=== PATIENT | male | born 1990 | race Caucasian/White ===

== ENCOUNTER 2021-09-22 09:29 | Emergency (ER) | payer SELFPAY ==
[2021-09-22 09:39] VITALS: BP 169/108; PULSE 101; RESP 16; O2SAT 94; BMI 36.9
--- NOTE | 2021-09-22 09:57 | XR_ITS ---
WS: [id number] Right forearm, AP and lateral views, 09/22/2021 Clinical Data: injury Comparison: None. Findings: No definite fractures or dislocations are seen. The soft tissues are normal. The visualized right elb ow shows no obvious abnormalities. On the lateral view the distal scaphoid shows a possible unfused fragment or old fracture. XR/XR forearm RT 2V [id number] Impression: 1. Negative for fracture of radius or ulna. 2. Possible old injury or accessory ossicle of the distal right scaphoid.
--- NOTE | 2021-09-22 10:17 | ED_ITS ---
HPI - Extremity Problem General: Chief complaint: Extremity Injury, Upper Stated complaint: Right Forearm injury Time Seen by Provider: 09/22/21 09:57 Source: patient Mode of arrival: ambulatory Limitations: no limitations History of Present Illness: 31-year-old male presents emergency room complaining of right forearm pain. 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 No other injury no crush injury no deformity. MD Complaint: extremity pain Onset (ago): day(s) Pain Consistency: constant Location: right and upper extremity Quality: sharp Relieving factors: rest Exacerbating factors: range of motion and palpation Associated symptoms: Deny chest pain, fever(s) or rash Review of Systems Const: Denies: fever(s), chills, body aches, change in appetite, fatigue or malaise ENMT: Denies: throat pain, ear or mastoid pain, nasal discharge or nasal congestion Card: Denies: chest pain, edema, dyspnea on exertion or orthopnea Resp: Denies: dyspnea, productive cough or non-productive cough GI: Denies: abdominal pain, nausea, vomiting, hematemesis, coffee ground emesis, diarrhea, constipation, bloating, hematochezia or melena : Denies: flank pain, dysuria, urinary frequency or urinary urgency Skin/Breast: Denies: rash or pruritus [facility] ED PFSH: Medical History (Updated 09/23/21 @ 08:25 by Allen Garcia DO) No significant medical problems Surgical History (Updated 09/23/21 @ 08:25 by Allen Garcia DO) No significant past surgical history Social History (Updated 09/23/21 @ 08:26 by Allen Garcia DO) Smoking and tobacco status: current every day smoker Physical Exam Const: COMMON NORMALS: no acute distress GENERAL APPEARANCE: cooperative and comfortable ORIENTATION/CONSCIOUSNESS: Yes awake, Yes oriented to person, Yes oriented to place and Yes oriented to time HENMT: COMMON NORMALS: normocephalic, atraumatic and hearing grossly normal bilaterally HEAD & SCALP: normocephalic and atraumatic Neck/C-Spine: COMMON NORMALS: no JVD Resp: COMMON NORMALS: normal respiratory effort, No retractions, No use of accessory muscles and clear to auscultation bilaterally AUSCULTATION: clear to auscultation bilaterally Cardio: COMMON NORMALS: no JVD, regular rate, regular rhythm and No murmurs present (Cardio) RATE: regular rate RHYTHM: regular rhythm Extremity: COMMON NORMALS: normal to inspection, capillary refill normal, no clubbing, cyanosis or edema, no calf tenderness and no pedal edema OTHER: Normal sensation to both hands patient has pain over the medial volar aspect of the forearm with attempted flexion also mildly so somewhat with extension. He is able to hold against resistance while in flexion of his third fourth and fifth fingers does not affect his index finger or thumb. At the site of pain there is no induration minimal swelling. Neuro: SENSORIUM/ORIENTATION: Yes oriented to person, Yes oriented to place an d Yes oriented to time Skin: COMMON NORMALS: no rashes or lesions noted GENERAL SKIN EXAM: no rashes or lesions noted Course Vital Signs: Vital signs: Vital Signs Pulse Rate 101 H 09/22/21 09:39 Respiratory Rate 16 09/22/21 09:39 Blood Pressure 169/108 09/22/21 09:39 Pulse Oximetry 94 09/22/21 09:39 MDM - Extremity (Nontraumatic) Medical Decision Making Ice. We will place him in a splint and a sling have him follow-up with Ortho if he has worsening or recurrent problems return no use of the hand until released by Ortho. Medical Records I reviewed the patient's medical records. Lab Data I reviewed the patient's lab results. Radiology Impressions Forearm X-Ray 09/22/21 09:57 Impression: 1. Negative for fracture of radius or ulna. 2. Possible old injury or accessory ossicle of the distal right scaphoid. Discharge Plan Discharge Clinical Impression: Muscle strain of right forearm Prescriptions: New diclofenac sodium 75 mg tablet,delayed release (DR/EC) 75 mg PO Q12H PRN (Reason: pain) Qty: 20 0RF Discharge Orders: Discharge ED (Routine); Ordered 09/22/21 Ordered By: Allen Garcia Referrals: Nikole Solano APN [Primary Care Provider] - Discharge Diet: Usual diet Discharge Activity: Limit activity as instructed Patient Instructions: Opioid Safety Activity Restrictions/Additional Instructions: No use of the right arm use splint and sling until released by orthopedics. Case will make arrangements for you to be seen by orthopedic Coding Level of Care Code ED Rig Operator for Shala Ocampo
== END 2021-09-22 10:47 | disposition home or self-care (01) ==
PROVIDERS: Emergency Provider Family Medicine; PCP Nurse Practitioner Family
DX: S56.911A Strain of unspecified muscles, fascia and tendons at forearm level, right arm, initial encounter (principal); X58.XXXA Exposure to other specified factors, initial encounter
CPT/HCPCS: 29125; 73090; 99283

== ENCOUNTER → 2021-09-26 13:49 | Outpatient (BNVA) | payer SELFPAY | PROVIDERS: PCP Nurse Practitioner Family; Visit Provider Physician Assistant | DX: S69.90XA Unspecified injury of unspecified wrist, hand and finger(s), initial encounter (principal); X58.XXXA Exposure to other specified factors, initial encounter | CPT/HCPCS: 73110 ==

== ENCOUNTER 2021-09-26 15:48 | Outpatient (CLI) | payer SELFPAY | END 2021-09-26 15:49 | disposition home or self-care (01) | LOC: SPT 15:49 | PROVIDERS: PCP Nurse Practitioner Family; Visit Provider Physician Assistant | DX: Z46.89 Encounter for fitting and adjustment of other specified devices (principal); S63.591D Other specified sprain of right wrist, subsequent encounter; X58.XXXD Exposure to other specified factors, subsequent encounter | CPT/HCPCS: L3908 ==

== ENCOUNTER 2021-11-09 07:48 | Outpatient (CLI) | payer SELFPAY ==
--- NOTE | 2021-11-09 07:45 | MR_ITS ---
WS: [id number] MRI RIGHT FOREARM without CONTRAST. COMPARISON: Radiographs 09/22/2021 and 09/26/2021 Multiplanar, multisequence imaging is performed without contrast. No marrow signal abnormality. There is no edema within the ulna or radius. No joint effusion at the e lbow. No muscle edema or atrophy. Course of the ulnar nerve is negative. Cannot definitely trace the entire ulnar nerve but there is no edema or secondary findings of an nerve injury. Biceps tendon at t he radial tuberosity attachment is normal. MR/MR forearm RT wo con* [id number] IMPRESSION: 1. Negative MRI RIGHT forearm. No muscle edema or atrophy. 2. Ulnar nerve appears normal as visualized. The entire nerve is not visualize d but there are no secondary findings of nerve injury. 3. Biceps tendon at the radial tuberosity is normal. 4. With the patient's symptoms consider more proximal nerve injury.
== END 2021-11-09 07:49 | disposition home or self-care (01) ==
LOC: RAD 07:49
PROVIDERS: PCP Nurse Practitioner Family; Visit Provider Physician Assistant
DX: S59.911A Unspecified injury of right forearm, initial encounter (principal); X58.XXXA Exposure to other specified factors, initial encounter
CPT/HCPCS: 73218

== ENCOUNTER 2022-10-25 18:04 | Emergency (ER) | payer SELFPAY ==
[2022-10-25 18:30] VITALS: BP 125/70; PULSE 105; RESP 16; O2SAT 93
[2022-10-25 19:14] VITALS: BP 136/81; PULSE 107; RESP 18; TEMP 36.9; O2SAT 95
--- NOTE | 2022-10-25 19:41 | ED_ITS ---
HPI - Wound/Laceration General: Chief Complaint: Wound/Laceration Stated Complaint: right arm/left leg injury Time Seen by Provider: 10/25/22 19:41 History of Present Illness: 32-year-old male patient comes in today with increased bruising. Patient has multiple bruises to the forearms and lower extremities. Patient denies any chronic medical problems. When questioned patient does admit to heavy drinking. Patient also has a history of rapid heart rate that resolves on its own along with elevated blood pressure. Patient appears nontoxic. Patient appears in no acute distress. Associated symptoms: Denies fever(s), nausea or vomiting Review of Systems General: Reports: 10 or more systems reviewed and unremarkable except in HPI and below Const: Denies: fever(s) Card: Denies: chest pain Resp: Denies: dyspnea GI: Denies: nausea, vomiting, diarrhea or constipation Musc: Reports: extremity pain (Bruising) Skin/Breast: Reports: new lesions (Abrasion) Michelet/Lymph: Reports: easy bruising and easy bleeding [facility] ED PFSH: Medical History No significant medical problems Surgical History No significant past surgical history Social History Smoking and tobacco status: current every day smoker Physical Exam Const: COMMON NORMALS: alert HENMT: COMMON NORMALS: normocephalic HEAD & SCALP: normocephalic Neck/C-Spine: COMMON NORMALS: full ROM Chest: COMMONS NORMALS: normal inspection of the chest Resp: COMMON NORMALS: normal respiratory effort Cardio: COMMON NORMALS: regular rate and regular rhythm RATE: regular rate RHYTHM: regular rhythm GI: COMMON NORMALS: non-tender Back/Pelvis: COMMON NORMALS: thoracic and lumbar spine normal to inspection Extremity: NARRATIVE EXTREMITY EXAM: Bruising to bilateral upper extremities and lower legs. Various stages of healing. Neuro: SENSORIUM/ORIENTATION: Yes alert Course Vital Signs: Vital signs: Vital Signs Temperature 98.5 F 10/25/22 19:14 Pulse Rate 107 H 10/25/22 19:14 Respiratory Rate 18 10/25/22 19:14 Blood Pressure 136/81 10/25/22 19:14 Pulse Oximetry 95 10/25/22 19:14 Oxygen Delivery Me thod Room Air 10/25/22 18:30 MDM - Wound/Laceration Medical Decision Making Patient comes in with bruises to the forearms and lower extremities. They are at various stages of healing. Upon questioning patient does admit to heavy drinking. Vital signs are normal. Differential diagnosis includes cirrhosis of the liver, malnutrition, alcoholism, contusions. Laboratory values noted no significant abnormalities to the CBC, negative Homans' sign to the leg, INR was 1.18, sodium was 129, anion gap was 25, glucose was 641, patient did have some mild elevation of bilirubin at 1.3, AST's were 140, ALT's were 66 and alk phos was 155. Patient had nontender abdomen. 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 Patient was given 10 units of insulin and 1-1/2 L of IV saline with blood glucose coming down to 276. ABGs did not indicate acidosis with a 7.4 pH. Reviewed with patient recommendations for treatment of diabetes with metformin to start and discuss cessation of alcohol. Patient reported understanding of care plan and need for follow-up with primary care. Case management was requested to help patient with follow-up appointment. Lab Data 10/25/22 19:53 10/25/22 19:53 Laboratory Results WBC 9.1 10^3/uL (4.0-10.0) 10/25/22 19:53 RBC 3.97 10^6/uL (4.1-5.3) L 10/25/22 19:53 Hgb 12.8 g/dL (11.7-16.6) 10/25/22 19:53 Hct 37.6 % (42.0-52.0) L 10/25/22 19:53 MCV 94.7 fl (80-94) H 10/25/22 19:53 MCH 32.2 pg (28.0-34.0) 10/25/22 19:53 MCHC 34.0 g/dL (30.0-36.0) 10/25/22 19:53 RDW 12.5 % (12.1-15.1) 10/25/22 19:53 Plt Count 178 10^3/cmm (130-400) 10/25/22 19:53 MPV 10.2 fL (7.4-10.4) 10/25/22 19:53 Neut % (Auto) 53.7 % 10/25/22 19:53 Lymph % (Auto) 31.0 % 10/25/22 19:53 Cooper % (Auto) 11.9 % 10/25/22 19:53 Eos % (Auto) 2.2 % 10/25/22 19:53 Baso % (Auto) 1.0 % 10/25/22 19:53 Neut # (Auto) 4.88 10^3/uL (1.8-7.7) 10/25/22 19:53 Lymph # (Auto) 2.8 10^3/uL (0.8-4.8) 10/25/22 19:53 Cooper # (Auto) 1.1 10^3/uL (0.2-0.9) H 10/25/22 19:53 Eos # (Auto) 0.2 10^3/uL (0.0-0.8) 10/25/22 19:53 Baso # (Auto) 0.1 10^3/uL (0.0-0.1) 10/25/22 19:53 Nucleated RBC % (auto) 0 % 10/25/22 19:53 Nucleated RBCs # 0.0 /100WBC 10/25/22 19:53 PT 15.40 SECONDS (12.1-14.9) H 10/25/22 19:53 INR 1.18 (0.8-1.2) 10/25/22 19:53 D-Dimer 0.61 ug/mIFEU (0-0.59) H 10/25/22 19:53 Specimen Type Arterial 10/25/22 21:05 Sample Site Brachial, right 10/25/22 21:05 ABG pH 7.41 (7.35-7.45) 10/25/22 21:05 ABG pCO2 41.2 mmHg (35-45) 10/25/22 21:05 ABG pO2 74.7 mmHg (80.0-100.0) L 10/25/22 21:05 ABG HCO3 26.0 mmol/L (22-26) 10/25/22 21:05 ABG Base Excess 1.2 mmol/L (-2.0-2.0) 10/25/22 21:05 Miles Test N/a 10/25/22 21:05 Hematocrit 41.0 % (42-52) L 10/25/22 21:05 O2 Delivery Device None 10/25/22 21:05 FiO2 21.0 % 10/25/22 21:05 Road Machine Runner ID [email or web address] 10/25/22 21:05 Sodium 129 mmol/L (136-145) L 10/25/22 19:53 Potassium 4.1 mmol/L (3.5-5.1) 10/25/22 19:53 Chloride 87 mmol/L (98-107) L 10/25/22 19:53 Carbon Dioxide 21 mmol/L (22-29) L 10/25/22 19:53 Anion Gap 25.1 (5-19) H 10/25/22 19:53 BUN 13 mg/dL (6-20) 10/25/22 19:53 Creatinine 0.8 mg/dL (0.7-1.2) 10/25/22 19:53 GFR Calculation 111.3 mL/min (90-130) 10/25/22 19:53 Glucose 641 mg/dL (65-115) H* 10/25/22 19:53 POC Glucose 276 mg/dL (70-110) H 10/25/22 22:12 Calculated Osmolality 298 mOsm/kg (285-295) H 10/25/22 19:53 Calcium 9.5 mg/dL (8.5-10.5) 10/25/22 19:53 Total Bilirubin 1.3 mg/dL (0.15-1.2) H 10/25/22 19:53 AST 140 U/L (0-40) H 10/25/22 19:53 ALT 66 U/L (0-41) H 10/25/22 19:53 Alkaline Phosphatase 155 U/L (40-130) H 10/25/22 19:53 Total Protein 8.2 g/dL (6.6-8.7) 10/25/22 19:53 Albumin 4.2 g/dL (3.5-5.2) 10/25/22 19:53 Globulin 4.0 g/dL (1.3-4.6) 10/25/22 19:53 Discharge Plan Discharge Patient Disposition: Home Clinical Impression: Abnormal bruising, Hyperglycemia due to diabetes mellitus, Alcohol abuse Condition: Stable Prescriptions: New metformin 500 mg tablet 500 mg PO BID Qty: 60 0RF No Action (DME) cock up splint See Rx Instructions .Route .MEDSUPPLY Qty: 1 0RF Rx Instructions: As directed diclofenac sodium 75 mg tablet,delayed release (DR/EC) 75 mg PO Q12H PRN (Reason: pain) Qty: 20 0RF Discharge Orders: Discharge ED (Routine); Ordered 10/25/22 Ordered By: Dustin Pressley Referrals: Nikole Solano APN [Primary Care Provider] - Discharge Diet: Usual diet Discharge Activity: Increase activity as tolerated Patient Instructions: Type 2 Diabetes in Adults: New Diagnosis (DC) Activity Restrictions/Additional Instructions: Eat a healthy diet with plenty of fresh fruits and vegetables and lean meat. Avoid too many processed foods. Try to decrease alcohol consumption to no more than 2 drinks a day. Follow-up with primary care for further instructions. Take metformin 500 mg twice a day with your morning and evening meal. Case management will contact you regarding follow-up appointment. Return to ER for new concerns. Coding Level of Care Code ED Brand Marketing Coordinator for Shala Ocampo
[2022-10-25] MEDS: bacitracin ointment Pkt 1 EACH TOPICAL (20:11)
[2022-10-25 20:12] LABS: Basophils # 0.1 10^3/uL (0.0-0.1); Eosinophils # 0.2 10^3/uL (0.0-0.8); Eosinophils % 2.2 %; Hematocrit 37.6 % (42.0-52.0); Hemoglobin 12.8 g/dL (11.7-16.6); Lymphocytes # 2.8 10^3/uL (0.8-4.8); Mean Corpuscular Hemoglobin 32.2 pg (28.0-34.0); Mean Corpuscular Volume 94.7 fl (80-94); Mean Platelet Volume 10.2 fL (7.4-10.4); Monocytes # 1.1 10^3/uL (0.2-0.9); Monocytes % 11.9 %; Neutrophils # 4.88 10^3/uL (1.8-7.7); Neutrophils % 53.7 %; Nucleated Red Blood Cells % 0 %; Platelet Count 178 10^3/cmm (130-400); Red Blood Count 3.97 10^6/uL (4.1-5.3); Red Cell Distribution Width 12.5 % (12.1-15.1); White Blood Count 9.1 10^3/uL (4.0-10.0)
[2022-10-25 20:24] LABS: INR 1.18 (0.8-1.2)
[2022-10-25 20:26] LABS: D Dimer 0.61 ug/mIFEU (0-0.59)
[2022-10-25 20:37] LABS: Alanine Aminotransferase 66 U/L (0-41); Albumin Level 4.2 g/dL (3.5-5.2); Alkaline Phosphatase 155 U/L (40-130); Anion Gap 25.1 (5-19); Aspartate Amino Transferase 140 U/L (0-40); Blood Urea Nitrogen 13 mg/dL (6-20); Calcium 9.5 mg/dL (8.5-10.5); Carbon Dioxide 21 mmol/L (22-29); Chloride 87 mmol/L (98-107); Glomerular Filtration Rate 111.3 mL/min (90-130); Osmolality Calculated 298 mOsm/kg (285-295); Potassium 4.1 mmol/L (3.5-5.1); Sodium 129 mmol/L (136-145); Total Bilirubin 1.3 mg/dL (0.15-1.2); Total Protein 8.2 g/dL (6.6-8.7)
[2022-10-25 20:40] LABS: Glucose 641 mg/dL (65-115)
[2022-10-25] MEDS: insulin regular-human 100 units/1 mL 10 UNIT IVP (21:10)
[2022-10-25] MEDS: sodium chloride 0.9% 1,000 ML 999 ML IV (21:10)
[2022-10-25 21:14] LABS: ABG PCO2 41.2 mmHg (35-45); ABG PH Result 7.41 (7.35-7.45); Base Excess ABG 1.2 mmol/L (-2.0-2.0); Blood Gas Sample Site Brachial, right; Blood Gas Sample Type Arterial; PO2 ABG 74.7 mmHg (80.0-100.0)
[2022-10-25 22:16] LABS: Glucose Point of Care 276 mg/dL (70-110)
--- NOTE | 2022-10-26 08:53 | DCPLANNER ---
bilingual case manager had message to speak with patient about getting established with a primary care physician. bilingual case manager spoke with patients mother, gave her the information to [facility], where patient can apply for the sliding scale.
== END 2022-10-25 23:07 | disposition home or self-care (01) ==
PROVIDERS: Emergency Provider Nurse Practitioner Family; PCP Nurse Practitioner Family
DX: S50.12XA Contusion of left forearm, initial encounter (principal); S50.11XA Contusion of right forearm, initial encounter; S80.12XA Contusion of left lower leg, initial encounter; S80.11XA Contusion of right lower leg, initial encounter; E11.65 Type 2 diabetes mellitus with hyperglycemia; F10.10 Alcohol abuse, uncomplicated; F17.210 Nicotine dependence, cigarettes, uncomplicated; X58.XXXA Exposure to other specified factors, initial encounter
CPT/HCPCS: 36415; 36416; 36600; 80053; 82803; 82962; 85025; 85378; 85610; 96374; 99284; J1815; J7030

== ENCOUNTER 2023-07-01 17:06 | Inpatient (IN) | payer SELFPAY ==
[2023-07-01] VITALS (50 sets, daily range): BP systolic 121–163; BP diastolic 74–114; PULSE 76–161; RESP 15–28; TEMP 36.9–37.1; O2SAT 81–100; BMI 35.8
--- NOTE | 2023-07-01 17:15 | ECG_ITS ---
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 Measurements Intervals [place] Rate: 150 P: 164 NH: 132 QRS: 87 QRSD: 105 T: 269 QT: 231 QTc: 365 Interpretive Statements ECTOPIC ATRIAL TACHYCARDIA, POSSIBLE ATRIAL FLUTTER POSSIBLE INFERIOR MYOCARDIAL INFARCTION , OF INDETERMINATE AGE [30 ms Q WAVE IN II/aVF] MODERATE T-WAVE ABNORMALITY, CONSIDER ANTEROLATERAL ISCHEMIA [-0.1+ mV T-WAVE IN V3-V6] CRITICAL TEST RESULT Compared to ECG 08/25/2018 09:42:09 Myocardial infarct finding now present T-wave abnormality now present Possible ischemia now present Sinus rhythm no longer present Electronically Signed On 07-01-2023 19:30:34 CDT by Petr Pandey M.D. [id number]
--- NOTE | 2023-07-01 17:15 | XRR_ITS ---
PROCEDURE INFORMATION: Exam: XR Chest Exam date and time: 07/01/2023 5:26 PM Age: 33 years old Clinical indication: Other: AMS; Additional info: CVA TECHNIQUE: Imaging protocol: Radiologic exam of the chest. Views: 1 view. COMPARISON: CR XR chest 1V [id number] 08/25/2018 9:59 AM FINDINGS: Lungs: No focal consolidation. Pleural spaces: No evidence of pneumothorax. No evidence of pleural effusion. Heart/Mediastinum: Cardiomediastinal silhouette is within normal limits. Bones/joints: No evidence of acute osseous abnormality. XR/XR chest 1V portable [id number] IMPRESSION: 1. No acute cardiopulmonary abnormality.
--- NOTE | 2023-07-01 17:15 | CTR_ITS ---
PROCEDURE INFORMATION: Exam: CT Head Without Contrast Exam date and time: 07/01/2023 5:20 PM Age: 33 years old Clinical indication: Stroke-like symptoms; Speech disturbance; Additional info: Symptoms of acute stroke TECHNIQUE: Imaging protocol: Computed tomography of the head without contrast. Radiation optimization: All CT scans at this facility use at least one of these dose optimization techniques: automated exposure control; mA and/or kV adjustment per patient size (includes targeted exams where dose is matched to clinical indication); or iterative reconstruction. Other technique: STROKE PROTOCOL was implemented. COMPARISON: No relevant prior studies available. RADIATION DOSE METRICS: Total DLP (mGy-cm): 1219.88 FINDINGS: Brain: No evidence of intra-axial or extra-axial hemorrhage. No mass effect or midline shift. Gutierrez-white differentiation is maintained. Basilar cisterns are patent. Cerebral ventricles: No hydrocephalus. Paranasal sinuses: Opacification of the left anterior ethmoid air cells and left maxillary sinus. Mastoid air cells: The visualized mastoids and middle ears are clear. Bones/joints: The visualized calvarium and bony orbits are intact. Soft tissues: No gross soft tissue abnormality. CT/CT head thrombolytic [id number] IMPRESSION: 1. No acute intracranial abnormality. ASSESSMENT: ASPECTS ([place] Stroke Program Early CT Score) is 10.
--- NOTE | 2023-07-01 17:15 | CTR_ITS ---
PROCEDURE INFORMATION: Exam: CTA Head With Contrast, Arteriography Exam date and time: 07/01/2023 5:23 PM Age: 33 years old Clinical indication: Stroke-like symptoms; Speech disturbance; Additional info: CVA TECHNIQUE: Imaging protocol: Computed tomographic angiography of the head with contrast. Exam focused on the arteries. 3D rendering (Not supervised by radiologist): MIP and/or 3D reconstructed images were created by the technologist. Radiation optimization: All CT scans at this facility use at least one of these dose optimization techniques: automated exposure control; mA and/or kV adjustment per patient size (includes targeted exams where dose is matched to clinical indication); or iterative reconstruction. Contrast material: OMNI 350; Contrast volume: 100 ml; Contrast route: INTRAVENOUS (IV); COMPARISON: CT head thrombolytic [id number] 07/01/2023 5:20 PM RADIATION DOSE METRICS: Total DLP (mGy-cm): 550.37 FINDINGS: ANTERIOR CIRCULATION: Right internal carotid artery: Patent. Right middle cerebral artery: Patent. Right anterior cerebral artery: Patent. Left internal carotid artery: Patent. Left middle cerebral artery: Patent. Left anterior cerebral artery: Patent. POSTERIOR CIRCULATION: Right vertebral artery: Patent. Left vertebral artery: Patent. Basilar artery: Patent. Right posterior cerebral artery: Patent. Left posterior cerebral artery: Patent. Other: Opacification of the left frontal, anterior ethmoid and maxillary sinuses. PROCEDURE INFORMATION: Exam: CTA Neck With Contrast Exam date and time: 07/01/2023 5:23 PM Age: 33 years old Clinical indication: Stroke-like symptoms; Speech disturbance; Additional info: CVA TECHNIQUE: Imaging protocol: Computed tomographic angiography of the neck with contrast. Exam focused on the cervical segments of the vasculature. 3D rendering (Not supervised by radiologist): MIP and/or 3D reconstructed images were created by the technologist. Radiation optimization: All CT scans at this facility use at least one of these dose optimization techniques: automated exposure control; mA and/or kV adjustment per patient size (includes targeted exams where dose is matched to clinical indication); or iterative reconstruction. Contrast material: OMNI 350; Contrast volume: 100 ml; Contrast route: INTRAVENOUS (IV); COMPARISON: CT head thrombolytic [id number] 07/01/2023 5:20 PM RADIATION DOSE METRICS: Total DLP (mGy-cm): 550.37 FINDINGS: Right common carotid artery: Patent. No evidence of hemodynamically significant stenosis. Right internal carotid artery: Patent. No evidence of hemodynamically significant stenosis. Right external carotid artery: Patent. Left common carotid artery: Patent. No evidence of hemodynamically significant stenosis. Left internal carotid artery: Patent. No evidence of hemodynamically significant stenosis. Left external carotid artery: Patent. Right vertebral artery: Patent. Vertebral arteries are codominant. Left vertebral artery: Patent. Soft tissues: No gross soft tissue abnormality. No evidence of fluid collection or hematoma. Bones/joints: No evidence of acute fracture or subluxation of the cervical spine. There is height loss of the C7 vertebral body raising the question of sequela of remote trauma. CT/CT angio headneck* [id number] IMPRESSION: 1. No evidence of large vessel occlusion or acute thrombosis in the head. 2. Paranasal sinus disease on the left. IMPRESSION: 1. No evidence of acute thrombosis or hemodynamically significant stenosis in the neck. REFERENCES: NASCET CRITERIA. The degree of stenosis in the cervical segment of the internal carotid artery is based on NASCET criteria. Normal is no stenosis. Mild is less than 50% stenosis. Moderate is 50-69% stenosis. Severe is 70% to 99% stenosis. Total occlusion is no detectable patent lumen.
[2023-07-01 17:16] LABS: Glucose Point of Care 154 mg/dL (70-110)
--- NOTE | 2023-07-01 17:22 | ED_ITS ---
HPI - Neuro Symptoms/Deficit 2 General: Chief Complaint: Neuro Symptoms/Deficit Stated Complaint: strok like symptoms Time Seen by Provider: 07/01/23 17:13 Source: patient and family Mode of arrival: ambulatory Limitations: no limitations History of Present Illness: 33-year-old male with a history of diabe yasmin states that he has had slurred speech since this morning 1:30 AM patient is here with her mother she states she spoke to him at 10 he was slurring his words. Patient currently is having a very hard time finding words he is diaphoretic and tachycardic. No focal weaknesses. Denies any pain patient is a daily drinker of alcohol per mom he has been having tachycardia for the last 3 days as well Associated symptoms: Deny chest pain, headache(s), nausea or vomiting Review of Systems 2 Const: Denies: fever(s) or chills Eyes: Denies: blurry vision or eye discomfort ENMT: Denies: throat pain or dental pain Card: Denies: chest pain Resp: Denies: dyspnea GI: Denies: abdominal pain, nausea, vomiting or diarrhea Musc: Denies: neck pain or back pain Skin/Breast: Denies: rash Neuro: Reports: Slurred speech present; Denies: headache(s) PFSH ED 2 PFSH: Medical History No significant medical problems Surgical History No significant past surgical history Social History Smoking and tobacco/nicotine status: current every day tobacco/nicotine user NIH stroke score 2 NIHSS: Level Of Consciousness - 1a: 0 Level Of Consciousness Questions - 1b: Both Correct Level Of Consciousness Commands - 1c: Both Correct Best Gaze - 2: Normal Visual Rodriguez - 3: No Visual Loss Facial Palsy - 4: N ormal Motor Arm Right - 5: No Drift Motor Arm Left - 5: Drift Motor Leg Right - 6: No Drift Motor Leg Left - 6: No Drift Limb Ataxia - 7: Absent Sensory - 8: Normal Best Language - 9: No Aphasia Dysarthia - 10: Severe Dysarthia Extinction And Inattention - 11: 0 Score: Total Score: 3 Physical Exam 2 Const: COMMON NORMALS: patient oriented x3 HENMT: COMMON NORMALS: normocephalic and atraumatic HEAD & SCALP: n ormocephalic and atraumatic Neck/C-Spine: COMMON NORMALS: full ROM and supple Chest: COMMONS NORMALS: normal inspection of the chest Resp: COMMON NORMALS: normal respiratory effort, No retractions, No use of accessory muscles and clear to auscultation bilaterally AUSCULTATION: clear to auscultation bilaterally Cardio: COMMON NORMALS: regular rhythm and No murmurs present (Cardio) R ATE: tachycardic RHYTHM: regular rhythm GI: COMMON NORMALS: Normal to inspection, nondistended, normoactive bowel sounds present, Soft to palpation, non-tender and no masses PALPATION: Yes Soft to palpation Extremity: COMMON NORMALS: normal to inspection and full ROM Neuro: COMMON NORMALS: patient oriented x3 and moves all extremities OTHER: aphasia, slurred speech Psych: COMMON NORMALS: mental status grossly normal, Normal thought process present and cooperative THOUGHT PROCESS: Normal thought process present Skin: COMMON NORMALS: no rashes or lesions noted and no wounds GENERAL SKIN EXAM: no rashes or lesions noted Course 2 Vital Signs: Vital signs: Vital Signs Temperature 98.4 F 07/01/23 18:15 Pulse Rate 91 07/01/23 18:30 Respiratory Rate 20 H 07/01/23 18:15 Blood Pressure 129/94 07/01/23 18:15 Pulse Oximetry 94 07/01/23 18:15 Oxygen Delivery Me thod Room Air 07/01/23 18:15 MDM - Neuro Symptoms/Deficit Medical Decision Making Patient presented here with some slurred speech swallowing difficulty talking he has not been a tPA candidate as symptoms started at 1:30 AM his CTA here is normal he is a daily drinker he does have an elevated alcohol level here he was in A-fib with RVR [facility] have spoke to the hospitalist will admit at this time. Medical Records I reviewed the patient's medical records. Lab Data I reviewed the patient's lab results. 07/01/23 17:15 07/01/23 17:15 Radiology Impressions Chest X-Ray 07/01/23 17:15 IMPRESSION: 1. No acute cardiopulmonary abnormality. Head CT 07/01/23 17:15 IMPRESSION: 1. No acute intracranial abnormality. ASSESSMENT: ASPECTS ([place] Stroke Program Early CT Score) is 10. Head/Neck CTA 07/01/23 17:15 IMPRESSION: 1. No evidence of large vessel occlusion or acute thrombosis in the head. 2. Paranasal sinus disease on the left. IMPRESSION: 1. No evidence of acute thrombosis or hemodynamically significant stenosis in the neck. REFERENCES: NASCET CRITERIA. The degree of stenosis in the cervical segment of the internal carotid artery is based on NASCET criteria. Normal is no stenosis. Mild is less than 50% stenosis. Moderate is 50-69% stenosis. Severe is 70% to 99% stenosis. Total occlusion is no detectable patent lumen. Laboratory Results WBC 12.39 10^3/uL (3.29-11.43) H 07/01/23 17:15 RBC 4.40 10^6/uL (3.85-5.65) 07/01/23 17:15 Hgb 14.30 g/dL (11.27-16.99) 07/01/23 17:15 Hct 41.9 % (37-53) 07/01/23 17:15 MCV 95.2 fl (82-101) 07/01/23 17:15 MCH 32.5 pg (27-33) 07/01/23 17:15 MCHC 34.1 g/dL (30-55) 07/01/23 17:15 RDW 13.2 % (12.1-15.1) 07/01/23 17:15 Plt Count 224 10^3/cmm (157-399) 07/01/23 17:15 MPV 10.7 fL (7.4-10.4) H 07/01/23 17:15 Neut % (Auto) 55.0 % 07/01/23 17:15 Lymph % (Auto) 28.0 % 07/01/23 17:15 Buchanan % (Auto) 14.2 % 07/01/23 17:15 Eos % (Auto) 1.4 % 07/01/23 17:15 Baso % (Auto) 1.0 % 07/01/23 17:15 Neut # (Auto) 6.81 10^3/uL (1.8-7.7) 07/01/23 17:15 Lymph # (Auto) 3.5 10^3/uL (0.8-4.8) 07/01/23 17:15 Buchanan # (Auto) 1.8 10^3/uL (0.2-0.9) H 07/01/23 17:15 Eos # (Auto) 0.2 10^3/uL (0.0-0.8) 07/01/23 17:15 Baso # (Auto) 0.1 10^3/uL (0.0-0.1) 07/01/23 17:15 Nucleated RBC % (auto) 0 % 07/01/23 17:15 Nucleated RBCs # 0.0 /100WBC 07/01/23 17:15 PT 15.30 SECONDS (12.1-14.9) H 07/01/23 17:15 INR 1.17 (0.8-1.2) 07/01/23 17:15 APTT 40.0 SECONDS (23.9-36.7) H 07/01/23 17:15 Sodium 137 mmol/L (136-145) 07/01/23 17:15 Potassium 3.5 mmol/L (3.5-5.1) 07/01/23 17:15 Chloride 100 mmol/L (98-107) 07/01/23 17:15 Carbon Dioxide 21 mmol/L (22-29) L 07/01/23 17:15 Anion Gap 19.5 (5-19) H 07/01/23 17:15 BUN 16 mg/dL (6-20) 07/01/23 17:15 Creatinine 0.7 mg/dL (0.7-1.2) 07/01/23 17:15 GFR Calculation 129.1 mL/min (90-130) 07/01/23 17:15 Glucose 166 mg/dL (65-115) H 07/01/23 17:15 POC Glucose 154 mg/dL (70-110) H 07/01/23 17:13 Calculated Osmolality 289 mOsm/kg (285-295) 07/01/23 17:15 Calcium 9.5 mg/dL (8.5-10.5) 07/01/23 17:15 Total Bilirubin 1.8 mg/dL (0.15-1.2) H 07/01/23 17:15 AST 196 U/L (0-40) H 07/01/23 17:15 ALT 63 U/L (0-41) H 07/01/23 17:15 Alkaline Phosphatase 169 U/L (40-130) H 07/01/23 17:15 Total Protein 9.3 g/dL (6.6-8.7) H 07/01/23 17:15 Albumin 4.0 g/dL (3.5-5.2) 07/01/23 17:15 Globulin 5.3 g/dL (1.3-4.6) H 07/01/23 17:15 Ethyl Alcohol 101 mg/dL (0-10) H 07/01/23 17:15 All radiology interpretation(s) finalized by discharge EKG Data EKG 1: I personally reviewed and interpreted this EKG as follows: EKG interpretation date: 07/01/23 EKG interpretation time: 17:43 Interpretation: atrial fib with rvr hr [address] elevation qrs [id number] Critical Care Time 2 Critical Care Time: Critical Care Time: Yes Total Critical Care Time: 40 Attestation: The high probability of a clinically significant, sudden or life threatening deterioration of the patient's cvsystem(s) required my full and direct attention, intervention and personal management. The critical care time is as shown. This time is in addition to time spent performing any reported procedures but includes the following: [x] Data and vital sign review and interpretation [x] Patient assessment, examination and intervention [x] Documentation [x] Medication orders and management Discharge Plan Discharge Patient Disposition: Admitted As Inpatient Clinical Impression: Atrial fibrillation with RVR, Alcohol intoxication, Slurred speech Condition: Stable Prescriptions: No Action (DME) cock up splint See Rx Instructions .Route .MEDSUPPLY Qty: 1 0RF Rx Instructions: As directed diclofenac sodium 75 mg tablet,delayed release (DR/EC) 75 mg PO Q12H PRN (Reason: pain) Qty: 20 0RF metformin 500 mg tablet 500 mg PO BID Qty: 60 0RF Referrals: Nikole Solano APN [Primary Care Provider] - Coding Level of Care Code ED Correctional Medicine Physician for marvin Ocampo
[2023-07-01 17:27] LABS: Basophils # 0.1 10^3/uL (0.0-0.1); Eosinophils # 0.2 10^3/uL (0.0-0.8); Eosinophils % 1.4 %; Hematocrit 41.9 % (37-53); Lymphocytes # 3.5 10^3/uL (0.8-4.8); Mean Corpuscular HGB Conc 34.1 g/dL (30-55); Mean Corpuscular Hemoglobin 32.5 pg (27-33); Mean Corpuscular Volume 95.2 fl (82-101); Mean Platelet Volume 10.7 fL (7.4-10.4); Monocytes # 1.8 10^3/uL (0.2-0.9); Monocytes % 14.2 %; Neutrophils # 6.81 10^3/uL (1.8-7.7); Nucleated Red Blood Cells % 0 %; Platelet Count 224 10^3/cmm (157-399); Red Cell Distribution Width 13.2 % (12.1-15.1); White Blood Count 12.39 10^3/uL (3.29-11.43)
[2023-07-01] MEDS: sodium chloride 0.9% 1,000 ML 999 ML IV ×2 (17:31→18:08)
[2023-07-01] MEDS: iohexol 350 mg/mL 500 mL Btl (per mL) IV (17:35)
[2023-07-01 17:39] LABS: INR 1.17 (0.8-1.2)
--- NOTE | 2023-07-01 17:48 | PC.NURSE ---
pt in SVT on athletic monitor
[2023-07-01] MEDS: dilTIAZem 5 mg/mL SDV 5 mL 15 MG IVP (17:54)
[2023-07-01 17:57] LABS: Alanine Aminotransferase 63 U/L (0-41); Alcohol Level 101 mg/dL (0-10); Alkaline Phosphatase 169 U/L (40-130); Aspartate Amino Transferase 196 U/L (0-40); Blood Urea Nitrogen 16 mg/dL (6-20); Calcium 9.5 mg/dL (8.5-10.5); Carbon Dioxide 21 mmol/L (22-29); Chloride 100 mmol/L (98-107); Creatinine Clr Calc Pharmacy 215.3045; Globulin 5.3 g/dL (1.3-4.6); Glomerular Filtration Rate 129.1 mL/min (90-130); Glucose 166 mg/dL (65-115); Osmolality Calculated 289 mOsm/kg (285-295); Sodium 137 mmol/L (136-145); Total Bilirubin 1.8 mg/dL (0.15-1.2); Total Protein 9.3 g/dL (6.6-8.7)
[2023-07-01 18:04] LABS: Anion Gap 19.5 (5-19); Potassium 3.5 mmol/L (3.5-5.1)
[2023-07-01] MEDS: aspirin 81 mg Chew Tablet 324 MG PO (18:07)
[2023-07-01] MEDS: dilTIAZem 100 MG in sodium chloride 0.9% (add-van) 100 ML IV (18:08)
--- NOTE | 2023-07-01 18:09 | P.CONIM_ITS ---
Providers/Reason For Consult 2 Consulting Physician/Specialty*: Robin Whatley MD neurology and epilepsy Reason for Consult*: Acute care/Code stroke emergency department room #2 Primary Care Provider: Nikole Solano APN History of Present Illness History of Present Illness Doug Regalado is a 33 year old male with a history of hypertension and diabetes mellitus. Patient also has a history of drinking hard liquor at least 1 pint a day and smoking approximately 1 pack of cigarettes a day. According to the patient's mother who was present in the emergency department room #2, on the morning of 06/30/2023 around 7:30 AM she noticed that her son was off balance and confused. Around 8 AM the patient was putting the collar on the dog to take the dog outside and reported feeling dizzy and fell face down. Around 8:15 AM on 06/30/2023 the mother decided that patient would not go to work since patient was complaining of feeling off balance. The mother stated that she left for work around 9 or 10 AM and returned home around 6 PM. She stated at that time the patient reported that he was still feeling off balance but was able to help her unload an appliance off of the truck. The mother stated that she and the patient had dinner around 7:45 PM and went to bed around 8:30 PM. The patient woke up around 1:30 AM on 07/01/2023 to go to work. According to the patient's mother, the patient seemed okay but according to the patient he was still feeling off balance. 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 Around 10 AM on 07/01/2023 the mother stated that the patient's boss texted her and said that the patient needed to be taken to the emergency room secondary to inability to speak, balance difficulty, and complaints of dizziness. The patient reported that 3 days prior to presenting to [facility] emergency room on 07/01/2023 he was experiencing elevated blood pressure. The patient also stated that he has a broken tooth and has been dealing with a dental infection for approximately 2 weeks. The patient's mother states that she gave the patient some of her amoxicillin for the dental issue. Code stroke was initiated on 07/01/2023 at 5:[address] and CT angiogram of the head and neck were obtained on 07/01/2023 and were reported to be negative by the radiologist that interpreted the study. NIH score =3 (secondary to clumsiness in the left upper extremity, nonfluent aphasia and dysarthria). Accu-Chek glucose 154. Since the patient's last known well was 06/30/2023 around 7:30 AM, patient was not a candidate for thrombolytics and no thrombolytics were administered. Cardiac cardiac monitor technician revealed patient to be in supraventricular tachycardia (SVT). The attending ER physician prescribed diltiazem for the SVT. Drug allergies: Rocephin which resulted in a rash Home medications: Diclofenac 75 mg p.o. every 12 hours, as needed Metformin 500 mg p.o. twice daily Past medical history: Hypertension Diabetes mellitus Overweight Lower extremity polyneuropathy Habits: The patient smokes 1 pack/day. He also reported heavy drinking and reports drinking hard liquor daily. 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 Review of Systems 2 General: Reports: 10 or more systems reviewed and unremarkable except in HPI and below Medications/Allergies Home Medications Medication Instructions Recorded Confirmed Last Taken Type diclofenac sodium 75 mg 75 mg PO Q12H PRN pain #20 tabs 09/22/21 11/21/21 Unknown Rx tablet,delayed release cock up splint #1 ea 09/26/21 11/21/21 Unknown Rx metformin 500 mg tablet 500 mg PO BID #60 tabs 10/25/22 Unknown Rx Allergies Allergy/AdvReac Type Severity Reaction Status Date / Time ceftriaxone [From Rocephin] Allergy Unknown Verified 10/25/22 19:18 Current Medications Generic Name Dose Route Start Last Admin Trade Name Freq PRN Reason Stop Dose Admin Sodium Chloride 1,000 mls @ 999 mls/hr 07/01/23 17:16 07/01/23 17:31 Sodium Chloride 0.9% IV 07/01/23 18:16 999 mls/hr .Q1H1M ONE Administration Diltiazem HCl 100 mg/ Sodium 100 mls @ 0 mls/hr 07/01/23 18:00 07/01/23 18:08 Chloride IV 5 mg/hr .Q0M ROBERT 5 mls/hr Administration Protocol Per Protocol Sodium Chloride 1,000 mls @ 999 mls/hr 07/01/23 18:00 07/01/23 18:08 Sodium Chloride 0.9% IV 07/01/23 19:00 999 mls/hr .Q1H1M ONE Administration PFSH Acute 2 PFSH: Medical History No significant medical problems Surgical History No significant past surgical history Social History Smoking and tobacco/nicotine status: current every day tobacco/nicotine user Vitals/I&O/Wt Last Vital Signs Pulse 149 H 07/01/23 17:58 Resp 18 07/01/23 17:58 BP 121/91 07/01/23 17:58 Pulse Ox 94 07/01/23 17:58 O2 Del Method Room Air 07/01/23 17:58 Weight last 48 hrs Weight 300 lb Physical Exam 2 Narrative: NIH score = 3 (secondary to clumsiness in the left upper extremity, nonfluent aphasia, and dysarthria) Blood pressure 121/91 with heart rate 164 prior to diltiazem The patient is alert he is oriented to person place and situation. His speech is a mixture of stuttering and nonfluent aphasia. Pupils 4 mm round reactive to light and accommodation. Extraocular movements intact. There were no nystagmus. Cranial nerves II through XII intact with no obvious facial weakness. Visual rueda full via confrontation. Throat clear. There was no obvious tongue weakness. Motor testing 5/5 bilaterally. Patient did display dysmetria in the left upper extremity. Other extremities were within normal limits. Motor testing 5/5 bilaterally. Deep tendon reflexes revealed plantar responses bilaterally. Tnfi-[id number]-[id number] maneuver was within normal limits bilaterally. There was no extinction on double sensory stimulation. Throat clear. Lungs clear. Heart revealed supraventricular tachycardia. Extremities were negative for cyanosis. Abdomen revealed a rash on his lower stomach. Patient reports this is chronic. Data 07/01/23 17:15 07/01/23 17:15 A&P Assessment and plan (1) Stroke (cerebrum): Impression: 1. Nonfluent aphasia, balance difficulty, dizziness and ataxia in the left upper extremity since 06/30/2023 (note: CT angiogram of the head and neck and noncontrast head CT negative on 07/01/2023). NIH score =3. Since the patient's last known normal was 06/30/2023, patient was not a candidate for thrombolytics and no thrombolytics were administered. 2. New onset supraventricular tachycardia 3. Diabetes mellitus 4. Hypertension 5. Alcohol abuse (the patient is aware of the potential health risks associated with drinking alcohol and voiced understanding) 6. Nicotine dependence (the patient is aware of the potential health risks associated with smoking and voiced understanding) 7. History of multiple family members who experienced strokes and TIAs Plan: 1. Hypercoagulable lab for prothrombin gene mutation, anticardiolipin antibody, beta-2 glycoprotein 1, lupus anticoagulant, Leiden factor V, and homocystine 2. Lab for magnesium, free T4, free T3, TSH 3. Head MRI without and with contrast to assess for strokes and posterior fossa lesion 4. Thiamine 100 mg IV daily 5. Occupational therapy, speech therapy and physical therapy consults 6. Fall precautions 7. Recommend following NIH stroke protocol regarding antiplatelets versus anticoagulation and starting lipid-lowering agent if patient is discovered to have experienced a stroke 8. Recommend cardiac evaluation for new onset supraventricular tachycardia 9. Recommend 2D echo with bubble study to assess for embolic source for TIAs and strokes 10. Recommend patient be admitted to complete his medical workup. (2) Non-fluent aphasia: (3) Ataxia: (4) Dizziness: (5) Supraventricular tachycardia seen on cardiac cath lab radiology technologist: Consult Attestations 2 Medical Necessity Statement: The patient was evaluated by neurology for acute care/code stroke emergency department room #2 Coding Level of Care Code 91382 Diagnoses Stroke (cerebrum) I63.9 Non-fluent aphasia R47.01 Ataxia R27.0 Dizziness R42 Supraventricular tachycardia seen on cardiac cath lab radiology technologist I47.10
[2023-07-01] MEDS: dilTIAZem 5 mg/mL SDV 5 mL 10 MG IVP (18:28)
[2023-07-01] MEDS: multivitamin therapeutic Tablet 1 TAB PO (19:06)
[2023-07-01] MEDS: thiamine 100 mg Tablet PO (19:06)
[2023-07-01 20:24] LABS: Homocysteine 23.61
[2023-07-01] MEDS: dilTIAZem 30 mg Tablet PO (20:24)
[2023-07-01 20:35] LABS: Free T4 Free Thyroxine 1.23 ng/dL (0.82-1.77); Magnesium 1.1 mg/dL (1.7-2.3); T3 Free 3.1 PG/ML (2.0-4.4); Thyroid Stimulating Hormone 1.26 uIU/mL (0.27-4.20)
--- NOTE | 2023-07-01 20:36 | USCV_ITS ---
Doug Regalado Age: 33 Gender: M : 1990 Exam Date: 07/01/2023 22:38 Ordering Phys: Trey Flores DO Technologist: MANJINDER Exam Location: [facility] – [place] Indication: aflutter. History of DM. slurred speech, disorientation. Daily ETOH consumption. BP: 153 / 88 HR: 81 Rhythm: Sinus Technical Quality: Adequate MEASUREMENTS (Male / Female) Normal Values 2D ECHO LV Diastolic Diameter PLAX 4.4 cm 4.2 - 5.9 / 3.9 - 5.3 cm IVS Diastolic Thickness 1.8 cm 0.6 - 1.0 / 0.6 - 0.9 cm IVS Systolic Thickness 2.0 cm LVPW Diastolic Thickness 2.1 cm 0.6 - 1.0 / 0.6 - 0.9 cm LVPW Systolic Thickness 2.4 cm LVOT Diameter 2.4 cm LV Ejection Fraction 2D Teich 53.1 % LV Ejection Fraction MOD 2C 54.4 % LV Ejection Fraction 2C AL 54.6 % LA Diameter 3.9 cm LA Sys Volume AL 47.6 cm cubed LA Sys Volume Index AL 17.6 cm cubed/m squared Aorta at Sinotubular Diameter 3.2 cm IVC Diameter 1.2 cm M-MODE LA Ao Ratio MM 1.3 AV Cusp Separation MM 2.3 cm DOPPLER AV Peak Velocity 169.0 cm/s LVOT Peak Velocity 127.0 cm/s AV Area Cont Eq vti 3.6 cm squared AV Area Cont Eq pk 3.5 cm squared MV Peak Velocity 135.0 cm/s MV Area PHT 4.2 cm squared Mitral E to A Ratio 1.5 TV Peak E Velocity 71.0 cm/s Right Atrial Pressure 3.0 mmHg PV Peak Velocity 146.0 cm/s FINDINGS Left Ventricle Left ventricle is normal size. LV systolic function is normal with EF 55 to 60%. No regional wall motion abnormalities are seen. Diastolic function is normal. Right Ventricle Normal in size and fucntion Right Atrium Normal in size Left Atrium Normal in size Mitral Valve Structurally normal mitral valve. Trace mitral regurgitation. Aortic Valve Structurally normal aortic valve. No significant stenosis or regurgitation. Tricuspid Valve Insufficient TR jet to evaluate RVSP. Pulmonic Valve Not well visualized Pericardium Normal Aorta Normal in size IVC Appears to be normal CONCLUSIONS LV systolic function is normal with EF of 55-60% Diastolic function is normal Trace mitral regurgitation No comparison studies are available. Maximo Turcios MD (Electronically Signed) Final Date: 02 July 2023 07:45 S
--- NOTE | 2023-07-01 20:37 | P.HP_ITS ---
Providers/Chief Complaint 2 Admitting Physician: Sandra Primary Care Provider: Nikole Solano APN Chief Complaint: strok like symptoms History of Present Illness Doug Regalado is a 33 year old male presents with 3-day history of clumsiness dizziness unsteadiness. Most of the history is taken from the mother with whom he lives. Patient has been sick for couple days with cough and congestion. The mother has given him a few doses of amoxicillin but this has not been consistent with a total of 4 doses over a couple of days. He also has a dental infection in the lower right jaw. Per the mother the patient is has been drinking and smoking less since he has been sick these last 3 days. 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 His boss drove him back today after the patient had worsening symptoms and a fall. In the emergency room a stroke code was called and neurologist saw the patient. CT head and CTA head and neck are negative for acute stroke bleeding or thrombus. Neurology recommended overnight observation for MRI and cardiac workup for possible a flutter Review of Systems 2 Const: Denies: fever(s) or chills Eyes: Denies: change in vision ENMT: Denies: throat pain Card: Denies: chest pain or palpitations Resp: Reports: non-productive cough and chest congestion; Denies: dyspnea or productive cough GI: Denies: abdominal pain, nausea, vomiting or change in stool character : Denies: difficulty urinating or dysuria Musc: Denies: back pain or extremity pain Skin/Breast: Reports: rash (Just above belt line); Denies: lesions Neuro: Denies: headache(s) Psych: Reports: depression; Denies: anxiety Endo: Reports: other (Diabetes diagnosed last time he was in the emergency room) Michelet/Lymph: Denies: easy bruising or easy bleeding Medications/Allergies Home Medications Medication Instructions Recorded Confirmed Last Taken Type diclofenac sodium 75 mg 75 mg PO Q12H PRN pain #20 tabs 09/22/21 11/21/21 Unknown Rx tablet,delayed release cock up splint #1 ea 09/26/21 11/21/21 Unknown Rx metformin 500 mg tablet 500 mg PO BID #60 tabs 10/25/22 Unknown Rx Allergies Allergy/AdvReac Type Severity Reaction Status Date / Time ceftriaxone [From Rocephin] Allergy Unknown Verified 10/25/22 19:18 PFSH Acute 2 PFSH: Medical History (Updated 07/01/23 @ 20:59 by Trey Flores DO) Hypertension Diabetes mellitus Alcohol abuse No significant medical problems Surgical History No significant past surgical history Family History (Updated 07/01/23 @ 20:46 by Trey Flores DO) Other Alcohol abuse Diabetes Social History (Updated 07/01/23 @ 20:47 by Trey Flores DO) Smoking and tobacco/nicotine status: current every day tobacco/nicotine user Alcohol intake: current Alcohol type: hard liquor Alcohol use comment: 1 pint peppermint snaps daily Caregiver/support person: Yes Lives independently: No Household members: other Details: Lives with mother Housing: House Marital status: Single 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 status: employed 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 Neuro: Patient moves all extremities equally. He feigns weakness in all 4 extremities. Sensation in all 4 extremities equally. He has stuttering but but then will speak a word clearly. HEENT head is normocephalic atraumatic pupils equal round and reactive to light and commendation extraocular muscles are intact there is no scleral icterus mucous membranes are erythematous mouth there is mouth odorous his right lower jaw is more inflamed and one of the molars appears infected overall poor dentition neck is supple no JVD carotid bruits or lymphadenopathy Heart: Regular rate and rhythm distant heart sounds no loud murmur Lungs: Clear to auscultation anteriorly Abdomen: Obese nonspecific tenderness no read found rigidity or guarding Extremities: Trace edema bilateral lower extremities knees have erythema edema to the skin with a general warmth Skin: Patient has a hyperpigmented rash in the pannus and just above the belt line. The erythema over bilateral knees is noted Psych: Patient displays psychological etiology with the shaking of the head and moving arms and legs in a pattern fashion Back no obvious kyphosis or scoliosis no CVA tenderness Data 07/01/23 17:15 07/01/23 17:15 CT Head: My impression: No acute findings Other CT: Radiologist's impression: CTA head and neck Negative for thrombus EKG 1: My Interpretation: Supraventricular tachycardia at a rate of 150 EKG computer-generated impression: Atrial flutter A&P Assessment and plan (1) Atrial fibrillation with RVR: Monitor on telemetry Heart rate in the 90s now Give oral Cardizem If able to stop the drip he may go to the floor (2) Alcohol intoxication: Start Librium for detox (3) Stuttering: This is most likely a psychiatric condition Will be complete with MRI and echo (4) Alcohol abuse: Patient will need education (5) Hypertension: Ideally patient will be on low cost medication in order for compliance. 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 Patient started with depression when he lost his dog. This was followed by running with lawn for cement while he was intoxicated and perhaps other drugs. Patient received time in longterm. Approximately a year and a half ago his best friend was shot and killed. Patient at one time did live on his own but otherwise lives with his mother. While he has an employment this is a job without benefits and he is paid under the table Patient knows he has been diagnosed with diabetes and hypertension and he will not take his medications. Qualifiers: Depression Type: major depressive disorder Major depression recurrence: unspecified whether recurrent Active/Remission status: currently active Major depression episode severity: severe Psychotic features: with psychotic features Qualified Code(s): F32.3 - Major depressive disorder, single episode, severe with psychotic features (10) Dental infection: Clindamycin Plan Case management for assistance with finances, alcohol abuse programs etc. Attestations 2 Medical Necessity Statement*: Patient is placed in observation overnight Coding Level of Care Code Acute Code for [facility] Fwd Diagnoses Atrial fibrillation with RVR I48.91 Alcohol intoxication F10.929 Stuttering F80.81 Alcohol abuse F10.10 Primary hypertension I10 Hypertension type: primary hypertension Type 2 diabetes mellitus with other oral complication, without long-term current use of insulin E11.638 Diabetes mellitus type: type 2 Diabetes mellitus fci insulin use: without longshore equipment operator use Diabetes mellitus complication status: with oral complications Diabetes mellitus complication detail: with other oral complications Supraventricular tachycardia seen on supervisor blood I47.10 Dizziness R42 Current severe episode of major depressive disorder with psychotic features, unspecified whether recurrent F32.3 Depression Type: major depressive disorder Major depression recurrence: unspecified whether recurrent Active/Remission status: currently active Major depression episode severity: severe Psychotic features: with psychotic features Dental infection K04.7
[2023-07-01 21:39] LABS: Phosphorus 4.3 mg/dL (2.5-4.5)
[2023-07-02] VITALS (78 sets, daily range): BP systolic 111–179; BP diastolic 59–115; PULSE 73–167; RESP 13–30; TEMP 36.7–37.2; O2SAT 74–100
[2023-07-02] MEDS: enoxaparin 40 mg/0.4 mL Syringe SUBCUT (00:11)
[2023-07-02] MEDS: sodium chloride 0.9% 1,000 ML 125 ML IV ×3 (00:12→16:55)
[2023-07-02 01:50] LABS: Amphetamines Screen Urine Positive (Negative); Barbiturates Screen Urine Negative (Negative); Benzodiazepines Screen Urine Negative (Negative); Cocaine Screen Urine Negative (Negative); Opiate Screen Urine Negative (Negative); PCP Screen Urine Negative (Negative); THC Screen Urine Positive (Negative)
[2023-07-02] MEDS: magnesium oxide 400 mg tablet PO (01:51)
[2023-07-02] MEDS: chlordiazePOXIDE 25 mg Capsule 50 MG PO ×2 (01:51→21:35)
[2023-07-02] MEDS: magnesium sulfate premix 4 GM/100 ML PREMIX IV (02:05)
[2023-07-02] MEDS: dilTIAZem 100 MG in sodium chloride 0.9% (add-van) 100 ML 7.5 MG IV (02:06)
[2023-07-02 02:22] LABS: Add Urine Microscopic? YES; Bacteria Urine TRACE /hpf; Bilirubin Urine 1+ (Negative); Blood Urine 3+ (Negative); Glucose Urine UA Norm (Normal); Ketones Urine 1+ (Negative); Leukocyte Esterase Urine Negative (Negative); Nitrate Urine Negative (Negative); Protein Urine 2+ (Negative); Specific Gravity, Urine 1.015 (1.005-1.030); Urine Appearance Clear (CLEAR); Urine Color Yellow (Yellow); Urobilinogen Urine 4 mg/dL (Negative); pH Urine 5 (5-7)
[2023-07-02 02:23] LABS: Add Urine Culture? No; Hyaline Casts Urine 0-4 /lpf; Mucus Urine 2+ /hpf
[2023-07-02 05:37] LABS: Alanine Aminotransferase 50 U/L (0-41); Albumin Level 3.6 g/dL (3.5-5.2); Alkaline Phosphatase 139 U/L (40-130); Anion Gap 19.3 (5-19); Aspartate Amino Transferase 143 U/L (0-40); Blood Urea Nitrogen 11 mg/dL (6-20); Calcium 8.6 mg/dL (8.5-10.5); Carbon Dioxide 22 mmol/L (22-29); Chloride 99 mmol/L (98-107); Creatinine Clr Calc Pharmacy 294.2701; Globulin 4.5 g/dL (1.3-4.6); Glomerular Filtration Rate 190.3 mL/min (90-130); Glucose 118 mg/dL (65-115); Osmolality Calculated 284 mOsm/kg (285-295); Potassium 3.3 mmol/L (3.5-5.1); Sodium 137 mmol/L (136-145); Total Bilirubin 2.2 mg/dL (0.15-1.2); Total Protein 8.1 g/dL (6.6-8.7)
[2023-07-02 05:47] LABS: Cholesterol 223 mg/dL (0-200); HDL Cholesterol 62 mg/dL (60-100); LDL Cholesterol Calculated 142 mg/dL (50-129); LDL HDL Ratio 2.29 RATIO (0.00-3.22); Rapid Plasma Reagin Syphilis Nonreactive (Nonreactive); Triglycerides 94 mg/dL (0-150)
[2023-07-02 05:54] LABS: Estmated Average Glucose 157; Hemoglobin A1C 7.1 % (4.0-6.0)
[2023-07-02] MEDS: thiamine 100 mg Tablet PO (07:53)
[2023-07-02] MEDS: potassium chloride ER 20 mEq Tablet 40 MEQ PO ×2 (07:53→14:37)
--- NOTE | 2023-07-02 08:36 | PC.PHAR ---
pt states he takes care of his own medications-pt states he has a friend that gives him trulicity once a week pt states he thinks its 0.75mg q7d-pt states he does not have his own prescription for trulicity-pt states its been many months since he took metformin 500mg bid ext shows last filled 10/26/22-pt states he took his trulicity shot on sat 06/29/23-pt states he is only taking the medications entered
--- NOTE | 2023-07-02 09:09 | P.PN_ITS ---
Subjective 2 Subjective: 33-year-old male with history of psychia tric issues, diabetes mellitus, hypertension, alcohol abuse, active smoker admitted with dizziness and ataxia unsteadiness and fall. As per his mother he has been suffering for cold and cough for last few days and also has infected tooth for which he was taking Augmentin at home. He has been having dizzy spells and imbalance since last 3 days. Also he has been drinking at least 1 pint per day and has been smoking 1 pack/day. 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 This morning seen in a.m. at bedside, he admits he is feeling better, denies history of alcohol abuse and smoking. He has been lying in bed since admission and does not know if he would feel dizzy once he gets up. He denies any history of fever nausea vomiting or diarrhea. Also he had an episode of hypoxia while asleep this morning in 70's which improved with CPAP. He was found to be hypertensive with BP 174/101, received one dose of amlodipine. Medications: Reviewed: Yes Vitals/I&O/Wt Last Vital Signs Temp 98.0 F 07/02/23 07:37 Pulse 91 07/02/23 09:00 Resp 20 H 07/02/23 09:00 BP 160/83 07/02/23 09:00 Pulse Ox 95 07/02/23 09:00 O2 Del Method Nasal Cannula 07/01/23 23:48 07/01/23 07/02/23 07/02/23 22:59 06:59 14:59 Intake Total 1202.458 / 3204.941 1198.5 / 1198.5 Output Total 650 / 650 500 / 500 Balance 552.458 / 2554.941 698.5 / 698.5 Weight last 48 hrs Weight 126.552 kg Weight 126.552 kg Weight 136.078 kg Physical Exam 2 Narrative: Overweight young man restless moving all extremities, stuttering. Neuro: Patient moves all extremities equally. HEENT head is normocephalic atraumatic pupils equal round and reactive to light mouth odor present, his right lower jaw is more inflamed and one of the molars appears infected overall poor dentition Heart: Normal heart sounds, regular rate and rhythm Lungs: Clear to auscultation anteriorly Abdomen:NAD Extremities: Trace edema bilateral lower extremities Psych: Patient displays psychological etiology with the shaking of the head and moving arms and legs in a pattern fashion similar to dyskinesia like movements while talking Data 07/01/23 17:15 07/02/23 03:55 A&P Assessment and plan (1) Atrial fibrillation with RVR: (2) Stuttering: (3) Alcohol intoxication: (4) Supraventricular tachycardia seen on filler sifter machine: (5) Dental infection: (6) Dizziness: (7) Hypertension: Qualifiers: Hypertension type: primary hypertension Qualified Code(s): I10 - Essential (primary) hypertension (8) Diabetes mellitus: Qualifiers: Diabetes mellitus type: type 2 Diabetes mellitus terminal operations supervisor insulin use: without terminal operations supervisor use Diabetes mellitus complication status: with oral complications Diabetes mellitus complication detail: with other oral complications Qualified Code(s): 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 As per his mother he has been suffering for cold and cough for last few days and also has infected tooth for which he was taking Augmentin at home. He has been having dizzy spells and imbalance since last 3 days. Also he has been drinking at least 1 pint per day and has been smoking 1 pack/day. 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 Was seen in the ER by neurology, CT head was negative for acute stroke. He was found to have new onset atrial tachycardia/A-fib with RVR and was started on Cardizem drip. He is rate controlled now but still in A-fib. He was also found to have hypoxia during sleep and stuttering. 1. Atrial fibrillation- likely secondary to alcohol intoxication versus sleep apnea ,on cardizem drip, rate controlled follow up cardiology consult likely needs bridging with po metoprolol. ECHO showed LV systolic function is normal with EF of 55-60% Diastolic function is normal Trace mitral regurgitation 2. Alcoholic ketoacidosis- Will continue Librium 50 mg every 6 hours as needed Thiamine 100 mg p.o. daily. CIWA protocol 3. Normally fluent aphasia and stuttering- Follow-up psychiatry consult for stuttering and dyskinesia like abnormal movements while speaking. 4. Hypoxia-likely secondary to sleep apnea continue supplemental oxygen to keep saturation more than 90% Need to get sleep study as outpatient, but will do CPAP as needed 5. Diabetes-HbA1c was 7.1 Will do low-dose correction scale for now 6. Uncontrolled hypertension-likely secondary to anxiety, alcohol abuse and sleep apnea started on p.o. amlodipine 10 mg daily 7. elevated leucocytosis- etiology unknown, will monitor for now. elevated LFT- secondary to alcoholic steatosis. 8. DVT PPX with SQ lovenox 9. GI PPX with IV pepcid 20mg bid 10. Cadiac diet 11. He is full code for now. Attestations 2 Medical Necessity Statement*: He needs continued hospitalization more than 2 midnights for management of atrial fibrillation with daily monitoring hypoxia and uncontrolled hypertension. Also needs a psychiatry consult to evaluate for stuttering and dyskinesia like movements during speech Time Spent in Patient Care: 30 minutes Coding Level of Care Code Acute Code for [facility] Fwd Diagnoses Atrial fibrillation with RVR I48.91 Stuttering F80.81 Alcohol intoxication F10.929 Supraventricular tachycardia seen on filler sifter machine I47.10 Dental infection K04.7 Dizziness R42 Primary hypertension I10 Hypertension type: primary hypertension Type 2 diabetes mellitus with other oral complication, without long-term current use of insulin E11.638 Diabetes mellitus type: type 2 Diabetes mellitus terminal operations supervisor insulin use: without senior care use Diabetes mellitus complication status: with oral complications Diabetes mellitus complication detail: with other oral complications Non-fluent aphasia R47.01 Time Spent (min) 30
--- NOTE | 2023-07-02 09:12 | ECG_ITS ---
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 Measurements Intervals Candor Rate: 149 P: 186 [place]: 94 QRS: 92 QRSD: 102 T: -89 QT: 216 QTc: 340 Interpretive Statements ATRIAL TACHYCARDIA, POSSIBLE ATRIAL FLUTTER BORDERLINE RIGHT AXIS DEVIATION [QRS AXIS > 90] POSSIBLE INFERIOR MYOCARDIAL INFARCTION , OF INDETERMINATE AGE [30 ms Q WAVE IN II/aVF] MODERATE T-WAVE ABNORMALITY, CONSIDER LATERAL ISCHEMIA [-0.1+ mV T-WAVE IN I/aVL/V5/V6] Compared to ECG 07/01/2023 18:15:58 No significant changes Electronically Signed On 07-02-2023 12:28:15 CDT by Maximo Turcios M.D. [id number]
--- NOTE | 2023-07-02 09:30 | MR_ITS ---
WS: [id number] MRI BRAIN WITH AND WITHOUT CONTRAST HISTORY: slurred speech/dizziness COMPARISON: CT head 07/01/2023 TECHNIQUE: Multiplanar imaging performed through the brain with MultiHance 20 ml's IV. No acute infarcts are seen. Gutierrez-white matter differentiation is well preserved. No susceptibility artifacts or prior lacunar infarcts. Ventricles and extra-axial spaces are normal. Clivus and pituitary gland are normal. Visualized posterior fossa and brainstem are also normal. Postcontrast images are negative for masses or vascular malformations. Dural venous sinuses are normal. Paranasal sinuses: Extensive mucoperiosteal thickening throughout the frontal sinuses, LEFT greater t lindquist RIGHT through the frontoethmoid recesses. Mild ethmoid air cell disease. Heterogeneous consolidat ion in the LEFT maxillary sinus. Mild mucoperiosteal thickening RIGHT maxillary sinus. Mastoid air cells: Normal. Calvarium and scalp: Normal. IMPRESSION: 1. No acute infarct. Diffusion imaging is normal. No hemorrhage. 2. Paranasal sinusitis. Significant sinus disease, greatest involving the LEFT frontal and maxillary sinus. 3. No prior infarct or atrophy.
--- NOTE | 2023-07-02 09:39 | PC.NURSE ---
patient noted to have a o2 saturation of 77% upon entering room patient HR went up to >150 ekg performed per protocol patient placed on Cpap by RT and HR gradually resolved provider notified insturction to colin current [facility] GTT rate of 10
[2023-07-02] MEDS: gadobenate dimeglumine 20 mL vial IV (11:27)
[2023-07-02] MEDS: amlodipine 10 mg Tablet PO (12:42)
[2023-07-02] MEDS: dilTIAZem 100 MG in sodium chloride 0.9% (add-van) 100 ML 10 MG IV (12:42)
--- NOTE | 2023-07-02 15:44 | PM.CONSULT ---
Providers/Reason For Consult Consulting Physician/Specialty*: Cardiovascular medicine Reason for Consult*: Atrial dysrhythmia Requesting Physician: Hospitalist Attending Physician: Talita Lopez MD Primary Care Provider: Nikole Solano APN History of Present Illness History of Present Illness Doug Regalado is a 33 year old male who was admitted yesterday with alcohol intoxication and a positive toxicology screen for THC and amphetamines. He has apparently been experiencing some slurred speech. He arrived to the emergency room yesterday. Neurology saw him. He had a multitude of radiologic studies to include a chest x-ray, CTA of his head, CT of his head and neck, head MRI. All of those have been negative. He still states that he is having some difficulty speaking. When he arrived at the emergency room yesterday he was in atrial flutter at a rate of 150. He is on diltiazem. The atrial flutter is now converted to sinus rhythm. He has been drinking at least a pint of spirits daily for couple years. He was a moderate drinker before that. He is reluctant to admit his other substance abuse. His talk screen is positive for THC and amphetamines. His blood pressure is still quite high. He has a history of alcoholism, questionable history of SVT, dental caries, hypertension, diabetes, tobacco abuse and dyslipidemia. There is no other evidence of heart disease. An echocardiogram was ordered and reveals a normal ejection fraction with trivial mitral regurgitation. His labs revealed a glucose of 641. His transaminases are mildly elevated. Review of Systems Narrative: Review of systems is negative Medications/Allergies Home Medications Medication Instructions Recorded Confirmed Last Taken Type cock up splint #1 ea 09/26/21 07/02/23 Unknown Rx acetaminophen 500 mg tablet 1,000 - 1,500 mg PO Q6H PRN Pain 07/02/23 07/02/23 Unknown History dulaglutide 0.75 mg/0.5 mL 0.75 mg SUBCUT Q7D 07/02/23 07/02/23 06/29/23 History subcutaneous pen injector see pharmacy ([facility] comment ibuprofen 200 mg tablet 600 - 800 mg PO Q6H PRN Pain 07/02/23 07/02/23 Unknown History naproxen sodium 220 mg tablet 220 - 440 mg PO Q12H PRN Pain 07/02/23 07/02/23 Unknown History (Aleve) Allergies Allergy/AdvReac Type Severity Reaction Status Date / Time ceftriaxone [From Rocephin] Allergy Unknown Verified 10/25/22 19:18 Current Medications Generic Name Dose Route Start Last Admin Trade Name Freq PRN Reason Stop Dose Admin Amlodipine Besylate 10 mg 07/02/23 12:45 07/02/23 12:42 Amlodipine 10 Mg Tablet PO 10 mg DAILY ROBERT Administration Chlordiazepoxide 50 mg 07/02/23 01:15 07/02/23 01:51 Chlordiazepoxide 25 Mg Capsule PO 50 mg Q6H PRN Administration WITHDRAWAL Enoxaparin Sodium 40 mg 07/01/23 23:47 07/02/23 00:11 Enoxaparin 40 Mg/0.4 Ml Syringe SUBCUT 40 mg Q24H ROBERT Administration Diltiazem HCl 100 mg/ Sodium 100 mls @ 0 mls/hr 07/01/23 18:00 07/02/23 12:42 Chloride IV 10 mg/hr .Q0M ROBERT 10 mls/hr Administration Protocol Per Protocol Sodium Chloride 1,000 mls @ 125 mls/hr 07/01/23 23:47 07/02/23 07:54 Sodium Chloride 0.9% IV 125 mls/hr .Q8H ROBERT Administration Magnesium Oxide 400 mg 07/02/23 01:30 07/02/23 01:51 Magnesium Oxide 400 Mg Tablet PO 400 mg ONCE ROBERT Administration Thiamine Mononitrate 100 mg 07/01/23 18:04 07/02/23 07:53 Thiamine 100 Mg Tablet PO 100 mg DAILY ROBERT Administration PFSH Acute PFSH: Medical History (Updated 07/02/23 @ 15:50 by Doug Cisneros MD) Substance abuse Tobacco abuse Transaminitis Atrial flutter Hypertension Diabetes mellitus Alcohol abuse No significant medical problems Surgical History No significant past surgical history Family History (Updated 07/01/23 @ 20:46 by Trey Flores DO) Other Alcohol abuse Diabetes Social History (Updated 07/01/23 @ 20:47 by Trey Flores DO) Smoking and tobacco/nicotine status: current every day tobacco/nicotine user Alcohol intake: current Alcohol type: hard liquor Alcohol use comment: 1 pint peppermint snaps daily Caregiver/support person: Yes Lives independently: No Household members: other Details: Lives with mother Housing: House Marital status: Single 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 status: employed 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 Temp 98.4 F 07/02/23 13:00 Pulse 103 H 07/02/23 13:00 Resp 23 H 07/02/23 13:00 BP 164/94 07/02/23 13:00 Pulse Ox 99 07/02/23 12:00 O2 Del Method Nasal Cannula 07/01/23 23:48 O2 Flow Rate 4 07/02/23 09:16 07/02/23 07/02/23 07/02/23 06:59 14:59 22:59 Intake Total 1202.458 / 3204.941 1272.042 / 1272.042 Output Total 650 / 650 500 / 500 500 / 1000 Balance 552.458 / 2554.941 772.042 / 772.042 -500 / 272.042 Weight last 48 hrs Weight 279 lb Weight 279 lb Weight 300 lb Physical Exam Narrative: GENERAL: In general he is comfortable awake and alert HEENT: Exam within normal limits. NECK: Supple without jugular vein distention. The carotid upstroke is normal without bruits. BACK: Exam normal. LUNGS: Clear. HEART: Regular rate and rhythm. ABDOMEN: Benign without organomegaly or tenderness. EXTREMITIES: No edema. NEUROLOGIC: Exam normal. SKIN: Unremarkable. 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 He is back in sinus rhythm. I will change him over to a beta-guero. I would not anticoagulate him primarily because of his extracurricular habits. He probably will not take the drug and if he does would not take it properly while he is drinking and using drugs. Fortunately his laboratory and radiologic studies are largely negative. I was honest with him about his substance abuse. There is no other testing which needs to be accomplished. and Moderate Time for a total of 45 minutes, includes reviewing past or interval history, examining/interviewing patient, placing orders, counseling patient/family/other support, updating patient/family/other support, discussing plan of care with staff, communicating with other healthcare providers and documenting encounter Diagnoses Primary hypertension I10 Hypertension type: primary hypertension Atrial flutter I48.92 Alcohol intoxication F10.929 Alcohol abuse F10.10 Type 2 diabetes mellitus with other oral complication, without long-term current use of insulin E11.638 Diabetes mellitus type: type 2 Diabetes mellitus rodent exterminator insulin use: without rodent exterminator use Diabetes mellitus complication status: with oral complications Diabetes mellitus complication detail: with other oral complications Dental infection K04.7 Slurred speech R47.81 Transaminitis R74.01 Tobacco abuse Z72.0 Substance abuse F19.10
--- NOTE | 2023-07-02 15:58 | PC.NURSE ---
instruction to give metoprolol 100 mg now and again at 2100 then BID after that
[2023-07-02] MEDS: metoprolol tartrate 50 mg Tablet 100 MG PO ×2 (16:01→21:34)
[2023-07-02] MEDS: famotidine 20 mg/2 mL INJ IVP (16:02)
--- NOTE | 2023-07-02 17:06 | PC.NURSE ---
Report called to CSU for 104. Report given to CONNIE Null
--- NOTE | 2023-07-02 17:26 | PC.NURSE ---
Pt transferred to room 104 via W/C. Belongings and personal care items with pt at transfer.
--- NOTE | 2023-07-02 17:30 | P.NPUCON_ITS ---
Providers/Reason for Consult 2 Attending Physician: Talita Lopez MD Primary Care Provider: Nikole Solano APN Psych Consult HPI History of Present Illness Doug Regalado is a 33 year old male Meds Home Medications and Allergies Home Medications Medication Instructions Recorded Confirmed Last Taken Type cock up splint #1 ea 09/26/21 07/02/23 Unknown Rx acetaminophen 500 mg tablet 1,000 - 1,500 mg PO Q6H PRN Pain 07/02/23 07/02/23 Unknown History dulaglutide 0.75 mg/0.5 mL 0.75 mg SUBCUT Q7D 07/02/23 07/02/23 06/29/23 History subcutaneous pen injector see pharmacy ([facility]) comment ibuprofen 200 mg tablet 600 - 800 mg PO Q6H PRN Pain 07/02/23 07/02/23 Unknown History naproxen sodium 220 mg tablet 220 - 440 mg PO Q12H PRN Pain 07/02/23 07/02/23 Unknown History (Aleve) Allergies Allergy/AdvReac Type Severity Reaction Status Date / Time ceftriaxone [From [facility] [place]] Allergy Unknown Verified 10/25/22 19:18 Current Medications Current Medications Generic Name Dose Route Start Last Admin Trade Name Freq PRN Reason Stop Dose Admin Amlodipine Besylate 10 mg 07/02/23 12:45 07/02/23 12:42 Amlodipine 10 Mg Tablet PO 10 mg DAILY ROBERT Administration Chlordiazepoxide 50 mg 07/02/23 01:15 07/02/23 01:51 Chlordiazepoxide 25 Mg Capsule PO 50 mg Q6H PRN Administration WITHDRAWAL Enoxaparin Sodium 40 mg 07/01/23 23:47 07/02/23 00:11 Enoxaparin 40 Mg/0.4 Ml Syringe SUBCUT 40 mg Q24H ROBERT Administration Famotidine 20 mg 07/02/23 15:30 07/02/23 16:02 Famotidine 20 Mg/2 Ml Inj IVP 20 mg Q12H ROBERT Administration Sodium Chloride 1,000 mls @ 125 mls/hr 07/01/23 23:47 07/02/23 16:55 Sodium Chloride 0.9% IV 125 mls/hr .Q8H ROBERT Administration Magnesium Oxide 400 mg 07/02/23 01:30 07/02/23 01:51 Magnesium Oxide 400 Mg Tablet PO 400 mg ONCE ROBERT Administration Metoprolol Tartrate 100 mg 07/02/23 09:00 07/02/23 16:01 Metoprolol Tartrate 50 Mg Tablet PO 100 mg BID ROBERT Administration Thiamine Mononitrate 100 mg 07/01/23 18:04 07/02/23 07:53 Thiamine 100 Mg Tablet PO 100 mg DAILY ROBERT Administration PFSH NPU 2 PFSH: Medical History (Updated 07/02/23 @ 15:50 by Doug Cisneros MD) Substance abuse Tobacco abuse Transaminitis Atrial flutter Hypertension Diabetes mellitus Alcohol abuse No significant medical problems Surgical History No significant past surgical history Family History (Updated 07/01/23 @ 20:46 by Trey Flores DO) Other Alcohol abuse Diabetes Social History (Updated 07/01/23 @ 20:47 by Trey Flores DO) Smoking and tobacco/nicotine status: current every day tobacco/nicotine user Alcohol intake: current Alcohol type: hard liquor Alcohol use comment: 1 pint peppermint snaps daily Caregiver/support person: Yes Lives independently: No Household members: other Details: Lives with mother Housing: House Marital status: Single 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 status: employed 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
--- NOTE | 2023-07-02 17:49 | PC.NURSE ---
Patient comes to CSU from ICU at 1740.
[2023-07-02 21:21] LABS: Glucose Point of Care 153 mg/dL (70-110)
[2023-07-03] VITALS (7 sets, daily range): BP systolic 152–167; BP diastolic 96–98; PULSE 78–84; RESP 20–27; TEMP 36.6–37.3; O2SAT 93–96; BMI 35.8
[2023-07-03] MEDS: sodium chloride 0.9% 1,000 ML 125 ML IV (01:00)
[2023-07-03] MEDS: enoxaparin 40 mg/0.4 mL Syringe SUBCUT (01:01)
[2023-07-03] MEDS: famotidine 20 mg/2 mL INJ IVP (02:38)
[2023-07-03] MEDS: chlordiazePOXIDE 25 mg Capsule 50 MG PO ×2 (02:38→08:27)
[2023-07-03 03:55] LABS: Basophils # 0.1 10^3/uL (0.0-0.1); Basophils % 0.8 %; Eosinophils # 0.4 10^3/uL (0.0-0.8); Eosinophils % 4.8 %; Hematocrit 37.1 % (37-53); Lymphocytes # 2.3 10^3/uL (0.8-4.8); Lymphocytes % 26.2 %; Mean Corpuscular HGB Conc 33.2 g/dL (30-55); Mean Corpuscular Hemoglobin 32.4 pg (27-33); Mean Corpuscular Volume 97.6 fl (82-101); Mean Platelet Volume 10.2 fL (7.4-10.4); Monocytes # 0.8 10^3/uL (0.2-0.9); Neutrophils % 58.9 %; Nucleated Red Blood Cells % 0 %; Platelet Count 192 10^3/cmm (157-399); Red Cell Distribution Width 13.2 % (12.1-15.1); White Blood Count 8.67 10^3/uL (3.29-11.43)
[2023-07-03 04:17] LABS: Alanine Aminotransferase 46 U/L (0-41); Albumin Level 3.6 g/dL (3.5-5.2); Alkaline Phosphatase 129 U/L (40-130); Anion Gap 16.9 (5-19); Aspartate Amino Transferase 112 U/L (0-40); Blood Urea Nitrogen 8 mg/dL (6-20); Calcium 8.3 mg/dL (8.5-10.5); Carbon Dioxide 22 mmol/L (22-29); Chloride 99 mmol/L (98-107); Creatinine Clr Calc Pharmacy 294.2701; Globulin 4.5 g/dL (1.3-4.6); Glomerular Filtration Rate 190.3 mL/min (90-130); Glucose 126 mg/dL (65-115); Osmolality Calculated 278 mOsm/kg (285-295); Potassium 3.9 mmol/L (3.5-5.1); Sodium 134 mmol/L (136-145); Total Bilirubin 2.1 mg/dL (0.15-1.2); Total Protein 8.1 g/dL (6.6-8.7)
[2023-07-03 06:22] LABS: Glucose Point of Care 118 mg/dL (70-110)
--- NOTE | 2023-07-03 07:56 | PM.PN ---
Subjective Subjective: Patient has been transferred to the first floor. I cannot find that he has been on telemetry since he arrived. Prior to his leaving the intensive care unit he was still in sinus rhythm. He states he feels better today. Interestingly, his speech is no longer slurred at all. His blood pressure is improved but still slightly high 154/98. Vitals/I&O/Wt Last Vital Signs Temp 97.9 F 07/03/23 07:15 Pulse 84 07/03/23 07:15 Resp 25 H 07/03/23 07:15 BP 153/96 07/03/23 07:15 Pulse Ox 96 07/03/23 07:15 O2 Del Method Room Air 07/03/23 07:15 O2 Flow Rate 4 07/02/23 09:16 07/02/23 07/03/23 07/03/23 22:59 06:59 14:59 Intake Total 1259.75 / 2534.792 1000 / 3534.792 Output Total 500 / 1000 1100 / 2100 Balance 759.75 / 1534.792 -100 / 1434.792 Weight last 48 hrs Weight 279 lb Weight 279 lb Weight 279 lb Weight 300 lb Physical Exam Narrative: GENERAL: In general he looks and feels well HEENT: Exam within normal limits. NECK: Supple without jugular vein distention. The carotid upstroke is normal without bruits. BACK: Exam normal. LUNGS: Clear. HEART: Regular rate and rhythm. ABDOMEN: Benign without organomegaly or tenderness. EXTREMITIES: No edema. NEUROLOGIC: Exam normal. SKIN: Unremarkable. 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 1 could choose aspirin however his lifestyle would be contrary to taking anticoagulants. I would leave him on a beta-guero. Hopefully he will take that but my suspicions are that he will not. Nothing else needs to be done at this point. I will sign off. Attestations Medical Necessity Statement*: Admission for alcohol abuse, substance abuse, atrial flutter, hypertension. and Moderate Time for a total of 35 minutes, includes reviewing past or interval history, examining/interviewing patient, counseling patient/family/other support, updating patient/family/other support, discussing plan of care with staff, communicating with other healthcare providers and documenting encounter Diagnoses Primary hypertension I10 Hypertension type: primary hypertension Atrial flutter I48.92 Tobacco abuse Z72.0 Alcohol abuse F10.10 Type 2 diabetes mellitus with other oral complication, without long-term current use of insulin E11.638 Diabetes mellitus type: type 2 Diabetes mellitus long term care phlebotomist insulin use: without long term care phlebotomist use Diabetes mellitus complication status: with oral complications Diabetes mellitus complication detail: with other oral complications Dental infection K04.7 Transaminitis R74.01
[2023-07-03] MEDS: amlodipine 10 mg Tablet PO (08:27)
[2023-07-03] MEDS: folic acid 1 mg Tablet PO (08:27)
[2023-07-03] MEDS: thiamine 100 mg Tablet PO (08:27)
[2023-07-03] MEDS: metoprolol tartrate 50 mg Tablet 100 MG PO (08:27)
[2023-07-03] MEDS: multivitamin therapeutic Tablet 1 TAB PO (08:27)
[2023-07-03] MEDS: LORazepam 2 mg/mL INJ 1 mL IM (08:28)
--- NOTE | 2023-07-03 11:16 | W.PM.EVENTAC ---
Event Note Event Note: Seen at bedside this morning. Reports feeling better, and had normal exam. Explained about the plan of care. patient seem to understand and queries answered.But few minutes later he started wandering in the hallway, trying to find the nurse. Later he just walked out of the hospital for smoking. Psychiatry consult informed Counselled about his anxiety and need for treatment and medications for the same. But still wants to go AMA.. AMA form signed. Event Notes Attestations Time Spent in Patient Care: 20 minutes
[2023-07-04 00:59] LABS: Beta 2 Glycoprotein I IGA AB 5.4 U/mL
== END 2023-07-03 10:20 | disposition home or self-care (01) | DRG 309 ==
LOC: ER 19:06 → ICU 07-02 06:08 → CSU 07-02 17:21
PROVIDERS: Psychiatry & Neurology Neurology; Admitting Provider Internal Medicine; Emergency Provider Emergency Medicine; PCP Nurse Practitioner Family; Visit Provider Internal Medicine
DX: I48.91 Unspecified atrial fibrillation (principal); E87.29 Other acidosis; F32.3 Major depressive disorder, single episode, severe with psychotic features; R47.01 Aphasia; I10 Essential (primary) hypertension; E11.9 Type 2 diabetes mellitus without complications; F17.210 Nicotine dependence, cigarettes, uncomplicated; F10.129 Alcohol abuse with intoxication, unspecified; Y90.5 Blood alcohol level of 100-119 mg/100 ml; R82.5 Elevated urine levels of drugs, medicaments and biological substances; K04.7 Periapical abscess without sinus; G47.30 Sleep apnea, unspecified
CPT/HCPCS: 36415; 36416; 70450; 70496; 70498; 70553; 71045; 80048; 80053; 80061; 80076; 80306; 80307; 81001; 82962; 83036; 83090; 83735; 84100; 84439; 84443; 84481; 85025; 85610; 85730; 86146; 86592; 92523; 92610; 93005; 93306; 96365; 96366; 96372; 96375; 96376; 97116; 97161; 97165; 99291; A9577; G0378; J1650; J2060; J3475; J3490; J7030; Q9967

== ENCOUNTER 2023-07-12 18:08 | Emergency (ER) | payer SELFPAY ==
[2023-07-12 18:11] VITALS: BP 119/88; PULSE 98; RESP 19; TEMP 36.9; O2SAT 94
[2023-07-12 18:19] LABS: Glucose Point of Care 423 mg/dL (70-110)
--- NOTE | 2023-07-12 18:33 | ECG_ITS ---
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 Measurements Intervals [place] Rate: 97 P: 51 MS: 163 QRS: 74 QRSD: 104 T: 51 QT: 376 QTc: 479 Interpretive Statements SINUS RHYTHM POSSIBLE RIGHT ATRIAL ENLARGEMENT [0.25mV P-WAVE] Compared to ECG 07/02/2023 09:14:42 Myocardial infarct finding no longer present T-wave abnormality no longer present Possible ischemia no longer present Electronically Signed On 07-13-2023 19:27:19 CDT by Petr Pandey M.D. [id number]
--- NOTE | 2023-07-12 18:47 | ED_ITS ---
HPI - Weakness 2 General: Chief complaint: Weakness Stated complaint: hyperglycemia Time Seen by Provider: 07/12/23 18:16 History of Present Illness: Patient brought in by PD for chief complaints of weakness, high blood sugar, alcohol intoxication, patient was pulled over for erratic driving had a field sobriety test that he failed failed a breathalyzer test when he took him to the assistant strength coach's office to be booked he started acting very lethargic and passing out of consciousness. They checked his sugar his sugar was over 500. They brought him here for further evaluation. Review of Systems 2 General: Reports: 10 or more systems reviewed and unremarkable except in HPI and below PFSH ED 2 PFSH: Medical History Substance abuse Tobacco abuse Transaminitis Atrial flutter Hypertension Diabetes mellitus Alcohol abuse No significant medical problems Surgical History No significant past surgical history Family History Other Alcohol abuse Diabetes Social History Smoking and tobacco/nicotine status: current every day tobacco/nicotine user Alcohol intake: current Alcohol type: hard liquor Caregiver/support person: Yes Lives independently: No Household members: other Details: Lives with mother Housing: House Marital status: Single 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 Const: COMMON NORMALS: no acute distress, average body habitus, patient oriented x3, no limitations, healthy appearing, alert and well nourished HENMT: COMMON NORMALS: normocephalic, atraumatic, hearing grossly normal bilaterally, external ears normal, Normal external nose present, moist oral mucous membranes and oropharynx normal HEAD & SCALP: normocephalic and atraumatic NOSE: Normal external nose present EXTERNAL EAR: Yes external ears normal Eye: COMMON NORMALS: Equal, round and reactive pupils present, EOMs intact bilaterally, conjunctivae normal and no scleral icterus CONJUNCTIVA: Yes conjunctivae normal PUPIL: Yes Equal, round and reactive pupils present Neck/C-Spine: COMMON NORMALS: full ROM, no lymphadenopathy, supple, no meningeal signs, no JVD and Thyroid normal THYROID: Thyroid normal Chest: COMMONS NORMALS: normal inspection of the chest and normal palpation of entire chest wall Resp: COMMON NORMALS: normal respiratory effort, No retractions, No use of accessory muscles and clear to auscultation bilaterally AUSCULTATION: clear to auscultation bilaterally Cardio: COMMON NORMALS: no JVD, regular rate, regular rhythm, S1 normal heart sound present, S2 normal heart sound present, No gallops present (Cardio), No clicks present (Cardio), No murmurs present (Cardio) and No rub (Cardio) R ATE: regular rate RHYTHM: regular rhythm HEART SOUNDS: S1 normal heart sound present and S2 normal heart sound present GI: COMMON NORMALS: Normal to inspection, nondistended, normoactive bowel sounds present, Soft to palpation, non-tender, No hepatosplenomegaly present and no masses PALPATION: Yes Soft to palpation and Yes No hepatosplenomegaly present Neuro: COMMON NORMALS: patient oriented x3 SENSORIUM/ORIENTATION: Yes alert MENINGEAL SIGNS: Yes no meningeal signs Course 2 Vital Signs: Vital signs: Vital Signs Temperature 98.4 F 07/12/23 18:11 Pulse Rate 90 07/12/23 21:16 Respiratory Rate 17 07/12/23 21:16 Blood Pressure 139/88 07/12/23 21:16 Pulse Oximetry 97 07/12/23 21:16 Oxygen Delivery Me thod Room Air 07/12/23 21:16 MDM - Weakness Medical Decision Making Physical exam was performed lab work was obtained showed an elevated blood sugar of 494 and elevated EtOH of 309, low magnesium of 1.2. Patient was given approximately 2 L normal saline, 10 units of IV insulin, 1 g of mag sulfate IV, patient will be discharged to his mothers care. Differential Diagnosis Unlikely acute myocardial infarction, anemia, hypoglycemia, hypothyroidism, rhabdomyolysis, sepsis or dehydration Medical Records I reviewed the patient's medical records. Lab Data I reviewed the patient's lab results. 07/12/23 18:44 07/12/23 18:44 Laboratory Results WBC 12.33 10^3/uL (3.29-11.43) H 07/12/23 18:44 RBC 4.15 10^6/uL (3.85-5.65) 07/12/23 18:44 Hgb 13.30 g/dL (11.27-16.99) 07/12/23 18:44 Hct 39.3 % (37-53) 07/12/23 18:44 MCV 94.7 fl (82-101) 07/12/23 18:44 MCH 32.0 pg (27-33) 07/12/23 18:44 MCHC 33.8 g/dL (30-55) 07/12/23 18:44 RDW 12.4 % (12.1-15.1) 07/12/23 18:44 Plt Count 359 10^3/cmm (157-399) 07/12/23 18:44 MPV 9.9 fL (7.4-10.4) 07/12/23 18:44 Neut % (Auto) 65.2 % 07/12/23 18:44 Lymph % (Auto) 20.8 % 07/12/23 18:44 [place] % (Auto) 8.7 % 07/12/23 18:44 Eos % (Auto) 2.8 % 07/12/23 18:44 Baso % (Auto) 1.6 % 07/12/23 18:44 Neut # (Auto) 8.04 10^3/uL (1.8-7.7) H 07/12/23 18:44 Lymph # (Auto) 2.6 10^3/uL (0.8-4.8) 07/12/23 18:44 [place] # (Auto) 1.1 10^3/uL (0.2-0.9) H 07/12/23 18:44 Eos # (Auto) 0.4 10^3/uL (0.0-0.8) 07/12/23 18:44 Baso # (Auto) 0.2 10^3/uL (0.0-0.1) H 07/12/23 18:44 Nucleated RBC % (auto) 0 % 07/12/23 18:44 Nucleated RBCs # 0.0 /100WBC 07/12/23 18:44 Sodium 128 mmol/L (136-145) L 07/12/23 18:44 Potassium 4.0 mmol/L (3.5-5.1) 07/12/23 18:44 Chloride 92 mmol/L (98-107) L 07/12/23 18:44 Carbon Dioxide 22 mmol/L (22-29) 07/12/23 18:44 Anion Gap 18.0 (5-19) 07/12/23 18:44 BUN 15 mg/dL (6-20) 07/12/23 18:44 Creatinine 1.2 mg/dL (0.7-1.2) 07/12/23 18:44 GFR Calculation 69.3 mL/min (90-130) L 07/12/23 18:44 Glucose 494 mg/dL (65-115) H 07/12/23 18:44 POC Glucose 420 mg/dL (70-110) H 07/12/23 20:13 Calculated Osmolality 289 mOsm/kg (285-295) 07/12/23 18:44 Calcium 8.8 mg/dL (8.5-10.5) 07/12/23 18:44 Magnesium 1.3 mg/dL (1.7-2.3) L 07/12/23 18:44 Total Bilirubin 0.6 mg/dL (0.15-1.2) 07/12/23 18:44 AST 141 U/L (0-40) H 07/12/23 18:44 ALT 62 U/L (0-41) H 07/12/23 18:44 Alkaline Phosphatase 129 U/L (40-130) 07/12/23 18:44 Total Protein 8.3 g/dL (6.6-8.7) 07/12/23 18:44 Albumin 3.7 g/dL (3.5-5.2) 07/12/23 18:44 Globulin 4.6 g/dL (1.3-4.6) 07/12/23 18:44 Ethyl Alcohol 309 mg/dL (0-10) H* 07/12/23 18:44 All radiology interpretation(s) finalized by discharge Discharge Plan Discharge Patient Disposition: Home Clinical Impression: Alcohol intoxication, Hyperglycemia due to diabetes mellitus, Hypomagnesemia Condition: Stable Prescriptions: No Action (DME) cock up splint See Rx Instructions .Route .MEDSUPPLY Qty: 1 0RF Rx Instructions: As directed Tylenol Ex Str Rapid Release 500 mg Tablet 1,000 - 1,500 mg PO Q6H PRN (Reason: Pain) Aleve 220 mg Tablet 220 - 440 mg PO Q12H PRN (Reason: Pain) ibuprofen 200 mg Tablet 600 - 800 mg PO Q6H PRN (Reason: Pain) Trulicity 0.75 mg/0.5 mL Pen Injector 0.75 mg SUBCUT Q7D Rx Instructions: on sat Discharge Orders: Discharge ED (Routine); Ordered 07/12/23 Ordered By: Yousuf Craven Referrals: Nikole Solano APN [Primary Care Provider] - 1 week Patient Instructions: Alcohol Intoxication, Hypomagnesemia (ED), Diabetic Hyperglycemia (ED) Activity Restrictions/Additional Instructions: Please stop drinking alcohol. Please keep a watch on your blood sugars and try to keep them better controlled. Please follow-up with your family practice physician within next 7 days for further evaluation and treatment. Coding Level of Care Code ED Network Operations Analyst for Shala Ocampo
[2023-07-12 18:48] VITALS: BP 119/88; PULSE 93; RESP 18; O2SAT 92
[2023-07-12 18:51] LABS: Basophils # 0.2 10^3/uL (0.0-0.1); Basophils % 1.6 %; Eosinophils # 0.4 10^3/uL (0.0-0.8); Eosinophils % 2.8 %; Hematocrit 39.3 % (37-53); Lymphocytes # 2.6 10^3/uL (0.8-4.8); Lymphocytes % 20.8 %; Mean Corpuscular HGB Conc 33.8 g/dL (30-55); Mean Corpuscular Volume 94.7 fl (82-101); Mean Platelet Volume 9.9 fL (7.4-10.4); Monocytes # 1.1 10^3/uL (0.2-0.9); Monocytes % 8.7 %; Neutrophils # 8.04 10^3/uL (1.8-7.7); Neutrophils % 65.2 %; Nucleated Red Blood Cells % 0 %; Platelet Count 359 10^3/cmm (157-399); Red Blood Count 4.15 10^6/uL (3.85-5.65); Red Cell Distribution Width 12.4 % (12.1-15.1); White Blood Count 12.33 10^3/uL (3.29-11.43)
[2023-07-12] MEDS: sodium chloride 0.9% 1,000 ML 999 ML IV ×2 (19:07→20:24)
[2023-07-12 19:12] VITALS: BP 125/69; PULSE 91; RESP 20; O2SAT 92
[2023-07-12 19:18] LABS: Alanine Aminotransferase 62 U/L (0-41); Albumin Level 3.7 g/dL (3.5-5.2); Alkaline Phosphatase 129 U/L (40-130); Aspartate Amino Transferase 141 U/L (0-40); Blood Urea Nitrogen 15 mg/dL (6-20); Calcium 8.8 mg/dL (8.5-10.5); Carbon Dioxide 22 mmol/L (22-29); Chloride 92 mmol/L (98-107); Creatinine Clr Calc Pharmacy 122.8354; Globulin 4.6 g/dL (1.3-4.6); Glomerular Filtration Rate 69.3 mL/min (90-130); Glucose 494 mg/dL (65-115); Magnesium 1.3 mg/dL (1.7-2.3); Osmolality Calculated 289 mOsm/kg (285-295); Sodium 128 mmol/L (136-145); Total Bilirubin 0.6 mg/dL (0.15-1.2); Total Protein 8.3 g/dL (6.6-8.7)
[2023-07-12 19:30] LABS: Alcohol Level 309 mg/dL (0-10)
[2023-07-12] MEDS: insulin regular-human 100 units/1 mL 10 UNIT IVP (20:14)
[2023-07-12] MEDS: magnesium sulfate premix 1 GM/100 ML PIGGYBACK IV (20:23)
[2023-07-12 20:27] LABS: Glucose Point of Care 420 mg/dL (70-110)
[2023-07-12 21:16] VITALS: BP 139/88; PULSE 90; RESP 17; O2SAT 97
[2023-07-12 21:35] VITALS: BP 153/110; PULSE 97; RESP 22; O2SAT 96
== END 2023-07-12 21:36 | disposition home or self-care (01) ==
PROVIDERS: Emergency Provider Emergency Medicine; PCP Nurse Practitioner Family
DX: E11.65 Type 2 diabetes mellitus with hyperglycemia (principal); E83.42 Hypomagnesemia; F10.129 Alcohol abuse with intoxication, unspecified; Y90.8 Blood alcohol level of 240 mg/100 ml or more; Z79.85 Long-term (current) use of injectable non-insulin antidiabetic drugs; Z72.0 Tobacco use; I10 Essential (primary) hypertension
CPT/HCPCS: 36415; 36416; 80053; 80307; 82962; 83735; 85025; 93005; 96361; 96365; 96375; 99284; J1815; J3475; J7030

== ENCOUNTER → 2023-07-30 11:43 | Outpatient (BNVA) | payer SELFPAY | PROVIDERS: PCP Nurse Practitioner Family; Referring Provider Family Medicine; Visit Provider Nurse Practitioner Family | DX: I48.91 Unspecified atrial fibrillation (principal) | CPT/HCPCS: 93005 ==

== ENCOUNTER → 2023-09-11 10:02 | Outpatient (BNVA) | payer MEDICAID, SELFPAY | PROVIDERS: PCP Nurse Practitioner Family; Visit Provider Nurse Practitioner Family | DX: I48.3 Typical atrial flutter (principal); I10 Essential (primary) hypertension; R94.31 Abnormal electrocardiogram [ECG] [EKG]; Z87.891 Personal history of nicotine dependence | CPT/HCPCS: 93005; 99214 ==

== ENCOUNTER 2023-11-25 14:12 | Inpatient (IN) | payer MEDICAID, SELFPAY ==
[2023-11-25] VITALS (8 sets, daily range): BP systolic 144–180; BP diastolic 81–95; PULSE 86–93; RESP 20; TEMP 36.7–36.8; O2SAT 90–97; BMI 39.5
--- NOTE | 2023-11-25 14:16 | XR_ITS ---
WS: [id number] XR chest 1V portable [id number] REASON FOR EXAM: sob FINDINGS: Compared to the examination of 07/01/2023 the right lower lung field appears subtly more dense than on the previous examination. Possibly this is due to less inspiratory effort. The remainder of the examination is unchanged compared to the previous study. XR/XR chest 1V portable [id number] IMPRESSION: Subtle right lower lung field opacity. This may be due to decreased inspiratory effort. An early acute pneumonitis could be considered. A repeat examination with aaron r inspiratory effort may be helpful as clinically warranted.
--- NOTE | 2023-11-25 14:19 | ECG_ITS ---
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 Measurements Intervals [place] Rate: 90 P: 58 ND: 182 QRS: 79 QRSD: 106 T: 44 QT: 378 QTc: 465 Interpretive Statements SINUS RHYTHM Compared to ECG 09/11/2023 10:07:41 No significant changes Electronically Signed On 11-26-2023 7:47:26 CDT by Maximo Turcios M.D. [email or web address] medical [email or web address] [id number]
--- NOTE | 2023-11-25 16:08 | W.ED.SOB ---
HPI - SOB/Dyspnea General: Chief Complaint: Shortness of Breath/Dyspnea Stated Complaint: sob Time Seen by Provider: 11/25/23 16:08 History of Present Illness: HPI Narrative: 33-year-old male presents emergency room complaining of shortness of breath and chest comfort that began yesterday. He has a history of PEs he does still regularly take his Xarelto. No history of coronary artery disease. He went to see Dr. Haider today but he had severe hypoxemia with O2 sats in the mid 80s on room air is not normally on oxygen he does have diabetes. He has no known history of cardiac disease Associated symptoms: Deny abdominal pain, chest pain or fever(s) Related Data Home Medications Medication Instructions Recorded Confirmed acetaminophen 500 mg tablet 1,000 - 1,500 mg PO Q6H PRN Pain 07/02/23 10/31/23 atorvastatin 10 mg tablet 10 mg PO DAILY 07/30/23 10/31/23 lisinopril 10 mg tablet 10 mg PO DAILY 07/30/23 10/31/23 metformin 500 mg tablet 500 mg PO BID 07/30/23 10/31/23 empagliflozin 25 mg tablet 25 mg PO DAILY 09/11/23 10/31/23 (Jardiance) gabapentin 300 mg capsule 300 mg PO DAILY 09/11/23 10/31/23 lactobacillus combination no.9 4 PO 09/11/23 10/31/23 billion cell capsule (Adult 50 Plus Probiotic) Previous Rx's Medication Instructions Recorded cock up splint #1 ea 09/26/21 metoprolol tartrate 25 mg tablet 12.5 mg (1/2 x 25 mg) PO BID #60 09/11/23 tabs metoprolol succinate 25 mg 25 mg PO DAILY #90 tabs 10/31/23 tablet,extended release 24 hr rivaroxaban 20 mg tablet (Xarelto) 20 mg PO DAILY #90 tabs 10/31/23 Allergies Allergy/AdvReac Type Severity Reaction Status Date / Time ceftriaxone [From Rocephin] Allergy Unknown Verified 11/25/23 14:27 Review of Systems Const: Denies: fever(s) or chills Card: Denies: chest pain Resp: Reports: dyspnea GI: Denies: abdominal pain : Denies: dysuria, urinary frequency or urinary urgency Musc: Denies: neck pain or back pain Skin/Breast: Denies: rash [facility] ED PFSH: Medical History Stroke (cerebrum) Substance abuse Tobacco abuse Transaminitis Atrial flutter Hypertension Diabetes mellitus Alcohol abuse No significant medical problems Surgical History No significant past surgical history Family History Other Alcohol abuse Diabetes Social History Smoking and tobacco/nicotine status: former use of tobacco/nicotine Alcohol intake: current Alcohol type: hard liquor Caregiver/support person: Yes Lives independently: No Household members: other Details: Lives with mother Housing: House Marital status: Single 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 status: employed 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 [employer] 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 Exam Const: GENERAL APPEARANCE: cooperative ORIENTATION/CONSCIOUSNESS: Yes awake, Yes oriented to person, Yes oriented to place and Yes oriented to time HENMT: COMMON NORMALS: normocephalic, atraumatic and hearing grossly normal bilaterally HEAD & SCALP: normocephalic and atraumatic Resp: AUSCULTATION: rhonchi and wheezes Cardio: COMMON NORMALS: regular rate, regular rhythm and No murmurs present (Cardio) RATE: regular rate RHYTHM: regular rhythm GI: COMMON NORMALS: Soft to palpation and No hepatosplenomegaly present AUSCULTATION: Yes normoactive bowel sounds PALPATION: Yes Soft to palpation, No Tenderness to palpation present (GI), No Guarding due to palpation present (GI) and Yes No hepatosplenomegaly present Extremity: COMMON NORMALS: normal to inspection, capillary refill normal, no clubbing, cyanosis or edema, no calf tenderness and no pedal edema Neuro: SENSORIUM/ORIENTATION: Yes oriented to person, Yes oriented to place and Yes oriented to time Skin: COMMON NORMALS: no rashes or lesions noted GENERAL SKIN EXAM: no rashes or lesions noted Course Vital Signs: Vital signs: Vital Signs Temperature 98.3 F 11/25/23 14:23 Pulse Rate 92 11/25/23 17:57 Blood Pressure 150/81 11/25/23 17:57 Pulse Oximetry 97 11/25/23 17:57 Oxygen Delivery Me thod Nasal Cannula 11/25/23 17:57 Oxygen Flow Rate 3 11/25/23 17:57 MDM - SOB/Dyspnea Medical Decision Making Patient has pneumonia on chest x-ray Opas will start on Levaquin given his significant oxygen deficit he will need to be admitted for now. He is mildly anemic Akhtar no leukocytosis. Orders written. CTA shows no PE. Medical Records I reviewed the patient's medical records. Lab Data I reviewed the patient's lab results. 11/25/23 16:17 11/25/23 16:17 Labs/Radiology: Radiology Impressions Chest X-Ray 11/25/23 14:16 IMPRESSION: Subtle right lower lung field opacity. This may be due to decreased inspiratory effort. An early acute pneumonitis could be considered. A repeat examination with better inspiratory effort may be helpful as clinically warranted. Chest CTA 11/25/23 16:18 IMPRESSION: 1. No evidence of pulmonary embolism. 2. Multifocal ground-glass and nodular airspace disease throughout the right lung and to a lesser degree in the left lower lobe. Findings may represent an atypical infectious/inflammatory process. Superimposed pulmonary edema not entirely excluded. Differential considerations may include a granulomatous process such as sarcoidosis or less likely malignancy. Recommend imaging follow-up after clinical treatment to document resolution. 3. Enlarged mediastinal and right hilar lymph nodes are likely reactive. Attention on follow-up recommended. 4. Mild cardiomegaly. 5. Coronary artery calcifications, premature for age. 6. Dilated main pulmonary artery which can be seen with pulmonary hypertension. 7. Mildly nodular hepatic surface is nonspecific. Correlate for clinical findings of underlying cirrhosis. 8. Diffuse hepatic steatosis. Laboratory Results WBC 7.87 10^3/uL (3.29-11.43) 11/25/23 16:17 RBC 3.58 10^6/uL (3.85-5.65) L 11/25/23 16:17 Hgb 10.90 g/dL (11.27-16.99) L 11/25/23 16:17 Hct 34.2 % (37-53) L 11/25/23 16:17 MCV 95.5 fl (82-101) 11/25/23 16:17 MCH 30.4 pg (27-33) 11/25/23 16:17 MCHC 31.9 g/dL (30-55) 11/25/23 16:17 RDW 13.1 % (12.1-15.1) 11/25/23 16:17 Plt Count 197 10^3/cmm (157-399) 11/25/23 16:17 MPV 9.7 fL (7.4-10.4) 11/25/23 16:17 Neut % (Auto) 61.7 % 11/25/23 16:17 Lymph % (Auto) 21.9 % 11/25/23 16:17 [place] % (Auto) 11.2 % 11/25/23 16:17 Eos % (Auto) 3.7 % 11/25/23 16:17 Baso % (Auto) 1.1 % 11/25/23 16:17 Neut # (Auto) 4.86 10^3/uL (1.8-7.7) 11/25/23 16:17 Lymph # (Auto) 1.7 10^3/uL (0.8-4.8) 11/25/23 16:17 [place] # (Auto) 0.9 10^3/uL (0.2-0.9) 11/25/23 16:17 Eos # (Auto) 0.3 10^3/uL (0.0-0.8) 11/25/23 16:17 Baso # (Auto) 0.1 10^3/uL (0.0-0.1) 11/25/23 16:17 Nucleated RBC % (auto) 0 % 11/25/23 16:17 Nucleated RBCs # 0.0 /100WBC 11/25/23 16:17 Specimen Type Arterial 11/25/23 16:33 Sample Site Radial, left 11/25/23 16:33 ABG pH 7.42 (7.35-7.45) 11/25/23 16:33 ABG pCO2 38.9 mmHg (35-45) 11/25/23 16:33 ABG pO2 69.7 mmHg (80.0-100.0) L 11/25/23 16:33 ABG PO2/FiO2 Ratio 217 11/25/23 16:33 ABG HCO3 25.4 mmol/L (22-26) 11/25/23 16:33 ABG O2 Saturation 93.4 11/25/23 16:33 ABG Base Excess 1.0 mmol/L (-2.0-2.0) 11/25/23 16:33 Miles Test Pos 11/25/23 16:33 A-a O2 Gradient 14.4 mmHg (5-10) H 11/25/23 16:33 Hematocrit 31.4 % (42-52) L 11/25/23 16:33 Hgb O2 Saturation 91.1 % (95-100) L 11/25/23 16:33 Carboxyhemoglobin 1.4 %THgb (0.4-20.1) 11/25/23 16:33 Methemoglobin 1.0 % (0.4-1.5) 11/25/23 16:33 Total Hemoglobin 10.3 g/dL (14-18) L 11/25/23 16:33 Sodium 144.0 mmol/L (131-143) H 11/25/23 16:33 Potassium 3.3 mmol/L (3.5-5.0) L 11/25/23 16:33 Glucose 155.0 mg/dL (70-115) H 11/25/23 16:33 Ionized Calcium 1.2 mmol/L (1.1-1.4) 11/25/23 16:33 O2 Delivery Device Nc 11/25/23 16:33 O2 Liters/Min 3.0 % 11/25/23 16:33 FiO2 32.0 % 11/25/23 16:33 Black Pickler ID Cak 11/25/23 16:33 Sodium 141 mmol/L (136-145) 11/25/23 16:17 Potassium 3.6 mmol/L (3.5-5.1) 11/25/23 16:17 Chloride 102 mmol/L (98-107) 11/25/23 16:17 Carbon Dioxide 23 mmol/L (22-29) 11/25/23 16:17 Anion Gap 19.6 (5-19) H 11/25/23 16:17 BUN 9 mg/dL (6-20) 11/25/23 16:17 Creatinine 0.6 mg/dL (0.7-1.2) L 11/25/23 16:17 GFR Calculation 154.2 mL/min (90-130) H 11/25/23 16:17 Glucose 169 mg/dL (65-115) H 11/25/23 16:17 Calculated Osmolality 295 mOsm/kg (285-295) 11/25/23 16:17 Lactic Acid 2.3 mmol/L (0.5-2.2) H 11/25/23 16:17 Calcium 9.0 mg/dL (8.5-10.5) 11/25/23 16:17 Total Bilirubin 0.6 mg/dL (0.15-1.2) 11/25/23 16:17 AST 107 U/L (0-40) H 11/25/23 16:17 ALT 41 U/L (0-41) 11/25/23 16:17 Alkaline Phosphatase 139 U/L (40-130) H 11/25/23 16:17 Total Protein 8.1 g/dL (6.6-8.7) 11/25/23 16:17 Albumin 3.9 g/dL (3.5-5.2) 11/25/23 16:17 Globulin 4.2 g/dL (1.3-4.6) 11/25/23 16:17 All radiology interpretation(s) finalized by discharge Discharge Plan Discharge Patient Disposition: Admitted As Inpatient Clinical Impression: Pneumonia Condition: Stable Prescriptions: No Action atorvastatin 10 mg tablet 10 mg PO DAILY lisinopril 10 mg tablet 10 mg PO DAILY Hold Instructions: hypotension metformin 500 mg tablet 500 mg PO BID metoprolol succinate 25 mg tablet extended release 24 hr 25 mg PO DAILY Qty: 90 4RF Xarelto 20 mg tablet 20 mg PO DAILY Qty: 90 4RF Rx Instructions: must administer with evening meal (DME) cock up splint See Rx Instructions .Route .MEDSUPPLY Qty: 1 0RF Rx Instructions: As directed Jardiance 25 mg tablet 25 mg PO DAILY gabapentin 300 mg capsule 300 mg PO DAILY Adult 50 Plus Probiotic 4 billion cell capsule PO metoprolol tartrate 25 mg tablet 12.5 mg PO BID Qty: 60 3RF Tylenol Ex Str Rapid Release 500 mg Tablet 1,000 - 1,500 mg PO Q6H PRN (Reason: Pain) Referrals: Nikole Solano APN [Primary Care Provider] - Coding Level of Care Code ED School Child Care Attendant for Shala Ocampo
--- NOTE | 2023-11-25 16:18 | CTR_ITS ---
PROCEDURE INFORMATION: Exam: CTA Chest With Contrast Exam date and time: 11/25/2023 4:29 PM Age: 33 years old Clinical indication: Dyspnea; Additional info: Dyspnea/hypoxia TECHNIQUE: Imaging protocol: Computed tomographic angiography of the chest with contrast. Exam focused on the arteries. 3D rendering (Not supervised by radiologist): MIP and/or 3D reconstructed images were created by the technologist. Radiation optimization: All CT scans at this facility use at least one of these dose optimization techniques: automated exposure control; mA and/or kV adjustment per patient size (includes targeted exams where dose is matched to clinical indication); or iterative reconstruction. Contrast material: OMNI 350; Contrast volume: 100 ml; Contrast route: INTRAVENOUS (IV); COMPARISON: CR XR chest 1V portable [id number] 11/25/2023 2:35 PM RADIATION DOSE METRICS: Total DLP (mGy-cm): 577 FINDINGS: Pulmonary arteries: No pulmonary emboli. The main pulmonary artery is dilated, measuring 3.3 cm. Aorta: Unremarkable. No aortic aneurysm. No aortic dissection. Lungs: Multifocal ground-glass opacities with areas of nodularity are seen throughout the right lung and to a lesser degree in the left lower lobe. Findings are most pronounced in the right middle lobe. Pleural spaces: Unremarkable. No pneumothorax. No pleural effusion. Heart: Mild cardiomegaly. Coronary arteries: Moderate coronary artery calcifications, premature for age. Lymph nodes: Numerous enlarged mediastinal and hilar lymph nodes are seen. For example, there is a 1.6 cm right lower paratracheal node on series 6, image 137, a 1.8 cm subcarinal node on image 209, a 1.4 cm AP window node on image 130, and a 1.0 cm right hilar node on image 199. Liver: Diffuse hepatic steatosis. Mildly nodular contour of the liver. Bones/joints: Multilevel degenerative changes of the visualized spine. No acute fracture. Soft tissues: Unremarkable. CT/CT angio chest PE protcl [id number] IMPRESSION: 1. No evidence of pulmonary embolism. 2. Multifocal ground-glass and nodular airspace disease throughout the right lung and to a lesser degree in the left lower lobe. Findings may represent an atypical infectious/inflammatory process. Superimposed pulmonary edema not entirely excluded. Differential considerations may include a granulomatous process such as sarcoidosis or less likely malignancy. Recommend imaging follow-up after clinical treatment to document resolution. 3. Enlarged mediastinal and right hilar lymph nodes are likely reactive. Attention on follow-up recommended. 4. Mild cardiomegaly. 5. Coronary artery calcifications, premature for age. 6. Dilated main pulmonary artery which can be seen with pulmonary hypertension. 7. Mildly nodular hepatic surface is nonspecific. Correlate for clinical findings of underlying cirrhosis. 8. Diffuse hepatic steatosis.
[2023-11-25] MEDS: iohexol 350 mg/mL 500 mL Btl (per mL) IV (16:32)
[2023-11-25 16:44] LABS: ABG PCO2 38.9 mmHg (35-45); ABG PH Result 7.42 (7.35-7.45); Alveolar-Arterial Oxygen Gradi 14.4 mmHg (5-10); Arterial Blood Gas Hematocrit 31.4 % (42-52); Blood Gas Allen Test Pos; Blood Gas Operator Identificat CAK; Blood Gas Sample Site Radial, left; Blood Gas Sample Type Arterial; Carboxyhemoglobin 1.4 %THgb (0.4-20.1); HCO3 ABG 25.4 mmol/L (22-26); HGB O2 Sat 91.1 % (95-100); Ionized Calcium Level - ABG 1.2 mmol/L (1.1-1.4); Oxygen Device NC; Oxygen Saturation ABG 93.4; PO2 ABG 69.7 mmHg (80.0-100.0); PO2 FiO2 Ratio Arterial Blood 217; Potassium Level - ABG 3.3 mmol/L (3.5-5.0); Total Hemoglobin 10.3 g/dL (14-18)
[2023-11-25 17:42] LABS: Basophils # 0.1 10^3/uL (0.0-0.1); Basophils % 1.1 %; Eosinophils # 0.3 10^3/uL (0.0-0.8); Eosinophils % 3.7 %; Hematocrit 34.2 % (37-53); Lymphocytes # 1.7 10^3/uL (0.8-4.8); Lymphocytes % 21.9 %; Mean Corpuscular HGB Conc 31.9 g/dL (30-55); Mean Corpuscular Hemoglobin 30.4 pg (27-33); Mean Corpuscular Volume 95.5 fl (82-101); Mean Platelet Volume 9.7 fL (7.4-10.4); Monocytes # 0.9 10^3/uL (0.2-0.9); Monocytes % 11.2 %; Neutrophils # 4.86 10^3/uL (1.8-7.7); Neutrophils % 61.7 %; Nucleated Red Blood Cells % 0 %; Platelet Count 197 10^3/cmm (157-399); Red Blood Count 3.58 10^6/uL (3.85-5.65); Red Cell Distribution Width 13.1 % (12.1-15.1); White Blood Count 7.87 10^3/uL (3.29-11.43)
[2023-11-25 17:49] LABS: Lactic Sepsis W/Reflex 2.3 mmol/L (0.5-2.2)
[2023-11-25 17:50] LABS: Alanine Aminotransferase 41 U/L (0-41); Albumin Level 3.9 g/dL (3.5-5.2); Alkaline Phosphatase 139 U/L (40-130); Aspartate Amino Transferase 107 U/L (0-40); Blood Urea Nitrogen 9 mg/dL (6-20); Carbon Dioxide 23 mmol/L (22-29); Chloride 102 mmol/L (98-107); Creatinine Clr Calc Pharmacy 251.1886; Globulin 4.2 g/dL (1.3-4.6); Glomerular Filtration Rate 154.2 mL/min (90-130); Glucose 169 mg/dL (65-115); Osmolality Calculated 295 mOsm/kg (285-295); Sodium 141 mmol/L (136-145); Total Bilirubin 0.6 mg/dL (0.15-1.2); Total Protein 8.1 g/dL (6.6-8.7)
[2023-11-25] MEDS: levofloxacin-dextrose 5 % 750 MG/150 ML PREMIX 100 MG IV (17:56)
[2023-11-25 18:00] LABS: Anion Gap 19.6 (5-19); Potassium 3.6 mmol/L (3.5-5.1)
--- NOTE | 2023-11-25 18:10 | P.HP_ITS ---
Providers/Chief Complaint 2 Primary Care Provider: Nikole Solano APN Chief Complaint: sob History of Present Illness Pleasant 33-year-old gentleman with history of stroke back in June, with atrial flutter, on anticoagulation with Xarelto, with history of alcohol use disorder, states that he had quit smoking since June, has not had any substance use since June. He has been having shortness of breath over the last several days, coughing, productive cough, chest congestion, feels like he has more phlegm to bring up but has been having difficulty. With malaise. Has been having some dry heaves and nausea particularly in the morning. He drinks about a pint of liquor a day but has been trying to cut down. Suspect this is likely contributing to his nausea and dry heaves in the morning. Has history of severe withdrawal. Review of Systems 2 Const: Reports: malaise; Denies: fever(s), chills or body aches ENMT: Denies: throat pain Card: Denies: chest pain, edema, pre-syncope or dyspnea on exertion Resp: Reports: dyspnea, productive cough and chest congestion; Denies: hemoptysis GI: Denies: abdominal pain, nausea, vomiting, diarrhea, constipation, hematochezia or melena : Denies: flank pain, difficulty urinating, urinary frequency or hematuria Musc: Denies: back pain, joint swelling or joint redness Skin/Breast: Denies: rash or new lesions Neuro: Denies: headache(s) or dizziness Endo: Denies: polyuria or polydipsia Medications/Allergies Home Medications Medication Instructions Recorded Confirmed Last Taken Type cock up splint #1 ea 09/26/21 09/11/23 Unknown Rx acetaminophen 500 mg tablet 1,000 - 1,500 mg PO Q6H PRN Pain 07/02/23 10/31/23 Unknown History atorvastatin 10 mg tablet 10 mg PO DAILY 07/30/23 10/31/23 Unknown History lisinopril 10 mg tablet 10 mg PO DAILY 07/30/23 10/31/23 Unknown History metformin 500 mg tablet 500 mg PO BID 07/30/23 10/31/23 Unknown History empagliflozin 25 mg tablet 25 mg PO DAILY 09/11/23 10/31/23 Unknown History (Jardiance) gabapentin 300 mg capsule 300 mg PO DAILY 09/11/23 10/31/23 Unknown History lactobacillus combination no.9 4 PO 09/11/23 10/31/23 Unknown History billion cell capsule (Adult 50 Plus Probiotic) metoprolol tartrate 25 mg tablet 12.5 mg (1/2 x 25 mg) PO BID #60 09/11/23 10/31/23 Unknown Rx tabs metoprolol succinate 25 mg 25 mg PO DAILY #90 tabs 10/31/23 10/31/23 Unknown Rx tablet,extended release 24 hr rivaroxaban 20 mg tablet (Xarelto) 20 mg PO DAILY #90 tabs 10/31/23 10/31/23 Unknown Rx Allergies Allergy/AdvReac Type Severity Reaction Status Date / Time ceftriaxone [From Rocephin] Allergy Unknown Verified 11/25/23 14:27 PFSH Acute 2 PFSH: Medical History Stroke (cerebrum) Substance abuse Tobacco abuse Transaminitis Atrial flutter Hypertension Diabetes mellitus Alcohol abuse No significant medical problems Surgical History No significant past surgical history Family History Other Alcohol abuse Diabetes Social History Smoking and tobacco/nicotine status: former use of tobacco/nicotine Alcohol intake: current Alcohol type: hard liquor Caregiver/support person: Yes Lives independently: No Household members: other Details: Lives with mother Housing: House Marital status: Single 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 status: employed 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 Const: COMMON NORMALS: patient oriented x3 and alert GENERAL APPEARANCE: c ooperative ORIENTATION/CONSCIOUSNESS: Yes awake HENMT: COMMON NORMALS: oropharynx normal Neck/C-Spine: COMMON NORMALS: no JVD Resp: COMMON NORMALS: normal respiratory effort and clear to auscultation bilaterally AUSCULTATION: diminished lung sounds Cardio: COMMON NORMALS: no JVD, regular rhythm, S1 normal heart sound present, S2 normal heart sound present and No murmurs present (Cardio) RHYTHM: regular rhythm HEART SOUNDS: S1 normal heart sound present and S2 normal heart sound present GI: COMMON NORMALS: Normal to inspection, nondistended, normoactive bowel sounds present, Soft to palpation and non-tender PALPATION: Yes Soft to palpation Extremity: COMMON NORMALS: no joint enlargement and no pedal edema Neuro: COMMON NORMALS: patient oriented x3 and moves all extremities S ENSORIUM/ORIENTATION: Yes alert Skin: COMMON NORMALS: no rashes or lesions noted GENERAL SKIN EXAM: no rashes or lesions noted Data 11/25/23 16:17 11/25/23 16:17 A&P Assessment and plan (1) Acute hypoxic respiratory failure: On follow-up with cardiology oxygen saturation down in the 80s. Hypoxemia on review of ABG, new oxygen requirement of 4 L nasal cannula currently in ER. Not normally on oxygen. Reviewed vitals, CBC, CMP, noted lactic acidosis 2.3. Reviewed ER note. Discussed with ER provider. He is free of chest pain. Reviewed EKG, sinus rhythm on my interpretation, pending official read. Given degree of hypoxia, respiratory viral panel also requested, assess for COVID-19, influenza. He denies vaping. Denies any IVDU, has not had any substance use since June. Previously was smoking. Secondary to bilateral pneumonia, worse on the right compared to the left. Has had some dry heaving, nausea, has not actually vomited. Alcohol use disorder. Monitor for possible aspiration pneumonia. Received Levaquin, azithromycin. Continue Levaquin IV. Reported history of allergy to ceftriaxone. Monitor oxygenation. Obtain sputum culture with chest congestion, phlegm production, flutter valve, Mucinex. (2) Pneumonia: As above. (3) Alcohol use disorder: With history of severe withdrawal. Drinks about a pint a day. Suspect this may be contributing to his nausea and dry heaves. Possible alcohol induced gastritis. Monitor for risk of withdrawal. CIWA protocol. Benzodiazepines as per CIWA. Discussed with him. Timing, folic acid, multivitamin. Discussed with him regarding cessation. Case management consultation for additional information regarding rehabilitation options. Plan Atrial flutter: From history obtained from his mother was diagnosed with atrial flutter. On anticoagulation with Xarelto. Continue metoprolol, Xarelto. DM2: Hold Jardiance, metformin. Sliding scale insulin. Monitor POC glucose. Consistent carbohydrate diet. HTN: Continue metoprolol, lisinopril. Cardiac diet. Monitor blood pressures. History of stroke: With atrial flutter, continue Xarelto, statin. Possible sleep apnea: Noted hypoxia during one of the last admissions, would benefit from follow-up for sleep study, states has not done so yet. Attestations 2 Medical Necessity Statement*: Admission over 2 midnights required for assessment management of pneumonia with hypoxic respiratory failure, and a gentleman with alcohol use disorder, risk of withdrawal, history of severe withdrawal, additional comorbidities as above. and High MDM includes number and complexity of problems actively addressed during encounter and amount and/or complexity of data reviewed/ordered [ previous or external records, resulted lab(s)/test(s), ordered lab(s)/test(s), independent historian, independent test interpretation and other healthcare professional discussion] as documented Diagnoses Acute hypoxic respiratory failure J96.01 Pneumonia J18.9 Alcohol use disorder F10.90
[2023-11-25 18:55] LABS: Covid PCR NEGATIVE (Negative); Influenza A NEGATIVE (Negative); Influenza B NEGATIVE (Negative); Respiratory Syncytial Virus Ce NEGATIVE (Negative)
[2023-11-25 19:21] LABS: Reflex Lactate Order REFLEX LACTIC ORDERD
[2023-11-25 20:02] LABS: Charge for UA Resulting for Rev
[2023-11-25 20:07] LABS: Bilirubin Urine Negative (Negative); Blood Urine Non-haemolysed trace (Negative); Glucose Urine UA 3+ (Normal); Ketones Urine Negative (Negative); Leukocyte Esterase Urine Negative (Negative); Nitrate Urine Negative (Negative); Protein Urine 1+ (Negative); Urine Appearance Cloudy (CLEAR); Urine Color Yellow (Yellow); pH Urine 5.5 (5-7)
[2023-11-25 20:12] LABS: Bacteria Urine None Seen /hpf; Hyaline Casts Urine 0-4 /lpf; RBC Urine 0-2 /hpf (0-2); Squamous Epithelial Cell Urine 0-5 /hpf (0-5); WBC Urine 0-5 /hpf (0-5)
[2023-11-25 20:13] LABS: Amphetamines Screen Urine Negative (Negative); Barbiturates Screen Urine Negative (Negative); Benzodiazepines Screen Urine Negative (Negative); Cocaine Screen Urine Negative (Negative); Opiate Screen Urine Positive (Negative); PCP Screen Urine Negative (Negative); THC Screen Urine Negative (Negative)
[2023-11-25 20:34] LABS: Specific Gravity, Urine 1.052 (1.005-1.030)
[2023-11-25] MEDS: amlodipine 10 mg Tablet PO (22:23)
[2023-11-26] VITALS (11 sets, daily range): BP systolic 160–234; BP diastolic 85–135; PULSE 77–157; RESP 20–29; TEMP 36.5–37.1; O2SAT 94–98
--- NOTE | 2023-11-26 01:28 | ECG_ITS ---
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 Measurements Intervals [place] Rate: 147 P: 0 AK: 0 QRS: 90 QRSD: 101 T: -72 QT: 256 QTc: 400 Interpretive Statements ATRIAL FLUTTER/TACHYCARDIA WITH RAPID VENTRICULAR RESPONSE POSSIBLE ANTERIOR MYOCARDIAL INFARCTION , PROBABLY OLD [30 ms Q WAVE IN V3/V4, OR R < 0.2 mV IN V4] MODERATE T-WAVE ABNORMALITY, CONSIDER LATERAL ISCHEMIA [-0.1+ mV T-WAVE IN I/aVL/V5/V6] MODERATE T-WAVE ABNORMALITY, CONSIDER INFERIOR ISCHEMIA [-0.1+ mV T-WAVE IN II/aVF] Compared to ECG 11/25/2023 14:19:58 Myocardial infarct finding now present T-wave abnormality now present Possible ischemia now present Sinus rhythm no longer present Electronically Signed On 11-26-2023 21:31:35 CDT by Petr Pandey M.D. [id number]
[2023-11-26] MEDS: metoprolol tartrate 25 mg Tablet PO ×2 (01:40→12:19)
[2023-11-26] MEDS: LORazepam 2 mg/mL INJ 1 mL IVP ×3 (02:14→14:05)
[2023-11-26 02:21] LABS: Alcohol Level 250 mg/dL (0-10)
[2023-11-26] MEDS: amiodarone 150 MG/100 ML PREMIX 400 MG (02:40)
--- NOTE | 2023-11-26 03:06 | PC.NURSE ---
Patient got up to use the urinal at approximately 0100 and his heart rate spiked up to 180 but then came to sustain at 140-150. The doctor was contacted and an EKG was performed per orders. The pt was also assessed per CIWA scoring an 11. Orders were obtained for PRN Ativan according to CIWA. Orders were placed for Metoprolol 25mg PO with instruction to contact the doctor thirty minutes after administration if the patient's heart rate didn't change. Metoprolol was given at 0140 and at 0214 2mg of Ativan were given. Doctor was contacted after patient's heart rate continued to sustain in the 140s. At this time orders were given to start a 150mg amiodarone bolus and an Amiodarone drip along with transferring the patient to CSU. Patient got up to use the bathroom and his heart rate elevated to 200 at which point we attempted to produce a vagal response to lower his heart rate. His heart rate lowered and began to fluctuate between 170 and 200. Patient was given amiodarone bolus by charge and taken to CSU unit at approximately 0245.
[2023-11-26] MEDS: amiodarone 150 MG/100 ML PREMIX 400 MG IV (03:28)
--- NOTE | 2023-11-26 05:22 | PM.CCNAC ---
Critical Care Event Note The high probability of a clinically significant, sudden or life threatening deterioration of the patient's [] system(s) required my full and direct attention, intervention and personal management. The critical care time is as shown. This time is in addition to time spent performing any reported procedures but includes the following: [x] Data and vital sign review and interpretation [x] Patient assessment, examination and intervention [x] Documentation [x] Medication orders and management Critical Care Time Code activated: No Critical Care Time (min): 35 Additional information about critical care time: - Concerns for alcohol withdrawal, patient was scoring 11 on the CIWA score, history of alcoholism, started on CIWA protocol -Patient developed heart rates in the 130s, he had taken his morning metoprolol, metoprolol increased to 25 twice daily, given a dose at about 1 AM -Patient developed A-fib with RVR heart rates in the 180s -Alert oriented x 3, following all commands, hypertensive blood pressure 180/100 -Was given 150 mg amiodarone bolus, with amiodarone drip, moved down to CSU -I examined on amiodarone drip, heart rates are down to the 140s, A-fib he is alert awake, following all commands, denies any chest pain, does report some shortness of breath -Continue amiodarone drip Coding Level of Care Code Acute Code for Garthg Fwd
--- NOTE | 2023-11-26 07:42 | PC.PHAR ---
Pt states his mom (Sonia) sets up his medications. Left her a message at 7:43am.
[2023-11-26] MEDS: rivaroxaban 10 mg Tablet 20 MG PO (07:43)
[2023-11-26] MEDS: multivitamin therapeutic Tablet 1 TAB PO (07:43)
[2023-11-26] MEDS: cloNIDine 0.1 mg Tablet PO ×2 (07:43→18:12)
[2023-11-26] MEDS: atorvastatin 40 mg Tablet 10 MG PO (07:43)
[2023-11-26] MEDS: amiodarone 200 mg Tablet 400 MG PO ×2 (07:43→18:12)
[2023-11-26] MEDS: lisinopril 10 mg Tablet PO (07:44)
[2023-11-26] MEDS: folic acid 1 mg Tablet PO (07:44)
[2023-11-26] MEDS: thiamine 100 mg Tablet PO (07:44)
--- NOTE | 2023-11-26 09:13 | PC.CHAP ---
Pastoral Care Encounter/Spiritual Assessment Type of Contact [] Declined obstetrics teacher visit [] Patient/Family/Request visit [] Outpatient visit [] Follow-up visit [] Physician referral [] Code/Alert [x] Routine visit [] Staff referral [] Actively dying [] Patient sleeping [] Family support [] [] Out of room [] Palliative care [] [] Receiving care in room [] Pre-surgical visit [] Trauma [] Long length of stay [] ICU visit [] Other: Relational/Emotional Strength [x] Patient feels connected with others/family/visitors/staff [] Distress [] Loneliness/isolation [] Abandonment Spirituality of Patient [x] Person of Franny [] Attends Catholic of their Franny [x] Believes in Prayer [] Reads Bible or Protestant materials [] There are Spiritual issues to be addressed 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 [employer] Interventions [x] Prayer [x] Active listening [] Non-anxious presence [x] Spiritual/emotional support [] Crisis/trauma care [] Spiritual counseling [] Bereavement support [] Provided bereavement packet [] Provided Bible/devotional materials [] Provided toy/stuffed animal, coloring book to patient or family member [] Provided Communion [] Anointing/Sheldon [] Salvation [x] Completed spiritual assessment [] Other: Impact on Illness or Injury [] Angry [] Fearful [] Anxious [] Often cries [] Exhaustion [] Unable to work [] Unable to attend scientology [] Unable to walk/stand [] Unable to read [] Unable to drive [] Unable to eat/drink [] Unable to sleep [] Unable to be with family [] Patient intubated [] Other: Summary Time spent with patient 5 min
[2023-11-26 11:42] LABS: Glucose Point of Care 133 mg/dL (70-110)
[2023-11-26 12:08] LABS: Magnesium 1.2 mg/dL (1.7-2.3)
--- NOTE | 2023-11-26 14:24 | P.PN_ITS ---
Subjective 2 Subjective: Breathing feels slightly better. At the same time I was notified of worsening alcohol withdrawal symptoms, high CIWA score without response to Ativan. Vitals/I&O/Wt Last Vital Signs Temp 97.7 F 11/26/23 11:20 Pulse 87 11/26/23 11:20 Resp 23 H 11/26/23 11:20 BP 180/107 11/26/23 11:20 Pulse Ox 98 11/26/23 11:20 O2 Del Method Nasal Cannula 11/26/23 11:20 O2 Flow Rate 3 11/25/23 22:30 11/25/23 11/26/23 11/26/23 22:59 06:59 14:59 Intake Total 630 / 630 400 / 1030 360 / 360 Output Total 850 / 850 Balance 630 / 630 400 / 1030 -490 / -490 Weight last 48 hrs Weight 150.366 kg Weight 150.366 kg Weight 136.078 kg Physical Exam 2 Narrative: Sitting up in bed. Const: COMMON NORMALS: patient oriented x3 and alert GENERAL APPEARANCE: c ooperative ORIENTATION/CONSCIOUSNESS: Yes awake HENMT: COMMON NORMALS: oropharynx normal Neck/C-Spine: COMMON NORMALS: no JVD Resp: COMMON NORMALS: normal respiratory effort and clear to auscultation bilaterally AUSCULTATION: clear to auscultation bilaterally and diminished lung sounds Cardio: COMMON NORMALS: no JVD, regular rhythm, S1 normal heart sound present, S2 normal heart sound present and No murmurs present (Cardio) RHYTHM: regular rhythm HEART SOUNDS: S1 normal heart sound present and S2 normal heart sound present GI: COMMON NORMALS: Normal to inspection, nondistended, normoactive bowel sounds present, Soft to palpation and non-tender PALPATION: Yes Soft to palpation Extremity: COMMON NORMALS: no joint enlargement and no pedal edema Neuro: COMMON NORMALS: patient oriented x3 and moves all extremities S ENSORIUM/ORIENTATION: Yes alert Psych: OTHER: Appears mildly anxious. Skin: COMMON NORMALS: no rashes or lesions noted GENERAL SKIN EXAM: no rashes or lesions noted Data 11/25/23 16:17 11/25/23 16:17 Micro: Microbiology 11/25/23 17:48 Blood Culture - Preliminary Blood SPECIMEN COLLECTED 11/25/23 17:46 Blood Culture - Preliminary Blood SPECIMEN COLLECTED A&P Assessment and plan (1) Alcohol withdrawal: Progressively worsening alcohol withdrawal, notified of worsening CIWA scores 19-20, not responding to Ativan. Per discussion with his mother he had an opposite reaction to Librium last time which put him over the edge , and made him leave the hospital AMA. Per history obtained from his mother also patient's uncle from alcohol withdrawal. Will avoid Librium. Discussed treatment with phenobarbital. Requesting loading dose 300 mg followed by 250 mg every 3 hours followed by maintenance dose starting tomorrow morning 60 mg every 12 hours. Monitor on telemetry with severe withdrawal and risk of arrhythmia. Risk of seizure. Seizure precautions. Monitor for risk of mental status change, respiratory depression. Continue thiamine, folic acid, multivitamin. (2) Acute hypoxic respiratory failure: So far doing slightly better, oxygen requirement down to 3 L nasal cannula. Still requiring oxygen, wears normally not needing supplementation. Afebrile. No leukocytosis. Subjectively feeling slightly better. Producing phlegm. Obtain sputum culture if possible. Continue oxygen support, wean down as tolerating. Continue antibiotic treatment with Levaquin. Reviewed CBC, CMP, COVID PCR panel, influenza PCR, resp PCR negative. Sputum culture requested. Given degree of hypoxia, respiratory viral panel also requested, assess for COVID-19, influenza. He denies vaping. Denies any IVDU, has not had any substance use since June. Previously was smoking. Secondary to bilateral pneumonia, worse on the right compared to the left. Has had some dry heaving, nausea, has not actually vomited. Alcohol use disorder. Monitor for possible aspiration pneumonia. Received Levaquin, azithromycin. Continue Levaquin IV. Reported history of allergy to ceftriaxone. Monitor oxygenation. Obtain sputum culture with chest congestion, phlegm production, flutter valve, Mucinex. (3) Pneumonia: As above. (4) Alcohol use disorder: Discussed with case management to assist him with options for rehabilitation due to difficulties with quitting. He was able to quit smoking cold turkey. He reportedly has been drinking alcohol since being 14, there is some reported problem with alcohol intake and his mother as well. Suspected alcohol induced gastritis. Will give PPI. Monitor for risk of withdrawal. CIWA protocol. Benzodiazepines as per CIWA. Discussed with him. Timing, folic acid, multivitamin. Discussed with him regarding cessation. Case management consultation for additional information regarding rehabilitation options. Plan Atrial flutter with RVR: Overnight atrial flutter with RVR. Did not respond to oral metoprolol. Started on IV amiodarone. From history obtained from his mother was diagnosed with atrial flutter. On anticoagulation with Xarelto. Continue metoprolol, Xarelto. Uncontrolled hypertension: Likely fueled by severe alcohol withdrawal. Was started on clonidine overnight. Continue metoprolol. Amlodipine. Treat alcohol withdrawal as above. Replace hypomagnesemia. Hypomagnesemia: Magnesium 1.2. Requested replacement IV. Recheck level. DM2: Hold Jardiance, metformin. Sliding scale insulin. Monitor POC glucose. Consistent carbohydrate diet. HTN: Continue metoprolol, lisinopril. Cardiac diet. Monitor blood pressures. History of stroke: With atrial flutter, continue Xarelto, statin. Possible sleep apnea: Noted hypoxia during one of the last admissions, would benefit from follow-up for sleep study, states has not done so yet. Attestations 2 Medical Necessity Statement*: Continue admission for assessment management of severe alcohol withdrawal, pneumonia with hypoxia with new oxygen supplementation requirement. Diagnoses Alcohol withdrawal F10.939 Acute hypoxic respiratory failure J96.01 Pneumonia J18.9 Alcohol use disorder F10.90
[2023-11-26] MEDS: PHENobarbital 130 mg/mL SDV 1 mL 300 MG IVP (14:55)
[2023-11-26 15:03] LABS: Amphetamines Screen Urine Negative (Negative); Barbiturates Screen Urine Negative (Negative); Benzodiazepines Screen Urine Positive (Negative); Cocaine Screen Urine Negative (Negative); Opiate Screen Urine Negative (Negative); PCP Screen Urine Negative (Negative); THC Screen Urine Negative (Negative)
[2023-11-26] MEDS: gabapentin 300 mg Capsule PO (15:10)
[2023-11-26] MEDS: pantoprazole DR 40 mg Tablet PO (15:10)
[2023-11-26] MEDS: magnesium sulfate premix 4 GM/100 ML PREMIX IV (15:10)
[2023-11-26 15:59] LABS: Glucose Point of Care 143 mg/dL (70-110)
[2023-11-26] MEDS: PHENobarbital 130 mg/mL SDV 1 mL 250 MG IVP ×2 (18:11→20:10)
[2023-11-26] MEDS: levofloxacin-dextrose 5 % 750 MG/150 ML PREMIX 100 MG IV (18:25)
[2023-11-26 19:58] LABS: Glucose Point of Care 170 mg/dL (70-110)
[2023-11-26] MEDS: amlodipine 10 mg Tablet PO (20:10)
[2023-11-27] VITALS (9 sets, daily range): BP systolic 121–192; BP diastolic 74–145; PULSE 74–88; RESP 18–24; TEMP 36.9–37.1; O2SAT 95–99
[2023-11-27] MEDS: metoprolol tartrate 25 mg Tablet PO ×2 (02:28→12:14)
[2023-11-27] MEDS: LORazepam 2 mg Tablet PO (03:01)
[2023-11-27 04:36] LABS: Basophils # 0.1 10^3/uL (0.0-0.1); Basophils % 0.7 %; Eosinophils # 0.4 10^3/uL (0.0-0.8); Eosinophils % 5.6 %; Hematocrit 33.5 % (37-53); Lymphocytes # 1.2 10^3/uL (0.8-4.8); Lymphocytes % 16.5 %; Mean Corpuscular HGB Conc 31.9 g/dL (30-55); Mean Corpuscular Hemoglobin 30.3 pg (27-33); Mean Corpuscular Volume 94.9 fl (82-101); Mean Platelet Volume 9.8 fL (7.4-10.4); Monocytes # 0.9 10^3/uL (0.2-0.9); Monocytes % 12.3 %; Neutrophils # 4.84 10^3/uL (1.8-7.7); Neutrophils % 64.4 %; Nucleated Red Blood Cells % 0 %; Platelet Count 144 10^3/cmm (157-399); Red Blood Count 3.53 10^6/uL (3.85-5.65); Red Cell Distribution Width 13.1 % (12.1-15.1); White Blood Count 7.51 10^3/uL (3.29-11.43)
[2023-11-27 04:53] LABS: Alanine Aminotransferase 26 U/L (0-41); Albumin Level 3.5 g/dL (3.5-5.2); Alkaline Phosphatase 107 U/L (40-130); Anion Gap 15.7 (5-19); Aspartate Amino Transferase 67 U/L (0-40); Blood Urea Nitrogen 11 mg/dL (6-20); Calcium 8.5 mg/dL (8.5-10.5); Carbon Dioxide 26 mmol/L (22-29); Chloride 94 mmol/L (98-107); Globulin 4.1 g/dL (1.3-4.6); Glomerular Filtration Rate 154.2 mL/min (90-130); Glucose 139 mg/dL (65-115); Magnesium 1.4 mg/dL (1.7-2.3); Osmolality Calculated 276 mOsm/kg (285-295); Potassium 3.7 mmol/L (3.5-5.1); Sodium 132 mmol/L (136-145); Total Bilirubin 1.5 mg/dL (0.15-1.2); Total Protein 7.6 g/dL (6.6-8.7)
[2023-11-27] MEDS: PHENobarbital 130 mg/mL SDV 1 mL 60 MG IVP ×2 (05:58→17:47)
[2023-11-27 06:38] LABS: Glucose Point of Care 140 mg/dL (70-110)
[2023-11-27] MEDS: multivitamin therapeutic Tablet 1 TAB PO (08:04)
[2023-11-27] MEDS: rivaroxaban 10 mg Tablet 20 MG PO (08:04)
[2023-11-27] MEDS: cloNIDine 0.1 mg Tablet PO ×2 (08:04→17:48)
[2023-11-27] MEDS: pantoprazole DR 40 mg Tablet PO (08:04)
[2023-11-27] MEDS: thiamine 100 mg Tablet PO (08:04)
[2023-11-27] MEDS: amiodarone 200 mg Tablet 400 MG PO ×2 (08:04→17:47)
[2023-11-27] MEDS: folic acid 1 mg Tablet PO (08:04)
[2023-11-27] MEDS: gabapentin 300 mg Capsule PO (08:05)
[2023-11-27] MEDS: lisinopril 10 mg Tablet PO ×2 (08:05→08:51)
[2023-11-27] MEDS: atorvastatin 40 mg Tablet 10 MG PO (08:05)
[2023-11-27] MEDS: labetalol 5 mg/mL SDV 20mL 10 MG IVP (08:51)
[2023-11-27] MEDS: magnesium sulfate premix 4 GM/100 ML PREMIX IV (08:52)
[2023-11-27] MEDS: guaiFENesin 600 mg Tablet 1200 MG PO ×2 (11:11→17:48)
[2023-11-27 11:29] LABS: Glucose Point of Care 169 mg/dL (70-110)
[2023-11-27] MEDS: insulin lispro 100 unit/1 mL SUBCUT ×2 (12:10→21:24)
[2023-11-27 13:28] LABS: Glucose Point of Care 163 mg/dL (70-110)
[2023-11-27 16:39] LABS: Glucose Point of Care 136 mg/dL (70-110)
[2023-11-27] MEDS: levofloxacin-dextrose 5 % 750 MG/150 ML PREMIX 100 MG IV (17:48)
--- NOTE | 2023-11-27 19:35 | P.PN_ITS ---
Subjective 2 Subjective: Symptomatically he is feeling slightly better today. Still coughing, feels like there is mucus coming up to his throat but he cannot quite cough it up. He has been having some vivid dreams and feels like he goes right into a dream as soon as he falls asleep, but denies overt hallucination. Later on mother reported bringing him a THC gummy as he reported thoughts of leaving AMA, and he spends part of the day sleeping. Vitals/I&O/Wt Last Vital Signs Temp 98.6 F 11/27/23 16:00 Pulse 83 11/27/23 16:00 Resp 22 H 11/27/23 16:00 BP 149/93 11/27/23 17:48 Pulse Ox 97 11/27/23 16:00 O2 Del Method Room Air 11/27/23 16:00 O2 Flow Rate 2 11/27/23 07:16 11/27/23 11/27/23 11/27/23 06:59 14:59 22:59 Intake Total 700 / 700 240 / 940 Balance 700 / 700 240 / 940 Weight last 48 hrs Weight 150.366 kg Weight 150.366 kg Weight 150.366 kg Physical Exam 2 Narrative: Sitting up in bed. Const: COMMON NORMALS: patient oriented x3 and alert GENERAL APPEARANCE: c ooperative ORIENTATION/CONSCIOUSNESS: Yes awake HENMT: COMMON NORMALS: oropharynx normal Neck/C-Spine: COMMON NORMALS: no JVD Resp: COMMON NORMALS: normal respiratory effort and clear to auscultation bilaterally AUSCULTATION: clear to auscultation bilaterally and diminished lung sounds Cardio: COMMON NORMALS: no JVD, regular rhythm, S1 normal heart sound present, S2 normal heart sound present and No murmurs present (Cardio) RHYTHM: regular rhythm HEART SOUNDS: S1 normal heart sound present and S2 normal heart sound present GI: COMMON NORMALS: Normal to inspection, nondistended, normoactive bowel sounds present, Soft to palpation and non-tender PALPATION: Yes Soft to palpation Extremity: COMMON NORMALS: no joint enlargement and no pedal edema Neuro: COMMON NORMALS: patient oriented x3 and moves all extremities S ENSORIUM/ORIENTATION: Yes alert Psych: OTHER: Appears mildly anxious. Skin: COMMON NORMALS: no rashes or lesions noted GENERAL SKIN EXAM: no rashes or lesions noted Data 11/27/23 04:20 11/27/23 04:20 Micro: Microbiology 11/25/23 17:48 Blood Culture - Preliminary Blood NEGATIVE TO DATE 11/25/23 17:46 Blood Culture - Preliminary Blood NEGATIVE TO DATE A&P Assessment and plan (1) Alcohol withdrawal: So far has responded to phenobarbital, continues with IV maintenance dose. Monitor for respiratory depression. Significantly reduced need for Ativan. Continue treatment of severe withdrawal. Thiamine, folic acid, multivitamin. Discussed with nursing. Discussed with medical case manager, they are going to provide him with some options for rehabilitation. Consider naltrexone if he is willing. Resumed gabapentin. Avoid Librium. Monitor on telemetry with severe withdrawal and risk of arrhythmia. Risk of seizure. Seizure precautions. Monitor for risk of mental status change, respiratory depression. Reviewed magnesium, replace hypomagnesemia. Additional IV mag given. (2) Acute hypoxic respiratory failure: Reviewed vitals, CBC, CMP, blood culture. Negative to date. He is having cough, productive of phlegm but having difficult time bringing anything up. Add guaifenesin. Add flutter valve. Continue oxygen support. Wean down as tolerating. Normally not on any oxygen. Continue antibiotic treatment with Levaquin. Reviewed CBC, CMP, COVID PCR panel, influenza PCR, resp PCR negative. Sputum culture requested. Respiratory viral panel negative for COVID-19, influenza. He denies vaping. Denies any IVDU, has not had any substance use since June. Previously was smoking. Secondary to bilateral pneumonia, worse on the right compared to the left. Has had some dry heaving, nausea, has not actually vomited. Alcohol use disorder. Monitor for possible aspiration pneumonia. Received Levaquin, azithromycin. Reported history of allergy to ceftriaxone. Monitor oxygenation. (3) Pneumonia: As above. (4) Alcohol use disorder: Discussed with case management to assist him with options for rehabilitation due to difficulties with quitting. He was able to quit smoking cold turkey. He reportedly has been drinking alcohol since being 14, there is some reported problem with alcohol intake and his mother as well. Suspected alcohol induced gastritis. Will give PPI. Monitor for risk of withdrawal. CIWA protocol. Benzodiazepines as per CIWA. Discussed with him. Timing, folic acid, multivitamin. Discussed with him regarding cessation. Case management consultation for additional information regarding rehabilitation options. Plan Atrial flutter with RVR: Improved. Switch to oral amiodarone. DC amnio drip. On anticoagulation with Xarelto. Continue metoprolol, Xarelto. Uncontrolled hypertension: Still uncontrolled hypertension, discussed with him, increase lisinopril dose to 20 mg. Likely fueled by severe alcohol withdrawal. Was started on clonidine overnight. Continue metoprolol. Amlodipine. Treat alcohol withdrawal as above. Replace hypomagnesemia. Hypomagnesemia: Magnesium 1.4. Requested additional replacement IV. Recheck level. DM2: Hold Jardiance, metformin. Sliding scale insulin. Monitor POC glucose. Consistent carbohydrate diet. HTN: Continue metoprolol, lisinopril. Cardiac diet. Monitor blood pressures. History of stroke: With atrial flutter, continue Xarelto, statin. Possible sleep apnea: Noted hypoxia during one of the last admissions, would benefit from follow-up for sleep study, states has not done so yet. Attestations 2 Medical Necessity Statement*: Continue admission for assessment management of severe alcohol withdrawal, pneumonia with hypoxia with new oxygen supplementation requirement. and High MDM includes amount and/or complexity of data reviewed/ordered [ resulted lab(s)/test(s), ordered lab(s)/test(s) and other healthcare professional discussion] and described risk of complication, morbidity or mortality of management as documented Diagnoses Alcohol withdrawal F10.939 Acute hypoxic respiratory failure J96.01 Pneumonia J18.9 Alcohol use disorder F10.90
[2023-11-27 20:26] LABS: Glucose Point of Care 171 mg/dL (70-110)
[2023-11-27] MEDS: amlodipine 10 mg Tablet PO (21:24)
[2023-11-28] VITALS (26 sets, daily range): BP systolic 143–177; BP diastolic 89–143; PULSE 71–107; RESP 16–26; TEMP 36.6–38.1; O2SAT 83–98; BMI 43.7
[2023-11-28] MEDS: metoprolol tartrate 25 mg Tablet PO ×2 (00:41→13:26)
[2023-11-28 04:26] LABS: Basophils # 0.1 10^3/uL (0.0-0.1); Basophils % 0.8 %; Eosinophils # 0.5 10^3/uL (0.0-0.8); Eosinophils % 7.1 %; Hematocrit 35.2 % (37-53); Lymphocytes # 1.1 10^3/uL (0.8-4.8); Lymphocytes % 14.7 %; Mean Corpuscular HGB Conc 31.5 g/dL (30-55); Mean Corpuscular Hemoglobin 30.2 pg (27-33); Mean Corpuscular Volume 95.7 fl (82-101); Mean Platelet Volume 9.2 fL (7.4-10.4); Monocytes # 0.9 10^3/uL (0.2-0.9); Monocytes % 11.9 %; Neutrophils # 4.74 10^3/uL (1.8-7.7); Neutrophils % 65.1 %; Nucleated Red Blood Cells % 0 %; Platelet Count 161 10^3/cmm (157-399); Red Blood Count 3.68 10^6/uL (3.85-5.65); White Blood Count 7.29 10^3/uL (3.29-11.43)
[2023-11-28 04:48] LABS: Alanine Aminotransferase 25 U/L (0-41); Albumin Level 3.6 g/dL (3.5-5.2); Alkaline Phosphatase 106 U/L (40-130); Aspartate Amino Transferase 78 U/L (0-40); Blood Urea Nitrogen 16 mg/dL (6-20); Carbon Dioxide 26 mmol/L (22-29); Chloride 96 mmol/L (98-107); Creatinine Clr Calc Pharmacy 227.3246; Glomerular Filtration Rate 129.1 mL/min (90-130); Glucose 144 mg/dL (65-115); Magnesium 1.5 mg/dL (1.7-2.3); Osmolality Calculated 280 mOsm/kg (285-295); Sodium 133 mmol/L (136-145); Total Bilirubin 1.2 mg/dL (0.15-1.2); Total Protein 7.6 g/dL (6.6-8.7)
[2023-11-28] MEDS: PHENobarbital 130 mg/mL SDV 1 mL 60 MG IVP (05:50)
[2023-11-28 06:35] LABS: Glucose Point of Care 132 mg/dL (70-110)
[2023-11-28] MEDS: cloNIDine 0.1 mg Tablet PO (09:08)
[2023-11-28] MEDS: pantoprazole DR 40 mg Tablet PO (09:08)
[2023-11-28] MEDS: atorvastatin 40 mg Tablet 10 MG PO (09:08)
[2023-11-28] MEDS: rivaroxaban 10 mg Tablet 20 MG PO (09:08)
[2023-11-28] MEDS: multivitamin therapeutic Tablet 1 TAB PO (09:08)
[2023-11-28] MEDS: lisinopril 20 mg Tablet PO (09:08)
[2023-11-28] MEDS: guaiFENesin 600 mg Tablet 1200 MG PO (09:08)
[2023-11-28] MEDS: thiamine 100 mg Tablet PO (09:08)
[2023-11-28] MEDS: folic acid 1 mg Tablet PO (09:08)
[2023-11-28] MEDS: amiodarone 200 mg Tablet 400 MG PO (09:08)
[2023-11-28] MEDS: gabapentin 300 mg Capsule PO (09:08)
[2023-11-28] MEDS: LORazepam 2 mg/mL INJ 1 mL IVP ×2 (09:14→10:48)
--- NOTE | 2023-11-28 10:28 | PC.NURSE ---
Addendum entered and electronically signed by Yolanda Cheng RN 11/28/23 10:38: Addition to the primary note: Patient was clawing at his chest aggressively during the communication that I had with him. Primary nurse was made aware as well as the charge nurse. Patient was not unpleasant or uncooperative at any time. Original Note: This nurse was notified that a patient was walking down the [facility] by administration and had an IV in his arm. They stated he was ripping off his armbands. I went into the [facility] and encountered Mr. Regalado. He stated to me that he had been discharged and that he wanted to go meet his ride outside. I asked him to come back to his room due to his IV being in place and that I didn't want him to get an infection if it was left in. Mr. Regalado was very cooperative and we walked back to the room. He was asked if he needed a wheelchair due to the fact that he was breathing very hard and his face was red. He declined at this time. We went back up the hallway to his room. he stated that he was in room 104. He walked past the room and he was redirected back in. he sat on the side of the bed and I remained with him until the primary nurse entered the room. Clementina explained to him the medications that he was on and the potential effects if he stopped them abruptly. He stated he understood and he wanted to sign out AMA. he said that he wanted the IV out so he could leave. One of the nurses came in to take out the IV while the primary nurse was notifying Dr. Alicea. He stated that the patient could not leave. He did not clarify to Clementina that he wanted a hold initiated at that time. I contacted Dr. Alicea at 1010 and he gave verbal orders to place the patient on a 96 hour hold. I verified that he would come to the floor within the hour for the face to face with the patient. Dr. Alicea was in the room with the patient by 1020 for the face to face. Top Loader was notified and a 1:1 sitter was placed.
--- NOTE | 2023-11-28 10:45 | PC.NURSE ---
Addendum entered and electronically signed by Yolanda Cheng RN 11/28/23 11:06: The initial conversation with the physician took place at 1009. Original Note: Physician was notified at this time for clarification of orders that were given to Clementina regarding the patient being unable to leave. I asked the physician if he wanted to give a verbal order to place the patient on a 96 hour hold. He verbalized he was giving that order. I requested that he see the patient within 1 hour of the initiation for a face to face to be performed. He stated he would come to the floor and do the face to face. No further orders received.
--- NOTE | 2023-11-28 10:49 | PC.NURSE ---
96 hr rights reviewed with patient @1040 with assistance of [facility] founder and chief technical officer Nancy. All education reviewed with patient, and patient had no verbalized questions or concerns. Patient copy was left @bedside with patient.
[2023-11-28 11:45] LABS: Glucose Point of Care 143 mg/dL (70-110)
--- NOTE | 2023-11-28 11:54 | PC.NURSE ---
At approx 0930 this nurse was informed that patient had wondered off the unit towards Dr. Drake and had pulled out one IV and was clawing at his chest. When this nurse went to go assess the patient his mental status had changed from the previous hour. He was very disorganized in thought process. Patient told me that he wanted to leave that he did not agree to this admission and believed that he had been discharged, then brought back in and was only here for 30 minutes. Patient admitted to me that his mother brought him a THC 10mg Gummy attempting to calm him down. I asked his mother about this and she said that she did bring one in today around 0830 and yesterday evening. Physician was notified of patients elopement attempt and mental status. Nurse was advised that patient could not leave AMA due to mental incapacity. Order was received to place patient on a 96 hour hold. Patient was served 96 hour papers. Patients mother was notified. Patient transferred to neuro psych unit. Patients mother said that she would come and get his belongings including clothing and electronics.
[2023-11-28] MEDS: LORazepam 2 mg Tablet PO ×2 (12:16→13:27)
[2023-11-28] MEDS: haloperidol 5 mg Tablet PO (12:16)
[2023-11-28 12:38] LABS: Glucose Point of Care 139 mg/dL (70-110)
--- NOTE | 2023-11-28 13:28 | PC.NURSE ---
UPON ARRIVAL TO NPU PT WAS AGITATED AND TRYING TO ELOPE OFF OF THE UNIT. PT WAS THEN PLACED ON A 1:1. PT WAS GIVEN HALDOL 5MG AND ATIVAN 2MG. PT CONTINUES TO BE AGITATED AND ANOTHER ORDER WAS GIVEN FOR ATIVAN 2MG. PT TOOK MEDICATION WITHOUT INCIDENT.
[2023-11-28] MEDS: ziprasidone 20 mg/mL SDV IM (14:22)
--- NOTE | 2023-11-28 14:26 | PC.NURSE ---
PT CONTINUES TO BE AGITATED AND YELLING. PT TRYING TO GET INTO ALL OF THE DOORS IN THE UNIT. VERBAL ORDER WAS GIVEN FOR GEODON 20MG IM. INJECTION WAS GIVEN IN THE LEFT DELTOID WITHOUT INCIDENT. SECURITY WAS PRESENT. PT IS RESTING IN BED.
--- NOTE | 2023-11-28 15:37 | P.PN_ITS ---
Subjective 2 Subjective: Early in the morning was reported doing okay, alert, cooperative, but later in the morning reported becoming worse, getting up and wandering, giving incongruent answers to questions, stating that a doctor took out his IV. Trying to leave the hospital. On my assessment he is ambulating in the room without a shirt, with track pants on, tremulous, with lumbering gait, somewhat stumbling mildly slurred speech. Agreeable to sit down and talk. Discussed with him regarding pneumonia, this overall gradually has been improving, his oxygen had improved, saturating 93% on room air, was able to wean off nasal cannula, however, discussed concern of ongoing withdrawal, as well as currently still receiving medications for treatment including IV phenobarbital. Asking him about his earlier statements about removed IV, he states that he had removed it due to water leaking behind his bed and that he had gotten confused. Discussed risk of worsening withdrawal leaving treatment prematurely, risk of coma, respiratory depression, in case of alcohol consumption while on phenobarbital. He verbalized agreement and willing to stay over the next 1 to 2 days to further treat withdrawal, shook my hand and thanked for the conversation, as soon as we were done he was up walking out shirtless into the hallway with nursing staff were present meeting him. Questioning what he was doing, he had no recollection of our discussion stating that he was looking for the nearest exit through the parking lot. Revisiting that he had just agreed to stay for further treatment, he stated he did no such thing because he has no shirt on . Subsequently repeatedly trying to make his way out into the hallway to try to find an exit, giving different reasons. Vitals/I&O/Wt Last Vital Signs Temp 97.9 F 11/28/23 15:05 Pulse 100 11/28/23 15:05 Resp 20 H 11/28/23 15:05 BP 171/103 11/28/23 15:05 Pulse Ox 92 11/28/23 15:05 O2 Del Method Room Air 11/28/23 12:08 O2 Flow Rate 2 11/28/23 07:08 11/28/23 11/28/23 11/28/23 06:59 14:59 22:59 Intake Total 360 / 360 Balance 360 / 360 Weight last 48 hrs Weight 150.366 kg Weight 150.366 kg Weight 150.366 kg Physical Exam 2 Const: GENERAL APPEARANCE: cooperative ORIENTATION/CONSCIOUSNESS: Yes awake HENMT: COMMON NORMALS: oropharynx normal Neck/C-Spine: COMMON NORMALS: no JVD Resp: COMMON NORMALS: normal respiratory effort and clear to auscultation bilaterally AUSCULTATION: clear to auscultation bilaterally and diminished lung sounds Cardio: COMMON NORMALS: no JVD, regular rhythm, S1 normal heart sound present, S2 normal heart sound present and No murmurs present (Cardio) RHYTHM: regular rhythm HEART SOUNDS: S1 normal heart sound present and S2 normal heart sound present GI: COMMON NORMALS: Normal to inspection, nondistended, normoactive bowel sounds present, Soft to palpation and non-tender PALPATION: Yes Soft to palpation Extremity: COMMON NORMALS: no joint enlargement and no pedal edema Neuro: COMMON NORMALS: moves all extremities Psych: OTHER: Tremulous, lumbering gait. He has no insight into his current condition and involved risks. Skin: OTHER: Redness, some induration, yeast order under pannus anteriorly. Data 11/28/23 04:20 11/28/23 04:20 A&P Assessment and plan (1) Alcohol withdrawal: Persistent alcohol withdrawal initially was transient improvement, but subsequently worsened, unclear if may have worsened also by concurrent intoxication possibly after THC Gummies, although he states mushroom Gummies , and that he has taken several. Discussed patient's condition with psychiatry. Given posing danger to self or others trying to get out into the parking lot and into the streets with lack of understanding of his condition, as per discussion unsafe to discharge at current time, 96-hour hold paperwork filled out, given he had improved in terms of his pneumonia weaned off oxygen, able to transition to oral treatment, with severe risk of elopement, transitioned for additional treatment of alcohol withdrawal, further monitoring on neuropsychiatric unit. His mother was updated on his condition change. They are with further restlessness, agitation, trying to punch at nursing staff, received a dose of Geodon. Requiring multiple people to redirect, help him stay in bed. With worsening confusion, concern for delirium treatments, transferred over to intensive care unit for further management. Continue phenobarbital at this time. Continue CIWA protocol. Precedex drip added. Continue management of severe alcohol withdrawal, delirium tremens. Compounded possibly by intoxication by either THC versus psilocybin. Maintain seizure precautions. Additionally reported foul-smelling urine, requesting UA. Discussed with nursing. Discussed with mattress spring encaser, they are going to provide him with some options for rehabilitation. Consider naltrexone if he is willing. gabapentin. Avoid Librium. Monitor on telemetry with severe withdrawal and risk of arrhythmia. Risk of seizure. Seizure precautions. Monitor for risk of mental status change, respiratory depression. Reviewed magnesium, replace hypomagnesemia. Additional IV mag given. (2) Acute hypoxic respiratory failure: Initially showing good improvement from pneumonia, weaned down off to room air, transition to oral antibiotic, however, with further deterioration in his mental status through the day, again with hypoxia, question of possible reaspiration. Continue oxygen support. Continue Levaquin. Will add vancomycin for additional coverage for possible hospital-acquired pneumonia. Reviewed vitals, CBC, CMP, blood culture. Negative to date. Continue oxygen support. Wean down as tolerating. Normally not on any oxygen. Continue antibiotic treatment with Levaquin. COVID PCR panel, influenza PCR, resp PCR negative. Sputum culture requested.Not obtained. He denies vaping. Denies any IVDU, has not had any substance use since June. Previously was smoking. Secondary to bilateral pneumonia, worse on the right compared to the left. Has had some dry heaving, nausea, has not actually vomited. Alcohol use disorder. Monitor for possible aspiration pneumonia. Received Levaquin, azithromycin. Reported history of allergy to ceftriaxone. Monitor oxygenation. (3) Pneumonia: As above. (4) Alcohol use disorder: Discussed with case management to assist him with options for rehabilitation due to difficulties with quitting. He was able to quit smoking cold turkey. He reportedly has been drinking alcohol since being 14, there is some reported problem with alcohol intake and his mother as well. Suspected alcohol induced gastritis. Will give PPI. Monitor for risk of withdrawal. CIWA protocol. Benzodiazepines as per CIWA. Discussed with him. Timing, folic acid, multivitamin. Discussed with him regarding cessation. Case management consultation for additional information regarding rehabilitation options. Plan Atrial flutter with RVR: Improved. oral amiodarone. On anticoagulation with Xarelto. Continue metoprolol, Xarelto. Intertrigo: Under pannus. Add nystatin cream. Uncontrolled hypertension: Still uncontrolled hypertension, discussed with him, increase lisinopril dose to 20 mg. Likely fueled by severe alcohol withdrawal. Was started on clonidine overnight. Continue metoprolol. Amlodipine. Treat alcohol withdrawal as above. Replace hypomagnesemia. Hypomagnesemia: Reviewed magnesium - 1.5. Requested additional replacement IV. Recheck level. DM2: Hold Jardiance, metformin. Sliding scale insulin. Monitor POC glucose. Consistent carbohydrate diet. HTN: Continue metoprolol, lisinopril. Cardiac diet. Monitor blood pressures. History of stroke: With atrial flutter, continue Xarelto, statin. Possible sleep apnea: Noted hypoxia during one of the last admissions, would benefit from follow-up for sleep study, states has not done so yet. Attestations 2 Medical Necessity Statement*: Continue admission for assessment of management of worsening alcohol withdrawal, delirium tremens, complicated by superimposed intoxication by possibly THC versus psilocybin, pneumonia with worsening hypoxia, possible reaspiration, possible hospital-acquired pneumonia. Coding Level of Care Code Critical Care >/= 30 minutes Critical care time (in minutes): 45 The high probability of a clinically significant, sudden or life threatening deterioration, as referenced in this documentation, required my full and direct attention, intervention and personal management. The critical care time shown is in addition to time spent performing any reported separately billable procedures and includes the following: [x] Data and vital sign review and interpretation [x ] Patient assessment, examination and intervention [x] Medication orders and management [x] Patient/Family updates as able [x] Care Coordination and Documentation. Diagnoses Alcohol withdrawal F10.939 Acute hypoxic respiratory failure J96.01 Pneumonia J18.9 Alcohol use disorder F10.90
--- NOTE | 2023-11-28 15:59 | PC.NURSE ---
STAFF ALERTED THIS RN THAT PTS PULSE OX DROPPED TO 70% ON ROOM AIR, BP IS ELEVATED AND HAVING SNORING RESPIRATIONS. PT WAS PLACED ON 2L O2 VIA NC. AFTER A FEW MINUTES PT PULSE OX WENT UP TO 91%. PT TEMP UP TO 100.6. DR. JACKSON WAS NOTIFIED OF CONDITION CHANGES. PT IS ALSO OBSERVED TO BE INCONTINENT OF URINE AND HAD TO BE ASSISTED WITH 5 STAFF STAFF MEMBERS DUE TO SWINGING AND PUNCHING AT STAFF WHILE ASSISTING. FUEL CELL ENGINEER CAME TO UNIT WHERE IT WAS DISCUSSED WITH DR. JACKSON AND NURSING STAFF REGARDING PTS LEVEL OF CARE AND NEEDS. NEW ORDERS WERE RECEIVED BY DR. MENDOZA TO TRANSFER PT TO ICU. FUEL CELL ENGINEER MADE CONTACT WITH ICU AND INFORMED STAFF THAT HE WOULD TRANSFER TO BED 3 WHEN ROOM HAS BEEN STAT CLEANED. PT CONTINUES TO HAVE DECREASED O2 SATS AND IS CURRENTLY ON 6LO2 VIA NC WITH O2 SATURATIONS AT 91%. SECURITY CALLED TO ASSIST WITH TRANSFER. PT HAD ANOTHER INCONTINENT EPISODE WHILE GETTING PT READY TO TRANSFER.
--- NOTE | 2023-11-28 16:10 | PC.NURSE ---
5721 RESEARCH MICROBIOLOGIST SPOKE WITH DR. MENDOZA TO GET APPROVAL AND ORDERS TO GIVE GEODON 20 MG IM. ORDERS WERE RECEIVED AND RESEARCH MICROBIOLOGIST DID GIVE GEODON ORDERED DUE TO AGITATION, INCREASED ANXIETY AND EXIT SEEKING. SUPPORT VOICED.
--- NOTE | 2023-11-28 16:24 | PC.NURSE ---
THIS NURSE NOTIFIED CHARGE NURSE THAT PT O2 SAT WAS CONTINUING TO DROP EVEN WHILE ON OXYGEN VIA NASAL CANNULA. PT WAS INCONTINENT AT THE TIME AND REQUIRED THIS NURSE'S ASSISTANCE ALONG WITH 3 OTHER STAFF MEMBERS DUE TO PT INCREASED ACUITY. CHARGE NURSE CONTACTED PHYSICIAN AND GROUP LEADER. PT TO BE TRANSFERRED TO ICU BED 3 THIS NURSE CALLED REPORT TO THEIR NURSE.
--- NOTE | 2023-11-28 17:06 | PC.NURSE ---
arrived from NPU transported on bed by security
[2023-11-28] MEDS: PHENobarbital 130 mg/mL SDV 1 mL 60 MG IM (17:39)
[2023-11-28 17:42] LABS: Glucose Point of Care 121 mg/dL (70-110)
[2023-11-28] MEDS: dexmedeTOMIDine 0.9 % NaCL 400 MCG/100 ML PREMIX IV (18:17)
[2023-11-28] MEDS: magnesium sulfate premix 4 GM/100 ML PREMIX IV (20:05)
[2023-11-28] MEDS: levofloxacin-dextrose 5 % 750 MG/150 ML PREMIX 100 MG IV (20:05)
--- NOTE | 2023-11-28 20:48 | PHA.VACGOAL ---
Vancomycin Goal - Goal Vancomycin Goal:: 10-15 mg/L Vancomycin Indication:: Pneumonia - Therapy Day of therpy:: Day [1]of [] Actual body weight (kg): 331 lb 8 oz [place] body weight: 79.9 Dosing weight (kg): 107.94 - Data Labs: WBC 7.29 10^3/uL (3.29-11.43) 11/28/23 04:20 RBC 3.68 10^6/uL (3.85-5.65) L 11/28/23 04:20 Hgb 11.10 g/dL (11.27-16.99) L 11/28/23 04:20 Hct 35.2 % (37-53) L 11/28/23 04:20 MCV 95.7 fl (82-101) 11/28/23 04:20 MCH 30.2 pg (27-33) 11/28/23 04:20 MCHC 31.5 g/dL (30-55) 11/28/23 04:20 RDW 13.0 % (12.1-15.1) 11/28/23 04:20 Sodium 133 mmol/L (136-145) L 11/28/23 04:20 Potassium 4.0 mmol/L (3.5-5.1) 11/28/23 04:20 Chloride 96 mmol/L (98-107) L 11/28/23 04:20 Carbon Dioxide 26 mmol/L (22-29) 11/28/23 04:20 Anion Gap 15.0 (5-19) 11/28/23 04:20 BUN 16 mg/dL (6-20) 11/28/23 04:20 Creatinine 0.7 mg/dL (0.7-1.2) 11/28/23 04:20 GFR Calculation 129.1 mL/min (90-130) 11/28/23 04:20 Last dialysis session:: N/A Treatment plan:: new consult Regimen:: INITIAL DOSE 2000 MG Q8H Follow up:: WILL MONITOR RENAL FUNCTION AND FOLLOW UP DAILY
[2023-11-28 20:59] LABS: Glucose Point of Care 134 mg/dL (70-110)
[2023-11-28] MEDS: vancomycin 2,000 MG/400 ML PIGGYBACK 200 MG IV (23:02)
[2023-11-29] VITALS (51 sets, daily range): BP systolic 100–182; BP diastolic 68–109; PULSE 65–86; RESP 13–27; TEMP 36.6–37.2; O2SAT 88–100
[2023-11-29] MEDS: hyDRALAzine 20 mg/mL INJ 1 mL 10 MG IVP (03:20)
[2023-11-29] MEDS: dexmedeTOMIDine 0.9 % NaCL 400 MCG/100 ML PREMIX 11.28 MCG IV ×2 (04:02→10:59)
[2023-11-29 04:21] LABS: Basophils # 0.1 10^3/uL (0.0-0.1); Basophils % 0.6 %; Eosinophils # 0.5 10^3/uL (0.0-0.8); Eosinophils % 6.6 %; Hematocrit 35.3 % (37-53); Lymphocytes # 0.8 10^3/uL (0.8-4.8); Lymphocytes % 9.7 %; Mean Corpuscular HGB Conc 30.9 g/dL (30-55); Mean Corpuscular Hemoglobin 30.5 pg (27-33); Mean Corpuscular Volume 98.9 fl (82-101); Mean Platelet Volume 9.6 fL (7.4-10.4); Monocytes # 1.1 10^3/uL (0.2-0.9); Monocytes % 13.4 %; Neutrophils # 5.67 10^3/uL (1.8-7.7); Neutrophils % 69.3 %; Nucleated Red Blood Cells % 0 %; Platelet Count 189 10^3/cmm (157-399); Red Blood Count 3.57 10^6/uL (3.85-5.65); Red Cell Distribution Width 13.1 % (12.1-15.1); White Blood Count 8.18 10^3/uL (3.29-11.43)
[2023-11-29 04:37] LABS: Alanine Aminotransferase 26 U/L (0-41); Albumin Level 3.5 g/dL (3.5-5.2); Alkaline Phosphatase 100 U/L (40-130); Anion Gap 16.8 (5-19); Aspartate Amino Transferase 88 U/L (0-40); Blood Urea Nitrogen 17 mg/dL (6-20); Calcium 9.2 mg/dL (8.5-10.5); Carbon Dioxide 25 mmol/L (22-29); Chloride 98 mmol/L (98-107); Creatinine Clr Calc Pharmacy 227.3246; Globulin 4.2 g/dL (1.3-4.6); Glomerular Filtration Rate 129.1 mL/min (90-130); Glucose 129 mg/dL (65-115); Magnesium 1.7 mg/dL (1.7-2.3); Osmolality Calculated 283 mOsm/kg (285-295); Potassium 4.8 mmol/L (3.5-5.1); Sodium 135 mmol/L (136-145); Total Protein 7.7 g/dL (6.6-8.7)
[2023-11-29] MEDS: PHENobarbital 130 mg/mL SDV 1 mL 60 MG IV ×2 (06:12→17:18)
[2023-11-29] MEDS: vancomycin 1,500 MG/300 ML PIGGYBACK 200 MG IV ×3 (06:28→22:05)
--- NOTE | 2023-11-29 07:20 | P.NPUHP_ITS ---
Providers/Chief Complaint 2 Admitting Physician: Marciano Banks Primary Care Provider: Nikole Solano APN Chief Complaint: sob HPI NPU History of Present Illness Doug Regalado is a 33 year old male who presented to the emergency department with the following report: Chief Complaint: Shortness of Breath/Dyspnea Stated Complaint: sob Time Seen by Provider: 11/25/23 16:08 History of Present Illness: HPI Narrative: 33-year-old male presents emergency room complaining of shortness of breath and chest comfort that began yesterday. He has a history of PEs he does still regularly take his Xarelto. No history of coronary artery disease. He went to see Dr. Haider today but he had severe hypoxemia with O2 sats in the mid 80s on room air is not normally on oxygen he does have diabetes. He has no known history of cardiac disease Associated symptoms: Deny abdominal pain, chest pain or fever(s). He was admitted to the [facility] for definitive treatment of those issues. He received treatment for his conditions including withdrawal and was starting to have some irritable and agitated behavior and a request for him to be transferred to the neuropsychiatric unit for definitive treatment of his concerns for safety, withdrawal was requested. He was transferred to the neuropsychiatric unit having been reported to be medically cleared. He arrived on the unit and immediately started having difficulty being managed. He was placed on one-to-one to assist with that and assume that was not enough. He started having fairly bizarre behaviors as well as medical problems and compromise as he started desatting and requiring oxygen. His bizarre behavior and inability to be redirected was noted to be likely DTs and may be continued sequela from his pneumonia. And so he was fairly expeditiously transferred back over the medical and specifically to ICU for definitive treatment of his acutely decompensating situation. He is unknown to our system through inpatient or outpatient psychiatric services. He was hospitalized about 5 months ago with alcohol withdrawal and a psychiatric consult was requested however patient signed out of the hospital AMA prior to that consultation taking place. He presents as a poor historian incapable of informed consent for to actively participate in his evaluation psychiatrically. Meds NPU Home Medications Medication Instructions Recorded Confirmed Last Taken Type cock up splint #1 ea 09/26/21 11/26/23 Unknown Rx acetaminophen 500 mg tablet 1,000 - 1,500 mg PO Q6H PRN Pain 07/02/23 11/26/23 Unknown History empagliflozin 25 mg tablet 25 mg PO DAILY 09/11/23 11/26/23 11/25/23 History (Jardiance) gabapentin 300 mg capsule 300 mg PO DAILY 09/11/23 11/26/23 11/25/23 History lactobacillus combination no.9 4 4 mmu cells PO DAILY 09/11/23 11/26/23 11/25/23 History billion cell capsule (Adult 50 Plus Probiotic) metoprolol succinate 25 mg 25 mg PO DAILY #90 tabs 10/31/23 11/26/23 11/25/23 Rx tablet,extended release 24 hr rivaroxaban 20 mg tablet (Xarelto) 20 mg PO DAILY #90 tabs 10/31/23 11/26/23 11/25/23 Rx ascorbic acid (vitamin C) 500 mg 250 mg PO DAILY 11/26/23 11/26/23 11/25/23 History tablet (Vitamin C) atorvastatin 40 mg tablet 40 mg PO DAILY 11/26/23 11/26/23 11/25/23 History metformin 500 mg tablet,extended 1,000 mg PO BID 11/26/23 11/26/23 11/25/23 History release 24 hr potassium gluconate 600 mg (99 mg) 600 mg PO DAILY 11/26/23 11/26/23 11/25/23 History tablet zinc sulfate 50 mg zinc (220 mg) 50 mg PO DAILY 11/26/23 11/26/23 11/25/23 History capsule Allergies Allergy/AdvReac Type Severity Reaction Status Date / Time ceftriaxone [From Rocephin] Allergy Unknown Verified 11/25/23 14:27 PFSH NPU 2 PFSH: Medical History Stroke (cerebrum) Substance abuse Tobacco abuse Transaminitis Atrial flutter Hypertension Diabetes mellitus Alcohol abuse No significant medical problems Surgical History No significant past surgical history Family History Other Alcohol abuse Diabetes Social History Smoking and tobacco/nicotine status: former use of tobacco/nicotine Alcohol intake: current Alcohol type: hard liquor Caregiver/support person: Yes Lives independently: No Household members: other Details: Lives with mother Housing: House Marital status: Single 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 status: employed Current occupation: [employer] Mental Status Exam 2 MSE Comments: This is an obese versus morbidly obese white male in hospital garb with poor grooming and limited eye contact. No abnormal movements except for psychomotor agitation. Uncooperative with exam in moderate to extreme distress. Speech was limited and decreased rate and volume was slurring and some comments that are not understandable. Mood not described affect confused. Thought process disorganized. Thought content: Patient did not report suicidal or homicidal ideation, there were no delusions reported and he seemed guarded and confused, he did not report auditory or visual hallucinations but he appeared to be attending to internal stimuli. Attention and concentration were impaired and memory was unable to be evaluated but none were formally tested. He was alert and occasionally oriented to self. Insight, judgment and impulse control were all impaired. Vitals/I&O/Wt Last Vital Signs Temp 100.6 F H 11/28/23 15:53 Pulse 88 11/28/23 20:45 Resp 18 11/28/23 20:45 BP 146/103 11/28/23 20:45 Pulse Ox 95 11/28/23 20:45 O2 Del Method Nasal Cannula 11/28/23 17:55 O2 Flow Rate 6 11/28/23 17:55 11/28/23 11/28/23 11/29/23 14:59 22:59 06:59 Intake Total 360 / 360 250.627 / 610.627 Balance 360 / 360 250.627 / 610.627 Weight last 48 hrs Weight 150.366 kg Weight 150.366 kg Weight 150.366 kg Data NPU 11/30/23 05:26 11/30/23 05:26 A&P Assessment and plan (1) Alcohol abuse: (2) Alcohol withdrawal: (3) Depression: Qualifiers: Depression Type: major depressive disorder Major depression recurrence: unspecified whether recurrent Active/Remission status: currently active Major depression episode severity: severe Psychotic features: with psychotic features Qualified Code(s): F32.3 - Major depressive disorder, single episode, severe with psychotic features (4) Substance abuse: (5) Alcohol use disorder: (6) Pneumonia: (7) Acute hypoxic respiratory failure: Plan This is a 33-year-old white male with significant addiction issues particularly alcohol along with other drugs and some concerns that he may have had some substances while in the hospital who was briefly transferred to the neuropsychiatric unit for evaluation and treatment thinking that he was medically cleared and stable but he quickly decompensated was transferred here to the ICU. 1. Continue current medication. 2. Will transfer him back to the psychiatric unit when medically stable. 3. Encourage sober living treatment after discharge at the highest level care to which he is willing to commit. 4. Continue CIWA protocol and agree with current management. 5. Will continue to follow. Attestations NPU 2 Medical Necessity Statement*: N/A. Please see primary team note for medical necessity but will agree to accept patient back on the neuropsychiatric unit once medically stable. Coding Level of Care Code Acute Code for g Fwd Diagnoses Alcohol abuse F10.10 Alcohol withdrawal F10.939 Current severe episode of major depressive disorder with psychotic features, unspecified whether recurrent F32.3 Depression Type: major depressive disorder Major depression recurrence: unspecified whether recurrent Active/Remission status: currently active Major depression episode severity: severe Psychotic features: with psychotic features Substance abuse F19.10 Alcohol use disorder F10.90 Pneumonia J18.9 Acute hypoxic respiratory failure J96.01
[2023-11-29 07:42] LABS: Glucose Point of Care 116 mg/dL (70-110)
[2023-11-29] MEDS: thiamine 100 mg Tablet PO (08:21)
[2023-11-29] MEDS: cloNIDine 0.1 mg Tablet PO ×2 (08:21→17:18)
[2023-11-29] MEDS: lisinopril 20 mg Tablet PO (08:21)
[2023-11-29] MEDS: rivaroxaban 10 mg Tablet 20 MG PO (08:21)
[2023-11-29] MEDS: magnesium lactate 84 mg Tablet PO ×2 (08:21→17:18)
[2023-11-29] MEDS: amiodarone 200 mg Tablet 400 MG PO ×2 (08:21→17:18)
[2023-11-29] MEDS: atorvastatin 40 mg Tablet 10 MG PO (08:21)
[2023-11-29] MEDS: folic acid 1 mg Tablet PO (08:22)
[2023-11-29] MEDS: gabapentin 300 mg Capsule PO (08:22)
[2023-11-29] MEDS: guaiFENesin 600 mg Tablet 1200 MG PO ×2 (08:22→17:18)
[2023-11-29] MEDS: pantoprazole DR 40 mg Tablet PO (08:22)
[2023-11-29] MEDS: multivitamin therapeutic Tablet 1 TAB PO (08:22)
--- NOTE | 2023-11-29 08:37 | PC.OT ---
Unable to complete OT eval at this time due to pt being in ICU; will attempt again at later time.
--- NOTE | 2023-11-29 09:39 | XR_ITS ---
WS: [id number] XR chest 1V portable [id number] REASON FOR EXAM: hypoxia FINDINGS: The lungs are hypoexpanded. There is central pulmonary venous congestion. The heart is at the upper limits of normal. No definite pulmonary edema or acute infiltrate. XR/XR chest 1V portable [id number] IMPRESSION: Borderline cardiomegaly and significant central pulmonary venous congestion. The lung vascular structures are crowded due to the hypoexpansion of the lungs. A better inspiratory effort chest film would be helpful to provide better eval uation of the pulmonary parenchyma.
--- NOTE | 2023-11-29 12:46 | P.PN_ITS ---
Subjective 2 Subjective: Somnolent, opens eyes to voice. Answers a few basic questions, falls back asleep. Denies pain or discomfort. Snores while asleep. Vitals/I&O/Wt Last Vital Signs Temp 100.6 F H 11/28/23 15:53 Pulse 69 11/29/23 12:30 Resp 15 11/29/23 12:30 BP 112/68 11/29/23 12:30 Pulse Ox 97 11/29/23 12:30 O2 Del Method Nasal Cannula 11/29/23 11:35 O2 Flow Rate 4 11/29/23 11:35 11/28/23 11/29/23 11/29/23 22:59 06:59 14:59 Intake Total 250.627 / 610.627 479.712 / 1090.339 78.396 / 78.396 Balance 250.627 / 610.627 479.712 / 1090.339 78.396 / 78.396 Weight last 48 hrs Weight 139.2 kg Weight 150.366 kg Weight 150.366 kg Physical Exam 2 Narrative: Reclined in bed. Head of bed elevated. Const: GENERAL APPEARANCE: cooperative HENMT: COMMON NORMALS: oropharynx normal OTHER: Some dry crusted blood on the tongue, gums, teeth, lips. No fresh bleeding. Neck/C-Spine: COMMON NORMALS: no JVD Resp: COMMON NORMALS: normal respiratory effort and clear to auscultation bilaterally AUSCULTATION: clear to auscultation bilaterally and diminished lung sounds OTHER: Few rhonchi. He does snore when he sleeping. Cardio: COMMON NORMALS: no JVD, regular rhythm, S1 normal heart sound present, S2 normal heart sound present and No murmurs present (Cardio) RHYTHM: regular rhythm HEART SOUNDS: S1 normal heart sound present and S2 normal heart sound present GI: COMMON NORMALS: Normal to inspection, nondistended, normoactive bowel sounds present, Soft to palpation and non-tender PALPATION: Yes Soft to palpation Extremity: COMMON NORMALS: no joint enlargement and no pedal edema Neuro: COMMON NORMALS: moves all extremities Skin: COMMON NORMALS: no rashes or lesions noted GENERAL SKIN EXAM: no rashes or lesions noted OTHER: Redness, some induration, yeast order under pannus anteriorly. Data 11/29/23 03:49 11/29/23 03:49 A&P Assessment and plan (1) Alcohol withdrawal: Acute encephalopathy with delirium, alcohol withdrawal, possible superimposed intoxication. He is currently calm, resting, wakes up to voice. Falls asleep. Reviewed vitals, CBC, CMP, medications. Tapering down on Precedex drip. Continues on phenobarbital for now. Wean off Precedex, reassess recovery from alcohol withdrawal, encephalopathy. Continue monitoring in the intensive care unit at the moment. Seizure precautions. Discussed with his mother. Continue management of severe alcohol withdrawal, delirium tremens. Compounded possibly by intoxication by either THC versus psilocybin. Maintain seizure precautions. Additionally reported foul-smelling urine, requesting UA. Discussed with nursing. Discussed with immigration case worker, they are going to provide him with some options for rehabilitation. Consider naltrexone if he is willing. gabapentin. Avoid Librium. Monitor on telemetry with severe withdrawal and risk of arrhythmia. Risk of seizure. Seizure precautions. Monitor for risk of mental status change, respiratory depression. Reviewed magnesium, replace hypomagnesemia. Additional IV mag given. (2) Acute hypoxic respiratory failure: Initial improvement and yesterday morning was weaned off oxygen, but was back to 6 L last night. Reviewed vitals, oxygen, discussed with respiratory therapist. He is down to 4 L nasal cannula currently. Spiked a fever 100.6. He is somewhat lethargic. Head of bed is elevated. Protecting airway so far. Monitor for aspiration. Wean off Precedex. Possible component of aspiration. He does have very poor dentition, and reportedly does have bleeding gums, noted dry crusted blood on the gums, teeth, tongue and lips. Possible nightly posterior drip/aspiration? Check vitamin C level. I do not see any rash apart from the intertrigo under pannus anteriorly. In case of possible West-Jorden syndrome we will change the antibiotic he has been, Levaquin, to aztreonam, keep coverage for possible hospital-acquired pneumonia, yesterday was broadened with vancomycin. Repeat viral respiratory panel. Reviewed blood culture. Negative to date. Continue oxygen support. Wean down as tolerating. Normally not on any oxygen. COVID PCR panel, influenza PCR, resp PCR negative. Sputum culture requested.Not obtained. He denies vaping. Denies any IVDU, has not had any substance use since June. Previously was smoking. Secondary to bilateral pneumonia, worse on the right compared to the left. Has had some dry heaving, nausea, has not actually vomited. Alcohol use disorder. Monitor for possible aspiration pneumonia. Received Levaquin, azithromycin. Reported history of allergy to ceftriaxone. Monitor oxygenation. (3) Pneumonia: As above. (4) Alcohol use disorder: Discussed with case management to assist him with options for rehabilitation due to difficulties with quitting. He was able to quit smoking cold turkey. He reportedly has been drinking alcohol since being 14, there is some reported problem with alcohol intake and his mother as well. Suspected alcohol induced gastritis. Will give PPI. Monitor for risk of withdrawal. CIWA protocol. Benzodiazepines as per CIWA. Discussed with him. Timing, folic acid, multivitamin. Discussed with him regarding cessation. Case management consultation for additional information regarding rehabilitation options. Plan Possible sleep apnea: Does snore when he sleeps. Would benefit from sleep study. Atrial flutter with RVR: Improved. oral amiodarone. On anticoagulation with Xarelto. Continue metoprolol, Xarelto. Intertrigo: Under pannus. Add nystatin cream. Uncontrolled hypertension: Still uncontrolled hypertension, discussed with him, increase lisinopril dose to 20 mg. Likely fueled by severe alcohol withdrawal. Was started on clonidine overnight. Continue metoprolol. Amlodipine. Treat alcohol withdrawal as above. Replace hypomagnesemia. Hypomagnesemia: Reviewed magnesium - 1.5. Requested additional replacement IV. Recheck level. DM2: Hold Jardiance, metformin. Sliding scale insulin. Monitor POC glucose. Consistent carbohydrate diet. HTN: Continue metoprolol, lisinopril. Cardiac diet. Monitor blood pressures. History of stroke: With atrial flutter, continue Xarelto, statin. Possible sleep apnea: Noted hypoxia during one of the last admissions, would benefit from follow-up for sleep study, states has not done so yet. Attestations 2 Medical Necessity Statement*: Continue admission for assessment of management of worsening alcohol withdrawal, delirium tremens, complicated by superimposed intoxication by possibly THC versus psilocybin, pneumonia with worsening hypoxia, possible reaspiration, possible hospital-acquired pneumonia. Coding Level of Care Code Critical Care >/= 30 minutes Critical care time (in minutes): 35 The high probability of a clinically significant, sudden or life threatening deterioration, as referenced in this documentation, required my full and direct attention, intervention and personal management. The critical care time shown is in addition to time spent performing any reported separately billable procedures and includes the following: [x] Data and vital sign review and interpretation [x ] Patient assessment, examination and intervention [x] Medication orders and management [x] Patient/Family updates as able [x] Care Coordination and Documentation. Diagnoses Alcohol withdrawal F10.939 Acute hypoxic respiratory failure J96.01 Pneumonia J18.9 Alcohol use disorder F10.90
[2023-11-29] MEDS: metoprolol tartrate 25 mg Tablet PO (13:37)
[2023-11-29 15:24] LABS: Glucose Point of Care 114 mg/dL (70-110)
[2023-11-29] MEDS: aztreonam 2,000 MG in sodium chloride 0.9% (plus) 100 ML 200 MG IV (17:52)
[2023-11-29 19:40] LABS: Covid PCR NEGATIVE (Negative); Influenza A NEGATIVE (Negative); Influenza B NEGATIVE (Negative); Respiratory Syncytial Virus Ce NEGATIVE (Negative)
[2023-11-29] MEDS: amlodipine 10 mg Tablet PO (20:41)
[2023-11-29 21:12] LABS: Glucose Point of Care 131 mg/dL (70-110)
--- NOTE | 2023-11-29 21:42 | PC.NURSE ---
Patient with hx of blood oral drainag every morning reported by staff who previously took care of him in [facility]. oral care done with old blood noted in mouth - hx of dental problems.
[2023-11-29] MEDS: dexmedeTOMIDine 0.9 % NaCL 400 MCG/100 ML PREMIX 7.52 MCG IV (23:36)
[2023-11-30] VITALS (43 sets, daily range): BP systolic 113–166; BP diastolic 66–138; PULSE 57–85; RESP 14–24; TEMP 36.2–37.2; O2SAT 90–100
[2023-11-30] MEDS: metoprolol tartrate 25 mg Tablet PO ×2 (01:24→13:50)
[2023-11-30] MEDS: PHENobarbital 130 mg/mL SDV 1 mL 60 MG IV ×2 (05:29→17:51)
[2023-11-30] MEDS: aztreonam 2,000 MG in sodium chloride 0.9% (plus) 100 ML 200 MG IV ×2 (05:29→17:51)
[2023-11-30 06:15] LABS: Basophils # 0.1 10^3/uL (0.0-0.1); Eosinophils # 0.7 10^3/uL (0.0-0.8); Eosinophils % 9.3 %; Hematocrit 34.6 % (37-53); Lymphocytes # 1.1 10^3/uL (0.8-4.8); Lymphocytes % 13.3 %; Mean Corpuscular HGB Conc 30.6 g/dL (30-55); Mean Corpuscular Hemoglobin 29.8 pg (27-33); Mean Corpuscular Volume 97.2 fl (82-101); Mean Platelet Volume 9.7 fL (7.4-10.4); Monocytes # 1.4 10^3/uL (0.2-0.9); Neutrophils # 4.63 10^3/uL (1.8-7.7); Neutrophils % 57.9 %; Nucleated Red Blood Cells % 0 %; Platelet Count 180 10^3/cmm (157-399); Red Blood Count 3.56 10^6/uL (3.85-5.65); Red Cell Distribution Width 12.9 % (12.1-15.1); White Blood Count 7.99 10^3/uL (3.29-11.43)
[2023-11-30 06:35] LABS: Alanine Aminotransferase 28 U/L (0-41); Albumin Level 3.4 g/dL (3.5-5.2); Alkaline Phosphatase 104 U/L (40-130); Anion Gap 13.6 (5-19); Aspartate Amino Transferase 84 U/L (0-40); Blood Urea Nitrogen 18 mg/dL (6-20); Calcium 8.5 mg/dL (8.5-10.5); Carbon Dioxide 26 mmol/L (22-29); Chloride 97 mmol/L (98-107); Creatinine Clr Calc Pharmacy 217.7627; Globulin 3.6 g/dL (1.3-4.6); Glomerular Filtration Rate 129.1 mL/min (90-130); Glucose 123 mg/dL (65-115); Osmolality Calculated 277 mOsm/kg (285-295); Potassium 4.6 mmol/L (3.5-5.1); Sodium 132 mmol/L (136-145); Total Bilirubin 1.1 mg/dL (0.15-1.2); Vancomycin Trough 16.2 ug/mL (10-15)
[2023-11-30 07:25] LABS: Glucose Point of Care 123 mg/dL (70-110)
[2023-11-30] MEDS: amiodarone 200 mg Tablet 400 MG PO ×2 (08:30→17:51)
[2023-11-30] MEDS: atorvastatin 40 mg Tablet 10 MG PO (08:30)
[2023-11-30] MEDS: pantoprazole DR 40 mg Tablet PO (08:31)
[2023-11-30] MEDS: lisinopril 20 mg Tablet PO (08:31)
[2023-11-30] MEDS: rivaroxaban 10 mg Tablet 20 MG PO (08:31)
[2023-11-30] MEDS: guaiFENesin 600 mg Tablet 1200 MG PO ×2 (08:31→17:51)
[2023-11-30] MEDS: cloNIDine 0.1 mg Tablet PO ×2 (08:31→17:51)
[2023-11-30] MEDS: folic acid 1 mg Tablet PO (08:31)
[2023-11-30] MEDS: multivitamin therapeutic Tablet 1 TAB PO (08:32)
[2023-11-30] MEDS: magnesium lactate 84 mg Tablet PO ×2 (08:32→17:51)
[2023-11-30] MEDS: thiamine 100 mg Tablet PO (08:32)
[2023-11-30] MEDS: vancomycin 1,500 MG/300 ML PIGGYBACK 200 MG IV ×3 (08:43→23:15)
[2023-11-30] MEDS: gabapentin 300 mg Capsule PO (08:44)
[2023-11-30] MEDS: nystatin cream 30 gm 1 APPLIC TOPICAL ×2 (08:44→17:51)
[2023-11-30 11:06] LABS: Glucose Point of Care 137 mg/dL (70-110)
--- NOTE | 2023-11-30 14:56 | XRR_ITS ---
PROCEDURE INFORMATION: Exam: XR Left Shoulder Exam date and time: 11/30/2023 10:59 PM Age: 33 years old Clinical indication: Patient HX: C/O left shoulder pain. No injury. ; Additional info: Pain, weak TECHNIQUE: Imaging protocol: Radiologic exam of the left shoulder. Views: 2 or more views. COMPARISON: CR XR chest 1V portable [id number] 11/29/2023 10:10 AM FINDINGS: Bones/joints: No acute fracture or dislocation. Mild irregularity of the acromioclavicular joint which could be from early degenerative change. Soft tissues: Unremarkable. XR/XR shoulder LT min 2V* [id number] IMPRESSION: No acute bony findings.
[2023-11-30 17:35] LABS: Glucose Point of Care 132 mg/dL (70-110)
--- NOTE | 2023-11-30 19:20 | P.NPUPN_ITS ---
Mental Status [place] 2 [facility] [place] This is an obese versus morbidly obese white male in hospital [facility] with poor grooming and limited eye contact. No abnormal movements except for psychomotor retardation. More cooperative with exam in mild to moderate distress. Speech was limited and decreased rate and volume. Mood reported to be better, affect congruent. Thought process organized. Thought content: Patient did not report suicidal or homicidal ideation, there were no delusions reported and he seemed guarded, he did not report auditory or visual hallucinations. Attention and concentration were improving and memory was reliable but none were formally tested. He was alert and oriented x 3.. Insight, judgment and impulse control were all impaired. Vitals/I&O/Wt Last Vital Signs Temp 98.9 F 11/30/23 10:00 Pulse 78 11/30/23 16:00 Resp 20 H 11/30/23 16:00 BP 156/82 11/30/23 17:51 Pulse Ox 95 11/30/23 16:00 O2 Del Method Nasal Cannula 11/30/23 08:17 O2 Flow Rate 4 11/30/23 08:17 11/30/23 11/30/23 11/30/23 06:59 14:59 22:59 Intake Total 454.692 / 1278.396 833.168 / 833.168 250 / 1083.168 Output Total 1000 / 2000 2500 / 2500 Balance -545.308 / -721.604 833.168 / 833.168 -2250 / -1416.832 Weight last 48 hrs Weight 139 kg Weight 139.2 kg Data NPU 11/30/23 05:26 11/30/23 05:26 Micro: Microbiology 11/25/23 17:46 Blood Culture - Final Blood NO GROWTH AFTER 5 DAYS 11/25/23 17:48 Blood Culture - Final Blood NO GROWTH AFTER 5 DAYS Microbiology 11/25/23 17:46 Blood Blood Culture - Final NO GROWTH AFTER 5 DAYS 11/25/23 17:48 Blood Blood Culture - Final NO GROWTH AFTER 5 DAYS A&P Assessment and plan (1) Alcohol abuse: (2) Alcohol withdrawal: (3) Depression: Qualifiers: Depression Type: major depressive disorder Major depression recurrence: unspecified whether recurrent Active/Remission status: currently active Major depression episode severity: severe Psychotic features: with psychotic features Qualified Code(s): F32.3 - Major depressive disorder, single episode, severe with psychotic features (4) Substance abuse: (5) Alcohol use disorder: (6) Pneumonia: (7) Acute hypoxic respiratory failure: Plan This is a 33-year-old white male with significant addiction issues particularly alcohol along with other drugs and some concerns that he may have had some substances while in the hospital who was briefly transferred to the neuropsychiatric unit for evaluation and treatment thinking that he was medically cleared and stable but he quickly decompensated was transferred here to the ICU. 1. Continue current medication. 2. Will transfer him back to the psychiatric unit when medically stable. 3. Encourage sober living treatment after discharge at the highest level care to which he is willing to commit. 4. Continue CIWA protocol and agree with current management. 5. Will continue to follow. Attestations NPU 2 Medical Necessity Statement*: N/A. Please see primary team note for medical necessity but will agree to accept patient back on the neuropsychiatric unit once medically stable. Coding Level of Care Code Acute Code for [facility] Fwd Diagnoses Alcohol abuse F10.10 Alcohol withdrawal F10.939 Current severe episode of major depressive disorder with psychotic features, unspecified whether recurrent F32.3 Depression Type: major depressive disorder Major depression recurrence: unspecified whether recurrent Active/Remission status: currently active Major depression episode severity: severe Psychotic features: with psychotic features Substance abuse F19.10 Alcohol use disorder F10.90 Pneumonia J18.9 Acute hypoxic respiratory failure J96.01
[2023-11-30] MEDS: amlodipine 10 mg Tablet PO (20:51)
[2023-11-30 20:57] LABS: Glucose Point of Care 140 mg/dL (70-110)
--- NOTE | 2023-11-30 21:07 | P.PN_ITS ---
Subjective 2 Subjective: He reports he is feeling somewhat better today. He does not recall much from last couple of days. He is still having some cough. He does report having recurrent bleeding of his gums at home with poor dentition. He is setting up a visit with a dentist. He also has noticed having some pain in his left shoulder limiting mobility. Vitals/I&O/Wt Last Vital Signs Temp 98.9 F 11/30/23 10:00 Pulse 78 11/30/23 16:00 Resp 20 H 11/30/23 16:00 BP 156/82 11/30/23 17:51 Pulse Ox 95 11/30/23 16:00 O2 Del Method Nasal Cannula 11/30/23 08:17 O2 Flow Rate 4 11/30/23 08:17 11/30/23 11/30/23 11/30/23 06:59 14:59 22:59 Intake Total 454.692 / 1278.396 833.168 / 833.168 650 / 1483.168 Output Total 1000 / 2000 2500 / 2500 Balance -545.308 / -721.604 833.168 / 833.168 -1850 / -1016.832 Weight last 48 hrs Weight 139 kg Weight 139.2 kg Physical Exam 2 Narrative: Reclined in bed. Head of bed elevated. Const: COMMON NORMALS: patient oriented x3 and alert GENERAL APPEARANCE: c ooperative ORIENTATION/CONSCIOUSNESS: Yes awake HENMT: COMMON NORMALS: oropharynx normal OTHER: Cleared dry crusted blood on the tongue, gums, teeth, lips. No fresh bleeding. Neck/C-Spine: COMMON NORMALS: no JVD Resp: COMMON NORMALS: normal respiratory effort and clear to auscultation bilaterally AUSCULTATION: clear to auscultation bilaterally and diminished lung sounds OTHER: Few rhonchi. Wheezing. Cardio: COMMON NORMALS: no JVD, regular rhythm, S1 normal heart sound present, S2 normal heart sound present and No murmurs present (Cardio) RHYTHM: regular rhythm HEART SOUNDS: S1 normal heart sound present and S2 normal heart sound present GI: COMMON NORMALS: Normal to inspection, nondistended, normoactive bowel sounds present, Soft to palpation and non-tender PALPATION: Yes Soft to palpation Extremity: COMMON NORMALS: no joint enlargement and no pedal edema N ARRATIVE EXTREMITY EXAM: Left shoulder without pain on PROM until about 90 degree extension, then having some pain difficulty elevating above that. No swelling, no erythema, no tenderness on palpation. Neuro: COMMON NORMALS: patient oriented x3 and moves all extremities S ENSORIUM/ORIENTATION: Yes alert Psych: OTHER: Tremulous, lumbering gait. He has no insight into his current condition and involved risks. Skin: COMMON NORMALS: no rashes or lesions noted GENERAL SKIN EXAM: no rashes or lesions noted OTHER: Redness, some induration, yeast order under pannus anteriorly. Data 11/30/23 05:26 11/30/23 05:26 Micro: Microbiology 11/25/23 17:46 Blood Culture - Final Blood NO GROWTH AFTER 5 DAYS 11/25/23 17:48 Blood Culture - Final Blood NO GROWTH AFTER 5 DAYS A&P Assessment and plan (1) Acute hypoxic respiratory failure: Still having cough. Continues to require 4 L nasal cannula oxygen. Still with rhonchi, wheezing. Continue treatment of pneumonia, vancomycin, aztreonam. Reviewed vitals, CBC, noted WBC is normal. Reviewed BUN, creatinine, bicarb, renal function normal. Maintain aspiration precautions. Additionally noted sleep apnea for which would benefit from sleep study. Mechanical soft diet due to poor dentition. As per discussion he is setting up follow-up with a dentist. Vitamin C level requested with bleeding gums. 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 Repeat viral respiratory panel reviewed. Negative. Sputum culture unavailable. Reviewed blood culture. Negative to date. Continue oxygen support. Wean down as tolerating. Normally not on any oxygen. COVID PCR panel, influenza PCR, resp PCR negative. Sputum culture requested.Not obtained. He denies vaping. Denies any IVDU, has not had any substance use since June. Previously was smoking. Secondary to bilateral pneumonia, worse on the right compared to the left. Has had some dry heaving, nausea, has not actually vomited. Alcohol use disorder. Monitor for possible aspiration pneumonia. Received Levaquin, azithromycin. Reported history of allergy to ceftriaxone. Monitor oxygenation. (2) Alcohol withdrawal: Weaned off Precedex. Discontinued. Continues on phenobarbital IV for now, if continues to improve, will further taper down. Continue CIWA protocol. Acute encephalopathy with delirium, alcohol withdrawal, possible superimposed intoxication. He is currently calm, resting, wakes up to voice. Falls asleep. Reviewed vitals, CBC, CMP, medications. Tapering down on Precedex drip. Continues on phenobarbital for now. Wean off Precedex, reassess recovery from alcohol withdrawal, encephalopathy. Continue monitoring in the intensive care unit at the moment. Seizure precautions. Discussed with his mother. Continue management of severe alcohol withdrawal, delirium tremens. Compounded possibly by intoxication by either THC versus psilocybin. Maintain seizure precautions. Additionally reported foul-smelling urine, requesting UA. Discussed with nursing. Discussed with casework manager, they are going to provide him with some options for rehabilitation. Consider naltrexone if he is willing. gabapentin. Avoid Librium. Monitor on telemetry with severe withdrawal and risk of arrhythmia. Risk of seizure. Seizure precautions. Monitor for risk of mental status change, respiratory depression. Reviewed magnesium, replace hypomagnesemia. Additional IV mag given. (3) Pneumonia: As above. (4) Alcohol use disorder: Discussed with case management to assist him with options for rehabilitation due to difficulties with quitting. He was able to quit smoking cold turkey. He reportedly has been drinking alcohol since being 14, there is some reported problem with alcohol intake and his mother as well. Suspected alcohol induced gastritis. Will give PPI. Monitor for risk of withdrawal. CIWA protocol. Benzodiazepines as per CIWA. Discussed with him. Timing, folic acid, multivitamin. Discussed with him regarding cessation. Case management consultation for additional information regarding rehabilitation options. Plan Left shoulder pain, left arm weakness: Noticed this morning. No swelling or erythema or local tenderness to palpation on the shoulder, but does have pain on active or PROM about 90 degrees. Has 2 help himself to lift the left arm with the right arm. Without any reported additional trauma, although had been agitated on neuropsychiatric unit reported swinging/trying to punch nursing staff, not sure if may have sustained a sprain or dislocation. Requested shoulder x-ray. Left arm sling. Possible sleep apnea: Does snore when he sleeps. Would benefit from sleep study. Atrial flutter with RVR: Improved. oral amiodarone. On anticoagulation with Xarelto. Continue metoprolol, Xarelto. Intertrigo: Under pannus. Add nystatin cream. Uncontrolled hypertension: Blood pressure is overall better. Continue lisinopril 20 mg. Likely fueled by severe alcohol withdrawal. Clonidine. Continue metoprolol. Amlodipine. Treat alcohol withdrawal as above. Replace hypomagnesemia. Hypomagnesemia: Reviewed magnesium - 1.5. Requested additional replacement IV. Recheck level. DM2: Hold Jardiance, metformin. Sliding scale insulin. Monitor POC glucose. Consistent carbohydrate diet. HTN: Continue metoprolol, lisinopril. Cardiac diet. Monitor blood pressures. History of stroke: With atrial flutter, continue Xarelto, statin. Possible sleep apnea: Noted hypoxia during one of the last admissions, would benefit from follow-up for sleep study, states has not done so yet. Attestations 2 Medical Necessity Statement*: Continue admission for assessment of management of hypoxic respiratory failure, pneumonia, severe alcohol withdrawal. Coding Level of Care Code Critical Care >/= 30 minutes Critical care time (in minutes): 35 The high probability of a clinically significant, sudden or life threatening deterioration, as referenced in this documentation, required my full and direct attention, intervention and personal management. The critical care time shown is in addition to time spent performing any reported separately billable procedures and includes the following: [x] Data and vital sign review and interpretation [x ] Patient assessment, examination and intervention [x] Medication orders and management [x] Patient/Family updates as able [x] Care Coordination and Documentation. Diagnoses Acute hypoxic respiratory failure J96.01 Alcohol withdrawal F10.939 Pneumonia J18.9 Alcohol use disorder F10.90
[2023-12-01] VITALS (49 sets, daily range): BP systolic 130–171; BP diastolic 72–99; PULSE 65–80; RESP 13–29; TEMP 36.9–37.1; O2SAT 82–100
[2023-12-01] MEDS: gabapentin 300 mg Capsule PO ×3 (00:06→18:24)
[2023-12-01] MEDS: metoprolol tartrate 25 mg Tablet PO ×2 (02:29→13:23)
[2023-12-01 05:37] LABS: Basophils # 0.1 10^3/uL (0.0-0.1); Basophils % 0.8 %; Eosinophils # 0.8 10^3/uL (0.0-0.8); Eosinophils % 7.8 %; Hematocrit 35.1 % (37-53); Lymphocytes # 1.3 10^3/uL (0.8-4.8); Lymphocytes % 13.4 %; Mean Corpuscular HGB Conc 31.6 g/dL (30-55); Mean Corpuscular Hemoglobin 29.9 pg (27-33); Mean Corpuscular Volume 94.6 fl (82-101); Mean Platelet Volume 9.7 fL (7.4-10.4); Monocytes # 1.4 10^3/uL (0.2-0.9); Monocytes % 14.1 %; Neutrophils # 6.17 10^3/uL (1.8-7.7); Neutrophils % 63.6 %; Nucleated Red Blood Cells % 0 %; Platelet Count 216 10^3/cmm (157-399); Red Blood Count 3.71 10^6/uL (3.85-5.65); Red Cell Distribution Width 12.9 % (12.1-15.1); White Blood Count 9.71 10^3/uL (3.29-11.43)
[2023-12-01] MEDS: PHENobarbital 130 mg/mL SDV 1 mL 60 MG IV (05:37)
[2023-12-01] MEDS: aztreonam 2,000 MG in sodium chloride 0.9% (plus) 100 ML 200 MG IV ×2 (05:38→18:24)
[2023-12-01] MEDS: vancomycin 1,500 MG/300 ML PIGGYBACK 200 MG IV ×3 (05:38→22:49)
[2023-12-01 05:57] LABS: Alanine Aminotransferase 29 U/L (0-41); Albumin Level 3.3 g/dL (3.5-5.2); Alkaline Phosphatase 107 U/L (40-130); Aspartate Amino Transferase 80 U/L (0-40); Blood Urea Nitrogen 13 mg/dL (6-20); Calcium 8.4 mg/dL (8.5-10.5); Carbon Dioxide 24 mmol/L (22-29); Chloride 98 mmol/L (98-107); Globulin 4.3 g/dL (1.3-4.6); Glomerular Filtration Rate 154.2 mL/min (90-130); Glucose 145 mg/dL (65-115); Osmolality Calculated 279 mOsm/kg (285-295); Sodium 133 mmol/L (136-145); Total Bilirubin 0.8 mg/dL (0.15-1.2); Total Protein 7.6 g/dL (6.6-8.7)
[2023-12-01 06:31] LABS: Creatinine Clr Calc Pharmacy 253.8592
[2023-12-01 06:32] LABS: Anion Gap 15.6 (5-19); Potassium 4.6 mmol/L (3.5-5.1)
[2023-12-01] MEDS: rivaroxaban 10 mg Tablet 20 MG PO (08:08)
[2023-12-01] MEDS: amiodarone 200 mg Tablet 400 MG PO ×2 (08:08→18:23)
[2023-12-01] MEDS: cloNIDine 0.1 mg Tablet PO ×2 (08:09→18:23)
[2023-12-01] MEDS: folic acid 1 mg Tablet PO (08:09)
[2023-12-01] MEDS: guaiFENesin 600 mg Tablet 1200 MG PO ×2 (08:09→18:23)
[2023-12-01] MEDS: magnesium lactate 84 mg Tablet PO ×2 (08:10→18:23)
[2023-12-01] MEDS: pantoprazole DR 40 mg Tablet PO (08:10)
[2023-12-01] MEDS: multivitamin therapeutic Tablet 1 TAB PO (08:10)
[2023-12-01] MEDS: thiamine 100 mg Tablet PO (08:10)
[2023-12-01] MEDS: atorvastatin 40 mg Tablet 10 MG PO (08:10)
[2023-12-01] MEDS: lisinopril 20 mg Tablet PO (08:10)
[2023-12-01] MEDS: nystatin cream 30 gm 1 APPLIC TOPICAL ×2 (08:11→18:23)
[2023-12-01 10:13] LABS: Glucose Point of Care 116 mg/dL (70-110)
[2023-12-01 10:40] LABS: Glucose Point of Care 175 mg/dL (70-110)
[2023-12-01] MEDS: insulin lispro 100 unit/1 mL SUBCUT (12:23)
--- NOTE | 2023-12-01 13:33 | P.PN_ITS ---
Subjective 2 Subjective: Breathing is improving. He is still having some cough. Mental status has been improving. He is more awake and alert, cooperative, currently oriented. Left shoulder improving, he is unable to lift it above his head, although with effort. Vitals/I&O/Wt Last Vital Signs Temp 98.8 F 12/01/23 07:30 Pulse 67 12/01/23 12:00 Resp 15 12/01/23 12:00 BP 159/97 12/01/23 12:00 Pulse Ox 97 12/01/23 11:30 O2 Del Method Nasal Cannula 12/01/23 11:30 O2 Flow Rate 2 12/01/23 11:30 11/30/23 12/01/23 12/01/23 22:59 06:59 14:59 Intake Total 650 / 1483.168 400 / 1235.693 0450 / 1192 Output Total 3400 / 3400 1800 / 5200 425 / 425 Balance -2750 / -1916.832 -1400 / -3316.832 767 / 767 Weight last 48 hrs Weight 138.799 kg Weight 139 kg Physical Exam 2 Narrative: Reclined in bed. Head of bed elevated. Const: COMMON NORMALS: patient oriented x3 and alert GENERAL APPEARANCE: c ooperative ORIENTATION/CONSCIOUSNESS: Yes awake HENMT: COMMON NORMALS: oropharynx normal OTHER: No bleeding or crusted lesions. Poor dentition. Bleeding gums. Neck/C-Spine: COMMON NORMALS: no JVD Resp: COMMON NORMALS: normal respiratory effort and clear to auscultation bilaterally AUSCULTATION: clear to auscultation bilaterally and diminished lung sounds OTHER: Few rhonchi. Wheezing. Cardio: COMMON NORMALS: no JVD, regular rhythm, S1 normal heart sound present, S2 normal heart sound present and No murmurs present (Cardio) RHYTHM: regular rhythm HEART SOUNDS: S1 normal heart sound present and S2 normal heart sound present GI: COMMON NORMALS: Normal to inspection, nondistended, normoactive bowel sounds present, Soft to palpation and non-tender PALPATION: Yes Soft to palpation Extremity: COMMON NORMALS: no joint enlargement and no pedal edema N ARRATIVE EXTREMITY EXAM: Left shoulder without pain on PROM until about 90 degree extension, then having some pain difficulty elevating above that. No swelling, no erythema, no tenderness on palpation. Neuro: COMMON NORMALS: patient oriented x3 and moves all extremities S ENSORIUM/ORIENTATION: Yes alert Psych: OTHER: Tremulous, lumbering gait. He has no insight into his current condition and involved risks. Skin: COMMON NORMALS: no rashes or lesions noted GENERAL SKIN EXAM: no rashes or lesions noted OTHER: Redness, some induration, yeast order under pannus anteriorly. Data 12/01/23 05:16 12/01/23 05:16 Micro: Microbiology 11/25/23 17:46 Blood Culture - Final Blood NO GROWTH AFTER 5 DAYS 11/25/23 17:48 Blood Culture - Final Blood NO GROWTH AFTER 5 DAYS A&P Assessment and plan (1) Acute hypoxic respiratory failure: Reviewed vitals, gradual improvement, weaning down to 2 L nasal cannula. He is still having some cough. Subjectively feels he is gradually getting better. Encouraged him to use flutter valve and incentive spirometer. Continue aztreonam, vancomycin. Reviewed CBC, no leukocytosis. Reviewed blood culture, remaining negative. Significant sleep apnea, desaturations down to 70s, discussed with him, would benefit from sleep study. Mechanical soft diet due to poor dentition. As per discussion he is setting up follow-up with a dentist. Vitamin C level requested with bleeding gums. 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 Repeat viral respiratory panel reviewed. Negative. Sputum culture unavailable. COVID PCR panel, influenza PCR, resp PCR negative. He denies vaping. Denies any IVDU, has not had any substance use since June. Previously was smoking. Secondary to bilateral pneumonia, worse on the right compared to the left. Has had some dry heaving, nausea, has not actually vomited. Alcohol use disorder. Monitor for possible aspiration pneumonia. Received Levaquin, azithromycin. Reported history of allergy to ceftriaxone. Monitor oxygenation. (2) Alcohol withdrawal: Per history ob Taper down phenobarbital IV to 30 mg every 12, if continues to improve, will further taper down. Monitor for risk of respiratory depression, AMS depression with IV phenobarbital. Continue CIWA protocol. Discussed with psychiatrist Reviewed CBC, CMP. Recheck magnesium. Acute encephalopathy with delirium, alcohol withdrawal, possible superimposed intoxication. Continue management of severe alcohol withdrawal, delirium tremens. Compounded possibly by intoxication by either THC versus psilocybin. Maintain seizure precautions. Options for rehabilitation. Consider naltrexone if he is willing. gabapentin. Avoid Librium. Monitor on telemetry with severe withdrawal and risk of arrhythmia. Risk of seizure. Seizure precautions. Monitor for risk of mental status change, respiratory depression. (3) Pneumonia: As above. (4) Alcohol use disorder: Discussed with case management to assist him with options for rehabilitation due to difficulties with quitting. He was able to quit smoking cold turkey. He reportedly has been drinking alcohol since being 14, there is some reported problem with alcohol intake and his mother as well. Suspected alcohol induced gastritis. Will give PPI. Monitor for risk of withdrawal. CIWA protocol. Benzodiazepines as per CIWA. Discussed with him. Timing, folic acid, multivitamin. Discussed with him regarding cessation. Case management consultation for additional information regarding rehabilitation options. Plan Left shoulder pain, left arm weakness: Reviewed left shoulder x-ray, no acute pathology. Noticed this morning. No swelling or erythema or local tenderness to palpation on the shoulder, but does have pain on active or PROM about 90 degrees. Has 2 help himself to lift the left arm with the right arm. Without any reported additional trauma, although had been agitated on neuropsychiatric unit reported swinging/trying to punch nursing staff, not sure if may have sustained a sprain or dislocation. Requested shoulder x-ray. Left arm sling. Possible sleep apnea: Does snore when he sleeps. Would benefit from sleep study. Atrial flutter with RVR: Improved. oral amiodarone. On anticoagulation with Xarelto. Continue metoprolol, Xarelto. Intertrigo: Under pannus. Add nystatin cream. Uncontrolled hypertension: Blood pressure is overall better. Continue lisinopril 20 mg. Likely fueled by severe alcohol withdrawal. Clonidine. Continue metoprolol. Amlodipine. Treat alcohol withdrawal as above. Replace hypomagnesemia. Hypomagnesemia: Reviewed magnesium - 1.5. Requested additional replacement IV. Recheck level. DM2: Hold Jardiance, metformin. Sliding scale insulin. Monitor POC glucose. Consistent carbohydrate diet. HTN: Continue metoprolol, lisinopril. Cardiac diet. Monitor blood pressures. History of stroke: With atrial flutter, continue Xarelto, statin. Possible sleep apnea: Noted hypoxia during one of the last admissions, would benefit from follow-up for sleep study, states has not done so yet. Attestations 2 Medical Necessity Statement*: Continue admission for assessment of management of hypoxic respiratory failure, pneumonia, severe alcohol withdrawal. and High MDM includes amount and/or complexity of data reviewed/ordered [ resulted lab(s)/test(s), ordered lab(s)/test(s), independent historian and other healthcare professional discussion] and described risk of complication, morbidity or mortality of management as documented Diagnoses Acute hypoxic respiratory failure J96.01 Alcohol withdrawal F10.939 Pneumonia J18.9 Alcohol use disorder F10.90
--- NOTE | 2023-12-01 15:52 | PC.NURSE ---
All belongings sent with Sonia Regalado patients mother. Sonia on her way to [facility] to obtain patients cellphone.
--- NOTE | 2023-12-01 16:36 | PC.NURSE ---
Patient transferred to [facility] room 104, via wheelchair on room air. IS and flutter valve at bedside, oriented to room, PA at bedside, Paper chart left with staff at [facility]. All personal belongings sent home with patients mother.
[2023-12-01 17:45] LABS: Glucose Point of Care 115 mg/dL (70-110)
[2023-12-01] MEDS: PHENobarbital 130 mg/mL SDV 1 mL 30 MG IV (18:24)
--- NOTE | 2023-12-01 19:03 | P.NPUPN_ITS ---
Subjective NPU 2 Subjective: Patient presented today reporting that he is doing all right. We discussed the circumstance and the plan to transfer him to the neuropsychiatric unit once he is deemed medically stable which will likely be tomorrow. We discussed that we could work with him there to determine how to assist him in his significant addiction issues which have led to 2 recent hospitalizations. Mental Status Exam 2 MSE Comments: This is an obese versus morbidly obese white male in hospital garb with poor grooming and limited eye contact. No abnormal movements except for psychomotor retardation. More cooperative with exam in mild distress. Speech was limited and decreased rate and volume. Mood reported to be better, affect congruent. Thought process organized. Thought content: Patient did not report suicidal or homicidal ideation, there were no delusions reported and he seemed guarded, he did not report auditory or visual hallucinations. Attention and concentration were improving and memory was reliable but none were formally tested. He was alert and oriented x 3. Insight and judgment appear to be improving and impulse control is impaired. Vitals/I&O/Wt Last Vital Signs Temp 98.8 F 12/01/23 07:30 Pulse 66 12/01/23 16:30 Resp 18 12/01/23 16:30 BP 163/90 12/01/23 16:00 Pulse Ox 96 12/01/23 16:30 O2 Del Method Room Air 12/01/23 16:30 O2 Flow Rate 4 12/01/23 14:08 12/01/23 12/01/23 12/01/23 06:59 14:59 22:59 Intake Total 400 / 9602.814 2998 / 1192 300 / 1492 Output Total 1800 / 5200 425 / 425 500 / 925 Balance -1400 / -3316.832 767 / 767 -200 / 567 Weight last 48 hrs Weight 138.799 kg Weight 139 kg Data NPU 12/02/23 03:00 12/02/23 03:00 Micro: Microbiology 11/25/23 17:46 Blood Culture - Final Blood NO GROWTH AFTER 5 DAYS 11/25/23 17:48 Blood Culture - Final Blood NO GROWTH AFTER 5 DAYS Microbiology 11/25/23 17:46 Blood Blood Culture - Final NO GROWTH AFTER 5 DAYS 11/25/23 17:48 Blood Blood Culture - Final NO GROWTH AFTER 5 DAYS A&P Assessment and plan (1) Alcohol abuse: (2) Alcohol withdrawal: (3) Depression: Qualifiers: Depression Type: major depressive disorder Major depression recurrence: unspecified whether recurrent Active/Remission status: currently active Major depression episode severity: severe Psychotic features: with psychotic features Qualified Code(s): F32.3 - Major depressive disorder, single episode, severe with psychotic features (4) Substance abuse: (5) Alcohol use disorder: (6) Pneumonia: (7) Acute hypoxic respiratory failure: Plan This is a 33-year-old white male with significant addiction issues particularly alcohol along with other drugs and some concerns that he may have had some substances while in the hospital who was briefly transferred to the neuropsychiatric unit for evaluation and treatment thinking that he was medically cleared and stable but he quickly decompensated was transferred here to the ICU. 1. Continue current medication. 2. Will transfer him back to the psychiatric unit when medically stable. Tentative plan to return to NPU tomorrow. 3. Encourage sober living treatment after discharge at the highest level care to which he is willing to commit. 4. Continue CIWA protocol and agree with current management. 5. Will continue to follow. Attestations NPU 2 Medical Necessity Statement*: N/A. Please see primary team note for medical necessity but will agree to accept patient back on the neuropsychiatric unit once medically stable. Coding Level of Care Code Acute Code for [facility] Fwd Diagnoses Alcohol abuse F10.10 Alcohol withdrawal F10.939 Current severe episode of major depressive disorder with psychotic features, unspecified whether recurrent F32.3 Depression Type: major depressive disorder Major depression recurrence: unspecified whether recurrent Active/Remission status: currently active Major depression episode severity: severe Psychotic features: with psychotic features Substance abuse F19.10 Alcohol use disorder F10.90 Pneumonia J18.9 Acute hypoxic respiratory failure J96.01
[2023-12-01] MEDS: amlodipine 10 mg Tablet PO (21:35)
[2023-12-02] VITALS (18 sets, daily range): BP systolic 118–165; BP diastolic 62–90; PULSE 71–83; RESP 14–25; TEMP 36.8–37.1; O2SAT 81–98; BMI 40.4
[2023-12-02] MEDS: metoprolol tartrate 25 mg Tablet PO ×3 (02:27→20:31)
[2023-12-02 03:47] LABS: Basophils # 0.1 10^3/uL (0.0-0.1); Basophils % 1.1 %; Eosinophils # 0.7 10^3/uL (0.0-0.8); Eosinophils % 7.9 %; Hematocrit 35.1 % (37-53); Lymphocytes # 1.4 10^3/uL (0.8-4.8); Lymphocytes % 15.7 %; Mean Corpuscular HGB Conc 31.6 g/dL (30-55); Mean Corpuscular Volume 94.9 fl (82-101); Mean Platelet Volume 9.8 fL (7.4-10.4); Monocytes # 1.3 10^3/uL (0.2-0.9); Monocytes % 14.3 %; Neutrophils % 60.5 %; Nucleated Red Blood Cells % 0 %; Platelet Count 221 10^3/cmm (157-399); White Blood Count 8.75 10^3/uL (3.29-11.43)
[2023-12-02 04:25] LABS: Alanine Aminotransferase 38 U/L (0-41); Albumin Level 3.5 g/dL (3.5-5.2); Alkaline Phosphatase 114 U/L (40-130); Anion Gap 13.2 (5-19); Aspartate Amino Transferase 88 U/L (0-40); Blood Urea Nitrogen 12 mg/dL (6-20); Calcium 8.5 mg/dL (8.5-10.5); Carbon Dioxide 25 mmol/L (22-29); Chloride 101 mmol/L (98-107); Creatinine Clr Calc Pharmacy 253.8592; Glomerular Filtration Rate 154.2 mL/min (90-130); Glucose 134 mg/dL (65-115); Osmolality Calculated 282 mOsm/kg (285-295); Potassium 4.2 mmol/L (3.5-5.1); Sodium 135 mmol/L (136-145); Total Bilirubin 0.6 mg/dL (0.15-1.2); Total Protein 7.5 g/dL (6.6-8.7)
[2023-12-02] MEDS: vancomycin 1,500 MG/300 ML PIGGYBACK 200 MG IV ×2 (05:08→15:47)
[2023-12-02] MEDS: PHENobarbital 130 mg/mL SDV 1 mL 30 MG IV (05:40)
[2023-12-02] MEDS: aztreonam 2,000 MG in sodium chloride 0.9% (plus) 100 ML 200 MG IV (05:40)
[2023-12-02 06:06] LABS: Glucose Point of Care 125 mg/dL (70-110)
[2023-12-02] MEDS: guaiFENesin 600 mg Tablet 1200 MG PO ×2 (07:39→19:00)
[2023-12-02] MEDS: atorvastatin 40 mg Tablet 10 MG PO (07:39)
[2023-12-02] MEDS: folic acid 1 mg Tablet PO (07:39)
[2023-12-02] MEDS: multivitamin therapeutic Tablet 1 TAB PO (07:40)
[2023-12-02] MEDS: thiamine 100 mg Tablet PO (07:40)
[2023-12-02] MEDS: amiodarone 200 mg Tablet 400 MG PO ×2 (07:40→18:59)
[2023-12-02] MEDS: magnesium lactate 84 mg Tablet PO ×2 (07:40→18:59)
[2023-12-02] MEDS: gabapentin 300 mg Capsule PO ×2 (07:40→19:00)
[2023-12-02] MEDS: nystatin cream 30 gm 1 APPLIC TOPICAL (07:40)
[2023-12-02] MEDS: rivaroxaban 10 mg Tablet 20 MG PO (07:40)
[2023-12-02] MEDS: pantoprazole DR 40 mg Tablet PO (07:40)
[2023-12-02] MEDS: cloNIDine 0.1 mg Tablet PO ×2 (07:40→19:00)
[2023-12-02] MEDS: lisinopril 20 mg Tablet PO (07:40)
[2023-12-02 11:28] LABS: Glucose Point of Care 136 mg/dL (70-110)
[2023-12-02 15:33] LABS: Glucose Point of Care 110 mg/dL (70-110)
--- NOTE | 2023-12-02 16:11 | P.PN_ITS ---
Subjective 2 Subjective: He is gradually improving. Still having cough. Pain in left shoulder gradually improving. He is able to lift his left arm above his head with difficulty. Vitals/I&O/Wt Last Vital Signs Temp 98.2 F 12/02/23 11:16 Pulse 71 12/02/23 12:23 Resp 14 12/02/23 12:23 BP 119/70 12/02/23 12:23 Pulse Ox 95 12/02/23 12:23 O2 Del Method Nasal Cannula 12/02/23 11:16 O2 Flow Rate 2 12/02/23 11:16 12/02/23 12/02/23 12/02/23 06:59 14:59 22:59 Intake Total 700 / 2292 Balance 700 / 1367 Weight last 48 hrs Weight 138.799 kg Weight 138.799 kg Physical Exam 2 Narrative: Reclined in bed. Head of bed elevated. Sleeping, wakes up to voice. Const: COMMON NORMALS: patient oriented x3 and alert GENERAL APPEARANCE: c ooperative ORIENTATION/CONSCIOUSNESS: Yes awake HENMT: COMMON NORMALS: oropharynx normal OTHER: No bleeding or crusted lesions. Poor dentition. Bleeding gums. Neck/C-Spine: COMMON NORMALS: no JVD Resp: COMMON NORMALS: normal respiratory effort and clear to auscultation bilaterally AUSCULTATION: clear to auscultation bilaterally and diminished lung sounds OTHER: Few rhonchi. Wheezing. Cardio: COMMON NORMALS: no JVD, regular rhythm, S1 normal heart sound present, S2 normal heart sound present and No murmurs present (Cardio) RHYTHM: regular rhythm HEART SOUNDS: S1 normal heart sound present and S2 normal heart sound present GI: COMMON NORMALS: Normal to inspection, nondistended, normoactive bowel sounds present, Soft to palpation and non-tender PALPATION: Yes Soft to palpation Extremity: COMMON NORMALS: no joint enlargement and no pedal edema N ARRATIVE EXTREMITY EXAM: Left shoulder without pain on PROM until about 90 degree extension, then having some difficulty elevating above that. No swelling, no erythema, no tenderness on palpation. Neuro: COMMON NORMALS: patient oriented x3 and moves all extremities S ENSORIUM/ORIENTATION: Yes alert Psych: OTHER: Tremulous, lumbering gait. He has no insight into his current condition and involved risks. Skin: COMMON NORMALS: no rashes or lesions noted GENERAL SKIN EXAM: no rashes or lesions noted OTHER: Redness, some induration, yeast order under pannus anteriorly. Data 12/02/23 03:00 12/02/23 03:00 A&P Assessment and plan (1) Acute hypoxic respiratory failure: Continue to improve. Reviewed oxygen down to 2 requirement. Reviewed vitals, CBC, afebrile, without leukocytosis. Reviewed blood culture, remains negative. Discussed with psychiatry. As he is improving, down to 2 L, he is able to return to neuropsychiatric unit for further assessment, completing treatment of alcohol withdrawal. Will switch over to oral antibiotics, Augmentin, linezolid. Will recheck blood counts, reassess for risk of agranulocytosis with linezolid. Will need to follow-up with dentist regarding intermittently bleeding gums. Will need to follow-up for a sleep study to assess obstructive sleep apnea due to snoring, desaturation while sleeping. Mechanical soft diet due to poor dentition. As per discussion he is setting up follow-up with a dentist. Vitamin C level requested with bleeding gums. 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 Repeat viral respiratory panel reviewed. Negative. Sputum culture unavailable. COVID PCR panel, influenza PCR, resp PCR negative. He denies vaping. Denies any IVDU, has not had any substance use since June. Previously was smoking. Secondary to bilateral pneumonia, worse on the right compared to the left. Has had some dry heaving, nausea, has not actually vomited. Alcohol use disorder. Monitor for possible aspiration pneumonia. Received Levaquin, azithromycin. Reported history of allergy to ceftriaxone. Monitor oxygenation. (2) Alcohol withdrawal: Will further switch from IV phenobarbital to oral phenobarbital and continue taper, decreasing frequency after tonight's dose to daily for 2 more doses then discontinue. Continue CIWA protocol. Reviewed CBC, CMP. Recheck magnesium. Acute encephalopathy with delirium, alcohol withdrawal, possible superimposed intoxication. Continue management of severe alcohol withdrawal, delirium tremens. Compounded possibly by intoxication by either THC versus psilocybin. Maintain seizure precautions. Options for rehabilitation. Consider naltrexone if he is willing. gabapentin. Avoid Librium. Monitor on telemetry with severe withdrawal and risk of arrhythmia. Risk of seizure. Seizure precautions. Monitor for risk of mental status change, respiratory depression. (3) Pneumonia: As above. (4) Alcohol use disorder: Continue assessment on neuropsychiatric unit. Discussed with case management to assist him with options for rehabilitation due to difficulties with quitting. He was able to quit smoking cold turkey. He reportedly has been drinking alcohol since being 14, there is some reported problem with alcohol intake and his mother as well. Suspected alcohol induced gastritis. Will give PPI. Monitor for risk of withdrawal. CIWA protocol. Benzodiazepines as per CIWA. Discussed with him. Timing, folic acid, multivitamin. Discussed with him regarding cessation. Case management consultation for additional information regarding rehabilitation options. Plan Left shoulder pain, left arm weakness: With improvement in pain and strength, still with difficulty lifting his arm above his head, struggling through pain with active range of motion. Discussed with him we will request MRI of his left shoulder. X-ray without fracture or acute pathology. Without any reported additional trauma, although had been agitated on neuropsychiatric unit reported swinging/trying to punch nursing staff, not sure if may have sustained a sprain or dislocation. Left arm sling was tried, but was comfortable for him and removed. Possible sleep apnea: Does snore when he sleeps. Would benefit from sleep study. Atrial flutter with RVR: Improved. oral amiodarone. On anticoagulation with Xarelto. Continue metoprolol, Xarelto. Intertrigo: Under pannus. Nystatin cream. Uncontrolled hypertension: Blood pressure is overall better. Continue lisinopril 20 mg. Likely fueled by severe alcohol withdrawal. Clonidine. Continue metoprolol. Amlodipine. Treat alcohol withdrawal as above. Replace hypomagnesemia. Hypomagnesemia: Reviewed magnesium - 1.5. Requested additional replacement IV. Recheck level. DM2: Hold Jardiance, metformin. Sliding scale insulin. Monitor POC glucose. Consistent carbohydrate diet. HTN: Continue metoprolol, lisinopril. Cardiac diet. Monitor blood pressures. History of stroke: With atrial flutter, continue Xarelto, statin. Possible sleep apnea: Noted hypoxia during one of the last admissions, would benefit from follow-up for sleep study, states has not done so yet. Range of motion. Attestations 2 Medical Necessity Statement*: Continue admission for treatment of pneumonia, alcohol withdrawal, alcohol use disorder. and High MDM includes amount and/or complexity of data reviewed/ordered [ resulted lab(s)/test(s), ordered lab(s)/test(s) and other healthcare professional discussion] and described risk of complication, morbidity or mortality of management as documented Diagnoses Acute hypoxic respiratory failure J96.01 Alcohol withdrawal F10.939 Pneumonia J18.9 Alcohol use disorder F10.90
--- NOTE | 2023-12-02 18:19 | P.NPUPN_ITS ---
Subjective NPU 2 Subjective: Patient presented today reporting that he is doing better. He continues to be quite ambivalent about discontinuing his drinking and seems to be minimizing the impact of the drinking even though it is likely affecting work and his health. He reports he has had shakes before but has never had DTs. We discussed the importance of ongoing treatment and embracing sobriety for his wellness. He denied any side effects to the medication. Mental Status Exam 2 MSE Comments: This is an obese versus morbidly obese white male in hospital scrubs with improving grooming and eye contact. No abnormal movements except for psychomotor retardation. More cooperative with exam in mild distress. Speech was more normal rate and volume. Mood reported to be better, affect congruent. Thought process organized. Thought content: Patient did not report suicidal or homicidal ideation, there were no delusions reported or noted, he did not report auditory or visual hallucinations. Attention and concentration were improving and memory was reliable but none were formally tested. He was alert and oriented x 3. Insight and judgment appear to be improving and impulse control is impaired. Vitals/I&O/Wt Last Vital Signs Temp 99.1 F 12/03/23 00:00 Pulse 75 12/03/23 00:00 Resp 18 12/03/23 00:00 BP 129/74 12/03/23 00:00 Pulse Ox 96 12/03/23 00:00 O2 Del Method Room Air 12/03/23 00:00 O2 Flow Rate 2 12/02/23 11:16 12/02/23 12/02/23 12/03/23 14:59 22:59 06:59 Intake Total 240 / 240 300 / 540 Output Total 550 / 550 Balance -310 / -310 300 / -10 Weight last 48 hrs Weight 138.799 kg Weight 138.799 kg Data NPU 12/03/23 06:21 12/03/23 06:21 A&P Assessment and plan (1) Alcohol abuse: (2) Alcohol withdrawal: (3) Depression: Qualifiers: Depression Type: major depressive disorder Major depression recurrence: unspecified whether recurrent Active/Remission status: currently active Major depression episode severity: severe Psychotic features: with psychotic features Qualified Code(s): F32.3 - Major depressive disorder, single episode, severe with psychotic features (4) Substance abuse: (5) Alcohol use disorder: (6) Pneumonia: (7) Acute hypoxic respiratory failure: Plan This is a 33-year-old white male with significant addiction issues particularly alcohol along with other drugs and some concerns that he may have had some substances while in the hospital who was briefly transferred to the neuropsychiatric unit for evaluation and treatment thinking that he was medically cleared and stable but he quickly decompensated was transferred here to the ICU. 1. Continue current medication. 2. Transferred to Neuropsych Unit. 3. Encourage sober living treatment after discharge at the highest level care to which he is willing to commit. 4. Continue CIWA protocol and agree with current management. 5. Patient will work with social work team for appropriate follow-up. Attestations NPU 2 Medical Necessity Statement*: Inpatient hospitalization is medically necessary and the clinically appropriate intervention at this time. We will monitor medications and make changes as indicated. He will be in the hospital for over 2 midnights. Likely length of stay 1-3 days. Coding Level of Care Code Acute Code for [facility] Fwd Diagnoses Alcohol abuse F10.10 Alcohol withdrawal F10.939 Current severe episode of major depressive disorder with psychotic features, unspecified whether recurrent F32.3 Depression Type: major depressive disorder Major depression recurrence: unspecified whether recurrent Active/Remission status: currently active Major depression episode severity: severe Psychotic features: with psychotic features Substance abuse F19.10 Alcohol use disorder F10.90 Pneumonia J18.9 Acute hypoxic respiratory failure J96.01
--- NOTE | 2023-12-02 19:48 | PC.NURSE ---
Patient transferred to NPU, report called to Janny
[2023-12-02 20:04] LABS: Glucose Point of Care 156 mg/dL (70-110)
[2023-12-02] MEDS: amoxicillin-clav 875-125 mg Tablet 1 TAB PO (20:31)
[2023-12-02] MEDS: insulin lispro 100 unit/1 mL SUBCUT (20:31)
[2023-12-02] MEDS: amlodipine 10 mg Tablet PO (20:31)
[2023-12-02] MEDS: linezolid 600 mg Tablet PO (20:31)
[2023-12-03] VITALS (9 sets, daily range): BP systolic 99–129; BP diastolic 60–76; PULSE 62–75; RESP 18; TEMP 36.4–37.3; O2SAT 94–98
[2023-12-03 06:29] LABS: Basophils # 0.1 10^3/uL (0.0-0.1); Basophils % 1.4 %; Eosinophils # 0.7 10^3/uL (0.0-0.8); Eosinophils % 7.4 %; Lymphocytes # 1.6 10^3/uL (0.8-4.8); Lymphocytes % 18.6 %; Mean Corpuscular HGB Conc 31.4 g/dL (30-55); Mean Corpuscular Hemoglobin 30.4 pg (27-33); Mean Corpuscular Volume 96.9 fl (82-101); Mean Platelet Volume 9.5 fL (7.4-10.4); Monocytes # 1.4 10^3/uL (0.2-0.9); Monocytes % 15.9 %; Neutrophils # 4.96 10^3/uL (1.8-7.7); Neutrophils % 56.2 %; Nucleated Red Blood Cells % 0 %; Platelet Count 213 10^3/cmm (157-399); Red Blood Count 3.82 10^6/uL (3.85-5.65); Red Cell Distribution Width 12.9 % (12.1-15.1); White Blood Count 8.81 10^3/uL (3.29-11.43)
[2023-12-03 06:49] LABS: Alanine Aminotransferase 53 U/L (0-41); Albumin Level 3.2 g/dL (3.5-5.2); Alkaline Phosphatase 107 U/L (40-130); Anion Gap 15.2 (5-19); Aspartate Amino Transferase 123 U/L (0-40); Blood Urea Nitrogen 13 mg/dL (6-20); Calcium 8.2 mg/dL (8.5-10.5); Carbon Dioxide 21 mmol/L (22-29); Chloride 103 mmol/L (98-107); Creatinine Clr Calc Pharmacy 253.8592; Globulin 4.2 g/dL (1.3-4.6); Glomerular Filtration Rate 154.2 mL/min (90-130); Glucose 128 mg/dL (65-115); Osmolality Calculated 282 mOsm/kg (285-295); Potassium 4.2 mmol/L (3.5-5.1); Sodium 135 mmol/L (136-145); Total Bilirubin 0.5 mg/dL (0.15-1.2); Total Protein 7.4 g/dL (6.6-8.7)
[2023-12-03 06:50] LABS: Vancomycin Trough 7.1 ug/mL (10-15)
[2023-12-03 07:57] LABS: Glucose Point of Care 135 mg/dL (70-110)
[2023-12-03] MEDS: atorvastatin 40 mg Tablet 10 MG PO (11:07)
[2023-12-03] MEDS: amoxicillin-clav 875-125 mg Tablet 1 TAB PO ×2 (11:07→17:26)
[2023-12-03] MEDS: folic acid 1 mg Tablet PO (11:08)
[2023-12-03] MEDS: magnesium lactate 84 mg Tablet PO ×2 (11:08→17:26)
[2023-12-03] MEDS: lisinopril 20 mg Tablet PO (11:09)
[2023-12-03] MEDS: multivitamin therapeutic Tablet 1 TAB PO (11:09)
[2023-12-03] MEDS: metoprolol tartrate 25 mg Tablet PO ×2 (11:09→19:55)
[2023-12-03] MEDS: pantoprazole DR 40 mg Tablet PO (11:09)
[2023-12-03] MEDS: rivaroxaban 10 mg Tablet 20 MG PO (11:09)
[2023-12-03] MEDS: guaiFENesin 600 mg Tablet 1200 MG PO ×2 (11:10→17:26)
[2023-12-03] MEDS: gabapentin 300 mg Capsule PO ×2 (11:10→17:26)
[2023-12-03] MEDS: thiamine 100 mg Tablet PO (11:10)
[2023-12-03] MEDS: linezolid 600 mg Tablet PO ×2 (11:11→19:55)
[2023-12-03] MEDS: cloNIDine 0.1 mg Tablet PO ×2 (11:11→17:26)
[2023-12-03] MEDS: amiodarone 200 mg Tablet 400 MG PO (11:11)
[2023-12-03] MEDS: nystatin cream 30 gm 1 APPLIC TOPICAL ×2 (11:12→17:28)
[2023-12-03 12:36] LABS: Glucose Point of Care 106 mg/dL (70-110)
--- NOTE | 2023-12-03 13:54 | P.PN_ITS ---
Subjective 2 Subjective: Feeling better. Not short of breath. Does not complain of arm pain to me. MRI still pending. Medications: Reviewed: Yes Vitals/I&O/Wt Last Vital Signs Temp 98.8 F 12/03/23 08:00 Pulse 74 12/03/23 08:00 Resp 18 12/03/23 12:00 BP 114/71 12/03/23 11:11 Pulse Ox 94 12/03/23 08:00 O2 Del Method Room Air 12/03/23 04:00 O2 Flow Rate 2 12/02/23 11:16 12/02/23 12/03/23 12/03/23 22:59 06:59 14:59 Intake Total 300 / 540 Balance 300 / -10 Weight last 48 hrs Weight 138.799 kg Physical Exam 2 Narrative: General Exam no distress Neck is supple Cardiovascular regular in rhythm Lungs clear no wheezing or crackles Abdomen soft Extremities no sinus clubbing or edema Data 12/03/23 06:21 12/03/23 06:21 A&P Assessment and plan (1) Acute hypoxic respiratory failure: Resolved, on room air Will switch over to oral antibiotics, Augmentin, linezolid. Has had expanded coverage for 5 days now. Would give him 5 more days of this medication. No need for laboratory tomorrow, would check every 2 days Will need to follow-up with dentist regarding intermittently bleeding gums. Will need to follow-up for a sleep study to assess obstructive sleep apnea due to snoring, desaturation while sleeping. Repeat viral respiratory panel reviewed. Negative. Sputum culture unavailable. COVID PCR panel, influenza PCR, resp PCR negative. He denies vaping. Denies any IVDU, has not had any substance use since June. Previously was smoking. (2) Alcohol withdrawal: Resolving. Completing taper of phenobarbital Continue CIWA protocol. Reviewed CBC, CMP. Recheck magnesium. Acute encephalopathy with delirium, alcohol withdrawal, possible superimposed intoxication. Continue management of severe alcohol withdrawal, delirium tremens. Compounded possibly by intoxication by either THC versus psilocybin. Maintain seizure precautions. Avoid Librium. Monitor on telemetry with severe withdrawal and risk of arrhythmia. Risk of seizure. Seizure precautions. Monitor for risk of mental status change, respiratory depression. (3) Pneumonia: As above. (4) Alcohol use disorder: Continue assessment on neuropsychiatric unit. Discussed with case management to assist him with options for rehabilitation due to difficulties with quitting. He was able to quit smoking cold turkey. He reportedly has been drinking alcohol since being 14, there is some reported problem with alcohol intake and his mother as well. Suspected alcohol induced gastritis. Continue PPI Plan Left shoulder pain, left arm weakness: Has improved. Awaiting MRI Possible sleep apnea: Does snore when he sleeps. Would benefit from sleep study. Atrial flutter with RVR: Improved. oral amiodarone. On anticoagulation with Xarelto. Continue metoprolol, Xarelto. Reduce amiodarone dose to 200 mg twice daily Intertrigo: Under pannus. Nystatin cream. Uncontrolled hypertension: Blood pressure much improved on current regimen, and that alcohol withdrawal is fading Hypomagnesemia: Resolved DM2: Hold Jardiance, metformin. Sliding scale insulin. Monitor POC glucose. Consistent carbohydrate diet. HTN: Continue metoprolol, lisinopril. History of stroke: With atrial flutter, continue Xarelto, statin. Possible sleep apnea: Noted hypoxia during one of the last admissions, would benefit from follow-up for sleep study, states has not done so yet. Range of motion. Attestations 2 Medical Necessity Statement*: Needs continued hospitalization for psychiatric needs. Diagnoses Acute hypoxic respiratory failure J96.01 Alcohol withdrawal F10.939 Pneumonia J18.9 Alcohol use disorder F10.90 Time Spent (min) 21
[2023-12-03 14:19] LABS: Micronutrient Vitamin C 0.7 mg/dL (0.2-2.1)
--- NOTE | 2023-12-03 16:06 | P.NPUPN_ITS ---
Subjective NPU 2 Subjective: Patient presented today reporting that he is doing okay. He continues to have ambivalence about his sobriety. He continued to deny any lethality and endorsed a desire to discharge soon. We discussed the likelihood of discharge tomorrow with no plan of extending his 96-hour hold. He denied any side effects to the medication. Mental Status Exam 2 MSE Comments: This is an obese versus morbidly obese white male in hospital scrubs with improving grooming and eye contact. No abnormal movements except for psychomotor retardation. More cooperative with exam in mild distress. Speech was more normal rate and volume. Mood reported to be better, affect congruent. Thought process organized. Thought content: Patient did not report suicidal or homicidal ideation, there were no delusions reported or noted, he did not report auditory or visual hallucinations. Attention and concentration were improving and memory was reliable but none were formally tested. He was alert and oriented x 3. Insight and judgment appear to be improving and impulse control is impaired. Vitals/I&O/Wt Last Vital Signs Temp 98.8 F 12/03/23 08:00 Pulse 74 12/03/23 08:00 Resp 18 12/03/23 12:00 BP 114/71 12/03/23 11:11 Pulse Ox 94 12/03/23 08:00 O2 Del Method Room Air 12/03/23 04:00 O2 Flow Rate 2 12/02/23 11:16 Weight last 48 hrs Weight 138.799 kg Data NPU 12/03/23 06:21 12/03/23 06:21 A&P Assessment and plan (1) Alcohol abuse: (2) Alcohol withdrawal: (3) Depression: Qualifiers: Depression Type: major depressive disorder Major depression recurrence: unspecified whether recurrent Active/Remission status: currently active Major depression episode severity: severe Psychotic features: with psychotic features Qualified Code(s): F32.3 - Major depressive disorder, single episode, severe with psychotic features (4) Substance abuse: (5) Alcohol use disorder: (6) Pneumonia: (7) Acute hypoxic respiratory failure: Plan This is a 33-year-old white male with significant addiction issues particularly alcohol along with other drugs and some concerns that he may have had some substances while in the hospital who was briefly transferred to the neuropsychiatric unit for evaluation and treatment thinking that he was medically cleared and stable but he quickly decompensated was transferred here to the ICU. 1. Continue current medication. 2. Transferred to Neuropsych Unit. 3. Encourage sober living treatment after discharge at the highest level care to which he is willing to commit. 4. Continue CIWA protocol and agree with current management. 5. Patient will work with social work team for appropriate follow-up. Attestations NPU 2 Medical Necessity Statement*: Inpatient hospitalization is medically necessary and the clinically appropriate intervention at this time. We will monitor medications and make changes as indicated. Likely length of stay 1 day. Coding Level of Care Code Acute Code for Chg Fwd Diagnoses Alcohol abuse F10.10 Alcohol withdrawal F10.939 Current severe episode of major depressive disorder with psychotic features, unspecified whether recurrent F32.3 Depression Type: major depressive disorder Major depression recurrence: unspecified whether recurrent Active/Remission status: currently active Major depression episode severity: severe Psychotic features: with psychotic features Substance abuse F19.10 Alcohol use disorder F10.90 Pneumonia J18.9 Acute hypoxic respiratory failure J96.01
[2023-12-03 16:50] LABS: Glucose Point of Care 115 mg/dL (70-110)
[2023-12-03] MEDS: PHENobarbital 32.4 mg Tablet PO (17:27)
[2023-12-03] MEDS: amiodarone 200 mg Tablet PO (17:27)
[2023-12-03 19:37] LABS: Glucose Point of Care 164 mg/dL (70-110)
[2023-12-03] MEDS: amlodipine 10 mg Tablet PO (19:55)
[2023-12-03] MEDS: insulin lispro 100 unit/1 mL SUBCUT (19:55)
[2023-12-04] VITALS: BP 120/87; PULSE 68; RESP 18; TEMP 36.7; O2SAT 97
[2023-12-04 04:00] VITALS: BP 165/94; PULSE 71; RESP 18; TEMP 36.5; O2SAT 96
[2023-12-04 07:15] VITALS: BP 112/71; PULSE 76; RESP 16; TEMP 36.4; O2SAT 96
[2023-12-04 07:32] LABS: Glucose Point of Care 121 mg/dL (70-110)
[2023-12-04] MEDS: magnesium lactate 84 mg Tablet PO (08:22)
[2023-12-04] MEDS: lisinopril 20 mg Tablet PO (08:22)
[2023-12-04] MEDS: amoxicillin-clav 875-125 mg Tablet 1 TAB PO (08:22)
[2023-12-04] MEDS: guaiFENesin 600 mg Tablet 1200 MG PO (08:22)
[2023-12-04] MEDS: cloNIDine 0.1 mg Tablet PO (08:25)
[2023-12-04] MEDS: metoprolol tartrate 25 mg Tablet PO (08:25)
[2023-12-04] MEDS: linezolid 600 mg Tablet PO (08:25)
[2023-12-04] MEDS: folic acid 1 mg Tablet PO (08:25)
[2023-12-04] MEDS: rivaroxaban 10 mg Tablet 20 MG PO (08:26)
[2023-12-04] MEDS: pantoprazole DR 40 mg Tablet PO (08:26)
[2023-12-04] MEDS: multivitamin therapeutic Tablet 1 TAB PO (08:26)
[2023-12-04] MEDS: gabapentin 300 mg Capsule PO (08:26)
[2023-12-04] MEDS: thiamine 100 mg Tablet PO (08:26)
[2023-12-04] MEDS: PHENobarbital 32.4 mg Tablet PO (08:26)
[2023-12-04] MEDS: amiodarone 200 mg Tablet PO (08:26)
[2023-12-04] MEDS: atorvastatin 40 mg Tablet 10 MG PO (08:26)
[2023-12-04 12:00] VITALS: BP 112/71; BP 123/81; PULSE 65; PULSE 76; RESP 16; TEMP 36.4; TEMP 36.5; O2SAT 96; O2SAT 99
[2023-12-04 12:09] LABS: Glucose Point of Care 94 mg/dL (70-110)
--- NOTE | 2023-12-04 12:24 | P.PN_ITS ---
Subjective 2 Subjective: No complaints. Medications: Reviewed: Yes Vitals/I&O/Wt Last Vital Signs Temp 97.7 F 12/04/23 12:00 Pulse 65 12/04/23 12:00 Resp 16 12/04/23 12:00 BP 123/81 12/04/23 12:00 Pulse Ox 99 12/04/23 12:00 O2 Del Method Room Air 12/04/23 12:00 O2 Flow Rate 2 12/02/23 11:16 12/03/23 12/04/23 12/04/23 22:59 06:59 14:59 Intake Total 480 / 480 Output Total 1550 / 1550 Balance -1070 / -1070 Physical Exam 2 Narrative: General Exam no distress Neck is supple Cardiovascular regular in rhythm Lungs clear no wheezing or crackles Abdomen soft Extremities no sinus clubbing or edema Data 12/03/23 06:21 12/03/23 06:21 A&P Assessment and plan (1) Acute hypoxic respiratory failure: Resolved (2) Alcohol withdrawal: Resolved. Management per psychiatry (3) Pneumonia: 4 days more of Augmentin and linezolid. As he will likely discharge today I wrote prescriptions (4) Alcohol use disorder: As per psychiatry Plan Left shoulder pain, left arm weakness: Has improved. MRI can be done as an outpatient through his primary care provider if still warranted Possible sleep apnea: Does snore when he sleeps. Would benefit from sleep study. Atrial flutter with RVR: Continue amiodarone, metoprolol, Xarelto and follow-up with cardiology Uncontrolled hypertension: Continue current medications, improved DM2: Hold Jardiance, metformin. Sliding scale insulin. Monitor POC glucose. Consistent carbohydrate diet. Possible sleep apnea: Noted hypoxia during one of the last admissions, would benefit from follow-up for sleep study, states has not done so yet. Range of motion. This could be set up by his primary Attestations 2 Medical Necessity Statement*: As per psychiatry Diagnoses Acute hypoxic respiratory failure J96.01 Alcohol withdrawal F10.939 Pneumonia J18.9 Alcohol use disorder F10.90 Time Spent (min) 15
--- NOTE | 2023-12-04 12:51 | P.NPUDS_ITS ---
Diagnoses at Discharge Discharge Diagnosis (1) Acute hypoxic respiratory failure: Status: Acute (2) Alcohol withdrawal: Status: Acute (3) Pneumonia: Status: Acute (4) Alcohol use disorder: Status: Acute Reason for Visit Reason for Visit: sob Mental Status Exam MSE Comments: This is an obese versus morbidly obese white male in hospital scrubs with improving grooming and eye contact. No abnormal movements except for psychomotor retardation. More cooperative with exam in mild distress. Speech was more normal rate and volume. Mood reported to be better, affect congruent. Thought process organized. Thought content: Patient did not report suicidal or homicidal ideation, there were no delusions reported or noted, he did not report auditory or visual hallucinations. Attention and concentration were improving and memory was reliable but none were formally tested. He was alert and oriented x 3. Insight and judgment appear to be improving and impulse control is impaired. Discharge Data Studies Completed and Pending: Completed Studies During Hospitalization Category Date Time Status CT angio chest PE protcl [id number] Stat Cat Scan 11/25/23 16:18 Completed CXRP [XR chest 1V portable [id number]] R outine Exams 11/29/23 09:39 Completed CXRP [XR chest 1V portable [id number]] S tat Exams 11/25/23 14:16 Completed XR shoulder LT mi n 2V* [id number] Routin e Exams 11/30/23 14:56 Completed Pending at discharge Category Date Time Status Sputum Culture an d Gram Stain Stat Lab 11/25/23 17:12 Uncollected UA w/Reflex to Mi croscope [Urinalys is] Routine Lab 11/28/23 18:42 Uncollected MR shoulder LT wo con* [id number] Routin e MRI 12/03/23 09:30 Ordered Radiology Impressions Chest CTA 11/25/23 16:18 IMPRESSION: 1. No evidence of pulmonary embolism. 2. Multifocal ground-glass and nodular airspace disease throughout the right lung and to a lesser degree in the left lower lobe. Findings may represent an atypical infectious/inflammatory process. Superimposed pulmonary edema not entirely excluded. Differential considerations may include a granulomatous process such as sarcoidosis or less likely malignancy. Recommend imaging follow-up after clinical treatment to document resolution. 3. Enlarged mediastinal and right jeana r lymph nodes are likely reactive. Attention on follow-up recommended. 4. Mild cardiomegaly. 5. Coronary artery calcifications, pre mature for age. 6. Dilated main pulmonary artery which can be seen with pulmonary hypertension. 7. Mildly nodular hepatic surface is n onspecific. Correlate for clinical findings of underlying cirrhosis. 8. Diffuse hepatic steatosis. Chest X-Ray 11/29/23 09:39 IMPRESSION: Borderline cardiomegaly and significant central pulmonary venous congestion. The lung vascular structures are crowded due to the hypoexpansion of the lungs. A better inspiratory effort chest film would be helpful to provide better evaluation of the pulmonary parenchyma. Shoulder X-Ray 11/30/23 14:56 IMPRESSION: No acute bony findings. Laboratory Results WBC 8.81 10^3/uL (3.2 9-11.43) 12/03/23 06:21 RBC 3.82 10^6/uL (3.8 5-5.65) L 12/03/23 06:21 Hgb 11.60 g/dL (11.27 -16.99) 12/03/23 06:21 Hct 37.0 % (37-53) 12/03/23 06:21 MCV 96.9 fl (82-101) 12/03/23 06:21 MCH 30.4 pg (27-33) 12/03/23 06:21 MCHC 31.4 g/dL (30-55) 12/03/23 06:21 RDW 12.9 % (12.1-15.1 ) 12/03/23 06:21 Plt Count 213 10^3/cmm (157 -399) 12/03/23 06:21 MPV 9.5 fL (7.4-10.4) 12/03/23 06:21 Neut % (Auto) 56.2 % 12/03/23 06:21 Lymph % (Auto) 18.6 % 12/03/23 06:21 [place] % (Auto) 15.9 % 12/03/23 06:21 Eos % (Auto) 7.4 % 12/03/23 06:21 Baso % (Auto) 1.4 % 12/03/23 06:21 Neut # (Auto) 4.96 10^3/uL (1.8 -7.7) 12/03/23 06:21 Lymph # (Auto) 1.6 10^3/uL (0.8- 4.8) 12/03/23 06:21 [place] # (Auto) 1.4 10^3/uL (0.2- 0.9) H 12/03/23 06:21 Eos # (Auto) 0.7 10^3/uL (0.0- 0.8) 12/03/23 06:21 Baso # (Auto) 0.1 10^3/uL (0.0- 0.1) 12/03/23 06:21 Nucleated RBC % (a uto) 0 % 12/03/23 06:21 Nucleated RBCs # 0.0 /100WBC 12/03/23 06:21 Specimen Type Arterial 11/25/23 16:33 Sample Site Radial, left 11/25/23 16:33 ABG pH 7.42 (7.35-7.45) 11/25/23 16:33 ABG pCO2 38.9 mmHg (35-45) 11/25/23 16:33 ABG pO2 69.7 mmHg (80.0-1 00.0) L 11/25/23 16:33 ABG PO2/FiO2 Ratio 217 11/25/23 16:33 ABG HCO3 25.4 mmol/L (22-2 6) 11/25/23 16:33 ABG O2 Saturation 93.4 11/25/23 16:33 ABG Base Excess 1.0 mmol/L (-2.0- 2.0) 11/25/23 16:33 Miles Test Pos 11/25/23 16:33 A-a O2 Gradient 14.4 mmHg (5-10) H 11/25/23 16:33 Hematocrit 31.4 % (42-52) L 11/25/23 16:33 Hgb O2 Saturation 91.1 % (95-100) L 11/25/23 16:33 Carboxyhemoglobin 1.4 %THgb (0.4-20 .1) 11/25/23 16:33 Methemoglobin 1.0 % (0.4-1.5) 11/25/23 16:33 Total Hemoglobin 10.3 g/dL (14-18) L 11/25/23 16:33 Sodium 144.0 mmol/L (131 -143) H 11/25/23 16:33 Potassium 3.3 mmol/L (3.5-5 .0) L 11/25/23 16:33 Glucose 155.0 mg/dL (70-1 15) H 11/25/23 16:33 Ionized Calcium 1.2 mmol/L (1.1-1 .4) 11/25/23 16:33 O2 Delivery Device Nc 11/25/23 16:33 O2 Liters/Min 3.0 % 11/25/23 16:33 FiO2 32.0 % 11/25/23 16:33 Dot Net Architect ID Cak 11/25/23 16:33 Sodium 135 mmol/L (136-1 45) L 12/03/23 06:21 Potassium 4.2 mmol/L (3.5-5 .1) 12/03/23 06:21 Chloride 103 mmol/L (98-10 7) 12/03/23 06:21 Carbon Dioxide 21 mmol/L (22-29) L 12/03/23 06:21 Anion Gap 15.2 (5-19) 12/03/23 06:21 BUN 13 mg/dL (6-20) 12/03/23 06:21 Creatinine 0.6 mg/dL (0.7-1. 2) L 12/03/23 06:21 GFR Calculation 154.2 mL/min (90- 130) H 12/03/23 06:21 Glucose 128 mg/dL (65-115 ) H 12/03/23 06:21 POC Glucose 94 mg/dL (70-110) 12/04/23 12:06 Calculated Osmolal ity 282 mOsm/kg (285- 295) L 12/03/23 06:21 Lactic Acid 2.3 mmol/L (0.5-2 .2) H 11/25/23 16:17 Lactic Acid (Sepsi s) 2.0 mmol/L (0.5-2 .2) 11/25/23 19:33 Calcium 8.2 mg/dL (8.5-10 .5) L 12/03/23 06:21 Magnesium 1.7 mg/dL (1.7-2. 3) 11/29/23 03:49 Total Bilirubin 0.5 mg/dL (0.15-1 .2) 12/03/23 06:21 AST 123 U/L (0-40) H 12/03/23 06:21 ALT 53 U/L (0-41) H 12/03/23 06:21 Alkaline Phosphata se 107 U/L (40-130) 12/03/23 06:21 Total Protein 7.4 g/dL (6.6-8.7 ) 12/03/23 06:21 Albumin 3.2 g/dL (3.5-5.2 ) L 12/03/23 06:21 Globulin 4.2 g/dL (1.3-4.6 ) 12/03/23 06:21 Vitamin C 0.7 mg/dL (0.2-2. 1) 11/29/23 16:02 Urine Color Yellow (Yellow) 11/25/23 19:31 Urine Appearance Cloudy (CLEAR) A 11/25/23 19:31 Urine pH 5.5 (5-7) 11/25/23 19:31 Ur Specific Gravit y 1.052 (1.005-1.0 30) H 11/25/23 19:31 Urine Protein 1+ (Negative) A 11/25/23 19:31 Urine Glucose (UA) 3+ (Normal) H 11/25/23 19:31 Urine Ketones Negative (Negati ve) 11/25/23 19:31 Urine Blood Non-haemolysed tr anjali (Negative) 11/25/23 19:31 Urine Nitrate Negative (Negati ve) 11/25/23 19:31 Urine Bilirubin Negative (Negati ve) 11/25/23 19:31 Urine Urobilinogen 1.0 mg/dL (Negati ve) 11/25/23 19:31 Ur Leukocyte Micaela ase Negative (Negati ve) 11/25/23 19:31 Urine RBC 0-2 /hpf (0-2) 11/25/23 19:31 Urine WBC 0-5 /hpf (0-5) 11/25/23 19:31 Ur Squamous Epith Cells 0-5 /hpf (0-5) 11/25/23 19:31 Amorphous Sediment Not Reportable 11/25/23 19:31 Urine Bacteria None seen /hpf (N ONE) 11/25/23 19:31 Hyaline Casts 0-4 /lpf H 11/25/23 19:31 Vancomycin Trough 7.1 ug/mL (10-15) L 12/03/23 06:21 Urine Opiates Scre en Negative ng/mL (N egative) 11/26/23 14:08 Ur Barbiturates Sc reen Negative ng/mL (N egative) 11/26/23 14:08 Ur Phencyclidine S crn Negative ng/mL (N egative) 11/26/23 14:08 Ur Amphetamines Sc reen Negative ng/mL (N egative) 11/26/23 14:08 U Benzodiazepines Scrn Positive ng/mL (N egative) H 11/26/23 14:08 Urine Cocaine Scre en Negative ng/mL (N egative) 11/26/23 14:08 U Marijuana (THC) Screen Negative ng/mL (N egative) 11/26/23 14:08 Ethyl Alcohol 250 mg/dL (0-10) H 11/25/23 16:17 Coronavirus (PCR) Negative (Negati ve) 11/29/23 18:30 Influenza A (PCR) Negative (Negati ve) 11/29/23 18:30 Influenza Type B ( PCR) Negative (Negati ve) 11/29/23 18:30 RSV (PCR) Negative (Negati ve) 11/29/23 18:30 Vitals: Last Vital Signs Temp 97.7 F 12/04/23 12:00 Pulse 65 12/04/23 12:00 Resp 16 12/04/23 12:00 BP 123/81 12/04/23 12:00 Pulse Ox 99 12/04/23 12:00 O2 Del Method Room Air 12/04/23 12:00 O2 Flow Rate 2 12/02/23 11:16 Discharge Plan Discharge Patient Disposition: Home Condition: Stable Prescriptions: New Vitamin B-1 (mononitrate) 100 mg Tablet 100 mg PO DAILY 30 Days Qty: 30 1RF amlodipine 10 mg Tablet 10 mg PO BEDTIME Qty: 30 0RF clonidine HCl 0.1 mg Tablet 0.1 mg PO BID Qty: 60 0RF amiodarone [Pacerone] 200 mg Tablet 200 mg PO BID Qty: 60 0RF amoxicillin-pot clavulanate 875-125 mg Tablet 1 tab PO BID Qty: 8 0RF linezolid 600 mg Tablet 600 mg PO Q12H Qty: 8 0RF Continued metoprolol succinate 25 mg tablet extended release 24 hr 25 mg PO DAILY Qty: 90 4RF Xarelto 20 mg tablet 20 mg PO DAILY Qty: 90 4RF Rx Instructions: must administer with evening meal Jardiance 25 mg tablet 25 mg PO DAILY gabapentin 300 mg capsule 300 mg PO DAILY Adult 50 Plus Probiotic 4 billion cell capsule 4 mmu cells PO DAILY acetaminophen [Tylenol Ex Str Rapid Release] 500 mg Tablet 1,000 - 1,500 mg PO Q6H PRN (Reason: Pain) Vitamin C 500 mg Tablet 250 mg PO DAILY metformin 500 mg tablet extended release 24 hr 1,000 mg PO BID zinc sulfate 50 mg zinc (220 mg) Capsule 50 mg PO DAILY potassium gluconate 600 mg (99 mg) Tablet 600 mg PO DAILY Discontinued atorvastatin 40 mg tablet 40 mg PO DAILY No Action (DME) cock up splint See Rx Instructions .Route .MEDSUPPLY Qty: 1 0RF Rx Instructions: As directed Discharge Orders: Discharge Order (Routine); Ordered 12/04/23 Ordered By: Nam Graves Referrals: Nikole Solano APN [Primary Care Provider] - 12/10/23 10:00 am Brionna Blunt FNP [Nurse Practitioner] - 2 weeks (Afib, started on Amio) Discharge Diet: Diabetic Discharge Activity: Resume usual activity Patient Instructions: Opioid Safety Activity Restrictions/Additional Instructions: Take all medicine as prescribed Follow-up with primary care provider Arrange follow-up with cardiology in 2 weeks, A-fib started on amiodarone. Discharge Attestations NPU Time Spent in Discharge Care*: less than 30 min Specific Discharge Activities: Specific discharge activities: educating patient, discussing with pcp/other providers, discussing with case manag ers/social workers/dc planners, documenting/other paperwork and evaluating patient/reviewing data Coding Level of Care Code Acute Code for Chg Fwd Diagnoses Acute hypoxic respiratory failure J96.01 Alcohol withdrawal F10.939 Pneumonia J18.9 Alcohol use disorder F10.90
[2023-12-04 14:16] VITALS: BP 112/76; PULSE 67; RESP 16; TEMP 36.6; O2SAT 96
--- NOTE | 2023-12-05 16:21 | PC.NURSE ---
PT CALLED TO UNIT STATING HE HAS NOT BEEN ABLE TO TREAS[employer] MANAGEMENT SALES CONSULTANT HIS MEDICATIONS BECAUSE EVERY PHARMACY I CALL NOTHING HAS BEEN CALLED IN. PTS MOTHER THEN GOT ON THE PHONE STATING HE HAS MISSED 2-3 DOSES OF HIS MEDICATIONS AND NEEDS HIS MEDICATIONS. PT CAME FROM [facility] AND MEDICATIONS WERE STARTED THERE AND ORDERED FROM THE MEDICAL DR. DR. JACKSON ORDERED THE VITAMIN B1 100MG PO DAILY DISPENSE 30 TABS AT [facility]. [facility] WAS CONTACTED YESTERDAY AND INFORMED NOT TO FILL IT, THAT HIS MEDICATIONS WOULD BE SENT TO HIS PHARMACY AND THEY WERE NOT. DR. JACKSON VERIFIED THE MEDICATIONS AND INFORMED THIS RN THAT I COULD CALL THEM INTO THE PHARMACY OF PTS CHOICE, WHICH IS [facility]. THE MEDICATIONS WERE CALLED IN: (SEE DISCHARGE PLAN FOR DETAILS OF MEDICATIONS) AMIODARONE 200 MG/AMLODIPINE 10MG/AUGMENTIN 875/125MG/CLOIDINE 0.1 MG/[id number]/VITAMIN B1 100MG. ALL MEDICATIONS CALLED IN. PT NOTIFIED TO TREASURY MANAGEMENT SALES CONSULTANT .
== END 2023-12-04 15:13 | disposition home or self-care (01) | DRG 189 ==
LOC: ER 18:10 → MEDSURG 19:30 → CSU 11-26 03:09 → NP 11-28 11:59 → ICU 11-28 16:54 → CSU 12-01 16:22 → NP 12-02 19:42
PROVIDERS: Family Medicine; Admitting Provider Internal Medicine; Emergency Provider Family Medicine; PCP Nurse Practitioner Family; Visit Provider Internal Medicine
DX: J96.01 Acute respiratory failure with hypoxia (principal); J18.9 Pneumonia, unspecified organism; I48.92 Unspecified atrial flutter; F10.231 Alcohol dependence with withdrawal delirium; Z68.41 Body mass index [BMI] 40.0-44.9, adult; F32.3 Major depressive disorder, single episode, severe with psychotic features; G93.40 Encephalopathy, unspecified; E11.9 Type 2 diabetes mellitus without complications; Z86.73 Personal history of transient ischemic attack (TIA), and cerebral infarction without residual deficits; I10 Essential (primary) hypertension; E66.9 Obesity, unspecified; F19.10 Other psychoactive substance abuse, uncomplicated; L30.4 Erythema intertrigo; E83.42 Hypomagnesemia; K29.20 Alcoholic gastritis without bleeding; M25.512 Pain in left shoulder; Z87.891 Personal history of nicotine dependence; Z79.01 Long term (current) use of anticoagulants; Z79.84 Long term (current) use of oral hypoglycemic drugs
CPT/HCPCS: 0241U; 36415; 36416; 36600; 71045; 71275; 73030; 80051; 80053; 80202; 80306; 80307; 81003; 81015; 82180; 82330; 82805; 82962; 83605; 83735; 85025; 87040; 93005; 96365; 96367; 96372; 96376; 97150; 97165; 99285; J0283; J0360; J1815; J1956; J2060; J2560; J3370; J3372; J3411; J3475; J3486; J3490

== ENCOUNTER → 2023-12-16 09:49 | Outpatient (BNVA) | payer MEDICAID, SELFPAY | PROVIDERS: PCP Nurse Practitioner Family; Visit Provider Psychiatry & Neurology Neurology | DX: I10 Essential (primary) hypertension (principal); G45.9 Transient cerebral ischemic attack, unspecified; I63.9 Cerebral infarction, unspecified; F19.10 Other psychoactive substance abuse, uncomplicated; F10.90 Alcohol use, unspecified, uncomplicated; F80.81 Childhood onset fluency disorder; R42 Dizziness and giddiness; E11.638 Type 2 diabetes mellitus with other oral complications; I47.10 Supraventricular tachycardia, unspecified | CPT/HCPCS: 36415; 81241; 82306; 82607; 82746; 83090; 85210; 85613; 85730; 86146; 86147 ==

== ENCOUNTER 2023-12-30 15:11 | Outpatient (CLI) | payer MEDICAID, SELFPAY ==
--- NOTE | 2023-12-30 15:19 | XRR_ITS ---
PROCEDURE INFORMATION: Exam: XR Chest Exam date and time: 12/30/2023 3:52 PM Age: 33 years old Clinical indication: Shortness of breath; Patient HX: SOB this morning, patient states blood oxygen level was around 83%, HX of pnuemnonia; TECHNIQUE: Imaging protocol: Radiologic exam of the chest. Views: 2 views. COMPARISON: CR XR chest 1V portable [id number] 11/29/2023 10:10 AM FINDINGS: Lungs: There are patchy opacities in the right upper and middle lobes consistent with pneumonia. Pleural spaces: Unremarkable. No pleural effusion. No pneumothorax. Heart/Mediastinum: Heart size not optimally evaluated with a single AP view of the chest. Bones/joints: Unremarkable. XR/XR chest 2V* [id number] IMPRESSION: Right upper and middle lobe pneumonia.
== END 2023-12-30 15:12 | disposition home or self-care (01) ==
LOC: RAD 15:12
PROVIDERS: PCP Nurse Practitioner Family; Visit Provider Nurse Practitioner Family
DX: J18.9 Pneumonia, unspecified organism (principal)
CPT/HCPCS: 71046

== ENCOUNTER 2024-01-02 17:21 | Inpatient (IN) | payer MEDICAID, SELFPAY ==
[2024-01-02] VITALS (17 sets, daily range): BP systolic 134–155; BP diastolic 66–80; PULSE 78–99; RESP 21–24; TEMP 37.1; O2SAT 87–94; BMI 41.1
--- NOTE | 2024-01-02 17:23 | XRR_ITS ---
PROCEDURE INFORMATION: Exam: XR Chest Exam date and time: 01/02/2024 6:20 PM Age: 33 years old Clinical indication: Shortness of breath; TECHNIQUE: Imaging protocol: Radiologic exam of the chest. Views: 1 view. COMPARISON: CR XR chest 2V* [id number] 12/30/2023 3:52 PM FINDINGS: Lungs: There are patchy bilateral ground-glass pulmonary opacities. Pleural spaces: Unremarkable. No pleural effusion. No pneumothorax. Heart/Mediastinum: Unremarkable. No cardiomegaly. Bones/joints: Unremarkable. XR/XR chest 1V portable [id number] IMPRESSION: Patchy bilateral ground-glass pulmonary opacities are nonspecific and can be seen with pulmonary edema, pneumonia, and/or pneumonitis.
--- NOTE | 2024-01-02 17:36 | ECG_ITS ---
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1990 Requested By: Dino Hernandez Order Number: [id number] Sarthak MD: HAYDER VANG Measurements Intervals [place] Rate: 81 P: 11 KS: 161 QRS: 87 QRSD: 112 T: 44 QT: 427 QTc: 498 Interpretive Statements SINUS RHYTHM MODERATE INTRAVENTRICULAR CONDUCTION DELAY [110+ ms QRS DURATION] PROLONGED QT INTERVAL INTERPRETATION BASED ON A DEFAULT AGE OF 40 YEARS Compared to ECG 11/26/2023 01:28:25 Intraventricular conduction delay now present Prolonged QT interval now present Atrial flutter no longer present Myocardial infarct finding no longer present T-wave abnormality no longer present Possible ischemia no longer present Electronically Signed On 01-04-2024 18:11:52 CDT by HAYDER VANG [id number]
--- NOTE | 2024-01-02 18:06 | CTR_ITS ---
PROCEDURE INFORMATION: Exam: CTA Chest With Contrast Exam date and time: 01/02/2024 6:40 PM Age: 33 years old Clinical indication: Shortness of breath; Additional info: SOB TECHNIQUE: Imaging protocol: Computed tomographic angiography of the chest with contrast. Exam focused on the arteries. 3D rendering (Not supervised by radiologist): MIP and/or 3D reconstructed images were created by the technologist. Radiation optimization: All CT scans at this facility use at least one of these dose optimization techniques: automated exposure control; mA and/or kV adjustment per patient size (includes targeted exams where dose is matched to clinical indication); or iterative reconstruction. Contrast material: OMNI 350; Contrast volume: 85 ml; Contrast route: INTRAVENOUS (IV); COMPARISON: CT angio chest PE protcl [id number] 11/25/2023 4:29 PM RADIATION DOSE METRICS: Total DLP (mGy-cm): 553 FINDINGS: Pulmonary arteries: No pulmonary emboli. The pulmonary artery is dilated as before. Aorta: Unremarkable. No aortic aneurysm. No aortic dissection. Lungs: There is patchy consolidation in the bilateral upper and lower lobes of the lungs along with some areas of ground-glass lung opacification. This has worsened in the interval. No dominant lung mass. Pleural spaces: Unremarkable. No pneumothorax. No pleural effusion. Heart: Cardiomegaly is identified. No pericardial effusion. Coronary arteries: There is coronary artery calcification. Lymph nodes: There is prevascular adenopathy measuring 1.6 cm and right paratracheal mediastinal adenopathy measuring 1.7 cm which were also seen previously. Subcarinal and bilateral hilar adenopathy is also identified. There is also retrocrural adenopathy which was also seen previously. Bones/joints: Degenerative change is identified in the spine. There is no evidence for acute fracture or malalignment. Soft tissues: Unremarkable. CT/CT angio chest PE protcl [id number] IMPRESSION: When compared with 11/25/2023, there is worsening bilateral lung disease. This may represent worsening multifocal pneumonia. Inflammatory disease such as sarcoidosis would also be a consideration. There is also intrathoracic adenopathy. Follow-up is recommended to ensure expected resolution.
--- NOTE | 2024-01-02 18:07 | ED_ITS ---
HPI - SOB/Dyspnea 2 General: Chief Complaint: Shortness of Breath/Dyspnea Stated Complaint: sob Time Seen by Provider: 01/02/24 17:51 Source: patient and family Limitations: no limitations History of Present Illness: HPI Narrative: This patient presents to the emergency department because of increasing shortness of breath over the past several days. The patient was recently admitted and discharged at this facility for pneumonia. He apparently had symptoms that developed approximately week ago was seen at a primary care office and had chest x-ray which showed remaining infiltrates and was started on another round of antibiotics steroids and beta agonist. He has not had any documented fevers but has had hot and cold chills in the interim overall since his discharge. He has a history of atrial fibrillation and takes his rate control medications as well as his factor Xa inhibitor on a regular basis. He is an ex-smoker having discontinued earlier this year. He does not normally require home oxygen. No known exposure to infectious disease otherwise. No history of heart failure. He states he has been drinking fluids liberally and urinating liberally as well. MD elicited complaint: shortness of breath, cough and pain with inspiration Context: recent illness Associated symptoms: Reports cough; Deny abdominal pain, extremity pain, nausea, palpitations, syncope or vomiting Related Data Home Medications Medication Instructions Recorded Confirmed acetaminophen 500 mg tablet 1,000 - 1,500 mg PO Q6H PRN Pain 07/02/23 12/16/23 empagliflozin 25 mg tablet 25 mg PO DAILY 09/11/23 12/16/23 (Jardiance) gabapentin 300 mg capsule 300 mg PO DAILY 09/11/23 12/16/23 ascorbic acid (vitamin C) 500 mg 250 mg PO DAILY 11/26/23 12/16/23 tablet (Vitamin C) metformin 500 mg tablet,extended 1,000 mg PO BID 11/26/23 12/16/23 release 24 hr potassium gluconate 600 mg (99 mg) 600 mg PO DAILY 11/26/23 12/16/23 tablet zinc sulfate 50 mg zinc (220 mg) 50 mg PO DAILY 11/26/23 12/16/23 capsule Previous Rx's Medication Instructions Recorded cock up splint #1 ea 09/26/21 metoprolol succinate 25 mg 25 mg PO DAILY #90 tabs 10/31/23 tablet,extended release 24 hr rivaroxaban 20 mg tablet (Xarelto) 20 mg PO DAILY #90 tabs 10/31/23 amiodarone 200 mg tablet (Pacerone) 200 mg PO BID #60 tabs 12/04/23 amlodipine 10 mg tablet 10 mg PO BEDTIME #30 tabs 12/04/23 clonidine HCl 0.1 mg tablet 0.1 mg PO BID #60 tabs 12/04/23 thiamine mononitrate (vit B1) 100 100 mg PO DAILY 30 days #30 tabs 12/16/23 mg tablet (Vitamin B-1 (mononitrate)) cholecalciferol (vitamin D3) 1,250 50,000 unit PO .weekly #14 caps 12/17/23 mcg (50,000 unit) capsule Allergies Allergy/AdvReac Type Severity Reaction Status Date / Time ceftriaxone [From Rocephin] Allergy Unknown Verified 12/16/23 07:44 Review of Systems 2 Const: Reports: chills and body aches ENMT: Denies: throat pain, odynophagia, nasal discharge or nasal congestion Card: Reports: irregular heart rhythm; Denies: palpitations, syncope or pre-syncope Resp: Reports: dyspnea and non-productive cough GI: Denies: abdominal pain, nausea, vomiting or diarrhea : Denies: flank pain, difficulty urinating, dysuria or urinary frequency Musc: Denies: neck pain, back pain, extremity pain or extremity swelling Skin/Breast: Denies: rash Neuro: Reports: numbness in extremities (Neuropathy changes); Denies: headache(s) or weakness in extremities Michelet/Lymph: Reports: easy bruising PFSH ED 2 PFSH: Medical History Stroke (cerebrum) Substance abuse Tobacco abuse Transaminitis Atrial flutter Hypertension Diabetes mellitus Alcohol abuse No significant medical problems Surgical History No significant past surgical history Family History Other Alcohol abuse Diabetes Social History Smoking and tobacco/nicotine status: former use of tobacco/nicotine Alcohol intake: current Alcohol type: hard liquor Caregiver/support person: Yes Lives independently: No Household members: other Details: Lives with mother Housing: House Marital status: Single 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 Makes good eye contact. Const: COMMON NORMALS: patient oriented x3, no limitations and alert G ENERAL APPEARANCE: cooperative NUTRITIONAL APPEARANCE: overweight HENMT: COMMON NORMALS: normocephalic, moist oral mucous membranes and oropharynx normal HEAD & SCALP: normocephalic Eye: COMMON NORMALS: Equal, round and reactive pupils present, EOMs intact bilaterally and conjunctivae normal CONJUNCTIVA: Yes conjunctivae normal P UPIL: Yes Equal, round and reactive pupils present Neck/C-Spine: COMMON NORMALS: full ROM, no JVD and No carotid bruits Chest: COMMONS NORMALS: normal inspection of the chest Resp: COMMON NORMALS: No retractions and No use of accessory muscles A USCULTATION: crackles Laterality: bilateral Cardio: COMMON NORMALS: no JVD, regular rate, No murmurs present (Cardio) and Peripheral pulses 2+ throughout RATE: regular rate PERIPHERAL PULSES: P eripheral pulses 2+ throughout GI: COMMON NORMALS: Normal to inspection, nondistended, normoactive bowel sounds present, Soft to palpation and non-tender INSPECTION: Yes central obesity PALPATION: Yes Soft to palpation : COMMON NORMALS: Yes no CVA tenderness BLADDER/KIDNEY EXAM: Yes no CVA tenderness Back/Pelvis: COMMON NORMALS: no CVA tenderness, thoracic and lumbar spine normal to inspection and no thoracic nor lumbar tenderness Extremity: COMMON NORMALS: normal to inspection, full ROM, capillary refill normal and no calf tenderness Neuro: COMMON NORMALS: patient oriented x3, moves all extremities and no focal motor deficits SENSORIUM/ORIENTATION: Yes alert CRANIAL NERVES: Yes CN normal except as noted Psych: COMMON NORMALS: mental status grossly normal Skin: COMMON NORMALS: no rashes or lesions noted and turgor normal GENERAL SKIN EXAM: no rashes or lesions noted and turgor normal Course 2 Reevaluation(s): Reevaluation #1: Cussed current findings with patient and family. He has bilateral multilocular pneumonia on CT scan. No evidence of pulmonary embolus. BNP is indeterminate. EKG does not show any dynamic or ischemic changes at this time. Will begin broad-spectrum antibiotics to cover possible hospital associated pneumonia given his recent hospitalization. Will also add bronchodilators as well as steroids. The patient will need hospitalization for continued therapy. Time: 20:47 Consultations: Consultation #1: Hospitalist was consulted who agreed to accept the patient. Time: 21:45 Vital Signs: Vital signs: Vital Signs Temperature 98.8 F 01/02/24 17:33 Pulse Rate 78 01/02/24 21:30 Respiratory Rate 24 H 01/02/24 20:52 Blood Pressure 155/66 01/02/24 21:30 Pulse Oximetry 90 01/02/24 21:30 Oxygen Delivery Me thod Nasal Cannula 01/02/24 20:52 Oxygen Flow Rate 4 01/02/24 20:52 MDM - SOB/Dyspnea Medical Decision Making This patient presented to the emergency department as noted in the HPI with history of increasing shortness of breath. More recent history of hospital admission for pulmonary infection. His past history was not remarkable for COPD of known diagnosis or oxygen requirements etc. in the past. Does have a history of atrial fibrillation. Workup included potential differential of possible CHF versus pneumonia versus ACS etc. Proceeded with CTPA to evaluate for possible PE as well. Imaging did show multilocular pneumonia and he had an elevated lactate with an elevated white blood count. His vital signs remained stable with and a acceptable blood pressure and pulse rate. He received broad-spectrum antibiotics, bronchodilator therapy as well as supplemental oxygen. He also received IV fluids consistent with his elevated lactate. Patient will be admitted to the cardiac stepdown unit for continued antibiotics, pulmonary care and additional therapy as indicated. Medical Records I reviewed the patient's medical records. His hospital admission for pneumonia Lab Data I reviewed the patient's lab results. 01/02/24 17:55 01/02/24 17:55 Labs/Radiology: Radiology Impressions Chest CTA 01/02/24 18:06 IMPRESSION: When compared with 11/25/2023, there is worsening bilateral lung disease. This may represent worsening multifocal pneumonia. Inflammatory disease such as sarcoidosis would also be a consideration. There is also intrathoracic adenopathy. Follow-up is recommended to ensure expected resolution. Laboratory Results WBC 11.54 10^3/uL (3.29-11.43) H 01/02/24 17:55 RBC 3.53 10^6/uL (3.85-5.65) L 01/02/24 17:55 Hgb 9.90 g/dL (11.27-16.99) L 01/02/24 17:55 Hct 30.9 % (37-53) L 01/02/24 17:55 MCV 87.5 fl (82-101) 01/02/24 17:55 MCH 28.0 pg (27-33) 01/02/24 17:55 MCHC 32.0 g/dL (30-55) 01/02/24 17:55 RDW 14.4 % (12.1-15.1) 01/02/24 17:55 Plt Count 287 10^3/cmm (157-399) 01/02/24 17:55 MPV 9.6 fL (7.4-10.4) 01/02/24 17:55 Neut % (Auto) 82.6 % 01/02/24 17:55 Lymph % (Auto) 10.8 % 01/02/24 17:55 Edgar % (Auto) 5.6 % 01/02/24 17:55 Eos % (Auto) 0.0 % 01/02/24 17:55 Baso % (Auto) 0.2 % 01/02/24 17:55 Neut # (Auto) 9.53 10^3/uL (1.8-7.7) H 01/02/24 17:55 Lymph # (Auto) 1.3 10^3/uL (0.8-4.8) 01/02/24 17:55 Edgar # (Auto) 0.7 10^3/uL (0.2-0.9) 01/02/24 17:55 Eos # (Auto) 0.0 10^3/uL (0.0-0.8) 01/02/24 17:55 Baso # (Auto) 0.0 10^3/uL (0.0-0.1) 01/02/24 17:55 Nucleated RBC % (auto) 0 % 01/02/24 17:55 Nucleated RBCs # 0.0 /100WBC 01/02/24 17:55 Sodium 134 mmol/L (136-145) L 01/02/24 17:55 Potassium 3.8 mmol/L (3.5-5.1) 01/02/24 17:55 Chloride 93 mmol/L (98-107) L 01/02/24 17:55 Carbon Dioxide 17 mmol/L (22-29) L 01/02/24 17:55 Anion Gap 27.8 (5-19) H 01/02/24 17:55 BUN 14 mg/dL (6-20) 01/02/24 17:55 Creatinine 0.9 mg/dL (0.7-1.2) 01/02/24 17:55 GFR Calculation 96.6 mL/min (90-130) 01/02/24 17:55 Glucose 310 mg/dL (65-115) H 01/02/24 17:55 Calculated Osmolality 290 mOsm/kg (285-295) 01/02/24 17:55 Lactic Acid 8.7 mmol/L (0.5-2.2) H* 01/02/24 17:55 Lactic Acid (Sepsis) 6.6 mmol/L (0.5-2.2) H* 01/02/24 20:17 Calcium 9.0 mg/dL (8.5-10.5) 01/02/24 17:55 Magnesium 1.5 mg/dL (1.7-2.3) L 01/02/24 17:55 Total Bilirubin 0.5 mg/dL (0.15-1.2) 01/02/24 17:55 AST 52 U/L (0-40) H 01/02/24 17:55 ALT 51 U/L (0-41) H 01/02/24 17:55 Alkaline Phosphatase 106 U/L (40-130) 01/02/24 17:55 Troponin T Baseline 15 ng/L (0-15) 01/02/24 17:55 Troponin T 120 Minute 11.27 ng/L (0-15) 01/02/24 20:17 Delta Troponin T -3.73 ABS# (0-10) L 01/02/24 20:17 NT-Pro-B Natriuret Pep 610 pg/mL (0-125) H 01/02/24 17:55 Total Protein 8.4 g/dL (6.6-8.7) 01/02/24 17:55 Albumin 4.3 g/dL (3.5-5.2) 01/02/24 17:55 Globulin 4.1 g/dL (1.3-4.6) 01/02/24 17:55 TSH 0.87 uIU/mL (0.27-4.20) 01/02/24 17:55 SARS-CoV-2 Ag (Rapid) Negative (Negative) 01/02/24 18:55 All radiology interpretation(s) finalized by discharge EKG Data EKG 1: I personally reviewed and interpreted this EKG as follows: Interpretation: Contemporaneous review of initial EKG reveals a ventricular rate of 81 bpm consistent with normal sinus rhythm. Normal intervals, to include corrected QT interval. Normal axis. No acute ST-T wave changes at this time. Discharge Plan Discharge Clinical Impression: Bilateral pneumonia Qualifiers: Pneumonia type: due to unspecified organism Lung location: unspecified part of lung Qualified Code(s): J18.9 - Pneumonia, unspecified organism Condition: Stable Prescriptions: No Action Vitamin B-1 (mononitrate) 100 mg tablet 100 mg PO DAILY 30 Days Qty: 30 5RF metoprolol succinate 25 mg tablet extended release 24 hr 25 mg PO DAILY Qty: 90 4RF Xarelto 20 mg tablet 20 mg PO DAILY Qty: 90 4RF Rx Instructions: must administer with evening meal (DME) cock up splint See Rx Instructions .Route .MEDSUPPLY Qty: 1 0RF Rx Instructions: As directed Jardiance 25 mg tablet 25 mg PO DAILY gabapentin 300 mg capsule 300 mg PO DAILY cholecalciferol (vitamin D3) 1,250 mcg (50,000 unit) capsule 50,000 unit PO .weekly Qty: 14 4RF acetaminophen 500 mg Tablet 1,000 - 1,500 mg PO Q6H PRN (Reason: Pain) Vitamin C 500 mg Tablet 250 mg PO DAILY metformin 500 mg tablet extended release 24 hr 1,000 mg PO BID zinc sulfate 50 mg zinc (220 mg) Capsule 50 mg PO DAILY potassium gluconate 600 mg (99 mg) Tablet 600 mg PO DAILY clonidine HCl 0.1 mg Tablet 0.1 mg PO BID Qty: 60 0RF Pacerone 200 mg Tablet 200 mg PO BID Qty: 60 0RF amlodipine 10 mg Tablet 10 mg PO BEDTIME Qty: 30 0RF Referrals: Nikole Solano APN [Primary Care Provider] - Coding Level of Care Code ED Industrial Accountant for Shala Ocampo
[2024-01-02 18:41] LABS: Basophils % 0.2 %; Hematocrit 30.9 % (37-53); Lymphocytes # 1.3 10^3/uL (0.8-4.8); Lymphocytes % 10.8 %; Mean Corpuscular Volume 87.5 fl (82-101); Mean Platelet Volume 9.6 fL (7.4-10.4); Monocytes # 0.7 10^3/uL (0.2-0.9); Monocytes % 5.6 %; Neutrophils # 9.53 10^3/uL (1.8-7.7); Neutrophils % 82.6 %; Nucleated Red Blood Cells % 0 %; Platelet Count 287 10^3/cmm (157-399); Red Blood Count 3.53 10^6/uL (3.85-5.65); Red Cell Distribution Width 14.4 % (12.1-15.1); White Blood Count 11.54 10^3/uL (3.29-11.43)
[2024-01-02] MEDS: iohexol 350 mg/mL 500 mL Btl (per mL) IV (18:44)
[2024-01-02 19:09] LABS: Troponin(5th) Baseline 15 ng/L (0-15)
[2024-01-02 19:12] LABS: Lactic Sepsis W/Reflex 8.7 mmol/L (0.5-2.2)
[2024-01-02 20:04] LABS: Alanine Aminotransferase 51 U/L (0-41); Albumin Level 4.3 g/dL (3.5-5.2); Alkaline Phosphatase 106 U/L (40-130); Anion Gap 27.8 (5-19); Aspartate Amino Transferase 52 U/L (0-40); Blood Urea Nitrogen 14 mg/dL (6-20); Carbon Dioxide 17 mmol/L (22-29); Chloride 93 mmol/L (98-107); Creatinine Clr Calc Pharmacy 171.0205; Globulin 4.1 g/dL (1.3-4.6); Glomerular Filtration Rate 96.6 mL/min (90-130); Glucose 310 mg/dL (65-115); Magnesium 1.5 mg/dL (1.7-2.3); NT Pro B Type Natriuretic Pept 610 pg/mL (0-125); Osmolality Calculated 290 mOsm/kg (285-295); Potassium 3.8 mmol/L (3.5-5.1); Sodium 134 mmol/L (136-145); Thyroid Stimulating Hormone 0.87 uIU/mL (0.27-4.20); Total Bilirubin 0.5 mg/dL (0.15-1.2); Total Protein 8.4 g/dL (6.6-8.7)
[2024-01-02 20:24] LABS: Reflex Lactate Order REFLEX LACTIC ORDERD
[2024-01-02 20:28] LABS: SARS Covid-2 Antigen Negative (Negative)
[2024-01-02] MEDS: ipratropium-albuterol 3 mL Neb INHALATION (20:50)
--- NOTE | 2024-01-02 20:56 | ECG_ITS ---
[facility] Test Date: 2024-01-02 Pat Name: Doug Regalado Department: Room: Gender: Male [employer]: : 1990 Requested By: Dino Hernandez Order Number: [id number] Sarthak MD: HAYDER VANG Measurements Intervals [place] Rate: 78 P: 55 VT: 156 QRS: 99 QRSD: 119 T: 66 QT: 439 QTc: 501 Interpretive Statements SINUS RHYTHM BORDERLINE RIGHT AXIS DEVIATION [QRS AXIS > 90] MODERATE INTRAVENTRICULAR CONDUCTION DELAY [110+ ms QRS DURATION] PROLONGED QT INTERVAL Compared to ECG 01/02/2024 17:36:13 No significant changes Electronically Signed On 01-04-2024 18:20:34 CDT by HAYDER VANG [email or web address]
[2024-01-02] MEDS: lactated ringers 1,000 ML 999 ML IV (21:02)
[2024-01-02] MEDS: piperacillin-tazobactam 3.375 GM in sodium chloride 0.9% (plus) 50 ML IV (21:02)
[2024-01-02 21:10] LABS: Troponin 5 2HR 11.27 ng/L (0-15)
[2024-01-02 21:12] LABS: Troponin 5 2HR Delta -3.73 ABS# (0-10)
[2024-01-02 21:14] LABS: Lactic Acid level (Lactate) 6.6 mmol/L (0.5-2.2)
[2024-01-02] MEDS: vancomycin 1,500 MG/300 ML PIGGYBACK 200 MG IV (22:13)
[2024-01-02 22:42] LABS: Alveolar-Arterial Oxygen Gradi 5.6 mmHg (5-10); Arterial Blood Gas Hematocrit 39.3 % (42-52); Base Excess ABG -2.1 mmol/L (-2.0-2.0); Blood Gas Allen Test Pos; Blood Gas Operator Identificat SAM; Blood Gas Sample Site Radial, right; Blood Gas Sample Type Arterial; Carboxyhemoglobin 1.1 %THgb (0.4-20.1); HCO3 ABG 22.3 mmol/L (22-26); Ionized Calcium Level - ABG 1.1 mmol/L (1.1-1.4); Methemoglobin 0.3 % (0.4-1.5); Oxygen Device NC; Oxygen Saturation ABG 89.3; PO2 ABG 63.2 mmHg (80.0-100.0); Potassium Level - ABG 3.3 mmol/L (3.5-5.0); Total Hemoglobin 12.8 g/dL (14-18)
--- NOTE | 2024-01-02 22:54 | P.HP_ITS ---
Providers/Chief Complaint 2 Admitting Physician: Anil Cochran MD Primary Care Provider: Nikole Solano APN Chief Complaint: sob (pneumonia) History of Present Illness Doug Regalado is a 33 year old male with history of stroke back in June, with atrial flutter, on anticoagulation with Xarelto, with history of alcohol use disorder, He has been having shortness of breath over the last several days, dating back at least 1 month, coughing, productive cough, chest congestion. He was recently admitted to the hospital until December 04, 2023 for similar complaints and severe alcohol withdrawal. He was diagnosed with bilateral pneumonia. He tested negative for COVID-19 and influenza. No history of vaping. He was discharged with supplemental O2. He received treatment with levofloxacin as inpatient due to reported history of allergy to ceftriaxone. He was transitioned to Augmentin and linezolid for 4 days at the time of discharge. He states that he was doing well for 1 to 2 weeks but then started to develop respiratory symptoms again. He presented to the emergency room today as he felt he could not breathe. He was noted to be hypoxic, currently on 4 L/min supplemental O2. CTA of the chest is negative for PE but showing diffuse bilateral infiltrates which have worsened over the last month. Patient does not have any history of recent travel. No history of known contacts with TB. He has a history of chronic alcohol intake including history of binge drinking which often resulted in vomiting. Suspect that patient may be aspirating leading to recurrent/worsening of pneumonia. Review of Systems 2 General: Reports: 10 or more systems reviewed and unremarkable except in HPI and below Const: Denies: fever(s), chills or body aches Eyes: Denies: change in vision, blurry vision or photophobia ENMT: Reports: hoarseness; Denies: throat pain, enlarged tonsils, odynophagia or nasal congestion Card: Denies: chest pain, palpitations, irregular heart rhythm, edema, swelling of feet/ankles, lightheadedness, pre-syncope, dyspnea on exertion or orthopnea Resp: Denies: dyspnea, productive cough, non-productive cough, wheezing, stridor, pain on inspiration, change in phlegm color, hemoptysis or chest congestion GI: Denies: abdominal pain, nausea, vomiting, hematemesis, coffee ground emesis, dysphagia, heartburn, diarrhea, constipation, GI cramping, change in stool character, hematochezia or melena : Denies: flank pain, dysuria, urinary frequency, urinary urgency, urinary hesitancy or hematuria Musc: Denies: neck pain, back pain, extremity pain, joint swelling, joint warmth or deformity Neuro: Denies: headache(s), numbness in extremities, weakness in extremities, sensory changes, difficulty walking, frequent falls, dizziness, vertigo, behavioral changes, Slurred speech present or seizure-like activity Psych: Denies: anxiety, depression, suicidal ideation or homicidal ideation Endo: Denies: polyuria, polydipsia, tired all the time, cold intolerance or hot flashes Michelet/Lymph: Denies: easy bruising or easy bleeding Medications/Allergies Home Medications Medication Instructions Recorded Confirmed Last Taken Type cock up splint #1 ea 09/26/21 12/16/23 Unknown Rx acetaminophen 500 mg tablet 1,000 - 1,500 mg PO Q6H PRN Pain 07/02/23 12/16/23 Unknown History empagliflozin 25 mg tablet 25 mg PO DAILY 09/11/23 12/16/23 11/25/23 History (Jardiance) gabapentin 300 mg capsule 300 mg PO DAILY 09/11/23 12/16/23 11/25/23 History metoprolol succinate 25 mg 25 mg PO DAILY #90 tabs 10/31/23 12/16/23 11/25/23 Rx tablet,extended release 24 hr rivaroxaban 20 mg tablet (Xarelto) 20 mg PO DAILY #90 tabs 10/31/23 12/16/23 11/25/23 Rx ascorbic acid (vitamin C) 500 mg 250 mg PO DAILY 11/26/23 12/16/23 11/25/23 History tablet (Vitamin C) metformin 500 mg tablet,extended 1,000 mg PO BID 11/26/23 12/16/23 11/25/23 History release 24 hr potassium gluconate 600 mg (99 mg) 600 mg PO DAILY 11/26/23 12/16/23 11/25/23 History tablet zinc sulfate 50 mg zinc (220 mg) 50 mg PO DAILY 11/26/23 12/16/23 11/25/23 History capsule amiodarone 200 mg tablet (Pacerone) 200 mg PO BID #60 tabs 12/04/23 12/16/23 Unknown Rx amlodipine 10 mg tablet 10 mg PO BEDTIME #30 tabs 12/04/23 12/16/23 Unknown Rx clonidine HCl 0.1 mg tablet 0.1 mg PO BID #60 tabs 12/04/23 12/16/23 Unknown Rx thiamine mononitrate (vit B1) 100 100 mg PO DAILY 30 days #30 tabs 12/16/23 12/16/23 Unknown Rx mg tablet (Vitamin B-1 (mononitrate)) cholecalciferol (vitamin D3) 1,250 50,000 unit PO .weekly #14 caps 12/17/23 Unknown Rx mcg (50,000 unit) capsule Allergies Allergy/AdvReac Type Severity Reaction Status Date / Time ceftriaxone [From Rocephin] Allergy Unknown Verified 12/16/23 07:44 PFSH Acute 2 PFSH: Medical History Stroke (cerebrum) Substance abuse Tobacco abuse Transaminitis Atrial flutter Hypertension Diabetes mellitus Alcohol abuse No significant medical problems Surgical History No significant past surgical history Family History Other Alcohol abuse Diabetes Social History Smoking and tobacco/nicotine status: former use of tobacco/nicotine Alcohol intake: current Alcohol type: hard liquor Caregiver/support person: Yes Lives independently: No Household members: other Details: Lives with mother Housing: House Marital status: Single 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 status: employed 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 Temp 98.8 F 01/02/24 17:33 Pulse 91 01/02/24 22:00 Resp 24 H 01/02/24 22:00 BP 148/66 01/02/24 22:00 Pulse Ox 92 01/02/24 22:00 O2 Del Method Nasal Cannula 01/02/24 22:00 O2 Flow Rate 4 01/02/24 22:00 01/02/24 01/02/24 01/02/24 06:59 14:59 22:59 Intake Total 1050 / 1050 Balance 1050 / 1050 Weight last 48 hrs Weight 141.521 kg Physical Exam 2 Narrative: General: No acute distress, AO x3, currently on 4 L/min supplemental O2, alcohol breath ++ HEENT: PERRLA, pupils bilaterally equal and reactive, pallors not present Chest: Crackles to auscultation CVS: S1-S2 regular, no murmurs, no tachycardia, no gallops, no rubs Abdomen: Soft, nontender, no organomegaly, bowel sounds present Neuro: No focal deficits, no facial deformity, AO x3, power 5/5 in all limbs Data 01/03/24 03:57 01/03/24 03:57 Micro: Microbiology 01/02/24 20:14 Blood Culture - Preliminary Blood SPECIMEN COLLECTED 01/02/24 19:27 Blood Culture - Preliminary Blood SPECIMEN COLLECTED A&P Assessment and plan (1) Bilateral pneumonia: 33-year-old male with history of alcohol use disorder, past history of substance use, coming to the emergency room with hypoxic respiratory failure and found to have worsening bilateral pneumonia. CT of the chest negative for PE Shows bilateral worsening multifocal pneumonia. There is intrathoracic lymphadenopathy. Start empiric antibiotic treatment with meropenem and linezolid. Less likely atypical process given patient had extended course of levofloxacin on the last admission. Check sputum culture and Gram stain, urine bacterial antigen, urine Legionella antigen, QuantiFERON screen, procal Patient reports a history of frequent vomiting related to alcohol use, suspect may be aspirating. Check HIV screening, patient consents to the same. Speech therapy eval Qualifiers: Lung location: unspecified part of lung Pneumonia type: due to unspecified organism Qualified Code(s): J18.9 - Pneumonia, unspecified organism (2) Alcohol intoxication: Acute alcohol intoxication Alcohol level > 350 Monitor for alcohol withdrawal CIWA monitoring and Ativan per CIDE protocol Thiamine 100mg po daily Qualifiers: Complication of substance-induced condition: uncomplicated Qualified Code(s): F10.920 - Alcohol use, unspecified with intoxication, uncomplicated (3) Acute hypoxic respiratory failure: likely related to B/L pneumonia (4) Lactic acidosis: Multifactorial related to hypoxia and alcohol intoxication , less likely septic. 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 Diabetes mellitus complication status: with oral complications Diabetes mellitus complication detail: with other oral complications Qualified Code(s): 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 Plan DVT ppx: chronically on Xarelto Full code Attestations 2 Medical Necessity Statement*: > 2 midnight stay is anticipated for above care Coding Level of Care Code Acute Code for Chg Fwd High MDM includes number and complexity of problems actively addressed during encounter, amount and/or complexity of data reviewed/ordered and described risk of complication, morbidity or mortality of management as documented Diagnoses Bilateral pneumonia J18.9 Lung location: unspecified part of lung Pneumonia type: due to unspecified organism Alcohol intoxication F10.920 Complication of substance-induced condition: uncomplicated Acute hypoxic respiratory failure J96.01 Lactic acidosis E87.20 A-fib I48.91 Type 2 diabetes mellitus with other oral complication, without long-term current use of insulin E11.638 Diabetes mellitus type: type 2 Diabetes mellitus long-term insulin use: without long-term use Diabetes mellitus complication status: with oral complications Diabetes mellitus complication detail: with other oral complications
--- NOTE | 2024-01-02 23:02 | PC.NURSE ---
report called to [facility]. [phone].
[2024-01-02 23:39] LABS: Ketone (Acetest) Serum Negative (Negative)
[2024-01-02 23:45] LABS: Alcohol Level 347 mg/dL (0-10)
[2024-01-03] VITALS (15 sets, daily range): BP systolic 146–181; BP diastolic 72–92; PULSE 79–112; RESP 18–30; TEMP 36.6–37.1; O2SAT 90–98
[2024-01-03] MEDS: linezolid 600 mg Tablet PO ×3 (00:01→22:35)
[2024-01-03] MEDS: enoxaparin 40 mg/0.4 mL Syringe SUBCUT (00:01)
[2024-01-03 00:04] LABS: HIV 1 & 2 Antibody Non-Reactive (Non-Reactiv); HIV 1 & 2 Antigen Non-Reactive (Non-Reactiv)
--- NOTE | 2024-01-03 00:07 | ECG_ITS ---
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1990 Requested By: Dino Hernandez Order Number: [id number] Sarthak MD: HAYDER VANG Measurements Intervals [place] Rate: 86 P: 66 OR: 200 QRS: 89 QRSD: 115 T: 58 QT: 415 QTc: 497 Interpretive Statements SINUS RHYTHM MODERATE INTRAVENTRICULAR CONDUCTION DELAY [110+ ms QRS DURATION] NONSPECIFIC T-WAVE ABNORMALITY Compared to ECG 01/02/2024 20:56:13 T-wave abnormality now present Prolonged QT interval no longer present Electronically Signed On 01-04-2024 18:19:23 CDT by HAYDER VANG [email or web address]
[2024-01-03 00:09] LABS: Estmated Average Glucose 154
[2024-01-03 00:18] LABS: Hepatitis A Antibody IgM Non-Reactive (Nonreactive); Hepatitis B Core AB, Total Non-Reactive (Nonreactive); Hepatitis B Surface AB 6.5 (11.5-1000); Hepatitis B Surface Antigen Non-Reactive (Nonreactive); Hepatitis C Virus Antibody Non-Reactive (Nonreactive)
[2024-01-03 01:03] LABS: Troponin 5 6HR 16.42 ng/L (0-15); Troponin 5 6HR Delta 1.42 ng/L (0-12)
[2024-01-03] MEDS: meropenem 1,000 mg SDV 1000 MG IV ×3 (01:45→18:10)
[2024-01-03] MEDS: ipratropium-albuterol 3 mL Neb INHALATION ×4 (03:08→20:25)
[2024-01-03 04:14] LABS: Bilirubin Urine Negative (Negative); Blood Urine Negative (Negative); Glucose Urine UA 3+ (Normal); Ketones Urine Negative (Negative); Leukocyte Esterase Urine Negative (Negative); Nitrate Urine Negative (Negative); Protein Urine Negative (Negative); Urine Appearance Clear (CLEAR); Urine Color Yellow (Yellow); pH Urine 5.5 (5-7)
[2024-01-03 04:17] LABS: Add Urine Microscopic? YES; Bacteria Urine None Seen /hpf; RBC Urine 0-2 /hpf (0-2); Squamous Epithelial Cell Urine 0-5 /hpf (0-5); WBC Urine 0-5 /hpf (0-5)
[2024-01-03 04:17] LABS: Basophils # 0.1 10^3/uL (0.0-0.1); Basophils % 0.7 %; Eosinophils % 0.2 %; Hematocrit 29.4 % (37-53); Lymphocytes # 3.1 10^3/uL (0.8-4.8); Lymphocytes % 30.9 %; Mean Corpuscular Hemoglobin 27.7 pg (27-33); Mean Corpuscular Volume 86.7 fl (82-101); Mean Platelet Volume 9.1 fL (7.4-10.4); Monocytes # 0.9 10^3/uL (0.2-0.9); Monocytes % 8.7 %; Neutrophils # 5.82 10^3/uL (1.8-7.7); Neutrophils % 58.7 %; Nucleated Red Blood Cells % 0 %; Platelet Count 232 10^3/cmm (157-399); Red Blood Count 3.39 10^6/uL (3.85-5.65); Red Cell Distribution Width 14.5 % (12.1-15.1); White Blood Count 9.92 10^3/uL (3.29-11.43)
[2024-01-03 04:22] LABS: Amphetamines Screen Urine Negative (Negative); Barbiturates Screen Urine Negative (Negative); Benzodiazepines Screen Urine Negative (Negative); Cocaine Screen Urine Negative (Negative); Opiate Screen Urine Positive (Negative); PCP Screen Urine Negative (Negative); THC Screen Urine Negative (Negative)
[2024-01-03 04:29] LABS: Specific Gravity, Urine 1.035 (1.005-1.030)
[2024-01-03 04:32] LABS: Lactic Sepsis W/Reflex 3.5 mmol/L (0.5-2.2)
[2024-01-03 04:41] LABS: Alanine Aminotransferase 44 U/L (0-41); Alkaline Phosphatase 117 U/L (40-130); Anion Gap 19.2 (5-19); Aspartate Amino Transferase 62 U/L (0-40); Blood Urea Nitrogen 13 mg/dL (6-20); Calcium 8.9 mg/dL (8.5-10.5); Carbon Dioxide 24 mmol/L (22-29); Chloride 95 mmol/L (98-107); Creatinine Clr Calc Pharmacy 219.8835; Globulin 3.8 g/dL (1.3-4.6); Glomerular Filtration Rate 129.1 mL/min (90-130); Glucose 250 mg/dL (65-115); Osmolality Calculated 289 mOsm/kg (285-295); Potassium 3.2 mmol/L (3.5-5.1); Sodium 135 mmol/L (136-145); Total Bilirubin 0.5 mg/dL (0.15-1.2); Total Protein 7.8 g/dL (6.6-8.7)
[2024-01-03 06:01] LABS: Reflex Lactate Order REFLEX LACTIC ORDERD
[2024-01-03 06:35] LABS: Glucose Point of Care 214 mg/dL (70-110)
[2024-01-03 07:15] LABS: Lactic Acid level (Lactate) 2.9 mmol/L (0.5-2.2)
[2024-01-03 07:22] LABS: Procalcitonin 0.19 ng/mL (0-0.5)
[2024-01-03] MEDS: insulin lispro 100 unit/1 mL SUBCUT ×4 (08:52→21:40)
[2024-01-03] MEDS: metoprolol succinate ER (24 HR) 25 mg Tablet PO (08:52)
[2024-01-03] MEDS: rivaroxaban 10 mg Tablet 20 MG PO (08:52)
[2024-01-03] MEDS: multivitamin therapeutic Tablet 1 TAB PO (08:52)
[2024-01-03] MEDS: thiamine 100 mg Tablet PO (08:53)
[2024-01-03] MEDS: folic acid 1 mg Tablet PO (08:53)
[2024-01-03] MEDS: amiodarone 200 mg Tablet PO ×2 (08:53→18:09)
[2024-01-03] MEDS: pantoprazole DR 40 mg Tablet PO (08:53)
[2024-01-03] MEDS: gabapentin 300 mg Capsule PO (08:53)
[2024-01-03] MEDS: pantoprazole 40 mg SDV IVP ×2 (11:30→22:36)
[2024-01-03 11:47] LABS: Glucose Point of Care 248 mg/dL (70-110)
--- NOTE | 2024-01-03 12:20 | PM.PN ---
Subjective Subjective: Admitted overnight. H&P labs appreciated. Patient complaining of difficulty in breathing on minimal exertion and orthopnea. Currently on 4 L. Denies any nausea, vomiting, headache. Does complain of tremors. Vitals/I&O/Wt Last Vital Signs Temp 98.4 F 01/03/24 12:00 Pulse 112 H 01/03/24 12:00 Resp 30 H 01/03/24 12:00 BP 167/92 01/03/24 12:00 Pulse Ox 94 01/03/24 12:00 O2 Del Method Nasal Cannula 01/03/24 12:00 O2 Flow Rate 8 01/03/24 09:05 01/02/24 01/03/24 01/03/24 22:59 06:59 14:59 Intake Total 1050 / 1050 300 / 1350 600 / 600 Output Total 1300 / 1300 400 / 400 Balance 1050 / 1050 -1000 / 50 200 / 200 Weight last 48 hrs Weight 150.2 kg Weight 141.521 kg Weight 141.521 kg Physical Exam Narrative: General: No acute distress, AO x3, currently on 4 L/min supplemental O2, alcohol breath + HEENT: PERRLA, pupils bilaterally equal and reactive, pallors not present Chest: Bronchial breath is all over lung rueda with coarse rhonchi and crackles bilaterally right more than left CVS: S1-S2 regular, no murmurs, no tachycardia, no gallops, no rubs Abdomen: Soft, nontender, no organomegaly, bowel sounds present Neuro: No focal deficits, no facial deformity, AO x3, power 5/5 in all limbs, tremors present Data 01/03/24 03:57 01/03/24 03:57 Micro: Microbiology 01/02/24 20:14 Blood Culture - Preliminary Blood SPECIMEN COLLECTED 01/02/24 19:27 Blood Culture - Preliminary Blood SPECIMEN COLLECTED A&P Assessment and plan (1) Bilateral pneumonia: 33-year-old male with history of alcohol use disorder, past history of substance use, coming to the emergency room with hypoxic respiratory failure and found to have worsening bilateral pneumonia. CT of the chest negative for PE Shows bilateral worsening multifocal pneumonia. There is intrathoracic lymphadenopathy. Check sputum culture and Gram stain, urine bacterial antigen, urine Legionella antigen, QuantiFERON screen, respiratory viral panel, MRSA swab, trend procal Patient reports a history of frequent vomiting related to alcohol use, suspect may be aspiration pneumonitis Empiric therapy with IV meropenem and oral linezolid. Will add azithromycin 500 mg oral daily. Patient did get extended course of Levaquin recently. If MRSA positive will switch from linezolid to vancomycin. Qualifiers: Lung location: unspecified part of lung Pneumonia type: due to unspecified organism Qualified Code(s): J18.9 - Pneumonia, unspecified organism (2) Alcohol intoxication: Acute alcohol intoxication Alcohol level > 350 Patient states he d consumes alcohol daily. Does have history of alcohol withdrawal in the past. Denies any history of alcohol withdrawal seizure. Empirically start on Librium 25 mg Q6 hourly. Monitor liver functions. Monitor for alcohol withdrawal CIWA monitoring and Ativan per CIWA protocol Thiamine 100mg po daily Qualifiers: Complication of substance-induced condition: uncomplicated Qualified Code(s): F10.920 - Alcohol use, unspecified with intoxication, uncomplicated (3) Acute hypoxic respiratory failure: likely related to B/L pneumonia Oxygen supplementation keeping saturation over 90%. Pulmicort twice daily, DuoNebs every 6 hour. Aggressive pulmonary toilet with I-S and Acapella. No history of CHF on last echocardiogram from earlier this year. (4) Lactic acidosis: Most likely in setting of hypoxia, alcohol intoxication. Also uses metformin at home. Patient does have some concerns for sepsis. Received 1 L fluid bolus in the ER. Patient is tachycardic though tachycardia could be in setting of alcohol withdrawal. Overall appears euvolemic. For now start on normal saline at 75 cc/h. Monitor lactate levels. (5) A-fib: rate controlled currently continue amiodarone, metoprolol and Xarelto at home dosing (6) Diabetes mellitus: with hyperglycemia increased anion gap , negative serum ketones , unlikely DKA HAGMA likely from alcohol intoxication Insulin sliding scale. Fluid as above. 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 Does have history consistent with possible esophageal varices. Protonix 40 mg every 12 hourly. Sufficient for PUD prophylaxis DVT ppx: chronically on Xarelto Full code Cardiac carb consistent diet Attestations Medical Necessity Statement*: Requires further hospitalization for hypoxic respiratory failure in setting of possible aspiration pneumonitis in a patient with history of alcohol intoxication and abuse Diagnoses Bilateral pneumonia J18.9 Lung location: unspecified part of lung Pneumonia type: due to unspecified organism Alcohol intoxication F10.920 Complication of substance-induced condition: uncomplicated Acute hypoxic respiratory failure J96.01 Lactic acidosis E87.20 A-fib I48.91 Type 2 diabetes mellitus with other oral complication, without long-term current use of insulin E11.638 Diabetes mellitus type: type 2 Diabetes mellitus technician terminal and repeater insulin use: without long-term use Diabetes mellitus complication status: with oral complications Diabetes mellitus complication detail: with other oral complications
[2024-01-03] MEDS: potassium chloride ER 20 mEq Tablet 40 MEQ PO (12:31)
[2024-01-03] MEDS: magnesium sulfate premix 2 GM/50 ML PIGGYBACK IV (12:32)
[2024-01-03 12:39] LABS: Iron 16 ug/dL (59-158); Percent Saturation 3.9 % (20-50); Total Iron Binding Capacity 405 mcg/dl; Unsaturated Iron Binding 389 ug/dL (112-347)
[2024-01-03 12:47] LABS: Procalcitonin 0.19 ng/mL (0-0.5)
[2024-01-03 14:50] LABS: Adenovirus Not Detected (NOT DETECT); Chlamydia Pneumoniae Not Detected (NOT DETECT); Coronavirus 229E,HKU1,NL63,OC4 Not Detected (NOT DETECT); Human Metapneumovirus Not Detected (NOT DETECT); Human Rhinovirus/Enterovirus Detected (NOT DETECT); Influenza A Not Detected (NOT DETECT); Influenza A H1 Not Detected (NOT DETECT); Influenza A H1-2009 Not Detected (NOT DETECT); Influenza A H3 Not Detected (NOT DETECT); Influenza B Not Detected (NOT DETECT); Mycoplasma Pneumoniae Not Detected (NOT DETECT); Parainfluenza Virus Type 1 Not Detected (NOT DETECT); Parainfluenza Virus Type 2 Not Detected (NOT DETECT); Parainfluenza Virus Type 3 Not Detected (NOT DETECT); Parainfluenza Virus Type 4 Not Detected (NOT DETECT); Respiratory Syncytial Virus A Not Detected (NOT DETECT); Respiratory Syncytial Virus B Not Detected (NOT DETECT); SARS-COV-2 Not Detected (NOT DETECT)
[2024-01-03 17:18] LABS: Glucose Point of Care 224 mg/dL (70-110)
[2024-01-03] MEDS: sucralfate 1 gm/10 mL Oral Liq UDC PO ×2 (18:09→20:25)
[2024-01-03 18:32] LABS: MRSA PCR OZH (swab) NOT DETECTED (Negative)
[2024-01-03] MEDS: budesonide 0.5 mg/2 mL Neb INHALATION (20:25)
[2024-01-03] MEDS: metoprolol tartrate 25 mg Tablet PO (20:25)
[2024-01-03 20:49] LABS: Glucose Point of Care 167 mg/dL (70-110)
[2024-01-03] MEDS: guaiFENesin-dextromethorphan UDC 10 mL 5 ML PO (22:47)
[2024-01-04] VITALS (14 sets, daily range): BP systolic 151–175; BP diastolic 75–92; PULSE 82–96; RESP 13–21; TEMP 36.7–37.2; O2SAT 92–99
[2024-01-04] MEDS: meropenem 1,000 mg SDV 1000 MG IV ×3 (01:37→17:54)
[2024-01-04] MEDS: ipratropium-albuterol 3 mL Neb INHALATION ×4 (02:37→20:37)
[2024-01-04 04:35] LABS: Basophils % 0.6 %; Eosinophils # 0.2 10^3/uL (0.0-0.8); Eosinophils % 2.1 %; Hematocrit 30.4 % (37-53); Lymphocytes # 1.2 10^3/uL (0.8-4.8); Mean Corpuscular HGB Conc 32.9 g/dL (30-55); Mean Corpuscular Hemoglobin 28.1 pg (27-33); Mean Corpuscular Volume 85.4 fl (82-101); Mean Platelet Volume 9.2 fL (7.4-10.4); Monocytes # 0.8 10^3/uL (0.2-0.9); Monocytes % 11.8 %; Neutrophils # 4.74 10^3/uL (1.8-7.7); Neutrophils % 67.6 %; Nucleated Red Blood Cells % 0 %; Platelet Count 191 10^3/cmm (157-399); Red Blood Count 3.56 10^6/uL (3.85-5.65); Red Cell Distribution Width 14.5 % (12.1-15.1); White Blood Count 7.01 10^3/uL (3.29-11.43)
[2024-01-04 04:58] LABS: Alanine Aminotransferase 35 U/L (0-41); Albumin Level 3.7 g/dL (3.5-5.2); Alkaline Phosphatase 77 U/L (40-130); Anion Gap 15.9 (5-19); Aspartate Amino Transferase 44 U/L (0-40); Blood Urea Nitrogen 9 mg/dL (6-20); Calcium 8.8 mg/dL (8.5-10.5); Carbon Dioxide 28 mmol/L (22-29); Chloride 90 mmol/L (98-107); Creatinine Clr Calc Pharmacy 265.2454; Globulin 3.5 g/dL (1.3-4.6); Glomerular Filtration Rate 154.2 mL/min (90-130); Glucose 171 mg/dL (65-115); Osmolality Calculated 275 mOsm/kg (285-295); Sodium 131 mmol/L (136-145); Total Bilirubin 1.6 mg/dL (0.15-1.2); Total Protein 7.2 g/dL (6.6-8.7)
[2024-01-04 05:04] LABS: Magnesium 1.1 mg/dL (1.7-2.3)
[2024-01-04 05:05] LABS: Potassium 2.9 mmol/L (3.5-5.1)
[2024-01-04 05:12] LABS: Folate Level 9.1 ng/mL (4.5-32.2)
[2024-01-04] MEDS: sucralfate 1 gm/10 mL Oral Liq UDC PO ×4 (06:07→20:29)
[2024-01-04] MEDS: guaiFENesin-dextromethorphan UDC 10 mL 5 ML PO ×2 (06:10→22:59)
[2024-01-04 06:40] LABS: Glucose Point of Care 201 mg/dL (70-110)
[2024-01-04] MEDS: budesonide 0.5 mg/2 mL Neb INHALATION ×2 (07:55→20:37)
[2024-01-04] MEDS: rivaroxaban 10 mg Tablet 20 MG PO (08:38)
[2024-01-04] MEDS: folic acid 1 mg Tablet PO (08:39)
[2024-01-04] MEDS: insulin lispro 100 unit/1 mL SUBCUT ×3 (08:39→17:54)
[2024-01-04] MEDS: gabapentin 300 mg Capsule PO (08:39)
[2024-01-04] MEDS: multivitamin therapeutic Tablet 1 TAB PO (08:39)
[2024-01-04] MEDS: amiodarone 200 mg Tablet PO ×2 (08:39→17:53)
[2024-01-04] MEDS: thiamine 100 mg Tablet PO (08:39)
[2024-01-04] MEDS: potassium chloride ER 20 mEq Tablet 40 MEQ PO (08:39)
[2024-01-04] MEDS: metoprolol tartrate 25 mg Tablet PO ×2 (08:39→20:29)
[2024-01-04 09:37] LABS: ABG PH Result 7.53 (7.35-7.45); Alveolar-Arterial Oxygen Gradi 6.1 mmHg (5-10); Arterial Blood Gas Hematocrit 31.6 % (42-52); Blood Gas Allen Test Pos; Blood Gas Operator Identificat WALCI; Blood Gas Sample Site Radial, right; Blood Gas Sample Type Arterial; Carboxyhemoglobin 1.7 %THgb (0.4-20.1); HGB O2 Sat 91.1 % (95-100); Ionized Calcium Level - ABG 1.1 mmol/L (1.1-1.4); Methemoglobin 0.5 % (0.4-1.5); Oxygen Device ROOM AIR; Oxygen Saturation ABG 93.2; PO2 ABG 60.5 mmHg (80.0-100.0); PO2 FiO2 Ratio Arterial Blood 288; Total Hemoglobin 10.3 g/dL (14-18)
[2024-01-04] MEDS: amlodipine 10 mg Tablet PO ×2 (09:57→20:29)
[2024-01-04] MEDS: potassium chloride ER 20 mEq Tablet 80 MEQ PO (09:57)
--- NOTE | 2024-01-04 10:20 | XRR_ITS ---
PROCEDURE INFORMATION: Exam: XR Chest Exam date and time: 01/04/2024 1:33 PM Age: 33 years old Clinical indication: Shortness of breath; Additional info: Hypoxia TECHNIQUE: Imaging protocol: Radiologic exam of the chest. Views: 1 view. COMPARISON: CT angio chest PE protcl [id number] 01/02/2024 6:40 PM FINDINGS: Lungs: Faint pulmonary infiltrates are present bilaterally. They appear similar to what was seen on 01/02/2024. Pleural spaces: Unremarkable. No pleural effusion. No pneumothorax. Heart/Mediastinum: Unremarkable. No cardiomegaly. Bones/joints: Unremarkable. XR/XR chest 1V portable [id number] IMPRESSION: Faint bilateral pulmonary infiltrates similar to what was seen previously.
[2024-01-04] MEDS: magnesium sulfate premix 2 GM/50 ML PIGGYBACK IV (10:46)
[2024-01-04] MEDS: linezolid 600 mg Tablet PO ×2 (10:47→22:59)
[2024-01-04] MEDS: pantoprazole 40 mg SDV IVP ×2 (10:47→23:00)
[2024-01-04] MEDS: chlordiazePOXIDE 10 mg Capsule 20 MG PO ×2 (10:47→17:53)
[2024-01-04 11:55] LABS: Glucose Point of Care 181 mg/dL (70-110)
--- NOTE | 2024-01-04 12:13 | PC.NURSE ---
Provider asked nursing staff to change order of librium 20 mg to BID from Q6hr. Order entered.
--- NOTE | 2024-01-04 12:38 | P.PN_ITS ---
Subjective 2 Subjective: No acute events overnight. Patient did have some mild blood-tinged cough with expectoration yesterday. Had mild epistaxis yesterday. Saturating well on room air today but has mildly increased work of breathing. States he is feeling better. Denies any nausea, vomiting, headache. Continues to have tremors. Blood pressure is elevated. Vitals/I&O/Wt Last Vital Signs Temp 98.3 F 01/04/24 11:07 Pulse 82 01/04/24 11:07 Resp 20 H 01/04/24 11:07 BP 160/89 01/04/24 11:07 Pulse Ox 92 01/04/24 11:07 O2 Del Method Room Air 01/04/24 11:07 O2 Flow Rate 2 01/04/24 02:35 01/03/24 01/04/24 01/04/24 22:59 06:59 14:59 Intake Total 410 / 1370 1350 / 2720 290 / 290 Output Total 700 / 1100 1650 / 2750 475 / 475 Balance -290 / 270 -300 / -30 -185 / -185 Weight last 48 hrs Weight 150.4 kg Weight 150.2 kg Weight 141.521 kg Weight 141.521 kg Physical Exam 2 Narrative: General: No acute distress, AO x3, currently on 4 L/min supplemental O2, HEENT: PERRLA, pupils bilaterally equal and reactive, pallors not present Chest: Bronchial breath is all over lung rueda with coarse rhonchi and crackles bilaterally right more than left CVS: S1-S2 regular, no murmurs, no tachycardia, no gallops, no rubs Abdomen: Soft, nontender, no organomegaly, bowel sounds present Neuro: No focal deficits, no facial deformity, AO x3, power 5/5 in all limbs, tremors present Data 01/04/24 04:03 01/04/24 04:03 Micro: Microbiology 01/02/24 20:14 Blood Culture - Preliminary Blood NEGATIVE TO DATE 01/02/24 19:27 Blood Culture - Preliminary Blood NEGATIVE TO DATE 01/03/24 14:40 Bacterial Antigens - Final Urine,Voided 01/03/24 14:40 Legionella Urinary Antigen - Final Urethra 01/03/24 12:30 Gram Stain - Final Sputum - Expectorated Sputum A&P Assessment and plan (1) Bilateral pneumonia: 33-year-old male with history of alcohol use disorder, past history of substance use, coming to the emergency room with hypoxic respiratory failure and found to have worsening bilateral pneumonia. CT of the chest negative for PE Shows bilateral worsening multifocal pneumonia. There is intrathoracic lymphadenopathy. As patient is on room air but having increased work of breathing for now we will check ABG. check chest x-ray. Follow-up sputum culture and Gram stain, QuantiFERON screen, Negative urine bacterial antigen and urine Legionella antigen, Enterovirus positive in respiratory viral panel, negative MRSA swab. Patient reports a history of frequent vomiting related to alcohol use, suspect may be aspiration pneumonitis Empiric therapy with IV meropenem and oral linezolid. For now continue with empiric therapy of meropenem and linezolid. Will de-escalate as per sputum culture results. Qualifiers: Lung location: unspecified part of lung Pneumonia type: due to unspecified organism Qualified Code(s): J18.9 - Pneumonia, unspecified organism (2) Alcohol intoxication: Acute alcohol intoxication Alcohol level > 350 Patient states he d consumes alcohol daily. Does have history of alcohol withdrawal in the past. Denies any history of alcohol withdrawal seizure. LFTs trending down. Empirically start on Librium 25 mg every 12. Monitor liver functions. Monitor for alcohol withdrawal CIWA monitoring and Ativan per CIWA protocol Thiamine 100mg po daily Qualifiers: Complication of substance-induced condition: uncomplicated Qualified Code(s): F10.920 - Alcohol use, unspecified with intoxication, uncomplicated (3) Acute hypoxic respiratory failure: likely related to B/L pneumonia Oxygen supplementation keeping saturation over 90%. Pulmicort twice daily, DuoNebs every 6 hour. Aggressive pulmonary toilet with I-S and Acapella. Will add chest vest twice daily. No history of CHF on last echocardiogram from earlier this year. (4) Lactic acidosis: Most likely in setting of hypoxia, alcohol intoxication. Also uses metformin at home. Lactate levels have normalized. (5) A-fib: rate controlled currently continue amiodarone, metoprolol and Xarelto at home dosing (6) Diabetes mellitus: A1c of 7. Continue with insulin sliding scale. 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 Does have history consistent with possible esophageal varices. Hypokalemia: Replete with 80 mg additionally. Hypomagnesemia: 2 g IV magnesium along with oral magnesium twice daily. Monitor daily. Protonix 40 mg every 12 hourly. Sufficient for PUD prophylaxis DVT ppx: chronically on Xarelto Full code Cardiac carb consistent diet Out of bed to chair. Ambulate. Discharge plan: Discussed in detail with the patient. He is currently on room air. If he continues to do well, remains on room air afebrile can possibly plan to discharge in 24 to 48 hours depending on the results of sputum culture. Attestations 2 Medical Necessity Statement*: Requires further hospitalization for management of hypoxic respiratory failure in setting of bilateral pneumonitis with high concerns for aspiration in a patient with history of alcohol abuse admitted with intoxication Coding Level of Care Code Acute Code for Chg Fwd Diagnoses Bilateral pneumonia J18.9 Lung location: unspecified part of lung Pneumonia type: due to unspecified organism Alcohol intoxication F10.920 Complication of substance-induced condition: uncomplicated Acute hypoxic respiratory failure J96.01 Lactic acidosis E87.20 A-fib I48.91 Type 2 diabetes mellitus with other oral complication, without long-term current use of insulin E11.638 Diabetes mellitus type: type 2 Diabetes mellitus snf insulin use: without dedicated 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
[2024-01-04 16:20] LABS: Glucose Point of Care 199 mg/dL (70-110)
[2024-01-04] MEDS: magnesium oxide 400 mg tablet PO (17:54)
[2024-01-04 20:50] LABS: Glucose Point of Care 137 mg/dL (70-110)
[2024-01-05] VITALS (10 sets, daily range): BP systolic 127–156; BP diastolic 70–92; PULSE 80–97; RESP 17–28; TEMP 36.4–37.2; O2SAT 91–98
[2024-01-05] MEDS: meropenem 1,000 mg SDV 1000 MG IV ×2 (01:38→08:45)
[2024-01-05] MEDS: ipratropium-albuterol 3 mL Neb INHALATION ×2 (02:29→07:52)
[2024-01-05 04:26] LABS: Basophils # 0.1 10^3/uL (0.0-0.1); Basophils % 0.7 %; Eosinophils # 0.6 10^3/uL (0.0-0.8); Eosinophils % 6.8 %; Hematocrit 32.5 % (37-53); Lymphocytes # 1.6 10^3/uL (0.8-4.8); Lymphocytes % 19.2 %; Mean Corpuscular HGB Conc 31.7 g/dL (30-55); Mean Corpuscular Hemoglobin 28.1 pg (27-33); Mean Corpuscular Volume 88.8 fl (82-101); Mean Platelet Volume 9.8 fL (7.4-10.4); Monocytes # 0.9 10^3/uL (0.2-0.9); Monocytes % 10.8 %; Neutrophils % 61.9 %; Nucleated Red Blood Cells % 0 %; Platelet Count 226 10^3/cmm (157-399); Red Blood Count 3.66 10^6/uL (3.85-5.65); Red Cell Distribution Width 14.6 % (12.1-15.1)
[2024-01-05 04:52] LABS: Alanine Aminotransferase 36 U/L (0-41); Albumin Level 3.6 g/dL (3.5-5.2); Alkaline Phosphatase 77 U/L (40-130); Anion Gap 14.2 (5-19); Aspartate Amino Transferase 60 U/L (0-40); Blood Urea Nitrogen 11 mg/dL (6-20); Calcium 8.5 mg/dL (8.5-10.5); Carbon Dioxide 28 mmol/L (22-29); Chloride 96 mmol/L (98-107); Creatinine Clr Calc Pharmacy 227.3532; Globulin 3.1 g/dL (1.3-4.6); Glomerular Filtration Rate 129.1 mL/min (90-130); Glucose 138 mg/dL (65-115); Osmolality Calculated 280 mOsm/kg (285-295); Potassium 4.2 mmol/L (3.5-5.1); Sodium 134 mmol/L (136-145); Total Bilirubin 1.3 mg/dL (0.15-1.2); Total Protein 6.7 g/dL (6.6-8.7)
[2024-01-05 04:57] LABS: Magnesium 1.4 mg/dL (1.7-2.3)
[2024-01-05] MEDS: sucralfate 1 gm/10 mL Oral Liq UDC PO ×2 (06:21→11:14)
[2024-01-05 06:32] LABS: Glucose Point of Care 134 mg/dL (70-110)
[2024-01-05] MEDS: budesonide 0.5 mg/2 mL Neb INHALATION (07:52)
[2024-01-05] MEDS: folic acid 1 mg Tablet PO (08:45)
[2024-01-05] MEDS: gabapentin 300 mg Capsule PO (08:45)
[2024-01-05] MEDS: metoprolol tartrate 25 mg Tablet PO (08:45)
[2024-01-05] MEDS: rivaroxaban 10 mg Tablet 20 MG PO (08:45)
[2024-01-05] MEDS: amiodarone 200 mg Tablet PO (08:45)
[2024-01-05] MEDS: chlordiazePOXIDE 10 mg Capsule 20 MG PO (08:45)
[2024-01-05] MEDS: thiamine 100 mg Tablet PO (08:45)
[2024-01-05] MEDS: multivitamin therapeutic Tablet 1 TAB PO (08:45)
[2024-01-05] MEDS: magnesium oxide 400 mg tablet PO (08:45)
[2024-01-05] MEDS: magnesium sulfate premix 1 GM/100 ML PIGGYBACK IV (11:14)
[2024-01-05] MEDS: pantoprazole 40 mg SDV IVP (11:14)
[2024-01-05] MEDS: linezolid 600 mg Tablet PO (11:14)
[2024-01-05] MEDS: insulin lispro 100 unit/1 mL SUBCUT (12:33)
--- NOTE | 2024-01-05 12:48 | P.DS_ITS ---
Discharge Providers Date of Admission: 01/02/24 22:01 Date of Discharge: January 05, 2024 Attending Provider at Admission: Anil Cochran MD Attending Provider at Discharge: Anil Cochran MD Primary Care Provider: Nikole Solano APN Diagnoses at Discharge Discharge Diagnosis (1) Bilateral pneumonia: Status: Acute Qualifiers: Lung location: unspecified part of lung Pneumonia type: due to unspecified organism Qualified Code(s): J18.9 - Pneumonia, unspecified organism (2) Alcohol intoxication: Status: Acute Qualifiers: Complication of substance-induced condition: uncomplicated Qualified Code(s): F10.920 - Alcohol use, unspecified with intoxication, uncomplicated (3) Acute hypoxic respiratory failure: Status: Acute (4) Lactic acidosis: Status: Acute (5) A-fib: Status: Acute (6) Diabetes mellitus: Status: Acute Qualifiers: Diabetes mellitus type: type 2 Diabetes mellitus intermediate project manager insulin use: without residential use Diabetes mellitus complication status: with oral complications Diabetes mellitus complication detail: with other oral complications Qualified Code(s): 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 He was recently admitted to the hospital until December 04, 2023 for similar complaints and severe alcohol withdrawal. He was diagnosed with bilateral pneumonia. He tested negative for COVID-19 and influenza. No history of vaping. He was discharged with supplemental O2. He received treatment with levofloxacin as inpatient due to reported history of allergy to ceftriaxone. He was transitioned to Augmentin and linezolid for 4 days at the time of disch arge. He states that he was doing well for 1 to 2 weeks but then started to develop respiratory symptoms again. He presented to the emergency room today as he felt he could not breathe. He was noted to be hypoxic, currently on 4 L/min supplemental O2. CTA of the chest is negative for PE but showing diffuse bilateral infiltrates which have worsened over the last month. Patient does not have any history of recent travel. No history of known contacts with TB. He has a history of chronic alcohol intake including history of binge drinking which often resulted in vomiting. Suspect that patient may be aspirating leading to recurrent/worsening of pneumonia. Hospital Course Hospital Course Patient was admitted to the hospital further evaluation and management of hypoxic respiratory failure in setting of bilateral pneumonia along with concerns for alcohol intoxication. Given his presentation, CT imaging there was concern for bilateral aspiration pneumonitis. He was started on broad-spectrum antibiotics. During hospitalization his A-fib and diabetes remained uncontrolled. His alcohol level on admission was more than 350. Patient did not have any concerns for alcohol withdrawal. He has been off oxygen for more than 48 hours and has been saturating well at both rest and on exertion. During hospitalization his cultures including sputum culture remain negative. He has been discharged hemodynamically stable condition on oral Augmentin and Levaquin for overall 7-day course. Patient was advised in detail about aspiration precautions. He was also advised to hold off on alcohol use. Physical Exam Narrative: General: No acute distress, AO x3, on room air HEENT: PERRLA, pupils bilaterally equal and reactive, pallors not present Chest: Bronchial breath is all over lung rueda with coarse rhonchi and crackles bilaterally right more than left CVS: S1-S2 regular, no murmurs, no tachycardia, no gallops, no rubs Abdomen: Soft, nontender, no organomegaly, bowel sounds present Neuro: No focal deficits, no facial deformity, AO x3, power 5/5 in all limbs, tremors present Discharge Data Studies Completed and Pending Completed Studies During Hospitalization Category Date Time Status CT angio chest PE protcl [id number] Stat Cat Scan 01/02/24 18:06 Completed CXRP [XR chest 1V portable [id number]] Stat Exams 01/02/24 17:23 Completed XR chest 1V portable [id number] Routine Exams 01/04/24 10:20 Completed Pending at discharge Category Date Time Status PANCHO Profile Rheumatology Routine Lab 01/02/24 23:03 Received Blood Culture Stat Lab 01/02/24 20:14 Results MAG [Magnesium] AM LABS Lab 01/06/24 04:00 Ordered [id number]-[id number]-Swrh Plus Routine Lab 01/02/24 23:03 Received Sputum Culture and Gram Stain Routine Lab 01/03/24 12:30 Results Radiology Impressions Chest CTA 01/02/24 18:06 IMPRESSION: When compared with 11/25/2023, there is worsening bilateral lung disease. This may represent worsening multifocal pneumonia. Inflammatory disease such as sarcoidosis would also be a consideration. There is also intrathoracic adenopathy. Follow-up is recommended to ensure expected resolution. Chest X-Ray 01/04/24 10:20 IMPRESSION: Faint bilateral pulmonary infiltrates similar to what was seen previously. Microbiology 01/03/24 12:30 Sputum - Expectorated Sputum Gram Stain - Final 01/03/24 12:30 Sputum - Expectorated Sputum Sputum Culture - Preliminary 01/02/24 20:14 Blood Blood Culture - Preliminary NEGATIVE TO DATE 01/02/24 19:27 Blood Blood Culture - Preliminary NEGATIVE TO DATE 01/03/24 14:40 Urine,Voided Bacterial Antigens - Final 01/03/24 14:40 Urethra Legionella Urinary Antigen - Final Laboratory Results WBC 8.40 10^3/uL (3.29-11.43) 01/05/24 04:14 RBC 3.66 10^6/uL (3.85-5.65) L 01/05/24 04:14 Hgb 10.30 g/dL (11.27-16.99) L 01/05/24 04:14 Hct 32.5 % (37-53) L 01/05/24 04:14 MCV 88.8 fl (82-101) 01/05/24 04:14 MCH 28.1 pg (27-33) 01/05/24 04:14 MCHC 31.7 g/dL (30-55) 01/05/24 04:14 RDW 14.6 % (12.1-15.1) 01/05/24 04:14 Plt Count 226 10^3/cmm (157-399) 01/05/24 04:14 MPV 9.8 fL (7.4-10.4) 01/05/24 04:14 Neut % (Auto) 61.9 % 01/05/24 04:14 Lymph % (Auto) 19.2 % 01/05/24 04:14 [place] % (Auto) 10.8 % 01/05/24 04:14 Eos % (Auto) 6.8 % 01/05/24 04:14 Baso % (Auto) 0.7 % 01/05/24 04:14 Neut # (Auto) 5.20 10^3/uL (1.8-7.7) 01/05/24 04:14 Lymph # (Auto) 1.6 10^3/uL (0.8-4.8) 01/05/24 04:14 [place] # (Auto) 0.9 10^3/uL (0.2-0.9) 01/05/24 04:14 Eos # (Auto) 0.6 10^3/uL (0.0-0.8) 01/05/24 04:14 Baso # (Auto) 0.1 10^3/uL (0.0-0.1) 01/05/24 04:14 Nucleated RBC % (auto) 0 % 01/05/24 04:14 Nucleated RBCs # 0.0 /100WBC 01/05/24 04:14 Specimen Type Arterial 01/04/24 09:26 Sample Site Radial, right 01/04/24 09:26 ABG pH 7.53 (7.35-7.45) H 01/04/24 09:26 ABG pCO2 36.0 mmHg (35-45) 01/04/24 09:26 ABG pO2 60.5 mmHg (80.0-100.0) L 01/04/24 09:26 ABG PO2/FiO2 Ratio 288 01/04/24 09:26 ABG HCO3 30.0 mmol/L (22-26) H 01/04/24 09:26 ABG O2 Saturation 93.2 01/04/24 09:26 ABG Base Excess 7.0 mmol/L (-2.0-2.0) H 01/04/24 09:26 Miles Test Pos 01/04/24 09:26 A-a O2 Gradient 6.1 mmHg (5-10) 01/04/24 09:26 Hematocrit 31.6 % (42-52) L 01/04/24 09:26 Hgb O2 Saturation 91.1 % (95-100) L 01/04/24 09:26 Carboxyhemoglobin 1.7 %THgb (0.4-20.1) 01/04/24 09:26 Methemoglobin 0.5 % (0.4-1.5) 01/04/24 09:26 Total Hemoglobin 10.3 g/dL (14-18) L 01/04/24 09:26 Sodium 129.0 mmol/L (131-143) L 01/04/24 09:26 Potassium 3.0 mmol/L (3.5-5.0) L 01/04/24 09:26 Glucose 206.0 mg/dL (70-115) H 01/04/24 09:26 Ionized Calcium 1.1 mmol/L (1.1-1.4) 01/04/24 09:26 O2 Delivery Device Room air 01/04/24 09:26 O2 Liters/Min 4.0 % 01/02/24 22:31 FiO2 21.0 % 01/04/24 09:26 Openstack Cloud Consulting Architect ID [place] 01/04/24 09:26 Sodium 134 mmol/L (136-145) L 01/05/24 04:14 Potassium 4.2 mmol/L (3.5-5.1) 01/05/24 04:14 Chloride 96 mmol/L (98-107) L 01/05/24 04:14 Carbon Dioxide 28 mmol/L (22-29) 01/05/24 04:14 Anion Gap 14.2 (5-19) 01/05/24 04:14 BUN 11 mg/dL (6-20) 01/05/24 04:14 Creatinine 0.7 mg/dL (0.7-1.2) 01/05/24 04:14 GFR Calculation 129.1 mL/min (90-130) 01/05/24 04:14 Glucose 138 mg/dL (65-115) H 01/05/24 04:14 POC Glucose 134 mg/dL (70-110) H 01/05/24 06:18 Estimat Average Glucose 154 01/02/24 17:55 Hemoglobin A1c 7.0 % (4.0-6.0) H 01/02/24 17:55 Calculated Osmolality 280 mOsm/kg (285-295) L 01/05/24 04:14 Lactic Acid 3.5 mmol/L (0.5-2.2) H 01/03/24 03:57 Lactic Acid (Sepsis) 2.9 mmol/L (0.5-2.2) H 01/03/24 06:54 Calcium 8.5 mg/dL (8.5-10.5) 01/05/24 04:14 Magnesium 1.4 mg/dL (1.7-2.3) L 01/05/24 04:14 Iron 16 ug/dL (59-158) L 01/03/24 03:57 TIBC 405 mcg/dl 01/03/24 03:57 % Saturation 3.9 % (20-50) L 01/03/24 03:57 Unsat Iron Binding 389 ug/dL (112-347) H 01/03/24 03:57 Total Bilirubin 1.3 mg/dL (0.15-1.2) H 01/05/24 04:14 AST 60 U/L (0-40) H 01/05/24 04:14 ALT 36 U/L (0-41) 01/05/24 04:14 Alkaline Phosphatase 77 U/L (40-130) 01/05/24 04:14 Troponin T Baseline 15 ng/L (0-15) 01/02/24 17:55 Troponin T 120 Minute 11.27 ng/L (0-15) 01/02/24 20:17 Delta Troponin T -3.73 ABS# (0-10) L 01/02/24 20:17 Troponin T Hi Sens 6Hr 16.42 ng/L (0-15) H 01/03/24 00:30 Troponin T Hi Sens 6Hr Delta 1.42 ng/L (0-12) 01/03/24 00:30 NT-Pro-B Natriuret Pep 610 pg/mL (0-125) H 01/02/24 17:55 Total Protein 6.7 g/dL (6.6-8.7) 01/05/24 04:14 Albumin 3.6 g/dL (3.5-5.2) 01/05/24 04:14 Globulin 3.1 g/dL (1.3-4.6) 01/05/24 04:14 Folate 9.1 ng/mL (4.5-32.2) 01/04/24 04:03 Procalcitonin 0.19 ng/mL (0-0.5) 01/03/24 03:57 Procalcitonin 0.19 ng/mL (0-0.5) 01/03/24 03:57 TSH 0.87 uIU/mL (0.27-4.20) 01/02/24 17:55 Urine Color Yellow (Yellow) 01/03/24 02:35 Urine Appearance Clear (CLEAR) 01/03/24 02:35 Urine pH 5.5 (5-7) 01/03/24 02:35 Ur Specific [place] 1.035 (1.005-1.030) H 01/03/24 02:35 Urine Protein Negative (Negative) 01/03/24 02:35 Urine Glucose (UA) 3+ (Normal) H 01/03/24 02:35 Urine Ketones Negative (Negative) 01/03/24 02:35 Urine Blood Negative (Negative) 01/03/24 02:35 Urine Nitrate Negative (Negative) 01/03/24 02:35 Urine Bilirubin Negative (Negative) 01/03/24 02:35 Urine Urobilinogen 1.0 mg/dL (Negative) 01/03/24 02:35 Ur Leukocyte Esterase Negative (Negative) 01/03/24 02:35 Urine RBC 0-2 /hpf (0-2) 01/03/24 02:35 Urine WBC 0-5 /hpf (0-5) 01/03/24 02:35 Ur Squamous Epith Cells 0-5 /hpf (0-5) 01/03/24 02:35 Amorphous Sediment Not Reportable 01/03/24 02:35 Urine Bacteria None seen /hpf (NONE) 01/03/24 02:35 Hyaline Casts 0.40 /lpf 01/03/24 02:35 Nasal MRSA (PCR) Not detected (Negative) 01/03/24 15:52 Urine Opiates Screen Positive ng/mL (Negative) H 01/03/24 02:35 Ur Barbiturates Screen Negative ng/mL (Negative) 01/03/24 02:35 Ur Phencyclidine Scrn Negative ng/mL (Negative) 01/03/24 02:35 Ur Amphetamines Screen Negative ng/mL (Negative) 01/03/24 02:35 U Benzodiazepines Scrn Negative ng/mL (Negative) 01/03/24 02:35 Urine Cocaine Screen Negative ng/mL (Negative) 01/03/24 02:35 U Marijuana (THC) Screen Negative ng/mL (Negative) 01/03/24 02:35 Ethyl Alcohol 347 mg/dL (0-10) H* 01/02/24 20:17 Serum Ketones Negative (Negative) 01/02/24 17:55 Adenovirus (PCR) Not detected (NOT DETECT) 01/03/24 12:30 C. pneumoniae DNA (PCR) Not detected (NOT DETECT) 01/03/24 12:30 Coronavirus 229E (PCR) Not detected (NOT DETECT) 01/03/24 12:30 Hepatitis A IgM Ab Non-reactive (Nonreactive) 01/02/24 17:55 Hep Bs Antigen Non-reactive (Nonreactive) 01/02/24 17:55 Hep Bs Antibody 6.5 (11.5-1000) L 01/02/24 17:55 Hep B Core Total Ab Non-reactive (Nonreactive) 01/02/24 17:55 Hepatitis C Antibody Non-reactive (Nonreactive) 01/02/24 17:55 HIV 1&2 Ab & HIV 1 Ag Non-reactive (Non-Reactiv) 01/02/24 17:55 HIV 1&2 Antibody Non-reactive (Non-Reactiv) 01/02/24 17:55 Human Metapneumovir PCR Not detected (NOT DETECT) 01/03/24 12:30 Influenza A (H1) PCR Not detected (NOT DETECT) 01/03/24 12:30 Influ A (H1/09) PCR Not detected (NOT DETECT) 01/03/24 12:30 Influenza A (H3) PCR Not detected (NOT DETECT) 01/03/24 12:30 Influenza Type A (PCR) Not detected (NOT DETECT) 01/03/24 12:30 Influenza Type B (PCR) Not detected (NOT DETECT) 01/03/24 12:30 M. pneumoniae (PCR) Not detected (NOT DETECT) 01/03/24 12:30 Parainfluenza 1 (PCR) Not detected (NOT DETECT) 01/03/24 12:30 Parainfluenza 2 (PCR) Not detected (NOT DETECT) 01/03/24 12:30 Parainfluenza 3 (PCR) Not detected (NOT DETECT) 01/03/24 12:30 Parainfluenza 4 (PCR) Not detected (NOT DETECT) 01/03/24 12:30 RSV Type A (PCR) Not detected (NOT DETECT) 01/03/24 12:30 RSV Type B (PCR) Not detected (NOT DETECT) 01/03/24 12:30 Entero/Rhino (PCR) Detected (NOT DETECT) A 01/03/24 12:30 SARS-CoV-2 (PCR) Not detected (NOT DETECT) 01/03/24 12:30 SARS-CoV-2 Ag (Rapid) Negative (Negative) 01/02/24 18:55 Vitals Last Vital Signs Temp 97.5 F L 01/05/24 11:58 Pulse 83 01/05/24 11:58 Resp 20 H 01/05/24 11:58 BP 148/92 01/05/24 11:58 Pulse Ox 95 01/05/24 11:58 O2 Del Method Room Air 01/05/24 11:58 O2 Flow Rate 2 01/04/24 02:35 Discharge Plan Discharge Patient Disposition: Home Condition: Stable Prescriptions: New amoxicillin-pot clavulanate 875-125 mg tablet 1 tab PO BID Qty: 14 0RF levofloxacin 750 mg tablet 750 mg PO Q24H 7 Days Qty: 7 0RF Continued Vitamin B-1 (mononitrate) 100 mg tablet 100 mg PO DAILY 30 Days Qty: 30 5RF metoprolol succinate 25 mg tablet extended release 24 hr 25 mg PO DAILY Qty: 90 4RF Xarelto 20 mg tablet 20 mg PO DAILY Qty: 90 4RF Rx Instructions: must administer with evening meal (DME) cock up splint See Rx Instructions .Route .MEDSUPPLY Qty: 1 0RF Rx Instructions: As directed Jardiance 25 mg tablet 25 mg PO DAILY gabapentin 300 mg capsule 300 mg PO DAILY cholecalciferol (vitamin D3) 1,250 mcg (50,000 unit) capsule 50,000 unit PO .weekly Qty: 14 4RF acetaminophen 500 mg Tablet 1,000 - 1,500 mg PO Q6H PRN (Reason: Pain) ascorbic acid (vitamin C) [Vitamin C] 500 mg Tablet 250 mg PO DAILY metformin 500 mg tablet extended release 24 hr 1,000 mg PO BID zinc sulfate 50 mg zinc (220 mg) Capsule 50 mg PO DAILY potassium gluconate 600 mg (99 mg) Tablet 600 mg PO DAILY clonidine HCl 0.1 mg Tablet 0.1 mg PO BID Qty: 60 0RF amiodarone [Pacerone] 200 mg Tablet 200 mg PO BID Qty: 60 0RF amlodipine 10 mg Tablet 10 mg PO BEDTIME Qty: 30 0RF Discharge Orders: Discharge Order (Routine); Ordered 01/05/24 Ordered By: Anil Cochran Referrals: Nikole Solano APN [Primary Care Provider] - 7-10 days (Please call for an follow-up appointment within 4 to 10 days. Thank you.) Discharge Diet: Regular Discharge Activity: Resume usual activity and Increase activity as tolerated Patient Instructions: Levofloxacin (By mouth) (Levaquin, Levaquin Leva-ray), A- fib (Atrial Fibrillation) (DC), Opioid Safety Activity Restrictions/Additional Instructions: Augmentin and Levaquin are the antibiotics if positive for next 7 days. Please try to avoid alcohol consumption. Please follow-up with a primary care provider within the next 7 days. Discharge Attestations Time Spent in Discharge Care*: greater than 30 min Specific Discharge Activities: educating patient, discussing with pcp/other providers, discussing with case sealer/social workers/dc planners, documenting/other paperwork and evaluating patient/reviewing data Status at Discharge: Cognitive status at discharge: cognitively intact , Behavioral status at discharge: cooperative , Functional status at discharge: independent ambulation , Overall status at discharge: patient is back to baseline Quality Metrics Clinical Quality Measures [ No reported AMI, CVA or VTE this stay] Coding Level of Care Code 81260 Total time (in minutes) for Discharge: 60 Diagnoses Bilateral pneumonia J18.9 Lung location: unspecified part of lung Pneumonia type: due to unspecified organism Alcohol intoxication F10.920 Complication of substance-induced condition: uncomplicated Acute hypoxic respiratory failure J96.01 Lactic acidosis E87.20 A-fib I48.91 Type 2 diabetes mellitus with other oral complication, without long-term current use of insulin E11.638 Diabetes mellitus type: type 2 Diabetes mellitus intermediate project manager insulin use: without residential use Diabetes mellitus complication status: with oral complications Diabetes mellitus complication detail: with other oral complications
[2024-01-05 13:26] LABS: Glucose Point of Care 145 mg/dL (70-110)
[2024-01-06 12:25] LABS: COMPLEMENT COMPONENT C3C 117 mg/dL (82-185); COMPLEMENT COMPONENT C4C 17 mg/dL (15-53)
[2024-01-06 13:15] LABS: CENTROMERE B ANTIBODY <1.0 NEG AI (<1.0 NEG); JO-1 ANTIBODY <1.0 NEG AI (<1.0 NEG); RNP ANTIBODY <1.0 NEG AI (<1.0 NEG); SCL-70 ANTIBODY <1.0 NEG AI (<1.0 NEG); SJOGREN'S ANTIBODY (SS-A) <1.0 NEG AI (<1.0 NEG); SM ANTIBODY <1.0 NEG AI (<1.0 NEG); SS-B <1.0 NEG AI (<1.0 NEG)
[2024-01-06 13:25] LABS: Quantiferon Mitogen 7.77 IU/mL; Quantiferon Nil 0.03 IU/mL; Quantiferon TB Gold NEGATIVE (NEGATIVE)
[2024-01-06 15:03] LABS: COMPLEMENT, TOTAL (CH50) >60 U/mL (31-60)
[2024-01-06 17:09] LABS: THYROID PEROXIDASE ANTIBODIES 1 IU/mL (<9)
[2024-01-07 10:50] LABS: ANA PATTERN Nuclear, Homogeneous; ANA SCREEN, IFA POSITIVE (NEGATIVE)
[2024-01-10 02:25] LABS: DNA AB (DS) CRITHIDIA,IFA NEGATIVE (NEGATIVE)
== END 2024-01-05 13:44 | disposition home or self-care (01) | DRG 177 ==
LOC: ER 18:08 → CSU 22:01
PROVIDERS: Student in an Organized Health Care Education/Training Program; Admitting Provider Student in an Organized Health Care Education/Training Program; Emergency Provider Emergency Medicine; PCP Nurse Practitioner Family; Visit Provider Student in an Organized Health Care Education/Training Program
DX: J69.0 Pneumonitis due to inhalation of food and vomit (principal); J96.01 Acute respiratory failure with hypoxia; E87.20 Acidosis, unspecified; Z11.52 Encounter for screening for COVID-19; Z86.73 Personal history of transient ischemic attack (TIA), and cerebral infarction without residual deficits; Z79.01 Long term (current) use of anticoagulants; F10.129 Alcohol abuse with intoxication, unspecified; Y90.8 Blood alcohol level of 240 mg/100 ml or more; Z87.01 Personal history of pneumonia (recurrent); Z79.84 Long term (current) use of oral hypoglycemic drugs; I10 Essential (primary) hypertension; E11.65 Type 2 diabetes mellitus with hyperglycemia; I48.91 Unspecified atrial fibrillation; R04.0 Epistaxis; E83.42 Hypomagnesemia; E87.6 Hypokalemia; R59.0 Localized enlarged lymph nodes; E11.638 Type 2 diabetes mellitus with other oral complications; Z87.891 Personal history of nicotine dependence; Z81.1 Family history of alcohol abuse and dependence
CPT/HCPCS: 36415; 36416; 36600; 71045; 71275; 80051; 80053; 80306; 80307; 81001; 82009; 82330; 82746; 82805; 82962; 83036; 83540; 83550; 83605; 83735; 83880; 84145; 84443; 84484; 85025; 86160; 86162; 86235; 86255; 86376; 86403; 86480; 86705; 86706; 86709; 86803; 87040; 87070; 87205; 87340; 87426; 87449; 87486; 87581; 87633; 87806; 92610; 93005; 94640; 94664; 94669; 94760; 96365; 96367; 96372; 96376; 99285; J1650; J1815; J2185; J2470; J2543; J3370; J3475; J7120; J7626

== ENCOUNTER 2024-01-18 02:59 | Inpatient (IN) | payer MEDICAID, SELFPAY ==
[2024-01-18] VITALS (16 sets, daily range): BP systolic 106–145; BP diastolic 53–72; PULSE 69–80; RESP 12–26; TEMP 36.6–37.1; O2SAT 84–99; BMI 42.2; BMI 44.6
--- NOTE | 2024-01-18 03:13 | ECG_ITS ---
[facility] Test Date: 2024-01-18 Pat Name: Doug Regalado Department: Room: Gender: Male Clinical Trial Educator: : 1990 Requested By: Ashok Colón Order Number: [id number] Sarthak MD: Rajan Blunt M.D. Measurements Intervals [place] Rate: 68 P: 9 MO: 210 QRS: -24 QRSD: 114 T: 1 QT: 468 QTc: 500 Interpretive Statements SINUS RHYTHM WITH FIRST DEGREE AV BLOCK MODERATE INTRAVENTRICULAR CONDUCTION DELAY PROLONGED QT INTERVAL Compared to ECG 01/03/2024 00:51:48 First degree AV block now present Prolonged QT interval now present Electronically Signed On 01-18-2024 13:39:49 CDT by Rajan Blunt M.D. [email or web address]
--- NOTE | 2024-01-18 03:13 | XRR_ITS ---
PROCEDURE INFORMATION: Exam: XR Chest Exam date and time: 01/18/2024 3:25 AM Age: 33 years old Clinical indication: Shortness of breath; Patient HX: Severe SOB with hypoxia. Recent pneumonia in sept. TECHNIQUE: Imaging protocol: Radiologic exam of the chest. Views: 1 view. COMPARISON: CR (CHEST, ) 01/04/2024 1:33 PM FINDINGS: Lungs: No infiltrate. Patchy ground-glass opacity centrally concerning for pulmonary edema. Pleural spaces: Unremarkable. No pleural effusion. No pneumothorax. Heart/Mediastinum: There is moderate cardiomegaly with vascular congestion. Bones/joints: Unremarkable. XR/XR chest 1V portable [id number] IMPRESSION: 1. Moderate cardiomegaly with vascular congestion. 2. Pulmonary edema pattern.
--- NOTE | 2024-01-18 03:14 | ED_ITS ---
HPI - SOB/Dyspnea 2 General: Chief Complaint: Shortness of Breath/Dyspnea Stated Complaint: o2 Levels Low Time Seen by Provider: 01/18/24 03:08 History of Present Illness: HPI Narrative: 33-year-old male patient with a history of cardiomyopathy. He presents with shortness of breath. He had had some lethargy at home. He noticed his oxygen saturations were low. He was admitted recently to the hospital for similar complaints. He does have a history of atrial fibrillation. He is anticoagulated. Related Data Home Medications Medication Instructions Recorded Confirmed acetaminophen 500 mg tablet 1,000 - 1,500 mg PO Q6H PRN Pain 07/02/23 01/18/24 empagliflozin 25 mg tablet 25 mg PO DAILY 09/11/23 01/18/24 (Jardiance) gabapentin 300 mg capsule 300 mg PO DAILY 09/11/23 01/18/24 ascorbic acid (vitamin C) 500 mg 250 mg PO DAILY 11/26/23 01/18/24 tablet (Vitamin C) metformin 500 mg tablet,extended 1,000 mg PO BID 11/26/23 01/18/24 release 24 hr potassium gluconate 600 mg (99 mg) 600 mg PO DAILY 11/26/23 01/18/24 tablet zinc sulfate 50 mg zinc (220 mg) 50 mg PO DAILY 11/26/23 01/18/24 capsule albuterol sulfate 2.5 mg/3 mL 2.5 mg inhalation Q6H PRN 01/18/24 01/18/24 (0.083 %) solution for nebulization Shortness Of Breath hydrochlorothiazide 25 mg tablet 25 mg PO QAM 01/18/24 01/18/24 Previous Rx's Medication Instructions Recorded cock up splint #1 ea 09/26/21 metoprolol succinate 25 mg 25 mg PO DAILY #90 tabs 10/31/23 tablet,extended release 24 hr rivaroxaban 20 mg tablet (Xarelto) 20 mg PO DAILY #90 tabs 10/31/23 amiodarone 200 mg tablet (Pacerone) 200 mg PO BID #60 tabs 12/04/23 amlodipine 10 mg tablet 10 mg PO BEDTIME #30 tabs 12/04/23 clonidine HCl 0.1 mg tablet 0.1 mg PO BID #60 tabs 12/04/23 thiamine mononitrate (vit B1) 100 100 mg PO DAILY 30 days #30 tabs 12/16/23 mg tablet (Vitamin B-1 (mononitrate)) cholecalciferol (vitamin D3) 1,250 50,000 unit PO .weekly #14 caps 12/17/23 mcg (50,000 unit) capsule amoxicillin 875 mg-potassium 1 tab PO BID #14 tabs 01/05/24 clavulanate 125 mg tablet Allergies Allergy/AdvReac Type Severity Reaction Status Date / Time ceftriaxone [From Rocephin] Allergy Unknown Verified 12/16/23 07:44 PFSH ED 2 PFSH: Medical History Stroke (cerebrum) Substance abuse Tobacco abuse Transaminitis Atrial flutter Hypertension Diabetes mellitus Alcohol abuse No significant medical problems Surgical History No significant past surgical history Family History Other Alcohol abuse Diabetes Social History Smoking and tobacco/nicotine status: former use of tobacco/nicotine Alcohol intake: current Alcohol type: hard liquor Caregiver/support person: Yes Lives independently: No Household members: other Details: Lives with mother Housing: House Marital status: Single 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 Const: GENERAL APPEARANCE: cooperative, lethargic and ill appearing (Mildly); not frail appearing ORIENTATION/CONSCIOUSNESS: Yes lethargic HENMT: COMMON NORMALS: normocephalic, atraumatic and Normal external nose present HEAD & SCALP: normocephalic and atraumatic FACE & SINUS: normal facial exam and face symmetric NOSE: Normal external nose present Eye: COMMON NORMALS: Equal, round and reactive pupils present and EOMs intact bilaterally PUPIL: Yes Equal, round and reactive pupils present Neck/C-Spine: GENERAL: Yes trachea midline Chest: CHEST: Yes Symmetrical chest wall rise Resp: COMMON NORMALS: normal respiratory effort, No retractions, No use of accessory muscles and clear to auscultation bilaterally AUSCULTATION: clear to auscultation bilaterally Cardio: COMMON NORMALS: regular rate and regular rhythm RATE: regular rate RHYTHM: regular rhythm GI: COMMON NORMALS: Normal to inspection, nondistended, normoactive bowel sounds present Neuro: TAL COMA SCALE: document GCS findings [place] coma scale eye opening: To sound [place] coma scale verbal response: Orientated Tal coma scale motor response: Obey commands Tal coma scale total score: 14 S ENSORIUM/ORIENTATION: Yes lethargic SENSORY EXAM: Yes extremities (intact) Psych: COMMON NORMALS: speech normal SPEECH: Yes normal speech Skin: COMMON NORMALS: no rashes or lesions noted GENERAL SKIN EXAM: no rashes or lesions noted Course 2 Vital Signs: Vital signs: Vital Signs Temperature 98.5 F 01/18/24 15:34 Pulse Rate 77 01/18/24 15:34 Respiratory Rate 16 01/18/24 15:34 Blood Pressure 128/65 01/18/24 15:34 Pulse Oximetry 92 01/18/24 15:34 Oxygen Delivery Me thod Nasal Cannula 01/18/24 15:34 Oxygen Flow Rate 5 01/18/24 15:34 Fraction of Inspir ed Oxygen 50 01/18/24 07:20 MDM - SOB/Dyspnea Medical Decision Making Lethargic 33-year-old male found to have low oxygen saturations. He is quite apneic in the ER. Originally was placed on 6 L nasal cannula for significant hypoxia. His apneic episodes were so significant, that this only increased his oxygenation to the mid 80s before he would start to sink again due to apnea. He is placed on BiPAP, and is doing well with that. He is not hypertensive. His chest x-ray shows fluid overload. He is given IV Lasix. His BNP is only 337. Troponin is elevated. Alcohol level is 215. Is bipap dependent at this point. He will require admission. Spoke with hospitalist. No definite signs of pneumonia clinically or by imaging. He is anticoagulated, making embolism much less likely. Lab Data 01/18/24 03:32 01/18/24 03:32 Labs/Radiology: Radiology Impressions Chest X-Ray 01/18/24 03:13 IMPRESSION: 1. Moderate cardiomegaly with vascular congestion. 2. Pulmonary edema pattern. Laboratory Results WBC 7.71 10^3/uL (3.29-11.43) 01/18/24 03:32 RBC 3.59 10^6/uL (3.85-5.65) L 01/18/24 03:32 Hgb 9.40 g/dL (11.27-16.99) L 01/18/24 03:32 Hct 30.8 % (37-53) L 01/18/24 03:32 MCV 85.8 fl (82-101) 01/18/24 03:32 MCH 26.2 pg (27-33) L 01/18/24 03:32 MCHC 30.5 g/dL (30-55) 01/18/24 03:32 RDW 15.2 % (12.1-15.1) H 01/18/24 03:32 Plt Count 289 10^3/cmm (157-399) 01/18/24 03:32 MPV 9.1 fL (7.4-10.4) 01/18/24 03:32 Neut % (Auto) 58.4 % 01/18/24 03:32 Lymph % (Auto) 29.1 % 01/18/24 03:32 Gila % (Auto) 7.9 % 01/18/24 03:32 Eos % (Auto) 2.5 % 01/18/24 03:32 Baso % (Auto) 1.7 % 01/18/24 03:32 Neut # (Auto) 4.51 10^3/uL (1.8-7.7) 01/18/24 03:32 Lymph # (Auto) 2.2 10^3/uL (0.8-4.8) 01/18/24 03:32 Gila # (Auto) 0.6 10^3/uL (0.2-0.9) 01/18/24 03:32 Eos # (Auto) 0.2 10^3/uL (0.0-0.8) 01/18/24 03:32 Baso # (Auto) 0.1 10^3/uL (0.0-0.1) 01/18/24 03:32 Nucleated RBC % (auto) 0 % 01/18/24 03:32 Nucleated RBCs # 0.0 /100WBC 01/18/24 03:32 Specimen Type Arterial 01/18/24 03:33 Sample Site Brachial, right 01/18/24 03:33 O2 Sat Pulse Oximetry Cancelled 01/18/24 03:22 ABG pH 7.34 (7.35-7.45) L 01/18/24 03:33 ABG pCO2 40.4 mmHg (35-45) 01/18/24 03:33 ABG pO2 73.9 mmHg (80.0-100.0) L 01/18/24 03:33 ABG PO2/FiO2 Ratio 167 01/18/24 03:33 ABG HCO3 21.6 mmol/L (22-26) L 01/18/24 03:33 ABG O2 Saturation 93.2 01/18/24 03:33 ABG Base Excess -4.0 mmol/L (-2.0-2.0) L 01/18/24 03:33 Miles Test N/a 01/18/24 03:33 A-a O2 Gradient 25.0 mmHg (5-10) H 01/18/24 03:33 Hematocrit 29.8 % (42-52) L 01/18/24 03:33 Hgb O2 Saturation 91.1 % (95-100) L 01/18/24 03:33 Carboxyhemoglobin 1.8 %THgb (0.4-20.1) 01/18/24 03:33 Methemoglobin 0.5 % (0.4-1.5) 01/18/24 03:33 Total Hemoglobin 9.7 g/dL (14-18) L 01/18/24 03:33 Sodium 139.0 mmol/L (131-143) 01/18/24 03:33 Potassium 3.4 mmol/L (3.5-5.0) L 01/18/24 03:33 Glucose 137.0 mg/dL (70-115) H 01/18/24 03:33 Ionized Calcium 1.2 mmol/L (1.1-1.4) 01/18/24 03:33 Respiration Rate Cancelled 01/18/24 03:22 O2 Delivery Device Nc 01/18/24 03:33 O2 Liters/Min 6.0 % 01/18/24 03:33 SIMV Cancelled 01/18/24 03:22 Vent Mode Cancelled 01/18/24 03:22 Mechanical Rate Cancelled 01/18/24 03:22 Spontaneous Rate Cancelled 01/18/24 03:22 FiO2 44.0 % 01/18/24 03:33 Tidal Volume Cancelled 01/18/24 03:22 PEEP Cancelled 01/18/24 03:22 Pressure Support Cancelled 01/18/24 03:22 Pressure Control Cancelled 01/18/24 03:22 CPAP Cancelled 01/18/24 03:22 Mode BiPAP Cancelled 01/18/24 03:22 Specimen Drawn By Cancelled 01/18/24 03:22 Human Performance Professor ID Ed 01/18/24 03:33 Crit Value Read Back Cancelled 01/18/24 03:22 Blood Gas Notified Time Cancelled 01/18/24 03:22 Sodium 136 mmol/L (136-145) 01/18/24 03:32 Potassium 3.6 mmol/L (3.5-5.1) 01/18/24 03:32 Chloride 91 mmol/L (98-107) L 01/18/24 03:32 Carbon Dioxide 21 mmol/L (22-29) L 01/18/24 03:32 Anion Gap 27.6 (5-19) H 01/18/24 03:32 BUN 18 mg/dL (6-20) 01/18/24 03:32 Creatinine 1.2 mg/dL (0.7-1.2) 01/18/24 03:32 GFR Calculation 69.3 mL/min (90-130) L 01/18/24 03:32 Glucose 142 mg/dL (65-115) H 01/18/24 03:32 Calculated Osmolality 286 mOsm/kg (285-295) 01/18/24 03:32 Lactic Acid 8.7 mmol/L (0.5-2.2) H* 01/18/24 03:32 Calcium 9.2 mg/dL (8.5-10.5) 01/18/24 03:32 Total Bilirubin 0.5 mg/dL (0.15-1.2) 01/18/24 03:32 AST 49 U/L (0-40) H 01/18/24 03:32 ALT 24 U/L (0-41) 01/18/24 03:32 Alkaline Phosphatase 98 U/L (40-130) 01/18/24 03:32 Troponin T Baseline 28 ng/L (0-15) H 01/18/24 03:32 NT-Pro-B Natriuret Pep 337 pg/mL (0-125) H 01/18/24 03:32 Total Protein 7.5 g/dL (6.6-8.7) 01/18/24 03:32 Albumin 4.2 g/dL (3.5-5.2) 01/18/24 03:32 Globulin 3.3 g/dL (1.3-4.6) 01/18/24 03:32 Ethyl Alcohol 216 mg/dL (0-10) H 01/18/24 03:32 Coronavirus (PCR) Negative (Negative) 01/18/24 03:32 Influenza A (PCR) Negative (Negative) 01/18/24 03:32 Influenza Type B (PCR) Negative (Negative) 01/18/24 03:32 RSV (PCR) Negative (Negative) 01/18/24 03:32 All radiology interpretation(s) finalized by discharge Critical Care Time 2 Critical Care Time: Critical Care Time: Yes Total Critical Care Time: 35 Attestation: This case had a high probability of a clinically significant, sudden, or life threatening deterioration of this patient's condition which required my full and direct attention, intervention and personal management. Time is independent of any procedures performed. Discharge Plan Discharge Patient Disposition: Admitted As Inpatient Admit Provider: Luciano Grant Clinical Impression: Alcohol intoxication, CHF exacerbation, Acute hypoxic respiratory failure Condition: Serious Coding Level of Care Code ED Lacquer Sizer for Shala Ocampo
[2024-01-18] MEDS: ipratropium-albuterol 3 mL Neb INHALATION (03:19)
[2024-01-18 03:43] LABS: ABG PCO2 40.4 mmHg (35-45); ABG PH Result 7.34 (7.35-7.45); Arterial Blood Gas Hematocrit 29.8 % (42-52); Blood Gas Operator Identificat ED; Blood Gas Sample Site Brachial, right; Blood Gas Sample Type Arterial; Carboxyhemoglobin 1.8 %THgb (0.4-20.1); HCO3 ABG 21.6 mmol/L (22-26); HGB O2 Sat 91.1 % (95-100); Ionized Calcium Level - ABG 1.2 mmol/L (1.1-1.4); Methemoglobin 0.5 % (0.4-1.5); Oxygen Device NC; Oxygen Saturation ABG 93.2; PO2 ABG 73.9 mmHg (80.0-100.0); PO2 FiO2 Ratio Arterial Blood 167; Potassium Level - ABG 3.4 mmol/L (3.5-5.0); Total Hemoglobin 9.7 g/dL (14-18)
[2024-01-18 03:47] LABS: Basophils # 0.1 10^3/uL (0.0-0.1); Basophils % 1.7 %; Eosinophils # 0.2 10^3/uL (0.0-0.8); Eosinophils % 2.5 %; Hematocrit 30.8 % (37-53); Lymphocytes # 2.2 10^3/uL (0.8-4.8); Lymphocytes % 29.1 %; Mean Corpuscular HGB Conc 30.5 g/dL (30-55); Mean Corpuscular Hemoglobin 26.2 pg (27-33); Mean Corpuscular Volume 85.8 fl (82-101); Mean Platelet Volume 9.1 fL (7.4-10.4); Monocytes # 0.6 10^3/uL (0.2-0.9); Monocytes % 7.9 %; Neutrophils # 4.51 10^3/uL (1.8-7.7); Neutrophils % 58.4 %; Nucleated Red Blood Cells % 0 %; Platelet Count 289 10^3/cmm (157-399); Red Blood Count 3.59 10^6/uL (3.85-5.65); Red Cell Distribution Width 15.2 % (12.1-15.1); White Blood Count 7.71 10^3/uL (3.29-11.43)
[2024-01-18] MEDS: FUROsemide 10 mg/mL SDV 10mL 80 MG IVP (03:50)
[2024-01-18 04:13] LABS: Alanine Aminotransferase 24 U/L (0-41); Albumin Level 4.2 g/dL (3.5-5.2); Alcohol Level 216 mg/dL (0-10); Alkaline Phosphatase 98 U/L (40-130); Anion Gap 27.6 (5-19); Aspartate Amino Transferase 49 U/L (0-40); Carbon Dioxide 21 mmol/L (22-29); Chloride 91 mmol/L (98-107); Globulin 3.3 g/dL (1.3-4.6); Glucose 142 mg/dL (65-115); Potassium 3.6 mmol/L (3.5-5.1); Sodium 136 mmol/L (136-145); Total Bilirubin 0.5 mg/dL (0.15-1.2); Total Protein 7.5 g/dL (6.6-8.7)
[2024-01-18 04:17] LABS: Lactic Sepsis W/Reflex 8.7 mmol/L (0.5-2.2); Troponin(5th) Baseline 28 ng/L (0-15)
[2024-01-18 04:24] LABS: Covid PCR NEGATIVE (Negative); Influenza A NEGATIVE (Negative); Influenza B NEGATIVE (Negative); Respiratory Syncytial Virus Ce NEGATIVE (Negative)
[2024-01-18 04:54] LABS: Blood Urea Nitrogen 18 mg/dL (6-20); Calcium 9.2 mg/dL (8.5-10.5); Creatinine Clr Calc Pharmacy 130.0463; Glomerular Filtration Rate 69.3 mL/min (90-130); NT Pro B Type Natriuretic Pept 337 pg/mL (0-125); Osmolality Calculated 286 mOsm/kg (285-295)
--- NOTE | 2024-01-18 05:19 | ECG_ITS ---
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 Measurements Intervals [place] Rate: 75 P: 56 [place]: 205 QRS: 84 QRSD: 119 T: 53 QT: 456 QTc: 512 Interpretive Statements SINUS RHYTHM MODERATE INTRAVENTRICULAR CONDUCTION DELAY PROLONGED QT INTERVAL Compared to ECG 01/18/2024 03:39:14 First degree AV block no longer present Electronically Signed On 01-18-2024 13:46:57 CDT by Rajan Blunt M.D. [id number]
[2024-01-18 05:27] LABS: Reflex Lactate Order REFLEX LACTIC ORDERD
[2024-01-18 05:49] LABS: Troponin 5 2HR 34.64 ng/L (0-15); Troponin 5 2HR Delta 6.64 ABS# (0-10)
[2024-01-18 05:52] LABS: Lactic Acid level (Lactate) 7.7 mmol/L (0.5-2.2)
--- NOTE | 2024-01-18 06:12 | P.HP_ITS ---
Providers/Chief Complaint 2 Admitting Physician: Luciano Grant MD Primary Care Provider: Nikole Solano APN Chief Complaint: o2 Levels Low History of Present Illness Doug Regalado is a 33 year old male with history of alcoholism, atrial fibrillation, diabetes recently discharged for pneumonia 01/05/[address] Cochran. Patient developed acute shortness of breath this morning. He denies being treated for sleep apnea. He admits to alcoholism drinking 8-10 Air[employer] bottle whiskeys daily. He states his mother is also drinking 6-8 a day. They live together. She has commented that he drinks too much but as he reports she also is a drinker. Patient is interested in quitting alcohol and has never been on naltrexone or Antabuse. He does sometimes go into withdrawal from alcohol. 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 He tells me he has not done this for some time but did work at this for 3 years. Patient quit smoking in June. He tells me he takes his medications faithfully including the Xarelto and has not missed any. He denies any other drug use. Patient is on metformin and has had lactic acidosis ranging from 2.3-8.7 on every occasion between August 2018 and 01/2024 Review of Systems 2 Narrative: General No fevers chills Cardiovascular positive for leg swelling worse than usual Respiratory positive for shortness of breath and dyspnea on exertion GI no nausea vomiting diarrhea constipation he has 2 bowel movements a day without melena or hematochezia no dysuria hematuria no erectile dysfunction Psychiatric patient denies depression he does admit to alcohol addiction Hematologic he is on chronic anticoagulation but denies bleeding anywhere Medications/Allergies Home Medications Medication Instructions Recorded Confirmed Last Taken Type cock up splint #1 ea 09/26/21 01/03/24 Unknown Rx acetaminophen 500 mg tablet 1,000 - 1,500 mg PO Q6H PRN Pain 07/02/23 01/03/24 01/02/24 History empagliflozin 25 mg tablet 25 mg PO DAILY 09/11/23 01/03/24 01/02/24 History (Jardiance) gabapentin 300 mg capsule 300 mg PO DAILY 09/11/23 01/03/24 01/02/24 History metoprolol succinate 25 mg 25 mg PO DAILY #90 tabs 10/31/23 01/03/24 01/02/24 Rx tablet,extended release 24 hr rivaroxaban 20 mg tablet (Xarelto) 20 mg PO DAILY #90 tabs 10/31/23 01/03/24 01/02/24 Rx ascorbic acid (vitamin C) 500 mg 250 mg PO DAILY 11/26/23 01/03/24 01/02/24 History tablet (Vitamin C) metformin 500 mg tablet,extended 1,000 mg PO BID 11/26/23 01/03/24 01/02/24 History release 24 hr potassium gluconate 600 mg (99 mg) 600 mg PO DAILY 11/26/23 01/03/24 01/02/24 History tablet zinc sulfate 50 mg zinc (220 mg) 50 mg PO DAILY 11/26/23 01/03/24 01/02/24 History capsule amiodarone 200 mg tablet (Pacerone) 200 mg PO BID #60 tabs 12/04/23 01/03/24 01/02/24 Rx amlodipine 10 mg tablet 10 mg PO BEDTIME #30 tabs 12/04/23 01/03/24 Unknown Rx clonidine HCl 0.1 mg tablet 0.1 mg PO BID #60 tabs 12/04/23 01/03/24 01/02/24 Rx thiamine mononitrate (vit B1) 100 100 mg PO DAILY 30 days #30 tabs 12/16/23 01/03/24 01/02/24 Rx mg tablet (Vitamin B-1 (mononitrate)) cholecalciferol (vitamin D3) 1,250 50,000 unit PO .weekly #14 caps 12/17/23 01/03/24 01/02/24 Rx mcg (50,000 unit) capsule amoxicillin 875 mg-potassium 1 tab PO BID #14 tabs 01/05/24 Unknown Rx clavulanate 125 mg tablet Allergies Allergy/AdvReac Type Severity Reaction Status Date / Time ceftriaxone [From Rocephin] Allergy Unknown Verified 12/16/23 07:44 PFSH Acute 2 PFSH: Medical History Stroke (cerebrum) Substance abuse Tobacco abuse Transaminitis Atrial flutter Hypertension Diabetes mellitus Alcohol abuse No significant medical problems Surgical History No significant past surgical history Family History Other Alcohol abuse Diabetes Social History Smoking and tobacco/nicotine status: former use of tobacco/nicotine Alcohol intake: current Alcohol type: hard liquor Caregiver/support person: Yes Lives independently: No Household members: other Details: Lives with mother Housing: House Marital status: Single 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 status: employed 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 CV regular rate and rhythm Lungs diminished breath sounds in the bases Abdomen positive bowel sounds soft obese nontender Calves 2+ to 3 bilateral pretibial edema without asymmetry tenderness or cords Skin warm and dry not jaundiced Mood and affect are appropriate mildly depressed affect but patient denies depression Neuro is alert oriented x 3 Oral pharynx Mallampati 1 Data 01/18/24 03:32 01/18/24 03:32 Micro: Microbiology 01/18/24 05:20 Blood Culture - Preliminary Blood SPECIMEN COLLECTED 01/18/24 03:32 Blood Culture - Preliminary Blood SPECIMEN COLLECTED A&P Assessment and plan (1) CHF exacerbation: Suspect this is acute on chronic combined congestive heart failure however his EKG shows sinus rhythm and his echo in June 2023 showed normal EF. His cardiac silhouette on chest x-ray is enlarged compared to then and he has had 2 admissions for hypoxemia. I think he is developing alcohol-related heart failure. He also has coronary calcifications on his CT scan premature for his age and was a smoker but stopped in June. I will order an echocardiogram. If there is any evidence of shunt I have requested a bubble study. This would be more suspicious if his EF continues to be normal on echo (2) Acute hypoxic respiratory failure: See above morbid of obese patient with alcoholism and A-fib suspicious for acute on chronic CHF and also suspicious for sleep apnea that is undiagnosed and untreated (3) A-fib: Rate currently well-controlled potassium borderline low will diurese and replace potassium magnesium has historically run low and will be replaced. (4) Lactic acidosis: This is almost certainly due to metformin. Discontinue metformin start Amaryl 2 mg daily continue with Jardiance which is appropriate and fluid retention and heart failure. Due to obesity he would be a good candidate for GLP-1 agonist however with his alcoholism I think he would be at risk for pancreatitis already a problem with GLP-1 agonist (5) Alcohol use disorder: Patient is counseled regarding need to stop drinking alcohol. He is agreeable to naltrexone. There is no opiates listed on his medication and he is denies opiate abuse. Will start naltrexone tomorrow 50 mg daily (6) Diabetes mellitus: Start Amaryl. 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 He was a smoker but stopped in June and his CT shows coronary calcifications. I have ordered lipoprotein a high- sensitivity C-reactive protein and lipids. Anticipate that he will need treatment treatment for this. If troponins are rising and echocardiogram shows new heart failure he may need to be considered for coronary artery disease and addition to alcohol related heart failure. Attestations 2 Medical Necessity Statement*: Patient is admitted with heart failure and will require greater than 2 midnights Coding Level of Care Code 77178 Diagnoses CHF exacerbation I50.9 Acute hypoxic respiratory failure J96.01 A-fib I48.91 Lactic acidosis E87.20 Alcohol use disorder F10.90 Type 2 diabetes mellitus with other oral complication, without long-term current use of insulin E11.638 Diabetes mellitus type: type 2 Diabetes mellitus [facility] insulin use: without [facility] use Diabetes mellitus complication status: with oral complications Diabetes mellitus complication detail: with other oral complications Coronary artery disease due to calcified coronary lesion I25.10; I25.84 Time Spent (min) 70
[2024-01-18 06:13] LABS: Glucose Point of Care 131 mg/dL (70-110)
[2024-01-18] MEDS: magnesium sulfate premix 2 GM/50 ML PIGGYBACK IV (06:31)
--- NOTE | 2024-01-18 06:34 | USCV_ITS ---
Doug Regalado Age: 33 Gender: M : 1990 Exam Date: 01/18/2024 10:08 Ordering Phys: Luciano Grant MD Technologist: Ramon lOivas [place] [facility] [place]ication: chf BP: 106 / 53 HR: 73 Rhythm: Sinus Technical Quality: Adequate MEASUREMENTS (Male / Female) Normal Values 2D ECHO LV Diastolic Diameter PLAX 5.5 cm 4.2 - 5.9 / 3.9 - 5.3 cm IVS Diastolic Thickness 1.3 cm 0.6 - 1.0 / 0.6 - 0.9 cm IVS Systolic Thickness 1.8 cm LVPW Diastolic Thickness 1.4 cm 0.6 - 1.0 / 0.6 - 0.9 cm LVPW Systolic Thickness 2.1 cm LVOT Diameter 2.2 cm LV Ejection Fraction 2D Teich 80.1 % LV Ejection Fraction MOD 4C 67.2 % LV Ejection Fraction MOD 2C 67.9 % LV Ejection Fraction 2C AL 68.7 % LA Diameter 4.7 cm RA Systolic Volume 4C AL 76.5 ml RA Systolic Volume 4C MOD 79.0 ml LA Sys Volume AL 63.6 cm cubed LA Sys Volume Index AL 22.2 cm cubed/m squared Aorta at Sinotubular Diameter 2.5 cm IVC Diameter 1.7 cm M-MODE LA Ao Ratio MM 1.6 AV Cusp Separation MM 2.0 cm DOPPLER AV Peak Velocity 183.0 cm/s LVOT Peak Velocity 178.0 cm/s AV Area Cont Eq vti 3.7 cm squared AV Area Cont Eq pk 3.7 cm squared MV Peak Velocity 166.0 cm/s MV Area PHT 5.5 cm squared Mitral E to A Ratio 2.0 TV Peak Velocity 408.5 cm/s TR Peak Velocity 424.0 cm/s TR Peak Gradient 71.9 mmHg TR Mean Velocity 369.0 cm/s TR Mean Gradient 56.8 mmHg TR Velocity Time Integral 147.7 cm PV Peak Velocity 115.0 cm/s RV Ejection Time 0.3 s FINDINGS Left Ventricle Normal left ventricular size, systolic function and wall thickness, with no regional wall motion abnormalities. Estimated LVEF normal 65% Right Ventricle Normal right ventricular size and systolic function. Right Atrium Normal right atrial size. Left Atrium Moderately dilated left atrium. Mitral Valve Structurally normal mitral valve. Mild mitral valve regurgitation. Aortic Valve Structurally normal trileaflet aortic valve. No aortic valve stenosis. Tricuspid Valve Structurally normal tricuspid valve. Mild tricuspid valve regurgitation. Moderately elevated tricuspid gradient 45 mmHg. Pulmonic Valve Pulmonic valve not well visualized. Mild pulmonary valve regurgitation. Pericardium No pericardial effusion. Aorta Normal size aortic root and proximal ascending aorta. IVC Normal inferior vena cava. CONCLUSIONS Mild left ventricle hypertrophy. Normal left ventricle systolic function. Estimated LVEF normal 65%. Moderately dilated left atrium with mild mitral valve regurgitation. Normal right ventricle size and systolic function. Mild tricuspid regurgitation. Moderately elevated right heart and pulmonary artery systolic pressures 50 mmHg. No intra cardiac shunt detected on Doppler. Rajan Blunt MD (Electronically Signed) Final Date: 18 January 2024 13:22 S
[2024-01-18] MEDS: glimepiride 2 mg Tablet PO (07:00)
[2024-01-18 07:15] LABS: Cholesterol 228 mg/dL (0-200); HDL Cholesterol 60 mg/dL (60-100); Iron 19 ug/dL (59-158); LDL Cholesterol Calculated 149 mg/dL (50-129); LDL HDL Ratio 2.48 RATIO (0.00-3.22); Percent Saturation 3.9 % (20-50); Total Iron Binding Capacity 487 mcg/dl; Triglycerides 97 mg/dL (0-150); Unsaturated Iron Binding 468 ug/dL (112-347)
[2024-01-18] MEDS: gabapentin 300 mg Capsule PO (08:52)
[2024-01-18] MEDS: zinc gluconate 50 mg Tablet PO (08:52)
[2024-01-18] MEDS: potassium chloride ER 20 mEq Tablet PO ×2 (08:52→18:16)
[2024-01-18] MEDS: spironolactone 25 mg Tablet PO (08:52)
[2024-01-18] MEDS: cloNIDine 0.1 mg Tablet PO ×2 (08:52→18:16)
[2024-01-18] MEDS: FUROsemide 10 mg/mL SDV 4mL 40 MG IVP ×2 (08:53→18:18)
[2024-01-18] MEDS: thiamine 100 mg Tablet PO (08:53)
[2024-01-18] MEDS: magnesium oxide 400 mg tablet PO ×2 (08:53→18:16)
[2024-01-18] MEDS: metoprolol succinate ER (24 HR) 25 mg Tablet PO (08:53)
[2024-01-18] MEDS: ascorbic acid 500 mg Tablet 250 MG PO (08:53)
[2024-01-18] MEDS: amiodarone 200 mg Tablet PO ×2 (08:53→18:16)
[2024-01-18] MEDS: rivaroxaban 10 mg Tablet 20 MG PO (08:53)
--- NOTE | 2024-01-18 09:05 | PC.PHAR ---
Addendum entered by Kelli Kimble 01/18/24 09:18: Sonia (mom) state had a mental breakdown herself and had to spend some time in our stress unit, recently. She is trying to do better with pts medicatons. I wonder if pt is eligible for home health medication services. Original Note: Pts mother (Sonia) went over home medications. She did not follow up with PCP on 3 medications on med list. They are as follows: Pacerone 200mg bid, Amlodipine 10mg at bedtime, and Clonidine 0.1mg bid. These were medications Dr Shay ordered on 12/05/23. Pt received a 30 day supply and never refilled. Rafy is aware.
[2024-01-18 09:45] LABS: Glucose Point of Care 130 mg/dL (70-110)
--- NOTE | 2024-01-18 09:56 | ECG_ITS ---
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 Measurements Intervals [place] Rate: 72 P: 33 NM: 176 QRS: 83 QRSD: 109 T: 55 QT: 466 QTc: 510 Interpretive Statements SINUS RHYTHM PROLONGED QT INTERVAL Compared to ECG 01/18/2024 05:19:23 Intraventricular conduction delay no longer present Electronically Signed On 01-18-2024 13:46:46 CDT by Rajan Blunt M.D. [id number]
[2024-01-18 10:10] LABS: Troponin 5 6HR 33.81 ng/L (0-15); Troponin 5 6HR Delta 5.81 ng/L (0-12)
[2024-01-18 11:19] LABS: Glucose Point of Care 121 mg/dL (70-110)
[2024-01-18 17:12] LABS: Glucose Point of Care 142 mg/dL (70-110)
[2024-01-18 20:32] LABS: Glucose Point of Care 153 mg/dL (70-110)
[2024-01-18] MEDS: insulin lispro 100 unit/1 mL SUBCUT (21:08)
[2024-01-18] MEDS: amlodipine 10 mg Tablet PO (21:08)
[2024-01-19] VITALS (9 sets, daily range): BP systolic 127–141; BP diastolic 73–75; PULSE 20–75; RESP 18–75; TEMP 36.4–36.8; O2SAT 84–96
[2024-01-19 03:31] LABS: Basophils # 0.1 10^3/uL (0.0-0.1); Eosinophils # 0.2 10^3/uL (0.0-0.8); Eosinophils % 4.1 %; Hematocrit 29.6 % (37-53); Lymphocytes # 1.2 10^3/uL (0.8-4.8); Lymphocytes % 20.5 %; Mean Corpuscular HGB Conc 31.8 g/dL (30-55); Mean Corpuscular Hemoglobin 26.6 pg (27-33); Mean Corpuscular Volume 83.6 fl (82-101); Mean Platelet Volume 9.4 fL (7.4-10.4); Monocytes # 0.7 10^3/uL (0.2-0.9); Monocytes % 11.9 %; Neutrophils # 3.66 10^3/uL (1.8-7.7); Neutrophils % 62.2 %; Nucleated Red Blood Cells % 0 %; Platelet Count 228 10^3/cmm (157-399); Red Blood Count 3.54 10^6/uL (3.85-5.65); Red Cell Distribution Width 15.3 % (12.1-15.1); White Blood Count 5.89 10^3/uL (3.29-11.43)
[2024-01-19 03:52] LABS: Alanine Aminotransferase 19 U/L (0-41); Albumin Level 3.8 g/dL (3.5-5.2); Alkaline Phosphatase 82 U/L (40-130); Anion Gap 15.2 (5-19); Aspartate Amino Transferase 36 U/L (0-40); Blood Urea Nitrogen 17 mg/dL (6-20); Calcium 8.9 mg/dL (8.5-10.5); Carbon Dioxide 32 mmol/L (22-29); Chloride 93 mmol/L (98-107); Globulin 3.3 g/dL (1.3-4.6); Glomerular Filtration Rate 129.1 mL/min (90-130); Glucose 120 mg/dL (65-115); Osmolality Calculated 287 mOsm/kg (285-295); Potassium 3.2 mmol/L (3.5-5.1); Sodium 137 mmol/L (136-145); Total Bilirubin 1.2 mg/dL (0.15-1.2); Total Protein 7.1 g/dL (6.6-8.7)
[2024-01-19 06:25] LABS: Glucose Point of Care 129 mg/dL (70-110)
[2024-01-19] MEDS: ascorbic acid 500 mg Tablet 250 MG PO (08:59)
[2024-01-19] MEDS: FUROsemide 10 mg/mL SDV 4mL 40 MG IVP (08:59)
[2024-01-19] MEDS: potassium chloride ER 20 mEq Tablet PO (08:59)
[2024-01-19] MEDS: metoprolol succinate ER (24 HR) 25 mg Tablet PO (09:00)
[2024-01-19] MEDS: gabapentin 300 mg Capsule PO (09:00)
[2024-01-19] MEDS: zinc gluconate 50 mg Tablet PO (09:00)
[2024-01-19] MEDS: spironolactone 25 mg Tablet PO (09:00)
[2024-01-19] MEDS: amiodarone 200 mg Tablet PO (09:00)
[2024-01-19] MEDS: cloNIDine 0.1 mg Tablet PO (09:00)
[2024-01-19] MEDS: thiamine 100 mg Tablet PO (09:00)
[2024-01-19] MEDS: magnesium oxide 400 mg tablet PO (09:01)
[2024-01-19] MEDS: rivaroxaban 10 mg Tablet 20 MG PO (09:01)
[2024-01-19] MEDS: potassium chloride ER 20 mEq Tablet 40 MEQ PO (10:35)
--- NOTE | 2024-01-19 11:07 | P.DS_ITS ---
Discharge Providers Date of Admission: 01/18/24 05:02 Date of Discharge: January 19, 2024 Attending Provider at Admission: Luciano Grant MD Attending Provider at Discharge: Anil Cochran MD Primary Care Provider: Nikole Solano APN Diagnoses at Discharge Discharge Diagnosis (1) CHF exacerbation: Status: Acute (2) Acute hypoxic respiratory failure: Status: Acute (3) A-fib: Status: Acute (4) Lactic acidosis: Status: Acute (5) Alcohol use disorder: Status: Acute (6) Diabetes mellitus: Status: Acute Qualifiers: Diabetes mellitus complication detail: with other oral complications Diabetes mellitus complication status: with oral complications Diabetes mellitus long term care pharmacist insulin use: without skilled nursing use Diabetes mellitus type: type 2 Qualified Code(s): 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 Cochran. Patient developed acute shortness of breath this morning. He denies being treated for sleep apnea. He admits to alcoholism drinking 8-10 AirPort bottle whiskeys daily. He states his mother is also drinking 6-8 a day. They live together. She has commented that he drinks too much but as he reports she also is a drinker. Patient is interested in quitting alcohol and has never been on naltrexone or Antabuse. He does sometimes go into withdrawal from alcohol. 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 He tells me he has not done this for some time but did work at this for 3 years. Patient quit smoking in June. He tells me he takes his medications faithfully including the Xarelto and has not missed any. He denies any other drug use. Patient is on metformin and has had lactic acidosis ranging from 2.3-8.7 on every occasion between August 2018 and 01/2024 Hospital Course Hospital Course Patient was admitted to the hospital with concerns for respiratory failure. He was started on noninvasive ventilation with BiPAP. Upon admission patient had alcohol intoxication with alcohol level of more than 250. There was concern for mild congestive heart failure for which she was started on IV diuretics. Echocardiogram was done which showed mild LVH with normal EF, dilated LA with moderately elevated RV pressures and PASP of 50 mmHg. Patient responded well to the treatment of nebulization and diuretics and has been on room air at rest for over 12 hours. Home O2 evaluation was done prior to discharge. It is believed patient's symptoms are most likely in setting of respiratory failure due to a combination of sleep apnea, aspiration leading to mild congestive heart failure in setting of somnolence from alcohol abuse. Pulse oximetry study has been done during hospitalization and patient did not qualify for BiPAP. He has been discharged in hemodynamically stable condition. Metformin has been discontinued and has been switched over to Farxiga. He is also being discharged on daily oral Lasix. He is to follow-up with his PCP for official sleep study at the earliest. Patient was counseled in detail about alcohol cessation. [facility] for discussed and patient would want to discuss further with his PCP. Physical Exam Narrative: General Well-developed well-nourished morbidly obese male on room air. CV regular rate and rhythm Lungs diminished breath sounds in the bases Abdomen positive bowel sounds soft obese nontender Calves 2+ to 3 bilateral pretibial edema without asymmetry tenderness or cords Skin warm and dry not jaundiced Mood and affect are appropriate mildly depressed affect but patient denies depression Neuro is alert oriented x 3 Oral pharynx Mallampati 1 Discharge Data Studies Completed and Pending Completed Studies During Hospitalization Category Date Time Status XR chest 1V portable [id number] Stat Exams 01/18/24 03:13 Completed CV. echo complete* [id number] Routine Ultrasound 01/18/24 06:34 Completed Pending at discharge Category Date Time Status Blood Culture Stat Lab 01/18/24 05:20 Results Complete Blood Count w/Auto AM LABS Lab 01/20/24 04:00 Ordered Comprehensive Metabolic Panel AM LABS Lab 01/20/24 04:00 Ordered Lipoprotein (a) Routine Lab 01/18/24 03:32 Received Sputum Culture and Gram Stain Stat Lab 01/18/24 03:54 Results Radiology Impressions Chest X-Ray 01/18/24 03:13 IMPRESSION: 1. Moderate cardiomegaly with vascular congestion. 2. Pulmonary edema pattern. Echocardiogram CONCLUSIONS Mild left ventricle hypertrophy. Normal left ventricle systolic function. Estimated LVEF normal 65%. Moderately dilated left atrium with mild mitral valve regurgitation. Normal right ventricle size and systolic function. Mild tricuspid regurgitation. Moderately elevated right heart and pulmonary artery systolic pressures 50 mmHg. No intra cardiac shunt detected on Doppler. Rajan Blunt MD (Electronically Signed) Final Date: 18 January 2024 13:22 S Laboratory Results WBC 5.89 10^3/uL (3.29-11.43) 01/19/24 02:13 RBC 3.54 10^6/uL (3.85-5.65) L 01/19/24 02:13 Hgb 9.40 g/dL (11.27-16.99) L 01/19/24 02:13 Hct 29.6 % (37-53) L 01/19/24 02:13 MCV 83.6 fl (82-101) 01/19/24 02:13 MCH 26.6 pg (27-33) L 01/19/24 02:13 MCHC 31.8 g/dL (30-55) 01/19/24 02:13 RDW 15.3 % (12.1-15.1) H 01/19/24 02:13 Plt Count 228 10^3/cmm (157-399) 01/19/24 02:13 MPV 9.4 fL (7.4-10.4) 01/19/24 02:13 Neut % (Auto) 62.2 % 01/19/24 02:13 Lymph % (Auto) 20.5 % 01/19/24 02:13 [place] % (Auto) 11.9 % 01/19/24 02:13 Eos % (Auto) 4.1 % 01/19/24 02:13 Baso % (Auto) 1.0 % 01/19/24 02:13 Neut # (Auto) 3.66 10^3/uL (1.8-7.7) 01/19/24 02:13 Lymph # (Auto) 1.2 10^3/uL (0.8-4.8) 01/19/24 02:13 [place] # (Auto) 0.7 10^3/uL (0.2-0.9) 01/19/24 02:13 Eos # (Auto) 0.2 10^3/uL (0.0-0.8) 01/19/24 02:13 Baso # (Auto) 0.1 10^3/uL (0.0-0.1) 01/19/24 02:13 Nucleated RBC % (auto) 0 % 01/19/24 02:13 Nucleated RBCs # 0.0 /100WBC 01/19/24 02:13 Specimen Type Arterial 01/18/24 03:33 Sample Site Brachial, right 01/18/24 03:33 O2 Sat Pulse Oximetry Cancelled 01/18/24 03:22 ABG pH 7.34 (7.35-7.45) L 01/18/24 03:33 ABG pCO2 40.4 mmHg (35-45) 01/18/24 03:33 ABG pO2 73.9 mmHg (80.0-100.0) L 01/18/24 03:33 ABG PO2/FiO2 Ratio 167 01/18/24 03:33 ABG HCO3 21.6 mmol/L (22-26) L 01/18/24 03:33 ABG O2 Saturation 93.2 01/18/24 03:33 ABG Base Excess -4.0 mmol/L (-2.0-2.0) L 01/18/24 03:33 Miles Test N/a 01/18/24 03:33 A-a O2 Gradient 25.0 mmHg (5-10) H 01/18/24 03:33 Hematocrit 29.8 % (42-52) L 01/18/24 03:33 Hgb O2 Saturation 91.1 % (95-100) L 01/18/24 03:33 Carboxyhemoglobin 1.8 %THgb (0.4-20.1) 01/18/24 03:33 Methemoglobin 0.5 % (0.4-1.5) 01/18/24 03:33 Total Hemoglobin 9.7 g/dL (14-18) L 01/18/24 03:33 Sodium 139.0 mmol/L (131-143) 01/18/24 03:33 Potassium 3.4 mmol/L (3.5-5.0) L 01/18/24 03:33 Glucose 137.0 mg/dL (70-115) H 01/18/24 03:33 Ionized Calcium 1.2 mmol/L (1.1-1.4) 01/18/24 03:33 Respiration Rate Cancelled 01/18/24 03:22 O2 Delivery Device Nc 01/18/24 03:33 O2 Liters/Min 6.0 % 01/18/24 03:33 SIMV Cancelled 01/18/24 03:22 Vent Mode Cancelled 01/18/24 03:22 Mechanical Rate Cancelled 01/18/24 03:22 Spontaneous Rate Cancelled 01/18/24 03:22 FiO2 44.0 % 01/18/24 03:33 Tidal Volume Cancelled 01/18/24 03:22 PEEP Cancelled 01/18/24 03:22 Pressure Support Cancelled 01/18/24 03:22 Pressure Control Cancelled 01/18/24 03:22 CPAP Cancelled 01/18/24 03:22 Mode BiPAP Cancelled 01/18/24 03:22 Specimen Drawn By Cancelled 01/18/24 03:22 Cone Operator ID Ed 01/18/24 03:33 Crit Value Read Back Cancelled 01/18/24 03:22 Blood Gas Notified Time Cancelled 01/18/24 03:22 Sodium 137 mmol/L (136-145) 01/19/24 02:13 Potassium 3.2 mmol/L (3.5-5.1) L 01/19/24 02:13 Chloride 93 mmol/L (98-107) L 01/19/24 02:13 Carbon Dioxide 32 mmol/L (22-29) H 01/19/24 02:13 Anion Gap 15.2 (5-19) 01/19/24 02:13 BUN 17 mg/dL (6-20) 01/19/24 02:13 Creatinine 0.7 mg/dL (0.7-1.2) 01/19/24 02:13 GFR Calculation 129.1 mL/min (90-130) 01/19/24 02:13 Glucose 120 mg/dL (65-115) H 01/19/24 02:13 POC Glucose 129 mg/dL (70-110) H 01/19/24 06:19 Calculated Osmolality 287 mOsm/kg (285-295) 01/19/24 02:13 Lactic Acid 8.7 mmol/L (0.5-2.2) H* 01/18/24 03:32 Lactic Acid (Sepsis) 7.7 mmol/L (0.5-2.2) H* 01/18/24 05:20 Calcium 8.9 mg/dL (8.5-10.5) 01/19/24 02:13 Iron 19 ug/dL (59-158) L 01/18/24 05:20 TIBC 487 mcg/dl 01/18/24 05:20 % Saturation 3.9 % (20-50) L 01/18/24 05:20 Unsat Iron Binding 468 ug/dL (112-347) H 01/18/24 05:20 Total Bilirubin 1.2 mg/dL (0.15-1.2) 01/19/24 02:13 AST 36 U/L (0-40) 01/19/24 02:13 ALT 19 U/L (0-41) 01/19/24 02:13 Alkaline Phosphatase 82 U/L (40-130) 01/19/24 02:13 Troponin T 5th Gen ng/L Cancelled 01/18/24 05:20 Troponin T Baseline 28 ng/L (0-15) H 01/18/24 03:32 Troponin T 120 Minute 34.64 ng/L (0-15) H 01/18/24 05:20 Delta Troponin T 6.64 ABS# (0-10) 01/18/24 05:20 Troponin T Hi Sens 6Hr 33.81 ng/L (0-15) H 01/18/24 09:40 Troponin T Hi Sens 6Hr Delta 5.81 ng/L (0-12) 01/18/24 09:40 C-React Prot High Sens 0.390 mg/dL (0.0-0.3) H 01/18/24 05:20 NT-Pro-B Natriuret Pep 337 pg/mL (0-125) H 01/18/24 03:32 Total Protein 7.1 g/dL (6.6-8.7) 01/19/24 02:13 Albumin 3.8 g/dL (3.5-5.2) 01/19/24 02:13 Globulin 3.3 g/dL (1.3-4.6) 01/19/24 02:13 Triglycerides 97 mg/dL (0-150) 01/18/24 05:20 Cholesterol 228 mg/dL (0-200) H 01/18/24 05:20 LDL Cholesterol, Calc 149 mg/dL (50-129) H 01/18/24 05:20 HDL Cholesterol 60 mg/dL (60-100) 01/18/24 05:20 LDL/HDL Ratio 2.48 RATIO (0.00-3.22) 01/18/24 05:20 Cholesterol/HDL Ratio 3.80 mg/dL (1.0-5.00) 01/18/24 05:20 Ethyl Alcohol 216 mg/dL (0-10) H 01/18/24 03:32 Coronavirus (PCR) Negative (Negative) 01/18/24 03:32 Influenza A (PCR) Negative (Negative) 01/18/24 03:32 Influenza Type B (PCR) Negative (Negative) 01/18/24 03:32 RSV (PCR) Negative (Negative) 01/18/24 03:32 Vitals Last Vital Signs Temp 97.7 F 01/19/24 07:42 Pulse 72 01/19/24 09:02 Resp 18 01/19/24 09:02 BP 141/75 01/19/24 09:00 Pulse Ox 90 01/19/24 10:51 O2 Del Method Room Air 01/19/24 09:02 O2 Flow Rate 2 01/19/24 10:51 FiO2 50 01/18/24 07:20 Discharge Plan Discharge Patient Disposition: Home Condition: Fair Prescriptions: New spironolactone 25 mg Tablet 25 mg PO DAILY Qty: 30 0RF furosemide [Lasix] 20 mg tablet 20 mg PO QAM Qty: 30 0RF Continued Vitamin B-1 (mononitrate) 100 mg tablet 100 mg PO DAILY 30 Days Qty: 30 5RF metoprolol succinate 25 mg tablet extended release 24 hr 25 mg PO DAILY Qty: 90 4RF Xarelto 20 mg tablet 20 mg PO DAILY Qty: 90 4RF Rx Instructions: must administer with evening meal (DME) cock up splint See Rx Instructions .Route .MEDSUPPLY Qty: 1 0RF Rx Instructions: As directed Jardiance 25 mg tablet 25 mg PO DAILY gabapentin 300 mg capsule 300 mg PO DAILY cholecalciferol (vitamin D3) 1,250 mcg (50,000 unit) capsule 50,000 unit PO .weekly Qty: 14 4RF Rx Instructions: on Saturday acetaminophen 500 mg Tablet 1,000 - 1,500 mg PO Q6H PRN (Reason: Pain) albuterol sulfate 2.5 mg /3 mL (0.083 %) solution for nebulization 2.5 mg inhalation Q6H PRN (Reason: Shortness Of Breath) hydrochlorothiazide 25 mg tablet 25 mg PO QAM ascorbic acid (vitamin C) [Vitamin C] 500 mg Tablet 250 mg PO DAILY zinc sulfate 50 mg zinc (220 mg) Capsule 50 mg PO DAILY potassium gluconate 600 mg (99 mg) Tablet 600 mg PO DAILY clonidine HCl 0.1 mg Tablet 0.1 mg PO BID Qty: 60 0RF amlodipine 10 mg Tablet 10 mg PO BEDTIME Qty: 30 0RF Changed amiodarone [Pacerone] 200 mg Tablet 200 mg PO DAILY Qty: 60 0RF Discontinued metformin 500 mg tablet extended release 24 hr 1,000 mg PO BID amoxicillin-pot clavulanate 875-125 mg tablet 1 tab PO BID Qty: 14 0RF Discharge Orders: Discharge Order (Routine); Ordered 01/19/24 Ordered By: Anil Cochran Other Ambulatory Orders: DME: Oxygen (Order) Location: None Selected Ordered By: Anil Cochran Referrals: Nikole Solano APN [Primary Care Provider] - 4-7 days (Please call for an follow-up appointment within 4 to 7 days. Thank you!) Discharge Diet: Cardiac and Diabetic Discharge Activity: Resume usual activity and Increase activity as tolerated Patient Instructions: Spironolactone (By mouth), Furosemide (By mouth) (Lasix), Coronary Artery Disease (DC), A-fib (Atrial Fibrillation) (DC), CHF Stoplight, Opioid Safety Activity Restrictions/Additional Instructions: Restrict fluid intake to less than 1500 cc, salt intake to less than 2 g daily. Advised to check his weight daily at home. Is advised that weight today would be the dry weight and if body weight increases by around 5 pounds, patient is to take an extra dose of Lasix daily till body weight comes down to weight today. If not able to come down to dry body weight in 1 week, then is to call cardiology office for further recommendations. Patient was counseled in detail to take medications regularly as prescribed. Please continue to be refrain from alcohol consumption. Please follow-up with a primary care provider for further studies for sleep apnea. Please consider alcohol withdrawal rehab programs like [facility]. Please make sure you are sitting up or walking around for at least 45 minutes after each meal to prevent aspiration Discharge Attestations Time Spent in Discharge Care*: greater than 30 min Specific Discharge Activities: educating patient, discussing with pcp/other providers, discussing with case folder/social workers/dc planners, documenting/other paperwork and evaluating patient/reviewing data Status at Discharge: Cognitive status at discharge: cognitively intact , Behavioral status at discharge: cooperative , Functional status at discharge: independent ambulation , Overall status at discharge: patient is back to baseline Quality Metrics Clinical Quality Measures [ No reported AMI, CVA or VTE this stay] Coding Level of Care Code 79073 Total time (in minutes) for Discharge: 60 Diagnoses CHF exacerbation I50.9 Acute hypoxic respiratory failure J96.01 A-fib I48.91 Lactic acidosis E87.20 Alcohol use disorder F10.90 Type 2 diabetes mellitus with other oral complication, without long-term current use of insulin E11.638 Diabetes mellitus complication detail: with other oral complications Diabetes mellitus complication status: with oral complications Diabetes mellitus skilled nursing insulin use: without long term care pharmacist use Diabetes mellitus type: type 2 Coronary artery disease due to calcified coronary lesion I25.10; I25.84
[2024-01-19 11:53] LABS: Glucose Point of Care 178 mg/dL (70-110)
[2024-01-19] MEDS: insulin lispro 100 unit/1 mL SUBCUT (12:30)
--- NOTE | 2024-01-19 14:00 | PC.NURSE ---
discharge instructions given and explained.pt and pt's mother verb understanding of instructions.discharged via w/c to exit at this time.pt's mother to drive pt home.
== END 2024-01-19 14:02 | disposition home or self-care (01) | DRG 314 ==
LOC: ER 03:08 → CSU 05:23
PROVIDERS: Admitting Provider Internal Medicine; Emergency Provider Emergency Medicine; PCP Nurse Practitioner Family; Visit Provider Student in an Organized Health Care Education/Training Program
DX: I42.6 Alcoholic cardiomyopathy (principal); J96.01 Acute respiratory failure with hypoxia; E87.20 Acidosis, unspecified; F10.129 Alcohol abuse with intoxication, unspecified; Y90.8 Blood alcohol level of 240 mg/100 ml or more; I10 Essential (primary) hypertension; I48.91 Unspecified atrial fibrillation; E11.69 Type 2 diabetes mellitus with other specified complication; Z87.01 Personal history of pneumonia (recurrent); Z79.84 Long term (current) use of oral hypoglycemic drugs; Z86.73 Personal history of transient ischemic attack (TIA), and cerebral infarction without residual deficits; Z87.891 Personal history of nicotine dependence; E66.01 Morbid (severe) obesity due to excess calories; I25.10 Atherosclerotic heart disease of native coronary artery without angina pectoris; G47.30 Sleep apnea, unspecified
CPT/HCPCS: 0241U; 36415; 36416; 36600; 71045; 80051; 80053; 80061; 80307; 82330; 82805; 82962; 83540; 83550; 83605; 83695; 83880; 84484; 85025; 86141; 87040; 87070; 87205; 93005; 93306; 94640; 94660; 94760; 96372; 96376; J1815; J1940; J3475

== ENCOUNTER 2024-01-24 10:13 | Oncology outpatient (recurring) (ONCR) | payer MEDICAID, SELFPAY ==
[2024-01-24 10:56] LABS: Basophils # 0.1 10^3/uL (0.0-0.1); Basophils % 0.7 %; Eosinophils # 0.6 10^3/uL (0.0-0.8); Eosinophils % 7.2 %; Hematocrit 32.7 % (37-53); Lymphocytes # 1.7 10^3/uL (0.8-4.8); Lymphocytes % 22.6 %; Mean Corpuscular HGB Conc 30.3 g/dL (30-55); Mean Corpuscular Hemoglobin 25.9 pg (27-33); Mean Corpuscular Volume 85.6 fl (82-101); Mean Platelet Volume 9.5 fL (7.4-10.4); Monocytes # 0.9 10^3/uL (0.2-0.9); Monocytes % 11.9 %; Neutrophils # 4.37 10^3/uL (1.8-7.7); Neutrophils % 57.3 %; Nucleated Red Blood Cells % 0 %; Platelet Count 214 10^3/cmm (157-399); Red Blood Count 3.82 10^6/uL (3.85-5.65); Red Cell Distribution Width 15.3 % (12.1-15.1); White Blood Count 7.62 10^3/uL (3.29-11.43)
[2024-01-24 11:02] LABS: Erythrocyte Sedimentation Rate 52 mm/hr (0-10)
[2024-01-27 13:45] LABS: CARDIOLIPIN AB (IGA) <2.0 APL-U/mL; CARDIOLIPIN AB (IGG) <2.0 GPL-U/mL; CARDIOLIPIN AB (IGM) <2.0 MPL-U/mL
[2024-01-27 16:09] LABS: Lupus DRVVT Confirm NEGATIVE (NEGATIVE); Lupus Hexagonal Phas Confirm NEGATIVE (NEGATIVE); PTT-LA-Screen 49 sec (< OR = 40)
[2024-01-29 12:04] LABS: Protein S Antigen, Total 116 % normal (70-140)
[2024-01-29 22:09] LABS: Beta 2 Glycoprotein IGA 2.4 U/mL (<20.0); Beta 2 Glycoprotein IGG <2.0 U/mL (<20.0); Beta 2 Glycoprotein IGM <2.0 U/mL (<20.0)
[2024-01-30 03:48] LABS: PROTEIN C, ACTIVITY 60 % normal (70-180)
[2024-01-30 04:30] LABS: Antithrombin III Activity 65 % normal (80-135)
[2024-02-03 14:30] LABS: Factor 5 Leiden Mutation NEGATIVE
[2024-02-03 16:54] LABS: PROTHROMBIN (FACTOR II) 20210G NEGATIVE
== END 2024-02-15 23:59 | disposition home or self-care (01) ==
PROVIDERS: PCP Nurse Practitioner Family; Visit Provider Internal Medicine Hematology & Oncology
DX: D68.62 Lupus anticoagulant syndrome (principal)
CPT/HCPCS: 36415; 81241; 85025; 85210; 85300; 85303; 85305; 85613; 85651; 85730; 86146; 86147

== ENCOUNTER 2024-03-09 14:52 | Oncology outpatient (recurring) (ONCR) | payer MEDICAID, SELFPAY ==
[2024-03-09 13:36] LABS: Basophils # 0.1 10^3/uL (0.0-0.1); Basophils % 1.1 %; Eosinophils # 0.4 10^3/uL (0.0-0.8); Eosinophils % 5.2 %; Hematocrit 34.7 % (37-53); Lymphocytes # 1.3 10^3/uL (0.8-4.8); Lymphocytes % 17.2 %; Mean Corpuscular HGB Conc 29.1 g/dL (30-55); Mean Corpuscular Hemoglobin 23.8 pg (27-33); Mean Corpuscular Volume 81.8 fl (82-101); Mean Platelet Volume 9.3 fL (7.4-10.4); Monocytes % 13.7 %; Neutrophils # 4.71 10^3/uL (1.8-7.7); Neutrophils % 62.5 %; Nucleated Red Blood Cells % 0 %; Platelet Count 203 10^3/cmm (157-399); Red Blood Count 4.24 10^6/uL (3.85-5.65); Red Cell Distribution Width 17.7 % (12.1-15.1); White Blood Count 7.52 10^3/uL (3.29-11.43)
[2024-03-09 13:44] LABS: Erythrocyte Sedimentation Rate 72 mm/hr (0-10)
[2024-03-09 13:53] LABS: D Dimer 0.56 ug/mLFEU (0-0.59)
[2024-03-09 13:54] LABS: Alanine Aminotransferase 59 U/L (0-41); Alkaline Phosphatase 140 U/L (40-130); Anion Gap 17.1 (5-19); Aspartate Amino Transferase 87 U/L (0-40); Blood Urea Nitrogen 9 mg/dL (6-20); Calcium 9.4 mg/dL (8.5-10.5); Carbon Dioxide 25 mmol/L (22-29); Chloride 96 mmol/L (98-107); Globulin 4.2 g/dL (1.3-4.6); Glomerular Filtration Rate 189.2 mL/min (90-130); Glucose 313 mg/dL (65-115); Osmolality Calculated 289 mOsm/kg (285-295); Potassium 4.1 mmol/L (3.5-5.1); Sodium 134 mmol/L (136-145); Total Bilirubin 0.7 mg/dL (0.15-1.2); Total Protein 8.2 g/dL (6.6-8.7)
== END 2024-03-17 23:59 | disposition home or self-care (01) ==
LOC: ONCMED 14:53
PROVIDERS: PCP Nurse Practitioner Family; Visit Provider Internal Medicine Hematology & Oncology
DX: R76.0 Raised antibody titer (principal); Z79.01 Long term (current) use of anticoagulants; E11.65 Type 2 diabetes mellitus with hyperglycemia; Z87.891 Personal history of nicotine dependence; Z79.84 Long term (current) use of oral hypoglycemic drugs
CPT/HCPCS: 36415; 80053; 85025; 85378; 85651

== ENCOUNTER → 2024-06-16 13:58 | Outpatient (BNVA) | payer MEDICAID, SELFPAY | PROVIDERS: PCP Nurse Practitioner Family; Visit Provider Psychiatry & Neurology Neurology | DX: E55.9 Vitamin D deficiency, unspecified (principal) | CPT/HCPCS: 36415; 82306 ==

== ENCOUNTER 2024-07-06 11:56 | Emergency (ER) | payer MEDICAID, SELFPAY ==
[2024-07-06 12:19] VITALS: BP 98/61; PULSE 70; TEMP 36.8; O2SAT 93
--- NOTE | 2024-07-06 12:27 | ECG_ITS ---
[facility] Pat Name: Doug Regalado Department: Room: Gender: Male Client Evaluator: : 1990 Requested By: Jagdeep Hartmann Order Number: [id number] Sarthak MD: Petr Pandey M.D. Measurements Intervals [place] Rate: 71 P: 64 AR: 222 QRS: 76 QRSD: 118 T: 47 QT: 456 QTc: 496 Interpretive Statements SINUS RHYTHM WITH FIRST DEGREE AV BLOCK MODERATE INTRAVENTRICULAR CONDUCTION DELAY [110+ ms QRS DURATION] PROLONGED QT INTERVAL Compared to ECG 01/18/2024 09:56:42 First degree AV block now present Intraventricular conduction delay now present Electronically Signed On 07-06-2024 16:39:57 CDT by Petr Pandey M.D. [email or web address]
--- NOTE | 2024-07-06 12:46 | XR_ITS ---
WS: [id number] Exam: XR chest 2V insp/exp [id number] Date/Time of Exam: 07/06/2024 12:46 PM Reason For Exam: sob Comparison 01/18/2024. The lungs are clear and fully expanded. Normal cardiomediastinal silhouette for technique. No pleural effusions. Bony structures are intact. No pneumothorax. XR/XR chest 2V insp/exp [id number] IMPRESSION: 1. Negative chest.
--- NOTE | 2024-07-06 12:47 | W.ED.SOB ---
HPI - SOB/Dyspnea General: Chief Complaint: Shortness of Breath/Dyspnea Stated Complaint: sob Time Seen by Provider: 07/06/24 12:36 History of Present Illness: HPI Narrative: 34-year-old male sent in for shortness of breath. Patient has a history of sleep apnea and is been using supplemental oxygen at night. He reports he also has a history of CHF and has had some inhalers prescribed has not been using his inhaler. Patient has had increased dyspnea on exertion that has been going on for a while. Patient typically uses 4 L of oxygen all the time not at home. Associated symptoms: Deny abdominal pain, fever(s), nausea or vomiting Related Data Home Medications ?Medication ?Instructions ?Recorded ?Confirmed acetaminophen 500 mg tablet 1,000 - 1,500 mg PO Q6H PRN Pain 07/02/23 07/06/24 empagliflozin 25 mg tablet 25 mg PO DAILY 09/11/23 07/06/24 (Jardiance) gabapentin 300 mg capsule 300 mg PO DAILY 09/11/23 07/06/24 albuterol sulfate 2.5 mg/3 mL 2.5 mg inhalation Q6H PRN 01/18/24 07/06/24 (0.083 %) solution for nebulization Shortness Of Breath metformin 500 mg tablet,extended 1,000 mg PO BID 01/24/24 07/06/24 release 24 hr furosemide 40 mg tablet 40 mg PO DAILY 03/09/24 07/06/24 potassium chloride 20 mEq 20 meq PO DAILY 03/09/24 07/06/24 tablet,extended release Previous Rx's ?Medication ?Instructions ?Recorded metoprolol succinate 25 mg 25 mg PO DAILY #90 tabs 10/31/23 tablet,extended release 24 hr rivaroxaban 20 mg tablet (Xarelto) 20 mg PO DAILY #90 tabs 10/31/23 clonidine HCl 0.1 mg tablet 0.1 mg PO BID #60 tabs 12/04/23 amiodarone 200 mg tablet (Pacerone) 200 mg PO DAILY #60 tabs 01/19/24 spironolactone 25 mg tablet 25 mg PO DAILY #30 tabs 01/19/24 cholecalciferol (vitamin D3) 1,250 50,000 unit PO .weekly #14 caps 06/16/24 mcg (50,000 unit) capsule Allergies Allergy/AdvReac Type Severity Reaction Status Date / Time ceftriaxone (From Rocephin) Allergy Unknown Verified 07/06/24 12:35 Review of Systems Const: Denies: fever(s) or chills Card: Reports: dyspnea on exertion Resp: Reports: dyspnea GI: Denies: abdominal pain, nausea or vomiting Skin/Breast: Reports: rash PFSH ED PFSH: Medical History Stroke (cerebrum) Substance abuse Tobacco abuse Transaminitis Atrial flutter Hypertension Diabetes mellitus Alcohol abuse No significant medical problems Surgical History No significant past surgical history Family History Other Alcohol abuse Diabetes Social History Smoking and tobacco/nicotine status: former use of tobacco/nicotine Alcohol intake: current Alcohol type: hard liquor Caregiver/support person: Yes Lives independently: No Household members: other Details: Lives with mother Housing: House Marital status: Single 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 status: employed 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 Exam Const: NUTRITIONAL APPEARANCE: obese OTHER: Baseline difficulty with words Chest: COMMONS NORMALS: normal inspection of the chest Resp: COMMON NORMALS: normal respiratory effort, No retractions and No use of accessory muscles AUSCULTATION: no wheezes Cardio: COMMON NORMALS: regular rate and regular rhythm RATE: regular rate RHYTHM: regular rhythm Extremity: COMMON NORMALS: capillary refill normal and no pedal edema Psych: COMMON NORMALS: mental status grossly normal and Normal thought process present THOUGHT PROCESS: Normal thought process present Skin: COMMON NORMALS: no rashes or lesions noted GENERAL SKIN EXAM: no rashes or lesions noted Course Vital Signs: Vital signs: Vital Signs Temperature 98.2 F 07/06/24 12:19 Pulse Rate 77 07/06/24 14:27 Blood Pressure 107/65 07/06/24 14:27 Pulse Oximetry 95 07/06/24 14:27 Oxygen Delivery Me thod Nasal Cannula 07/06/24 12:19 Oxygen Flow Rate 4 07/06/24 12:19 MDM - SOB/Dyspnea Medical Decision Making Patient is diagnostic studies are ordered reviewed and interpreted by me. Patient had no acute findings noted on his EKG. He had a very minimally prolonged QT. No acute ST changes or elevation. Patient with a baseline troponin on labs. Patient's BNP was 40. Patient O2 maintained on 2 L which is less than what he typically wears. Patient's chest x-ray shows no acute findings. His lungs were clear on exam. Patient does appear to have significant sleep apnea and I discussed need to have them follow-up to have this further evaluated. Patient is stable and will be discharged home. Lab Data 07/06/24 12:50 07/06/24 12:50 Labs/Radiology: Radiology Impressions Chest X-Ray 07/06/24 12:46 IMPRESSION: 1. Negative chest. Laboratory Results WBC 6.47 10^3/uL (3.29-11.43) 07/06/24 12:50 RBC 4.09 10^6/uL (3.85-5.65) 07/06/24 12:50 Hgb 10.40 g/dL (11.27-16.99) L 07/06/24 12:50 Hct 34.8 % (37-53) L 07/06/24 12:50 MCV 85.1 fl (82-101) 07/06/24 12:50 MCH 25.4 pg (27-33) L 07/06/24 12:50 MCHC 29.9 g/dL (30-55) L 07/06/24 12:50 RDW 19.9 % (12.1-15.1) H 07/06/24 12:50 Plt Count 156 10^3/cmm (157-399) L 07/06/24 12:50 MPV 10.0 fL (7.4-10.4) 07/06/24 12:50 Neut % (Auto) 58.0 % 07/06/24 12:50 Lymph % (Auto) 25.8 % 07/06/24 12:50 [place] % (Auto) 10.5 % 07/06/24 12:50 Eos % (Auto) 4.3 % 07/06/24 12:50 Baso % (Auto) 1.1 % 07/06/24 12:50 Neut # (Auto) 3.75 10^3/uL (1.8-7.7) 07/06/24 12:50 Lymph # (Auto) 1.7 10^3/uL (0.8-4.8) 07/06/24 12:50 [place] # (Auto) 0.7 10^3/uL (0.2-0.9) 07/06/24 12:50 Eos # (Auto) 0.3 10^3/uL (0.0-0.8) 07/06/24 12:50 Baso # (Auto) 0.1 10^3/uL (0.0-0.1) 07/06/24 12:50 Nucleated RBC % (auto) 0 % 07/06/24 12:50 Nucleated RBCs # 0.0 /100WBC 07/06/24 12:50 Sodium 134 mmol/L (136-145) L 07/06/24 12:50 Potassium 3.6 mmol/L (3.5-5.1) 07/06/24 12:50 Chloride 82 mmol/L (98-107) L 07/06/24 12:50 Carbon Dioxide 22 mmol/L (22-29) 07/06/24 12:50 Anion Gap 33.6 (5-19) H 07/06/24 12:50 BUN 7 mg/dL (6-20) 07/06/24 12:50 Creatinine 1.1 mg/dL (0.7-1.2) 07/06/24 12:50 GFR Calculation 76.2 mL/min (90-130) L 07/06/24 12:50 Glucose 225 mg/dL (65-115) H 07/06/24 12:50 Calculated Osmolality 283 mOsm/kg (285-295) L 07/06/24 12:50 Calcium 9.7 mg/dL (8.5-10.5) 07/06/24 12:50 Magnesium 1.6 mg/dL (1.7-2.3) L 07/06/24 12:50 Total Bilirubin 1.1 mg/dL (0.15-1.2) 07/06/24 12:50 AST 149 U/L (0-40) H 07/06/24 12:50 ALT 37 U/L (0-41) 07/06/24 12:50 Alkaline Phosphatase 132 U/L (40-130) H 07/06/24 12:50 Troponin T Baseline 25 ng/L (0-15) H 07/06/24 12:50 Troponin T 120 Minute 21.81 ng/L (0-15) H 07/06/24 14:20 Delta Troponin T -3.19 ABS# (0-10) L 07/06/24 14:20 NT-Pro-B Natriuret Pep 40 pg/mL (0-125) 07/06/24 12:50 Total Protein 8.7 g/dL (6.6-8.7) 07/06/24 12:50 Albumin 4.3 g/dL (3.5-5.2) 07/06/24 12:50 Globulin 4.4 g/dL (1.3-4.6) 07/06/24 12:50 All radiology interpretation(s) finalized by discharge Discharge Plan Discharge Patient Disposition: Home Clinical Impression: Dyspnea on exertion Condition: Stable Prescriptions: No Action metoprolol succinate 25 mg tablet extended release 24 hr 25 mg PO DAILY Qty: 90 4RF Xarelto 20 mg tablet 20 mg PO DAILY Qty: 90 4RF Rx Instructions: must administer with evening meal cholecalciferol (vitamin D3) 1,250 mcg (50,000 unit) capsule 50,000 unit PO .weekly Qty: 14 4RF Rx Instructions: on Saturday Jardiance 25 mg tablet 25 mg PO DAILY gabapentin 300 mg capsule 300 mg PO DAILY metformin 500 mg tablet extended release 24 hr 1,000 mg PO BID potassium chloride 20 mEq tablet extended release 20 meq PO DAILY furosemide 40 mg tablet 40 mg PO DAILY acetaminophen 500 mg Tablet 1,000 - 1,500 mg PO Q6H PRN (Reason: Pain) albuterol sulfate 2.5 mg /3 mL (0.083 %) solution for nebulization 2.5 mg inhalation Q6H PRN (Reason: Shortness Of Breath) spironolactone 25 mg Tablet 25 mg PO DAILY Qty: 30 0RF amiodarone [Pacerone] 200 mg Tablet 200 mg PO DAILY Qty: 60 0RF clonidine HCl 0.1 mg Tablet 0.1 mg PO BID Qty: 60 0RF Discharge Orders: Discharge ED (Routine); Ordered 07/06/24 Ordered By: Jagdeep Hartmann Referrals: Nikole Solano APN [Primary Care Provider] - Discharge Diet: Usual diet Discharge Activity: Increase activity as tolerated Patient Instructions: Dyspnea (ED), Opioid Safety, Pain Management, Obstructive Sleep Apnea Activity Restrictions/Additional Instructions: Please follow-up with your primary care provider when you are able to have a sleep study. Please consider follow-up with balloon design printer and biodiesel engineering manager please have your primary care provider help arrange for this. Print Language: [place] Islander Coding Level of Care Code ED Standard Machine Stitcher for Shala Ocampo
[2024-07-06 12:55] LABS: Basophils # 0.1 10^3/uL (0.0-0.1); Basophils % 1.1 %; Eosinophils # 0.3 10^3/uL (0.0-0.8); Eosinophils % 4.3 %; Hematocrit 34.8 % (37-53); Lymphocytes # 1.7 10^3/uL (0.8-4.8); Lymphocytes % 25.8 %; Mean Corpuscular HGB Conc 29.9 g/dL (30-55); Mean Corpuscular Hemoglobin 25.4 pg (27-33); Mean Corpuscular Volume 85.1 fl (82-101); Monocytes # 0.7 10^3/uL (0.2-0.9); Monocytes % 10.5 %; Neutrophils # 3.75 10^3/uL (1.8-7.7); Nucleated Red Blood Cells % 0 %; Platelet Count 156 10^3/cmm (157-399); Red Blood Count 4.09 10^6/uL (3.85-5.65); Red Cell Distribution Width 19.9 % (12.1-15.1); White Blood Count 6.47 10^3/uL (3.29-11.43)
[2024-07-06 13:16] LABS: Troponin(5th) Baseline 25 ng/L (0-15)
[2024-07-06 13:36] LABS: Alanine Aminotransferase 37 U/L (0-41); Albumin Level 4.3 g/dL (3.5-5.2); Alkaline Phosphatase 132 U/L (40-130); Anion Gap 33.6 (5-19); Aspartate Amino Transferase 149 U/L (0-40); Blood Urea Nitrogen 7 mg/dL (6-20); Calcium 9.7 mg/dL (8.5-10.5); Carbon Dioxide 22 mmol/L (22-29); Chloride 82 mmol/L (98-107); Creatinine Clr Calc Pharmacy 142.9352; Globulin 4.4 g/dL (1.3-4.6); Glomerular Filtration Rate 76.2 mL/min (90-130); Glucose 225 mg/dL (65-115); Magnesium 1.6 mg/dL (1.7-2.3); NT Pro B Type Natriuretic Pept 40 pg/mL (0-125); Osmolality Calculated 283 mOsm/kg (285-295); Potassium 3.6 mmol/L (3.5-5.1); Sodium 134 mmol/L (136-145); Total Bilirubin 1.1 mg/dL (0.15-1.2); Total Protein 8.7 g/dL (6.6-8.7)
[2024-07-06 14:27] VITALS: BP 107/65; PULSE 77; O2SAT 95
[2024-07-06 14:52] LABS: Troponin 5 2HR 21.81 ng/L (0-15)
[2024-07-06 14:54] LABS: Troponin 5 2HR Delta -3.19 ABS# (0-10)
== END 2024-07-06 14:29 | disposition home or self-care (01) ==
PROVIDERS: Emergency Provider Student in an Organized Health Care Education/Training Program; PCP Nurse Practitioner Family
DX: R06.00 Dyspnea, unspecified (principal); Z79.84 Long term (current) use of oral hypoglycemic drugs; Z87.891 Personal history of nicotine dependence; E11.9 Type 2 diabetes mellitus without complications; I10 Essential (primary) hypertension
CPT/HCPCS: 36415; 71046; 80053; 83735; 83880; 84484; 85025; 93005; 99285

== ENCOUNTER 2024-07-24 13:14 | Oncology outpatient (recurring) (ONCR) | payer MEDICAID, SELFPAY ==
--- NOTE | 2024-07-24 13:21 | MR_ITS ---
WS: [id number] MRI BRAIN WITHOUT CONTRAST HISTORY: TIA COMPARISON: 07/02/2023 TECHNIQUE: Diffusion imaging, multiplanar T1, T2 and FLAIR imaging obtained. No evidence for acute infarct or hemorrhage. Gutierrez-white matter differentiation is normal. Mild bilateral symmetric cerebral and cerebellar atrophy is more than expected for a patient of this age. No prior infarct is identified. No ischemic changes in the sixto. Ventricles and extra-axial spaces are prominent on the basis of atrophy. No inferior displacement of cerebellar tonsils. The sella turcica and pituitary gland are unremarkable. Dural venous sinuses and [place] demonstrate no abnormality on this unenhanced studies. Paranasal sinuses: Mucoperiosteal thickening and heterogeneity in the LEFT maxillary sinus. Chronic and similar to 07/02/2023. Mastoid air cells: Normal. Calvarium and scalp: Intact. MR/MR head wo con* [id number] IMPRESSION: 1. No acute infarct. Diffusion imaging is normal. 2. Mild bilateral cerebral and cerebral atrophy. Atrophy was also probably pre sent on the prior study but is slightly more pronounced on today's exam. Out of proportion to the patient's age. 3. No hemorrhage or hydrocephalus. 4. LEFT maxillary sinus disease.
== END 2024-08-15 23:59 | disposition home or self-care (01) ==
LOC: RAD 13:15 → ONCMED 07-27 10:26
PROVIDERS: PCP Nurse Practitioner Family; Visit Provider Psychiatry & Neurology Neurology
DX: Z86.73 Personal history of transient ischemic attack (TIA), and cerebral infarction without residual deficits (principal); G31.9 Degenerative disease of nervous system, unspecified
CPT/HCPCS: 70551

== ENCOUNTER 2024-08-20 08:42 | Outpatient (CLI) | payer MEDICAID, SELFPAY ==
[2024-08-20 09:57] VITALS: BMI 46.1
--- NOTE | 2024-08-20 09:57 | ECG_ITS ---
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 Interpretive Statements LEXISCAN SESTAMIBI STRESS TEST Procedure: At the baseline, the blood pressure was 108/56 mmHg with a heart rate of 72 bpm. The electrocardiogram showed normal sinus rhythm, normal axis with normal ST and T's. The Lexiscan was infused over a period of 20 seconds. A total of 0.4 mg of Lexiscan was infused. The stress phase was continued for a total of 5 minutes. Heart rate was at the end of stress phase was 75 bpm and a blood pressure of 96/54 mmHg. The EKG at the peak infusion revealed normal sinus rhythm with no significant ST-T wave changes. Sestamibi was injected 20 seconds after the Lexiscan infusion. Blood pressure at the end of recovery phase was 94/68 mmHg with a heart rate of 73 bpm. Conclusion: 1. Normal EKG response to Lexiscan infusion 2. No Lexiscan induced chest pain or cardiac arrhythmia. 3. Normal blood pressure and heart rate response. 4. Sestamibi/sestamibi perfusion scan pending; see separate report. Electronically Signed On 08-28-2024 15:38:14 CDT by Maximo Turcios M.D. [id number] [id number]
--- NOTE | 2024-08-20 09:57 | NMCV_ITS ---
NM ulises perf SPECT r/s* [id number] Doug Regalado Age: 34 Gender: M : 1990 Exam Date: 08/20/2024 10:12 Ordering Phys: Zayra Vallejo NP Technologist: RAMSEY Villafana Exam Location: [facility] Indications: cp STRESS TEST Please [facility] IMAGE PROTOCOL Rest/Stress 1 Lexiscan Day Radiopharmaceutical Dose (mCi) Administration Site Administered by Rest: Tc-99m 10.7 IV RAMSEY Villafana Sestamibi Stress:Tc-99m 33 IV RAMSEY Day Sestamibi Rest: 20-Aug-2024 60 Discovery 630 Stress: 20-Aug-2024 30 Discovery 630 0.4mg Lexiscan. Images obtained in supine and prone position. SPECT RESULTS Technical Quality: Good Raw Data Analysis: Soft tissue attenuation Image Corrections: No attenuation or motion correction applied Summed Stress Score: 13 Summed Rest Score: 7 Summed Difference Score: 7 PERFUSION FINDINGS There is large sized partially reversible perfusion defects seen in apical, apical anterior, anterolateral and inferolateral khalil. This is consistent with large area of prior infarct with significant jona-infarct ischemia in LAD and left circumflex artery territories. FUNCTIONAL RESULTS (calculated via Gated SPECT) Stress Image LV EF (%): 66 Stress EDV (mL):215 TID: 1.13 Stress ESV (mL):74 FUNCTIONAL FINDINGS: There is normal left ventricular systolic function. IMPRESSIONS 1. Abnormal myocardial perfusion imaging with large areas of prior infarct with significant jona-infarct ischemia in LAD and left circumflex artery territories. 2. LV systolic function is normal. Maximo Turcios MD (Electronically Signed) Final Date: 24 August 2024 12:27 S
[2024-08-20] MEDS: regadenoson 0.4 Mg/5 ml Syringe IVP (10:42)
[2024-08-20 10:56] VITALS: BP 94/68; PULSE 73
== END 2024-08-20 08:43 | disposition home or self-care (01) ==
LOC: CDL 08:47
PROVIDERS: PCP Nurse Practitioner Family; Visit Provider Nurse Practitioner Family
DX: R07.9 Chest pain, unspecified (principal); R93.1 Abnormal findings on diagnostic imaging of heart and coronary circulation
CPT/HCPCS: 36415; 78452; 93017; 96374; A9500; J2785

== ENCOUNTER 2024-08-22 18:07 | Inpatient (IN) | payer MEDICAID, SELFPAY ==
[2024-08-22] VITALS (32 sets, daily range): BP systolic 75–117; BP diastolic 29–67; PULSE 41–111; RESP 14–25; TEMP 36.2; O2SAT 93–100
--- NOTE | 2024-08-22 18:17 | XRR_ITS ---
PROCEDURE INFORMATION: Exam: XR Chest Exam date and time: 08/22/2024 6:50 PM Age: 34 years old Clinical indication: Shortness of breath; Additional info: SOB TECHNIQUE: Imaging protocol: Radiologic exam of the chest. Views: 1 view. COMPARISON: CR XR chest 2V insp/exp [id number] 06/07/2024 13:25 FINDINGS: Lungs: There is no consolidation. There is incomplete lung expansion and crowding of the vascular markings. Pleural spaces: No pleural effusion or pneumothorax. Heart/Mediastinum: The heart and mediastinum are normal in size. Bones/joints: Unremarkable. XR/XR chest 1V portable [id number] IMPRESSION: No acute findings.
--- NOTE | 2024-08-22 18:18 | ECG_ITS ---
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: 1990 Requested By: Jagdeep Hartmann Order Number: [id number] [place] MD: HAYDER VANG Measurements Intervals [place] Rate: 47 P: 60 TN: 226 QRS: 96 QRSD: 136 T: 40 QT: 526 QTc: 466 Interpretive Statements SINUS BRADYCARDIA WITH FIRST DEGREE AV BLOCK BORDERLINE RIGHT AXIS DEVIATION [QRS AXIS > 90] INTRAVENTRICULAR CONDUCTION DELAY [130+ ms QRS DURATION] Compared to ECG 07/06/2024 12:27:48 Sinus rhythm no longer present Prolonged QT interval no longer present Electronically Signed On 08-22-2024 23:47:01 CDT by HAYDER VANG [email or web address] [id number]
--- NOTE | 2024-08-22 18:25 | W.ED.SOB ---
HPI - SOB/Dyspnea General: Chief Complaint: Shortness of Breath/Dyspnea Stated Complaint: sob Time Seen by Provider: 08/22/24 18:08 History of Present Illness: HPI Narrative: 34-year-old male who presents with shortness of breath. Patient has a history of significant congestive heart failure and fluid overload. Patient has been taking his Lasix but not urinating for the last day. Patient was paced in route due to concerns for bradycardia and low blood pressure. Patient is typically on 3 L O2. Related Data Home Medications ?Medication ?Instructions ?Recorded ?Confirmed acetaminophen 500 mg tablet 1,000 - 1,500 mg PO Q6H PRN Pain 07/02/23 07/27/24 empagliflozin 25 mg tablet 25 mg PO DAILY 09/11/23 07/27/24 (Jardiance) gabapentin 300 mg capsule 300 mg PO DAILY 09/11/23 07/27/24 albuterol sulfate 2.5 mg/3 mL 2.5 mg inhalation Q6H PRN 01/18/24 07/27/24 (0.083 %) solution for nebulization Shortness Of Breath metformin 500 mg tablet,extended 1,000 mg PO BID 01/24/24 07/27/24 release 24 hr furosemide 40 mg tablet 40 mg PO DAILY 03/09/24 07/27/24 potassium chloride 20 mEq 20 meq PO DAILY 03/09/24 07/27/24 tablet,extended release magnesium oxide 400 mg (241.3 mg 400 mg PO BID 07/27/24 07/27/24 magnesium) tablet Previous Rx's ?Medication ?Instructions ?Recorded metoprolol succinate 25 mg 25 mg PO DAILY #90 tabs 10/31/23 tablet,extended release 24 hr rivaroxaban 20 mg tablet (Xarelto) 20 mg PO DAILY #90 tabs 10/31/23 clonidine HCl 0.1 mg tablet 0.1 mg PO BID #60 tabs 12/04/23 amiodarone 200 mg tablet (Pacerone) 200 mg PO DAILY #60 tabs 01/19/24 spironolactone 25 mg tablet 25 mg PO DAILY #30 tabs 01/19/24 cholecalciferol (vitamin D3) 1,250 50,000 unit PO .weekly #14 caps 06/16/24 mcg (50,000 unit) capsule Allergies Allergy/AdvReac Type Severity Reaction Status Date / Time ceftriaxone (From Rocephin) Allergy Unknown Verified 07/27/24 14:11 Review of Systems General: Reports: Other (Limited due to medical condition) Card: Reports: edema Resp: Reports: dyspnea : Reports: difficulty urinating [facility] ED PFSH: Medical History Stroke (cerebrum) Substance abuse Tobacco abuse Transaminitis Atrial flutter Hypertension Diabetes mellitus Alcohol abuse No significant medical problems Surgical History No significant past surgical history Family History Other Alcohol abuse Diabetes Social History Smoking and tobacco/nicotine status: former use of tobacco/nicotine Alcohol intake: current Alcohol type: hard liquor Caregiver/support person: Yes Lives independently: No Household members: other Details: Lives with mother Housing: House Marital status: Single 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 status: employed 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 Exam Const: GENERAL APPEARANCE: Edematous Resp: AUSCULTATION: diminished lung sounds Cardio: RATE: bradycardic RHYTHM: abnormal rhythm Extremity: OTHER: Diffuse edema Neuro: SENSORIUM/ORIENTATION: Yes somnolent Course Vital Signs: Vital signs: Vital Signs Temperature 96.3 F L 08/23/24 04:00 Pulse Rate 45 L 08/23/24 06:00 Respiratory Rate 25 H 08/23/24 08:38 Blood Pressure 97/39 08/23/24 04:45 Pulse Oximetry 100 08/23/24 08:38 Oxygen Delivery Ne thod BiPAP 08/23/24 00:04 Oxygen Flow Rate 15 08/22/24 18:07 Fraction of Inspir ed Oxygen 100 08/23/24 08:38 MDM - SOB/Dyspnea Medical Decision Making Patient diagnostic study were reviewed by me. Patient has significant lab abnormalities including mildly increased white count however he does have new severe kidney failure with a creatinine of 5.3 and a GFR of approximately 12. He is hyponatremic. He is in metabolic acidosis with anion gap likely due to being uremic from kidney failure. Patient is bradycardic and mildly hypotensive around 90s with maps in the 50s. I did call and discussed with Dr. Carmen. [place] that this time we want to be sure we hold any furoseme any other medications and we will start with gentle rehydration with 1.5 L bolus. Patient was given an amp of D50 to stabilize patient well given initial fluid bolus then. I also have concerns with possible metformin contributing to his acidosis due to his acute renal failure. Patient is to be admitted to Dr. Ashton hospitalist to the ICU. She did come and see patient and start manage patient in the ER. Patient did have significant improvement in his mentation following the initial BiPAP that he was placed on and fluids. I did discuss transfer to [facility] however following the discussion with indexer at [facility] they also felt that patient would just benefit from ICU stay here with initial rehydration then management per our hospitalist in the ICU. Patient's initial x-ray did not show significant fluid overload or pulmonary edema. Lab Data 08/23/24 09:13 08/23/24 06:12 Labs/Radiology: Radiology Impressions Chest X-Ray 08/23/24 08:19 IMPRESSION: 1. Support tubes and lines in satisfactory position. 2. Cardiomegaly with mild CHF pattern. Laboratory Results WBC 12.92 10^3/uL (3.29-11.43) H 08/22/24 18:27 RBC 2.85 10^6/uL (3.85-5.65) L 08/22/24 18:27 Hgb 8.30 g/dL (11.27-16.99) L 08/22/24 18:27 Hct 28.5 % (37-53) L 08/22/24 18:27 MCV 100.0 fl (82-101) 08/22/24 18:27 MCH 29.1 pg (27-33) 08/22/24 18:27 MCHC 29.1 g/dL (30-55) L 08/22/24 18:27 RDW 22.8 % (12.1-15.1) H 08/22/24 18:27 Plt Count 258 10^3/cmm (157-399) 08/22/24 18:27 MPV 10.8 fL (7.4-10.4) H 08/22/24 18:27 Neut % (Auto) 66.9 % 08/22/24 18:27 Lymph % (Auto) 14.4 % 08/22/24 18:27 [place] % (Auto) 16.0 % 08/22/24 18:27 Eos % (Auto) 0.5 % 08/22/24 18: Baso % (Auto) 0.3 % 08/22/24 18:27 Neut # (Auto) 8.64 10^3/uL (1.8-7.7) H 08/22/24 18:27 Lymph # (Auto) 1.9 10^3/uL (0.8-4.8) 08/22/24 18:27 [place] # (Auto) 2.1 10^3/uL (0.2-0.9) H 08/22/24 18:27 Eos # (Auto) 0.1 10^3/uL (0.0-0.8) 08/22/24 18: Baso # (Auto) 0.0 10^3/uL (0.0-0.1) 08/22/24 18: Nucleated RBC % (auto) 0 % 08/22/24 18: Nucleated RBCs # 0.0 /100WBC 08/22/24 18:27 Specimen Type Arterial 08/22/24 18:34 Sample Site Radial, right 08/22/24 18:34 ABG pH 6.97 (7.35-7.45) L* 08/22/24 18:34 ABG pCO2 31.7 mmHg (35-45) L 08/22/24 18:34 ABG pO2 143.0 mmHg (80.0-100.0) H 08/22/24 18:34 ABG PO2/FiO2 Ratio 357 08/22/24 18:34 ABG HCO3 7.2 mmol/L (22-26) L 08/22/24 18:34 ABG Base Excess -23.0 mmol/L (-2.0-2.0) L 08/22/24 18:34 Miles Test Pos 08/22/24 18:34 Hematocrit 25.3 % (42-52) L 08/22/24 18:34 Hgb O2 Saturation 96.0 % (95-100) 08/22/24 18:34 Carboxyhemoglobin 1.3 %THgb (0.4-20.1) 08/22/24 18:34 Methemoglobin 0.9 % (0.4-1.5) 08/22/24 18:34 Total Hemoglobin 8.2 g/dL (14-18) L 08/22/24 18:34 O2 Delivery Device Bipap 08/22/24 18:34 FiO2 40.0 % 08/22/24 18:34 Registered Medical Transcriptionist ID [email or web address] 08/22/24 18:34 Sodium 110 mmol/L (136-145) L* 08/22/24 18:27 Potassium 5.0 mmol/L (3.5-5.1) 08/22/24 18:27 Chloride 66 mmol/L (98-107) L 08/22/24 18:27 Carbon Dioxide 8 mmol/L (22-29) L* 08/22/24 18:27 Anion Gap 41.0 (5-19) H 08/22/24 18:27 BUN 24 mg/dL (6-20) H 08/22/24 18:27 Creatinine 5.3 mg/dL (0.7-1.2) H 08/22/24 18:27 GFR Calculation 12.4 mL/min (90-130) L 08/22/24 18:27 Glucose 113 mg/dL (65-115) 08/22/24 18:27 Calculated Osmolality 235 mOsm/kg (285-295) L 08/22/24 18:27 Calcium 9.9 mg/dL (8.5-10.5) 08/22/24 18:27 Magnesium 2.9 mg/dL (1.7-2.3) H 08/22/24 18:27 Total Bilirubin 4.6 mg/dL (0.15-1.2) H 08/22/24 18:27 AST 403 U/L (0-40) H 08/22/24 18:27 ALT 73 U/L (0-41) H 08/22/24 18:27 Alkaline Phosphatase 201 U/L (40-130) H 08/22/24 18:27 Troponin T Baseline 48 ng/L (0-15) H 08/22/24 18:27 Troponin T 120 Minute 43.94 ng/L (0-15) H 08/22/24 20:23 Delta Troponin T -4.06 ABS# (0-10) L 08/22/24 20:23 NT-Pro-B Natriuret Pep 5157 pg/mL (0-125) H 08/22/24 18:27 Total Protein 7.6 g/dL (6.6-8.7) 08/22/24 18:27 Albumin 3.5 g/dL (3.5-5.2) 08/22/24 18:27 Globulin 4.1 g/dL (1.3-4.6) 08/22/24 18:27 All radiology interpretation(s) finalized by discharge Critical Care Time Critical Care Time: Critical Care Time: Yes Total Critical Care Time: 90 Attestation: This case had a high probability of a clinically significant, sudden, or life threatening deterioration of this patient's condition which required my full and direct attention, intervention and personal management. Discharge Plan Discharge Patient Disposition: Admitted As Inpatient Admit Provider: Germaine Ashton Clinical Impression: Acute kidney failure, Metabolic acidosis, Acute hyponatremia, Bradycardia Condition: Stable Coding Level of Care Code ED Infection Control Preventionist for Shala Ocampo
[2024-08-22 18:39] LABS: Basophils % 0.3 %; Eosinophils # 0.1 10^3/uL (0.0-0.8); Eosinophils % 0.5 %; Hematocrit 28.5 % (37-53); Lymphocytes # 1.9 10^3/uL (0.8-4.8); Lymphocytes % 14.4 %; Mean Corpuscular HGB Conc 29.1 g/dL (30-55); Mean Corpuscular Hemoglobin 29.1 pg (27-33); Mean Platelet Volume 10.8 fL (7.4-10.4); Monocytes # 2.1 10^3/uL (0.2-0.9); Neutrophils # 8.64 10^3/uL (1.8-7.7); Neutrophils % 66.9 %; Nucleated Red Blood Cells % 0 %; Platelet Count 258 10^3/cmm (157-399); Red Blood Count 2.85 10^6/uL (3.85-5.65); Red Cell Distribution Width 22.8 % (12.1-15.1); White Blood Count 12.92 10^3/uL (3.29-11.43)
[2024-08-22 18:46] LABS: ABG PCO2 31.7 mmHg (35-45); Arterial Blood Gas Hematocrit 25.3 % (42-52); Blood Gas Allen Test Pos; Blood Gas Operator Identificat glc; Blood Gas Sample Site Radial, right; Blood Gas Sample Type Arterial; Carboxyhemoglobin 1.3 %THgb (0.4-20.1); HCO3 ABG 7.2 mmol/L (22-26); Methemoglobin 0.9 % (0.4-1.5); Oxygen Device BIPAP; PO2 FiO2 Ratio Arterial Blood 357; Total Hemoglobin 8.2 g/dL (14-18)
[2024-08-22 18:48] LABS: ABG PH Result 6.97 (7.35-7.45)
[2024-08-22 18:59] LABS: Troponin(5th) Baseline 48 ng/L (0-15)
[2024-08-22] MEDS: sodium chloride 0.9% 500 ML IV (19:05)
[2024-08-22 19:15] LABS: Alanine Aminotransferase 73 U/L (0-41); Albumin Level 3.5 g/dL (3.5-5.2); Alkaline Phosphatase 201 U/L (40-130); Aspartate Amino Transferase 403 U/L (0-40); Blood Urea Nitrogen 24 mg/dL (6-20); Calcium 9.9 mg/dL (8.5-10.5); Chloride 66 mmol/L (98-107); Creatinine Clr Calc Pharmacy 30.6643; Globulin 4.1 g/dL (1.3-4.6); Glomerular Filtration Rate 12.4 mL/min (90-130); Glucose 113 mg/dL (65-115); Magnesium 2.9 mg/dL (1.7-2.3); NT Pro B Type Natriuretic Pept 5157 pg/mL (0-125); Osmolality Calculated 235 mOsm/kg (285-295); Total Bilirubin 4.6 mg/dL (0.15-1.2); Total Protein 7.6 g/dL (6.6-8.7)
[2024-08-22 19:30] LABS: Carbon Dioxide 8 mmol/L (22-29); Sodium 110 mmol/L (136-145)
[2024-08-22] MEDS: sodium bicarbonate 8.4% 1 mEq/mL 50mL Syr 50 MEQ IVP ×2 (19:57→22:42)
[2024-08-22] MEDS: sodium chloride 0.9% 1,000 ML 999 ML IV ×2 (19:57→21:27)
--- NOTE | 2024-08-22 20:14 | PC.NURSE ---
1949-pt noted to bradycardic 35-41. provider notified and at bedside. amp bicarb ordered vo and given and 1 L nS hung on pressure bag. to right ac started per Marshal Philippe rn via ultrasound. 2014- pt alert and talking to mother at this time.
--- NOTE | 2024-08-22 20:18 | ECG_ITS ---
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1990 Requested By: Jagdeep Hartmann Order Number: [id number] Sarthak MD: HAYDER VANG Measurements Intervals [place] Rate: 41 P: -37 CO: 199 QRS: 99 QRSD: 142 T: 73 QT: 595 QTc: 492 Interpretive Statements SINUS BRADYCARDIA BORDERLINE RIGHT AXIS DEVIATION [QRS AXIS > 90] INTRAVENTRICULAR CONDUCTION DELAY [130+ ms QRS DURATION] PROLONGED QT INTERVAL CRITICAL TEST RESULT Compared to ECG 08/22/2024 18:14:26 Prolonged QT interval now present First degree AV block no longer present Electronically Signed On 08-22-2024 23:52:55 CDT by HAYDER VANG [email or web address] [id number]
[2024-08-22] MEDS: lactated ringers 1,000 ML 999 ML IV (20:38)
[2024-08-22 20:46] LABS: Troponin 5 2HR 43.94 ng/L (0-15)
[2024-08-22] MEDS: norepinephrine 4 MG/250 ML BAG 7.5 MG IV (20:47)
[2024-08-22 20:50] LABS: Troponin 5 2HR Delta -4.06 ABS# (0-10)
--- NOTE | 2024-08-22 20:55 | PC.NURSE ---
Hospitalist at bedside and LR bolus stopped @ 2049 at request.
[2024-08-22] MEDS: sodium bicarbonate 150 MEQ in dextrose 5% 1,000 ML 200 MEQ IV (21:20)
[2024-08-22 21:40] LABS: ABG PCO2 32.2 mmHg (35-45); Alveolar-Arterial Oxygen Gradi 13.2 mmHg (5-10); Arterial Blood Gas Hematocrit 25.2 % (42-52); Base Excess ABG -23.7 mmol/L (-2.0-2.0); Blood Gas Sample Site Brachial, left; Blood Gas Sample Type Arterial; Carboxyhemoglobin 1.2 %THgb (0.4-20.1); HCO3 ABG 6.9 mmol/L (22-26); HGB O2 Sat 95.9 % (95-100); Ionized Calcium Level - ABG 1.2 mmol/L (1.1-1.4); Methemoglobin 0.7 % (0.4-1.5); Oxygen Device BIPAP; Oxygen Saturation ABG 97.7; PO2 FiO2 Ratio Arterial Blood 345; Total Hemoglobin 8.2 g/dL (14-18)
[2024-08-22 21:41] LABS: ABG PH Result 6.94 (7.35-7.45)
[2024-08-22] MEDS: atropine 0.1 mg/mL Syr 10 mL 0.5 MG IVP (21:45)
[2024-08-22 21:49] LABS: Alanine Aminotransferase 98 U/L (0-41); Albumin Level 3.2 g/dL (3.5-5.2); Alkaline Phosphatase 186 U/L (40-130); Anion Gap 41.2 (5-19); Aspartate Amino Transferase 572 U/L (0-40); Blood Urea Nitrogen 24 mg/dL (6-20); Calcium 9.3 mg/dL (8.5-10.5); Chloride 68 mmol/L (98-107); Creatinine Clr Calc Pharmacy 29.5492; Globulin 3.9 g/dL (1.3-4.6); Glomerular Filtration Rate 11.9 mL/min (90-130); Glucose 80 mg/dL (65-115); Osmolality Calculated 235 mOsm/kg (285-295); Potassium 5.2 mmol/L (3.5-5.1); Total Bilirubin 4.2 mg/dL (0.15-1.2); Total Protein 7.1 g/dL (6.6-8.7)
[2024-08-22 21:53] LABS: Carbon Dioxide 7 mmol/L (22-29); Sodium 111 mmol/L (136-145)
[2024-08-22 22:41] LABS: Anion Gap 41.2 (5-19); Blood Urea Nitrogen 24 mg/dL (6-20); Calcium 9.1 mg/dL (8.5-10.5); Chloride 71 mmol/L (98-107); Creatinine Clr Calc Pharmacy 30.6643; Glomerular Filtration Rate 12.4 mL/min (90-130); Glucose 85 mg/dL (65-115); Osmolality Calculated 239 mOsm/kg (285-295); Potassium 5.2 mmol/L (3.5-5.1)
[2024-08-22 23:18] LABS: Carbon Dioxide 6 mmol/L (22-29); Sodium 113 mmol/L (136-145)
--- NOTE | 2024-08-22 23:21 | PC.NURSE ---
2300- pt transported to ICU via stretcher on logistics project manager , zoll, and 4 L NC . pt in no obvious distress. pt Aox4 upon at this time .
--- NOTE | 2024-08-22 23:41 | PC.NURSE ---
2230- Arterial line place per Dr. Tesfaye to right wrist . Central line to left neck per Dr. Tesfaye placed with no difficulty.
[2024-08-22] MEDS: INSULIN REGULAR IN 0.9 % NACL 100 UNIT/100 ML BAG 15 UNIT IV (23:42)
[2024-08-23] VITALS (88 sets, daily range): BP systolic 83–164; BP diastolic 22–64; PULSE 20–110; RESP 14–114; TEMP 35.3–37.3; O2SAT 85–100; BMI 51.3
--- NOTE | 2024-08-23 00:16 | PM.HP ---
Providers/Chief Complaint Admitting Physician: Germaine Ashton MD--- patient seen before midnight in the emergency room Primary Care Provider: Nikole Solano APN Chief Complaint: sob History of Present Illness Doug Regalado is a 34 year old male with medical history significant for diabetes type II, heart failure, atrial fibrillation who presented from home obtunded with room air hypoxemia and had to be placed on 100% nonrebreather brought to the emergency room for further care. At presentation the blood pressure was 90/50 pulse rate 40s pulse oximetry 80 percent on 15 L of nonrebreather. Patient was quickly switched over to BiPAP at 40% FiO2 and doing better oxygenation ceron. Lab studies were quite impressive sodium 110 potassium 5 chloride 66 bicarb 8 BUN 24 creatinine 5.3 anion gap was 41. Serum glucose less than 100. CBC were unremarkable. ABG at presentation pH was a 7 noted to be quite acidotic emergency room attending had pushed 1 amp of bicarb. I was called to follow-up with the patient for care and for admission. Upon seeing the patient patient was already on BiPAP pulse ox and at 100% on 40 FiO2. A repeat ABG was alarming pH six 6.94 by 32.2 pO2 138 pulse oximetry 97.7 repeat lab work showed a lactate of 24. And this laboratory after 2 amp of bicarb push with a bicarb drip at 3 A of bicarb and a D5 and water running at 200 an hour IV fluid placed. Central line placed. Placed for easy blood draw. Patient also was found to be hypothymia with a temperature rectal at 95 ?F. Patient at home was on metformin metoprolol amiodarone of because these were held patient was continuing on Lasix at home and spironolactone that did not help with volume contraction and renal failure patient also was taking exogenous potassium. Patient is with uncontrolled diabetes at home presenting with lactic acidosis metabolic acidosis high anion gap with renal failure cannot rule out overt infection with sepsis compounding metabolic acidosis and volume contraction and cannot rule out DKA with much acidosis. These were being addressed at this time and will follow-up with care. Empiric antibiotics ordered because of hypothermia and high lactic acid. Patient also has transaminitis and increasing bilirubin at 4. Mom has been noted that patient's shortness of breath is multifactorial as well because of extreme metabolic acidosis patient tries to blow off CO2. Cardiology is on case with Dr. Justo pascual the emergency room attending had discussed the case with at the onset. 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 Must continue to treat and optimize sepsis at this point cannot be ruled out in the setting of metabolic and lactic acidosis and hypothymia Medications/Allergies Home Medications ?Medication ?Instructions ?Recorded ?Confirmed ?Last Taken ?Type acetaminophen 500 mg tablet 1,000 - 1,500 mg PO Q6H PRN Pain 07/02/23 07/27/24 01/02/24 History empagliflozin 25 mg tablet 25 mg PO DAILY 09/11/23 07/27/24 07/06/24 History (Jardiance) gabapentin 300 mg capsule 300 mg PO DAILY 09/11/23 07/27/24 07/06/24 History metoprolol succinate 25 mg 25 mg PO DAILY #90 tabs 10/31/23 07/27/24 07/06/24 Rx tablet,extended release 24 hr rivaroxaban 20 mg tablet (Xarelto) 20 mg PO DAILY #90 tabs 10/31/23 07/27/24 07/06/24 Rx clonidine HCl 0.1 mg tablet 0.1 mg PO BID #60 tabs 12/04/23 07/27/24 07/06/24 Rx albuterol sulfate 2.5 mg/3 mL 2.5 mg inhalation Q6H PRN 01/18/24 07/27/24 Unknown History (0.083 %) solution for nebulization Shortness Of Breath amiodarone 200 mg tablet (Pacerone) 200 mg PO DAILY #60 tabs 01/19/24 07/27/24 07/06/24 Rx spironolactone 25 mg tablet 25 mg PO DAILY #30 tabs 01/19/24 07/27/24 07/06/24 Rx metformin 500 mg tablet,extended 1,000 mg PO BID 01/24/24 07/27/24 07/06/24 History release 24 hr furosemide 40 mg tablet 40 mg PO DAILY 03/09/24 07/27/24 Unknown History potassium chloride 20 mEq 20 meq PO DAILY 03/09/24 07/27/24 07/06/24 History tablet,extended release cholecalciferol (vitamin D3) 1,250 50,000 unit PO .weekly #14 caps 06/16/24 07/27/24 Unknown Rx mcg (50,000 unit) capsule magnesium oxide 400 mg (241.3 mg 400 mg PO BID 07/27/24 07/27/24 Unknown History magnesium) tablet Allergies Allergy/AdvReac Type Severity Reaction Status Date / Time ceftriaxone (From Rocephin) Allergy Unknown Verified 07/27/24 14:11 PFSH Acute PFSH: Medical History Stroke (cerebrum) Substance abuse Tobacco abuse Transaminitis Atrial flutter Hypertension Diabetes mellitus Alcohol abuse No significant medical problems Surgical History No significant past surgical history Family History Other Alcohol abuse Diabetes Social History Smoking and tobacco/nicotine status: former use of tobacco/nicotine Alcohol intake: current Alcohol type: hard liquor Caregiver/support person: Yes Lives independently: No Household members: other Details: Lives with mother Housing: House Marital status: Single 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 status: employed 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 Temp 97.1 F L 08/22/24 18:07 Pulse 48 L 08/22/24 23:04 Resp 19 H 08/22/24 22:40 BP 92/46 08/22/24 22:40 Pulse Ox 99 08/22/24 23:04 O2 Del Method BiPAP 08/22/24 22:40 O2 Flow Rate 15 08/22/24 18:07 FiO2 40 08/22/24 23:04 08/22/24 08/22/24 08/23/24 14:59 22:59 06:59 Intake Total 2716.050 / 2716.050 Balance 2716.050 / 2716.050 Weight last 48 hrs Weight 158.757 kg Physical Exam Narrative: Generally patient was with obtundation at presentation with systolic blood pressure in the 70s over 30s with much acidosis Interval improvement after bicarb pushes and drip and IV hydrations HEENT normocephalic/atraumatic neck neck is supple cardiovascular heart rate is regular lungs are pretty much clear abdomen soft nontender nondistended unremarkable extremities are i significant for third spacing edema has good pulses neurology has no focality lab studies lab studies reviewed and noted. Data 08/22/24 18:27 08/22/24 22:15 A&P Assessment and plan (1) Bradycardia: Bradycardia is multifactorial- ---could be due to medications such as beta-guero, clonidine and amiodarone Hold amiodarone, clonidine and metoprolol for now ----Could be compounded with severe metabolic acidosis anion gap Patient received 2 A of bicarb push in the emergency room at 2 different times and with bicarb drip of 3 A In D5 and water going at 200/h x 1 bag. Heart rates had improved from 41 to 49 bpm (2) High anion gap metabolic acidosis: - This is multifactorial - Source is DKA, ATN from acute renal failure, overly dehydrated leading to renal failure -Patient with contraction alkalosis dating to intra vascular depletion translating to renal failure with acidosis - Continue with IV hydration and some bicarb therapy. Patient responding (3) Hypothermia: Temperature 95 ?F rectally - Evaluate for sources of infection blood culture x 2 urinalysis done chest x-ray done monitor closely - Patient is in the ICU with pasquale puga - Patient had not made much of any urine upon arriving to the emergency room -Must use antibiotics very carefully to avoid further renal compromise patient ATN is so multifactorial has been persistently hypotension outside the hospital and coming in Will continue to maintain good blood pressure for perfusion and IV fluid as well. I am initiating clindamycin to cover gram-negative's gram-positive empirically that is renal friendly antibiotics Like to avoid vancomycin, Zosyn in this extreme acute renal failure (4) Acute hyponatremia: -- Acute hyponatremia This is due to severe volume contraction though in the setting of peripheral edema Patient is overly dry and was still taking Lasix at home now with renal failure acute significant for ATN This adds to metabolic derangement Continue with gentle hydration This could be due to pseudo hyponatremia secondary to hyperglycemia which is in no factor (5) Acute kidney failure: Gentle hydration and monitor to resolution of acute renal failure Patient clinically dehydrated to ATN must continue to monitor and optimize (6) A-fib: History of atrial fibrillation, currently patient is sinus bradycardia Will initiate patient rivaroxaban Will hold metoprolol and amiodarone, clonidine since patient is in severe bradycardia (7) Lactic acidosis: Lactic acidosis is multifactorial -- Patient overly dehydrated, continue rehydration for this will help --- Seeking infectious sources, urinalysis pending no other source of suspected infection but patient Registered hypothermia with a temperature of 95% rectally Blood culture x 2 ordered urinalysis ordered monitor at this point. Should this continues patient will be Empirically covered with antibiotics DKA can play a role (8) Diabetes mellitus: Patient is diabetes type 2 and on oral hypoglycemic agent such as metformin and empagliflozin Will not continue any oral hypoglycemic agents especially metformin because of patient profound metabolic acidosis Continue insulin protocol and monitor closely use dextrose to clear acidosis. (9) DKA (diabetic ketoacidosis): Follow up DKA protocol Plan GI and DVT prophylaxis in place PDMP PDMP Reviewed: Last Reviewed 08/23/24 00:56 by Germaine Ashton MD Attestations Medical Necessity Statement*: Patient is with multiple acute medical problem requiring BiPAP because of presenting hypoxemia in the 80s by the ambulance patient arrived with 100% nonrebreather and was placed on BiPAP. Patient was severely hypotensive with systolic in the 60s to 70s and diastolic in the 30s with severe metabolic acidosis patient qualifies for inpatient stay for at least 2 midnights Coding Level of Care Code 25934 Diagnoses Bradycardia R00.1 High anion gap metabolic acidosis E87.29 Hypothermia T68.XXXA Acute hyponatremia E87.1 Acute kidney failure N17.9 A-fib I48.91 Lactic acidosis E87.20 Type 2 diabetes mellitus with other oral complication, without long-term current use of insulin E11.638 Diabetes mellitus complication detail: with other oral complications Diabetes mellitus complication status: with oral complications Diabetes mellitus senior living insulin use: without lobsterman use Diabetes mellitus type: type 2 DKA (diabetic ketoacidosis) E11.10 Time Spent (min) 70
--- NOTE | 2024-08-23 00:18 | ECG_ITS ---
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 Measurements Intervals [place] Rate: 48 P: 208 ID: [id number] QRS: 93 QRSD: 141 T: 38 QT: 518 QTc: 467 Interpretive Statements SINUS BRADYCARDIA BORDERLINE RIGHT AXIS DEVIATION [QRS AXIS > 90] LEFT BUNDLE BRANCH BLOCK [120+ ms QRS DURATION, 80+ ms Q/S IN V1/V2, 85+ ms R IN I/aVL/V5/V6] Compared to ECG 08/22/2024 21:02:46 Left bundle-branch block now present Intraventricular conduction delay no longer present Prolonged QT interval no longer present Electronically Signed On 08-24-2024 08:52:01 CDT by Maximo Turcios M.D. [email or web address]
[2024-08-23] MEDS: pantoprazole 40 mg SDV IVP ×2 (00:22→12:10)
[2024-08-23] MEDS: heparin 5,000 unit/mL INJ 1 mL 5000 UNIT SUBCUT ×2 (00:22→10:50)
[2024-08-23 01:04] LABS: Lactate (Lactic Acid level) 24.7 mmol/L (0.5-2.2)
[2024-08-23 01:06] LABS: Glucose Point of Care 103 mg/dL (70-110)
[2024-08-23] MEDS: norepinephrine 4 MG/250 ML BAG 52.5 MG IV (01:42)
--- NOTE | 2024-08-23 01:46 | PC.NURSE ---
Dr. Ashton updated of patient condition upon arrival to unit. Patient had a rectal temp of 95.7, placed patient on laura hugger and placed continuos rectal probe. There is no urine output in tang. Dr. Tesfaye notified of a critical lactic acid of 24.7. Orders received for stat ABG and D5NS @ 500 x 1 L, This nurse told Dr. Ashton that patient still has still not had any urine output, Dr. Ashton said to start slowly titrating levophed down.
[2024-08-23 01:47] LABS: ABG PCO2 29.6 mmHg (35-45); Arterial Blood Gas Hematocrit 24.4 % (42-52); Base Excess ABG -24.5 mmol/L (-2.0-2.0); Blood Gas Sample Type Arterial; Carboxyhemoglobin 1.3 %THgb (0.4-20.1); HCO3 ABG 6.2 mmol/L (22-26); HGB O2 Sat 95.4 % (95-100); Ionized Calcium Level - ABG 1.1 mmol/L (1.1-1.4); Methemoglobin 1.6 % (0.4-1.5); Oxygen Saturation ABG 98.3; Potassium Level - ABG 4.2 mmol/L (3.5-5.0); Total Hemoglobin 7.9 g/dL (14-18)
[2024-08-23 01:50] LABS: Alveolar-Arterial Oxygen Gradi 13.4 mmHg (5-10); Blood Gas Operator Identificat JDB; Blood Gas Sample Site Not specified; Oxygen Device BIPAP; PO2 FiO2 Ratio Arterial Blood 350
[2024-08-23 01:51] LABS: ABG PH Result 6.93 (7.35-7.45)
[2024-08-23] MEDS: dextrose 5%-sod chloride 0.9% 1,000 ML 500 ML IV (02:09)
[2024-08-23] MEDS: clindamycin 900 MG/50 ML PREMIX 100 MG IV (02:09)
[2024-08-23 02:12] LABS: Glucose Point of Care 172 mg/dL (70-110)
[2024-08-23 02:12] LABS: Glucose Point of Care 107 mg/dL (70-110)
[2024-08-23 02:39] LABS: Anion Gap 42.7 (5-19); Blood Urea Nitrogen 24 mg/dL (6-20); Calcium 8.5 mg/dL (8.5-10.5); Chloride 69 mmol/L (98-107); Creatinine Clr Calc Pharmacy 30.8832; Glomerular Filtration Rate 11.6 mL/min (90-130); Glucose 95 mg/dL (65-115); Osmolality Calculated 242 mOsm/kg (285-295); Potassium 4.7 mmol/L (3.5-5.1)
[2024-08-23 02:43] LABS: Carbon Dioxide 7 mmol/L (22-29); Sodium 114 mmol/L (136-145)
[2024-08-23] MEDS: vasopressin 40 UNIT/100 ML PREMIX IV (03:19)
[2024-08-23] MEDS: sodium bicarbonate 8.4% 1 mEq/mL 50mL Syr 50 MEQ IVP ×2 (03:38→04:00)
[2024-08-23 04:06] LABS: Glucose Point of Care 148 mg/dL (70-110)
[2024-08-23 04:06] LABS: Glucose Point of Care 140 mg/dL (70-110)
--- NOTE | 2024-08-23 04:09 | PC.NURSE ---
Dr. Soni contacted about patient condition; levophed running at 20mcg/min and maps in the 50's, heart rate in lower 40's and PH and bicarb on ABG lower. Order received to push an amp of bicarb and start titratable vasopressin. Dr. Doe came to bedside and said to titrate vasopressin up to 0.05 and give another amp of bicarb then start another bicarb drip at 150meq in D5W @ 200ml/hr and turn the D5NS down to 100ml/hr while bag finishes.
[2024-08-23] MEDS: sodium bicarbonate 150 MEQ in dextrose 5% 1,000 ML 200 MEQ IV (04:30)
[2024-08-23 05:09] LABS: Glucose Point of Care 151 mg/dL (70-110)
[2024-08-23] MEDS: norepinephrine 4 MG/250 ML BAG 75 MG IV ×6 (05:33→18:02)
--- NOTE | 2024-08-23 06:00 | PM.CONSULT ---
Providers/Reason For Consult Consulting Physician/Specialty*: ronna,Nephrology Reason for Consult*: JENNIFER Metabolic acidosis Attending Physician: Germaine Ashton MD Primary Care Provider: Nikole Solano APN History of Present Illness History of Present Illness Doug Regalado is a 34 year old male Patient is a 34-year-old male with past medical history significant for atrial fibrillation congestive cardiac failure, diabetes, hypertension presented to the emergency department due to shortness of breath and was noted to be hypoxic and was placed on BiPAP. Lab data was significant for severe hyponatremia with a sodium of 110, bicarb was 8 and BUN was 24 and creatinine was 5.3 with anion gap of 41. Patient also noted to be hypotensive with a systolic blood pressures in the 70s and he was started on 2 pressors including Levophed and vasopressin. He is currently on BiPAP. Patient home medications included Jardiance, metformin, spironolactone, Lasix, potassium chloride. Patient was given 3 to 4 L of IV fluids and was started on bicarbonate drip and transferred to intensive care unit. Review of Systems Narrative: cannot obtain from pt Medications/Allergies Home Medications ?Medication ?Instructions ?Recorded ?Confirmed ?Last Taken ?Type acetaminophen 500 mg tablet 1,000 - 1,500 mg PO Q6H PRN Pain 07/02/23 07/27/24 01/02/24 History empagliflozin 25 mg tablet 25 mg PO DAILY 09/11/23 07/27/24 07/06/24 History (Jardiance) gabapentin 300 mg capsule 300 mg PO DAILY 09/11/23 07/27/24 07/06/24 History metoprolol succinate 25 mg 25 mg PO DAILY #90 tabs 10/31/23 07/27/24 07/06/24 Rx tablet,extended release 24 hr rivaroxaban 20 mg tablet (Xarelto) 20 mg PO DAILY #90 tabs 10/31/23 07/27/24 07/06/24 Rx clonidine HCl 0.1 mg tablet 0.1 mg PO BID #60 tabs 12/04/23 07/27/24 07/06/24 Rx albuterol sulfate 2.5 mg/3 mL 2.5 mg inhalation Q6H PRN 01/18/24 07/27/24 Unknown History (0.083 %) solution for nebulization Shortness Of Breath amiodarone 200 mg tablet (Pacerone) 200 mg PO DAILY #60 tabs 01/19/24 07/27/24 07/06/24 Rx spironolactone 25 mg tablet 25 mg PO DAILY #30 tabs 01/19/24 07/27/24 07/06/24 Rx metformin 500 mg tablet,extended 1,000 mg PO BID 01/24/24 07/27/24 07/06/24 History release 24 hr furosemide 40 mg tablet 40 mg PO DAILY 03/09/24 07/27/24 Unknown History potassium chloride 20 mEq 20 meq PO DAILY 03/09/24 07/27/24 07/06/24 History tablet,extended release cholecalciferol (vitamin D3) 1,250 50,000 unit PO .weekly #14 caps 06/16/24 07/27/24 Unknown Rx mcg (50,000 unit) capsule magnesium oxide 400 mg (241.3 mg 400 mg PO BID 07/27/24 07/27/24 Unknown History magnesium) tablet Allergies Allergy/AdvReac Type Severity Reaction Status Date / Time ceftriaxone (From Rocephin) Allergy Unknown Verified 07/27/24 14:11 Current Medications Generic Name Dose Route Start Last Admin Trade Name Freq PRN Reason Stop Dose Admin Heparin Sodium (Porcine) 5,000 unit 08/22/24 23:30 08/23/24 00:22 Heparin 5,000 Unit/Ml Inj 1 Ml SUBCUT 5,000 unit Q12H ROBERT Administration Norepinephrine Bitartrate 4 mg in 250 mls @ 0 mls/hr 08/22/24 21:00 08/23/24 05:33 Levophed IV 20 mcg/min .Q0M ROBERT 75 mls/hr Protocol Administration Per Protocol Insulin Human Regular 100 unit in 100 mls @ 0 mls/hr 08/22/24 22:00 08/23/24 06:08 Myxredlin 100 Unit/100 Ml Bag IV 1 unit/hr PROTOCOL ROBERT 1 mls/hr Protocol Titration Per Protocol Clindamycin HCl/Dextrose 900 mg in 50 mls @ 100 mls/hr 08/23/24 01:30 08/23/24 03:45 Cleocin IV Infused Q8H ROBERT Infusion Protocol Dextrose 1,000 mls @ 100 mls/hr 08/23/24 02:30 08/23/24 04:31 D5w IV Not Given .Q10H ROBERT Vasopressin 40 unit in 100 mls @ 0 mls/hr 08/23/24 03:15 08/23/24 06:37 Vasostrict IV 0.1 unit/min .Q0M ROBERT 15 mls/hr Protocol Titration Per Protocol Sodium Bicarbonate 150 meq/ 1,150 mls @ 200 mls/hr 08/23/24 03:45 08/23/24 04:30 Dextrose IV 08/23/24 09:29 200 mls/hr .Q5H45M ROBERT Administration Pantoprazole Sodium 40 mg 08/22/24 23:15 08/23/24 00:22 Pantoprazole 40 Mg Sdv IVP 40 mg Q24H ROBERT Administration PFSH Acute PFSH: Medical History Stroke (cerebrum) Substance abuse Tobacco abuse Transaminitis Atrial flutter Hypertension Diabetes mellitus Alcohol abuse No significant medical problems Surgical History No significant past surgical history Family History Other Alcohol abuse Diabetes Social History Smoking and tobacco/nicotine status: former use of tobacco/nicotine Alcohol intake: current Alcohol type: hard liquor Caregiver/support person: Yes Lives independently: No Household members: other Details: Lives with mother Housing: House Marital status: Single 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 status: employed 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 Temp 96.3 F L 08/23/24 04:00 Pulse 44 L 08/23/24 04:45 Resp 19 H 08/22/24 22:40 BP 97/39 08/23/24 04:45 Pulse Ox 94 08/23/24 04:45 O2 Del Method BiPAP 08/23/24 00:04 O2 Flow Rate 15 08/22/24 18:07 FiO2 35 08/23/24 04:33 08/22/24 08/22/24 08/23/24 14:59 22:59 06:59 Intake Total 2716.050 / 2716.050 2726.950 / 5443.000 Balance 2716.050 / 2716.050 2726.950 / 5443.000 Weight last 48 hrs Weight 176.629 kg Weight 158.757 kg Physical Exam Narrative: on BIPAP On 2 pressors S1S2 RRR per report , bradycardic Lung with decreased BS yuri Abd , soft per report + edema Data 08/23/24 06:12 08/23/24 06:12 Micro: Microbiology 08/22/24 02:08 Blood Culture - Preliminary Blood SPECIMEN COLLECTED 08/22/24 00:20 Blood Culture - Preliminary Blood SPECIMEN COLLECTED A&P Assessment and plan (1) Acute kidney failure: (2) Acute hyponatremia: (3) High anion gap metabolic acidosis: Plan 1. Severe acute kidney injury: Likely prerenal/ATN in the setting of severe hypotension, possibly septic shock. -Sepsis workup still ongoing - Due to patient being anuric and having severe metabolic acidosis will recommend CRRT and requested hemodialysis catheter placement. - In the meantime we will continue bicarbonate drip and check BMP every 4 hours. - Discussed with overnight hospitalist and a.m. hospitalist in detail 2. Hyponatremia: Sodium of 110, likely hypovolemic, with underlying history of congestive cardiac failure. Watch sodium closely to prevent overcorrection. Switch IV fluids to D5 half-normal saline and will check sodium every 2 hours. Will consider DDAVP to prevent rapid correction 3. Severe metabolic acidosis: Due to JENNIFER and lactic acidosis, bicarbonate drip and it CRRT as above 4. Shock: On pressors, intubated, unclear etiology of shock, sepsis versus cardiogenic 5. Hyperkalemia, mild, monitor, should improve with CRRT 6. History of diabetes 7. History of CHF 8. History of hypertension Patient critically ill. Discussed with hospitalist. Patient evaluated using audiovisual cart. Time spent 60 minutes. PDMP PDMP Reviewed: Not Reviewed Consult Attestations Medical Necessity Statement: per [facility] team Coding Level of Care Code Acute Code for [facility] Fwd Diagnoses Acute kidney failure N17.9 Acute hyponatremia E87.1 High anion gap metabolic acidosis E87.29
[2024-08-23 06:11] LABS: Glucose Point of Care 162 mg/dL (70-110)
[2024-08-23 06:30] LABS: Basophils % 0.1 %; Eosinophils % 0.1 %; Hematocrit 27.2 % (37-53); Lymphocytes # 1.6 10^3/uL (0.8-4.8); Lymphocytes % 10.8 %; Mean Corpuscular HGB Conc 27.9 g/dL (30-55); Mean Corpuscular Hemoglobin 29.6 pg (27-33); Mean Corpuscular Volume 105.8 fl (82-101); Mean Platelet Volume 10.7 fL (7.4-10.4); Monocytes # 2.8 10^3/uL (0.2-0.9); Monocytes % 18.8 %; Neutrophils # 9.69 10^3/uL (1.8-7.7); Neutrophils % 65.8 %; Nucleated Red Blood Cells % 0.2 %; Platelet Count 192 10^3/cmm (157-399); Red Blood Count 2.57 10^6/uL (3.85-5.65); Red Cell Distribution Width 22.5 % (12.1-15.1); White Blood Count 14.71 10^3/uL (3.29-11.43)
[2024-08-23 06:56] LABS: Cholesterol 146 mg/dL (0-200); HDL Cholesterol 10 mg/dL (60-100); LDL Cholesterol Calculated 73 mg/dL (50-129); Triglycerides 313 mg/dL (0-150)
[2024-08-23 06:59] LABS: Alanine Aminotransferase 302 U/L (0-41); Albumin Level 3.2 g/dL (3.5-5.2); Alkaline Phosphatase 203 U/L (40-130); Anion Gap 45.3 (5-19); Blood Urea Nitrogen 24 mg/dL (6-20); Calcium 8.9 mg/dL (8.5-10.5); Chloride 69 mmol/L (98-107); Creatinine Clr Calc Pharmacy 30.3414; Glomerular Filtration Rate 11.4 mL/min (90-130); Glucose 125 mg/dL (65-115); Magnesium 2.9 mg/dL (1.7-2.3); Osmolality Calculated 250 mOsm/kg (285-295); Potassium 5.3 mmol/L (3.5-5.1); Thyroid Stimulating Hormone 7.04 uIU/mL (0.27-4.20); Total Bilirubin 4.7 mg/dL (0.15-1.2); Total Protein 7.2 g/dL (6.6-8.7)
--- NOTE | 2024-08-23 07:06 | PC.NURSE ---
Dr. Townsend called, put in crrt orders, waiting on dialysis acess at this time, Dr. Townsend spoke with hospitalist to consult surgery
--- NOTE | 2024-08-23 07:13 | PC.PHAR ---
CALLED UNIT TO CLARIFY INSULIN DRIP ORDERS. I SEE TWO DIFFERENT PROTOCOLS ON PATIENTS PROFILE. DOC IS IN WITH PATIENT WRITE NOW, ASKED PRICING DIRECTOR TO HAVE HIM/HER GIVE ME A CALL AND/OR CLEAN UP DUPLICATIONS ON PROFILE.
[2024-08-23 07:18] LABS: Aspartate Amino Transferase 2273 U/L (0-40); Carbon Dioxide 8 mmol/L (22-29); Phosphorus 8.1 mg/dL (2.5-4.5); Sodium 117 mmol/L (136-145)
[2024-08-23 07:19] LABS: Lactic Sepsis W/Reflex 28.3 mmol/L (0.5-2.2)
[2024-08-23 07:20] LABS: Estmated Average Glucose 123; Hemoglobin A1C 5.9 % (4.0-6.0)
--- NOTE | 2024-08-23 07:27 | PM.MISC ---
Miscellaneous Note Purpose of Documentation: Trialysis catheter placement: Note: Preprocedure consent preprocedure consent: The procedure and what it would entail, including the risk, benefits, and alternatives were discussed with the patient in detail. Risks included, but were not limited to, infection, bleeding, collapse of lung, vascular injury, and heart or lung complications. Additionally, will have to shave his neck. I discussed with the patient that he had had his rivaroxaban yesterday at around 11 AM, and that he would have an increased risk for bleeding complication. All questions were answered, and the patient with to proceed with ultrasound-guided trialysis catheter placement at bedside.
[2024-08-23 07:30] LABS: Hepatitis B Surface AB < 3.5 (11.5-1000); Hepatitis B Surface Antigen Non-Reactive (Nonreactive)
--- NOTE | 2024-08-23 07:45 | USR_ITS ---
PROCEDURE INFORMATION: Exam: US Abdomen Complete Exam date and time: 08/23/2024 12:09 PM Age: 34 years old Clinical indication: Condition or disease; Kidney or ureter condition; Other: Leroy TECHNIQUE: Imaging protocol: Real-time ultrasound of the abdomen with image documentation. Complete exam. COMPARISON: CT kidney stone [id number] 08/25/2018 10:01 AM FINDINGS: Liver: Liver is enlarged and diffusely echogenic likely due to fatty infiltration. Evaluation for liver masses is limited due to the density of liver parenchyma. Gallbladder: Gallbladder is poorly visualized. Bile ducts are not visualized. Biliary ducts: See Gallbladder finding. Pancreas: Pancreas is poorly visualized limiting assessment. Right kidney: Normal. No mass. No hydronephrosis. Left kidney: Normal. No mass. No hydronephrosis. Spleen: Spleen is not enlarged. Kidneys are unremarkable. Aorta: Normal. No aneurysm. Inferior vena cava: Normal. US/US abdomen complete* [id number] IMPRESSION: 1. Limited study due to body habitus. 2. Hepatomegaly with marked fatty infiltration. 3. Limited assessment of the gallbladder and pancreas
[2024-08-23 08:06] LABS: Glucose Point of Care 149 mg/dL (70-110)
[2024-08-23] MEDS: vecuronium 10 mg SDV 18 MG IVP (08:08)
[2024-08-23 08:13] LABS: Reflex Lactate Order REFLEX LACTIC ORDERD
--- NOTE | 2024-08-23 08:19 | XRR_ITS ---
PROCEDURE INFORMATION: Exam: XR Chest Exam date and time: 08/23/2024 8:19 AM Age: 34 years old Clinical indication: Device placement; Ett placement (vent status); Additional info: Intubation TECHNIQUE: Imaging protocol: Radiologic exam of the chest. Views: 1 view. COMPARISON: CR (CHEST, ) 08/22/2024 6:50 PM FINDINGS: Tubes, catheters and devices: ETT in satisfactory position 5 cm above the ashwin. There is a central line placed via left jugular approach terminating in the SVC just above the cavoatrial junction. Lungs: Lung volumes are decreased. Mild pulmonary congestion developed from previous exam. Platelike atelectasis right midlung zone and minor atelectatic changes left lung base. Pleural spaces: Unremarkable. No pleural effusion. No pneumothorax. Heart/Mediastinum: Heart is enlarged, unchanged. Bones/joints: No acute bony abnormalities detected. XR/XR chest 1V portable [id number] IMPRESSION: 1. Support tubes and lines in satisfactory position. 2. Cardiomegaly with mild CHF pattern.
--- NOTE | 2024-08-23 08:25 | USCV_ITS ---
Doug Regalado Age: 34 Gender: M : 1990 Exam Date: 08/23/2024 14:05 Ordering Phys: Hal Lindsey MD Technologist: Ramon Olivas Exam Location: [facility] [place] Indication: sob BP: 115 / 63 HR: 63 Rhythm: Sinus Technical Quality: Poor MEASUREMENTS (Male / Female) Normal Values 2D ECHO LV Diastolic Diameter PLAX 3.6 cm 4.2 - 5.9 / 3.9 - 5.3 cm IVS Diastolic Thickness 1.3 cm 0.6 - 1.0 / 0.6 - 0.9 cm IVS Systolic Thickness 1.9 cm LVPW Diastolic Thickness 1.6 cm 0.6 - 1.0 / 0.6 - 0.9 cm LVPW Systolic Thickness 1.9 cm LVOT Diameter 2.1 cm LV Ejection Fraction 2D Teich 82.4 % LV Ejection Fraction MOD 4C 78.2 % LV Ejection Fraction MOD 2C 60.5 % LV Ejection Fraction 2C AL 61.4 % LA Diameter 4.1 cm RA Systolic Volume 4C AL 82.7 ml RA Systolic Volume 4C MOD 80.3 ml LA Sys Volume AL 65.2 cm cubed LA Sys Volume Index AL 21.0 cm cubed/m squared Aorta at Sinotubular Diameter 2.1 cm M-MODE LA Ao Ratio MM 1.7 AV Cusp Separation MM 1.9 cm DOPPLER AV Peak Velocity 161.3 cm/s LVOT Peak Velocity 128.0 cm/s AV Area Cont Eq vti 2.5 cm squared AV Area Cont Eq pk 2.8 cm squared MV Peak Velocity 175.0 cm/s MV Area PHT 3.9 cm squared Mitral E to A Ratio 3.8 TV Peak Velocity 340.5 cm/s TR Peak Velocity 353.0 cm/s TR Peak Gradient 49.8 mmHg TR Mean Velocity 290.0 cm/s TR Mean Gradient 34.7 mmHg TR Velocity Time Integral 99.1 cm PV Peak Velocity 109.7 cm/s RV Ejection Time 0.2 s FINDINGS Left Ventricle Normal left ventricular size, systolic function and wall thickness, with no regional wall motion abnormalities. Left ventricular ejection fraction is estimated at 60 %. Normal diastolic function. Right Ventricle The right ventricle is normal in size and function. Right Atrium The right atrium is normal in size. Left Atrium The left atrium is normal in size. Mitral Valve Mildly thickened mitral valve. Mild mitral annular calcification. No mitral valve stenosis. Trace mitral valve regurgitation. Aortic Valve Moderate aortic valve calcification. No aortic valve stenosis. Trace aortic valve regurgitation. Tricuspid Valve Structurally normal tricuspid valve without significant stenosis or regurgitation. Pulmonary artery systolic pressure is normal. Pulmonic Valve Structurally normal pulmonic valve without significant stenosis. There is no pulmonic regurgitation. Pericardium Normal pericardium without effusion. Aorta Normal ascending aorta dimension. IVC The inferior vena cava appears normal. CONCLUSIONS Normal left ventricular size, systolic function and wall thickness, with no regional wall motion abnormalities. Left ventricular ejection fraction is estimated at 60 %. Normal diastolic function. No significant valve abnormalities. There is no pericardial effusion. Right atrial pressure is around 5 mm of mercury. Forest Tsang MD (Electronically Signed) Final Date: 24 August 2024 22:40 S
--- NOTE | 2024-08-23 08:25 | W.ED.SOB ---
HPI - SOB/Dyspnea General: Chief Complaint: Shortness of Breath/Dyspnea Stated Complaint: sob Time Seen by Provider: 08/22/24 18:08 History of Present Illness: HPI Narrative: , Related Data Home Medications ?Medication ?Instructions ?Recorded ?Confirmed acetaminophen 500 mg tablet 1,000 - 1,500 mg PO Q6H PRN Pain 07/02/23 07/27/24 empagliflozin 25 mg tablet 25 mg PO DAILY 09/11/23 07/27/24 (Jardiance) gabapentin 300 mg capsule 300 mg PO DAILY 09/11/23 07/27/24 albuterol sulfate 2.5 mg/3 mL 2.5 mg inhalation Q6H PRN 01/18/24 07/27/24 (0.083 %) solution for nebulization Shortness Of Breath metformin 500 mg tablet,extended 1,000 mg PO BID 01/24/24 07/27/24 release 24 hr furosemide 40 mg tablet 40 mg PO DAILY 03/09/24 07/27/24 potassium chloride 20 mEq 20 meq PO DAILY 03/09/24 07/27/24 tablet,extended release magnesium oxide 400 mg (241.3 mg 400 mg PO BID 07/27/24 07/27/24 magnesium) tablet Previous Rx's ?Medication ?Instructions ?Recorded metoprolol succinate 25 mg 25 mg PO DAILY #90 tabs 10/31/23 tablet,extended release 24 hr rivaroxaban 20 mg tablet (Xarelto) 20 mg PO DAILY #90 tabs 10/31/23 clonidine HCl 0.1 mg tablet 0.1 mg PO BID #60 tabs 12/04/23 amiodarone 200 mg tablet (Pacerone) 200 mg PO DAILY #60 tabs 01/19/24 spironolactone 25 mg tablet 25 mg PO DAILY #30 tabs 01/19/24 cholecalciferol (vitamin D3) 1,250 50,000 unit PO .weekly #14 caps 06/16/24 mcg (50,000 unit) capsule Allergies Allergy/AdvReac Type Severity Reaction Status Date / Time ceftriaxone (From Rocephin) Allergy Unknown Verified 07/27/24 14:11 [facility] PFSH: Medical History Stroke (cerebrum) Substance abuse Tobacco abuse Transaminitis Atrial flutter Hypertension Diabetes mellitus Alcohol abuse No significant medical problems Surgical History No significant past surgical history Family History Other Alcohol abuse Diabetes Social History Smoking and tobacco/nicotine status: former use of tobacco/nicotine Alcohol intake: current Alcohol type: hard liquor Caregiver/support person: Yes Lives independently: No Household members: other Details: Lives with mother Housing: House Marital status: Single 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 status: employed 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 Procedures Intubation Time out performed: Yes sedative: Etomidate Mg Given: 20 paralytic: Vecuronium Mg Given: 18 Laryngoscope: Kapil ET Tube Size: 8 ET Tube Uncuffed: No Tube Secured Depth (cm): 25 Tube Secured Location: lips Tube Placement Confirmation: visualized tube passing through cords, equal breath sounds bilaterally, no breath sounds over epigastrium and confirmation by capnometry Patient Tolerated Procedure: well Intubation Complications: none Course Vital Signs: Vital signs: Vital Signs Temperature 96.3 F L 08/23/24 04:00 Pulse Rate 45 L 08/23/24 06:00 Respiratory Rate 19 H 08/22/24 22:40 Blood Pressure 97/39 08/23/24 04:45 Pulse Oximetry 94 08/23/24 04:45 Oxygen Delivery Me thod BiPAP 08/23/24 00:04 Oxygen Flow Rate 15 08/22/24 18:07 Fraction of Inspir ed Oxygen 35 08/23/24 04:33 MDM - SOB/Dyspnea Medical Decision Making Called ICU to intubate patient and the patient went well with no complications. Lab Data 08/23/24 06:12 08/23/24 06:12 Labs/Radiology: Radiology Impressions Chest X-Ray 08/22/24 18:17 IMPRESSION: No acute findings. Laboratory Results WBC 12.92 10^3/uL (3.29-11.43) H 08/22/24 18:27 RBC 2.85 10^6/uL (3.85-5.65) L 08/22/24 18:27 Hgb 8.30 g/dL (11.27-16.99) L 08/22/24 18:27 Hct 28.5 % (37-53) L 08/22/24 18:27 MCV 100.0 fl (82-101) 08/22/24 18:27 MCH 29.1 pg (27-33) 08/22/24 18: MCHC 29.1 g/dL (30-55) L 08/22/24 18:27 RDW 22.8 % (12.1-15.1) H 08/22/24 18: Plt Count 258 10^3/cmm (157-399) 08/22/24 18: MPV 10.8 fL (7.4-10.4) H 08/22/24 18:27 Neut % (Auto) 66.9 % 08/22/24 18:27 Lymph % (Auto) 14.4 % 08/22/24 18:27 Woodson % (Auto) 16.0 % 08/22/24 18:27 Eos % (Auto) 0.5 % 08/22/24 18:27 Baso % (Auto) 0.3 % 08/22/24 18:27 Neut # (Auto) 8.64 10^3/uL (1.8-7.7) H 08/22/24 18:27 Lymph # (Auto) 1.9 10^3/uL (0.8-4.8) 08/22/24 18:27 Woodson # (Auto) 2.1 10^3/uL (0.2-0.9) H 08/22/24 18:27 Eos # (Auto) 0.1 10^3/uL (0.0-0.8) 08/22/24 18:27 Baso # (Auto) 0.0 10^3/uL (0.0-0.1) 08/22/24 18:27 Nucleated RBC % (auto) 0 % 08/22/24 18: Nucleated RBCs # 0.0 /100WBC 08/22/24 18: Specimen Type Arterial 08/22/24 18:34 Sample Site Radial, right 08/22/24 18:34 ABG pH 6.97 (7.35-7.45) L* 08/22/24 18:34 ABG pCO2 31.7 mmHg (35-45) L 08/22/24 18:34 ABG pO2 143.0 mmHg (80.0-100.0) H 08/22/24 18:34 ABG PO2/FiO2 Ratio 357 08/22/24 18:34 ABG HCO3 7.2 mmol/L (22-26) L 08/22/24 18:34 ABG Base Excess -23.0 mmol/L (-2.0-2.0) L 08/22/24 18:34 Miles Test Pos 08/22/24 18:34 Hematocrit 25.3 % (42-52) L 08/22/24 18:34 Hgb O2 Saturation 96.0 % (95-100) 08/22/24 18:34 Carboxyhemoglobin 1.3 %THgb (0.4-20.1) 08/22/24 18:34 Methemoglobin 0.9 % (0.4-1.5) 08/22/24 18:34 Total Hemoglobin 8.2 g/dL (14-18) L 08/22/24 18:34 O2 Delivery Device Bipap 08/22/24 18:34 FiO2 40.0 % 08/22/24 18:34 First Responder ID glc 08/22/24 18:34 Sodium 110 mmol/L (136-145) L* 08/22/24 18:27 Potassium 5.0 mmol/L (3.5-5.1) 08/22/24 18:27 Chloride 66 mmol/L (98-107) L 08/22/24 18:27 Carbon Dioxide 8 mmol/L (22-29) L* 08/22/24 18:27 Anion Gap 41.0 (5-19) H 08/22/24 18:27 BUN 24 mg/dL (6-20) H 08/22/24 18:27 Creatinine 5.3 mg/dL (0.7-1.2) H 08/22/24 18:27 GFR Calculation 12.4 mL/min (90-130) L 08/22/24 18:27 Glucose 113 mg/dL (65-115) 08/22/24 18:27 Calculated Osmolality 235 mOsm/kg (285-295) L 08/22/24 18:27 Calcium 9.9 mg/dL (8.5-10.5) 08/22/24 18:27 Magnesium 2.9 mg/dL (1.7-2.3) H 08/22/24 18:27 Total Bilirubin 4.6 mg/dL (0.15-1.2) H 08/22/24 18:27 AST 403 U/L (0-40) H 08/22/24 18:27 ALT 73 U/L (0-41) H 08/22/24 18:27 Alkaline Phosphatase 201 U/L (40-130) H 08/22/24 18:27 Troponin T Baseline 48 ng/L (0-15) H 08/22/24 18:27 Troponin T 120 Minute 43.94 ng/L (0-15) H 08/22/24 20:23 Delta Troponin T -4.06 ABS# (0-10) L 08/22/24 20:23 NT-Pro-B Natriuret Pep 5157 pg/mL (0-125) H 08/22/24 18:27 Total Protein 7.6 g/dL (6.6-8.7) 08/22/24 18:27 Albumin 3.5 g/dL (3.5-5.2) 08/22/24 18:27 Globulin 4.1 g/dL (1.3-4.6) 08/22/24 18:27 All radiology interpretation(s) finalized by discharge Discharge Plan Discharge Patient Disposition: Admitted As Inpatient Admit Provider: Germaine Ashton Clinical Impression: Acute kidney failure, Metabolic acidosis, Acute hyponatremia, Bradycardia Condition: Stable Coding Level of Care Code ED Latrine Cleaner for Shala Ocampo
[2024-08-23] MEDS: DOPamine drip 400 MG/250 ML PREMIX 66.24 MG IV ×3 (08:30→17:54)
--- NOTE | 2024-08-23 08:41 | XRR_ITS ---
PROCEDURE INFORMATION: Exam: XR Chest Exam date and time: 08/23/2024 10:54 AM Age: 34 years old Clinical indication: Device placement; Other: Et and ng placement; Additional info: Intubation TECHNIQUE: Imaging protocol: Radiologic exam of the chest. Views: 1 view. COMPARISON: CT chest abdpel w/*[id number] 08/23/2024 9:47 AM FINDINGS: Tubes, catheters and devices: ET tube in adequate position 3 cm above the ashwin. There is a left-sided central line terminating placed via left jugular approach turbidity the junction of a left subclavian vein in SVC. Lungs: Lung volumes are significantly decreased. Scattered atelectasis both lung rueda. Pleural spaces: Unremarkable. No pleural effusion. No pneumothorax. Heart/Mediastinum: Heart is mildly enlarged. Bones/joints: No acute bony abnormalities detected. XR/XR chest 1V portable [id number] IMPRESSION: ETT in satisfactory position.
--- NOTE | 2024-08-23 08:41 | PC.NURSE ---
on shift change this am pt bradycardic noted art line very positional pt restless , during round at 0800 pt art line out noted heart rate down to 20s Dr Lindsey called atropine given at time surgeon in room to start dialysis line on hold at this time pressors in place levophed and vasopressin , dopaming infusing to assist heart rate external pacer in use rate 70 and ma up to 42
[2024-08-23] MEDS: midazolam hcl 100 MG/100 ML BAG IV (08:45)
--- NOTE | 2024-08-23 08:47 | PC.NURSE ---
during episode gave amp of bicarb and amp calcium cl also Dr mead called and intubated with 8 et tube to 25 lip after etamadate and mitazolam given at 0830 dr whitaker at bedside after regain of sr rate 70s pacer off and now on standby while intubating pt noted dark and blackish exudate in mouth and throat
--- NOTE | 2024-08-23 08:49 | CTR_ITS ---
PROCEDURE INFORMATION: Exam: CT Chest With Contrast; Diagnostic Exam date and time: 08/23/2024 9:47 AM Age: 34 years old Clinical indication: Bloating; Dyspnea; Additional info: SOB TECHNIQUE: Imaging protocol: Diagnostic computed tomography of the chest with contrast. Radiation optimization: All CT scans at this facility use at least one of these dose optimization techniques: automated exposure control; mA and/or kV adjustment per patient size (includes targeted exams where dose is matched to clinical indication); or iterative reconstruction. Contrast material: OMNIPAQUE 350; Contrast volume: 100 ml; Contrast route: INTRAVENOUS (IV); COMPARISON: CT angio chest PE protcl [id number] 01/02/2024 6:40 PM RADIATION DOSE METRICS: Total DLP (mGy-cm): 2057.5 FINDINGS: Limitations: Study is technically limited due to motion artifact. Tubes, catheters and devices: ETT terminating 3 cm above the ashwin. Lungs: Lung volumes are significantly decreased. Bilateral atelectasis along the dependent portion of both lung rueda. Additional subsegmental atelectasis right mid lung zone. Pleural spaces: Unremarkable. No pneumothorax. No pleural effusion. Heart: Heart is moderately enlarged. Lymph nodes: Mild mediastinal lymphadenopathy, unchanged, favoring benign etiology. Vasculature: Unremarkable. No aortic aneurysm. Bones/joints: Moderate multilevel degenerative changes throughout the thoracic spine. No acute bony abnormalities. Soft tissues: Unremarkable. PROCEDURE INFORMATION: Exam: CT Abdomen And Pelvis With Contrast Exam date and time: 08/23/2024 9:47 AM Age: 34 years old Clinical indication: Bloating; Dyspnea; Additional info: SOB TECHNIQUE: Imaging protocol: Computed tomography of the abdomen and pelvis with contrast. Radiation optimization: All CT scans at this facility use at least one of these dose optimization techniques: automated exposure control; mA and/or kV adjustment per patient size (includes targeted exams where dose is matched to clinical indication); or iterative reconstruction. Contrast material: OMNIPAQUE 350; Contrast volume: 100 ml; Contrast route: INTRAVENOUS (IV); COMPARISON: CT angio chest PE protcl [id number] 01/02/2024 6:40 PM RADIATION DOSE METRICS: Total DLP (mGy-cm): 2057.5 FINDINGS: Limitations: Study is technically limited due to motion artifact. Lungs: Please refer to discussion of CT chest exam. Liver: Liver is enlarged with cirrhotic contour with fatty infiltration. Multiple small hypodensities difficult to adequately assess due to limitations of the study. Gallbladder and biliary ducts: Gallbladder is contracted limiting its assessment. Bile ducts are not dilated. Pancreas: Pancreas somewhat blurred by motion artifact. No abnormalities detected. Spleen: Normal. No splenomegaly. Adrenal glands: Normal. No mass. Kidneys and ureters: Small wedge-shaped cortical hypodensities both kidneys suspicious for multiple small renal infarcts. Mild indistinct fat stranding with small amount of scattered fluid within the right and left anterior pararenal space extending inferiorly into the upper pelvis probably secondary to acute pancreatitis. Stomach and bowel: Unremarkable. No obstruction. No mucosal thickening. Appendix: No evidence of appendicitis. Intraperitoneal space: Unremarkable. No free air. No significant fluid collection. Vasculature: Unremarkable. No abdominal aortic aneurysm. Lymph nodes: Unremarkable. No enlarged lymph nodes. Urinary bladder: Unremarkable as visualized. Reproductive: Unremarkable as visualized. Bones/joints: Unremarkable. No acute fracture. Soft tissues: Unremarkable. Other findings: . CT/CT chest abdpel w/*[id number] IMPRESSION: 1. Limited study. 2. Cardiomegaly, decreased lung volumes with bilateral atelectasis. 3. Mild mediastinal lymphadenopathy, unchanged. IMPRESSION: 1. Limited study. 2. Multiple small wedge-shaped hypodensities both kidneys suspicious for small renal infarcts. 3. Scattered small amount of retroperitoneal fluid within the right and left anterior pararenal space most likely secondary to acute pancreatitis. Please correlate with laboratory parameters. 4. Cirrhosis with multiple small hypodensities left lobe of the liver too small to actually characterize. Continued follow-up advised. 5. Diffuse anasarca in the soft tissues presumably secondary to volume overload. COMMENTS: Consistent with the [employer]'s Incidental Findings Committee white paper (J Am Nika Radiol 2018): Any incidental renal lesion less than 1 cm or classified as too small to characterize, or any incidental cystic renal lesion characterized as simple-appearing, is likely benign. No follow-up imaging is recommended for these lesions per consensus recommendations based on imaging criteria.
--- NOTE | 2024-08-23 09:06 | PC.PHAR ---
Will follow up with [facility] when they open at 10am today.
[2024-08-23 09:17] LABS: ABG PCO2 29.7 mmHg (35-45); Arterial Blood Gas Hematocrit 26.9 % (42-52); Base Excess ABG -25.5 mmol/L (-2.0-2.0); Blood Gas Operator Identificat GD; Blood Gas Sample Site Not specified; Blood Gas Sample Type Arterial; HCO3 ABG 5.8 mmol/L (22-26); Oxygen Device VENT; PO2 FiO2 Ratio Arterial Blood 116
[2024-08-23 09:17] LABS: C Reactive Protein 16.4 mg/L (0.0-4.9); Gamma Glutamyl Transferase 733 U/L (8-61); Lipase 68 U/L (13-60)
--- NOTE | 2024-08-23 09:19 | ANES.PROC ---
Anesthesia Procedures Procedure/Date: 08/23/24 Arterial Line: Time Out Performed: Yes Consent: requested by attending/covering physician and emergency procedure Size (Gauge): 20 Technique Used: direct puncture technique Post-Procedure: dry sterile dressing placed Patient Tolerated Procedure: well and no complications Complications: none Site: left and radial
[2024-08-23 09:20] LABS: Basophils % 0.2 %; Eosinophils % 0.1 %; Hematocrit 29.9 % (37-53); Lymphocytes # 2.1 10^3/uL (0.8-4.8); Lymphocytes % 12.7 %; Mean Corpuscular HGB Conc 27.8 g/dL (30-55); Mean Corpuscular Volume 104.5 fl (82-101); Mean Platelet Volume 10.1 fL (7.4-10.4); Monocytes # 2.8 10^3/uL (0.2-0.9); Monocytes % 17.2 %; Neutrophils # 10.67 10^3/uL (1.8-7.7); Neutrophils % 64.9 %; Nucleated Red Blood Cells % 0.2 %; Platelet Count 184 10^3/cmm (157-399); Red Blood Count 2.86 10^6/uL (3.85-5.65); Red Cell Distribution Width 22.6 % (12.1-15.1); White Blood Count 16.44 10^3/uL (3.29-11.43)
[2024-08-23 09:24] LABS: Procalcitonin 1.94 ng/mL (0-0.5)
[2024-08-23 09:25] LABS: Creatine Phosphokinase 417 U/L (39-308)
[2024-08-23] MEDS: meropenem 500 mg SDV IVP ×2 (09:25→16:08)
[2024-08-23] MEDS: desmopressin 4 mcg/mL INJ SUBCUT (09:25)
[2024-08-23 09:54] LABS: Lactic Acid level (Lactate) 25.5 mmol/L (0.5-2.2)
--- NOTE | 2024-08-23 10:19 | PC.PHAR ---
verified all medications with [facility]
[2024-08-23] MEDS: etomidate 2 mg/mL INJ SDV 10 mL 30 MG IVP (10:36)
[2024-08-23] MEDS: vasopressin 40 UNIT/100 ML PREMIX 15 UNIT IV ×3 (10:37→17:52)
[2024-08-23] MEDS: sodium bicarbonate 150 MEQ in dextrose 5% 1,000 ML IV (10:37)
--- NOTE | 2024-08-23 10:39 | PC.NURSE ---
Anaesthesia placed art line approximately 0950
[2024-08-23] MEDS: albumin 25 G/100 ML BAG 60 G IV ×2 (10:50→16:13)
--- NOTE | 2024-08-23 10:51 | PC.NURSE ---
Dr. Tesfaye at bedside placing dialysis line to R IJ
--- NOTE | 2024-08-23 11:05 | PM.CCNAC ---
Critical Care Event Note The high probability of a clinically significant, sudden or life threatening deterioration of the patient's [] system(s) required my full and direct attention, intervention and personal management. The critical care time is as shown. This time is in addition to time spent performing any reported procedures but includes the following: [x] Data and vital sign review and interpretation [x] Patient assessment, examination and intervention [x] Documentation [x] Medication orders and management Critical Care Time Code activated: No Critical Care Time (min): 60 Additional information about critical care time: - I was called to evaluate Doug Regalado at about 7:20 AM this morning - Doug was on BiPAP 35% FiO2, alert to person, not place, not to time he did follow commands, maintaining his airway in mild to moderate respiratory distress, intercostal retractions, suprasternal retractions, nasal flaring, but following commands, - He was on 2 pressors, he was on Levophed at 20, he was on vasopressin - He had accidentally removed his arterial line, maps were 60-65 - Respiratory rate was 15-20, hypothermic throughout the night - Had a conversation with Dr. Tesfaye about overnight plans on CRRT - Plans on dialysis catheter placement - Dr. Tesfaye was in the process of placing dialysis catheter placement - However Doug was becoming more lethargic, developing bradycardia - Discussed with Dr. Tesfaye that with Doug's bradycardia, him becoming lethargic, developing respiratory failure, his persistent hypotension on 2 pressors - Given his and severe septic shock, developing bradycardic shock, lethargy - Plan on intubating him, further resuscitating him, and treating his bradycardia - Patient's dialysis catheter placement was aborted - Nursing staff at bedside - Order was placed for dopamine, atropine, monitoring bradycardia - I discussed with the ER provider Dr. Hankins about intubating patient to protect his airway - Patient was reexamined in ICU blood pressures maps are 60-65, he is developing bradycardia, initially he was waxing and waning in terms of his consciousness, now was not waking up to sternal rub, O2 sats in the 90s, 35% BiPAP - Telemetry monitoring showed sinus bradycardia heart rates in the 20s -Patient appeared a bit pale, diaphoretic, had mild mottling bilateral extremities, DP PT pulses are diminished bilaterally, cap refill greater than 2 seconds, - Dopamine was being started -On the monitor it appeared as if he had a complete heart block that was transient - Orders placed for external pacing, patient started external pacing, rate at 60 - With external pacing, - Patient's heart rates improved into the 60s, maps are now greater than 65 he started perfusing better, looking more pink and more flush, DP PT pulses are now more palpable, mottling was improving - With external pacing, And start waking up, started pulling at his IVs, responded to his name, turning his head [id number], currently on BiPAP, had to use soft restraints as there is intubation team ready to intubate him - His most recent potassium was 5.3, was given 1 g of calcium gluconate, was given amp of bicarb - Patient was on external pacing, again waking up, at times following commands following his name, perfusing better, looked more pink more flushed, MAP around 65, DP PT pulses palpable, cap refill less than 2 seconds, no mottling on 35% BiPAP - ER provider head of the bed, plans on intubation - Patient was given etomidate, vecuronium, intubated by ER provider - During it patient process ER provider noted dried blood in the posterior pharynx, swollen vocal cords - Successful intubation, bilateral breath sounds heard, positive color change, - Patient was intubated by ER provider, successfully, chest x-ray confirms ET tube 5 cm above ashwin bilateral breath sounds, O2 sats in the 90s - Placed on mechanical ventilation, orders placed for Versed and fentanyl for sedation - Pacing was stopped, as patient was becoming tachycardic, underlying rhythm, normal sinus rhythm, no bundle branch block, no complete heart block - Reexamined multiple times, remains off pacing, normal sinus rhythm -Discussed with CUTTING MACHINE TENDER HELPER, had arterial line placed successfully - Order placed for CT chest abdomen pelvis with IV contrast to evaluate for source of infection - Earlier in the morning he was placed on broad-spectrum antibiotic therapy vancomycin, meropenem - Early in the morning discussed with general surgery to place a dialysis catheter placed once hemodynamically stable, airway protected, CT performed -Discussed with nephrology serum sodium went from 110-107, 1 dose of desmopressin, CRRT -Lactic acid repeat is 25 -Lipase is 68, triglycerides 313 - Early in the morning discussed with nephrology about CRRT, once I could secure his airway, get him stabilized hemodynamically - he was taken to CT scan and back, - Currently intubated, sedated, mechanical ventilation, MAP is currently 65, on Versed, fentanyl, Levophed at 20, on vasopressin, dopamine for bradycardia which will slowly wean off, on bicarb drip, plans on resuming insulin drip -Awaiting CT scan abdomen pelvis with IV contrast and CT chest - Discussed with general surgery, for dialysis catheter placement, - Dialysis catheter being placed - Reviewed blood work, CT scan findings - Findings highly suspicious for acute ascending cholangitis with elevated AST, elevated bilirubin, elevated alk phos, septic shock, lactic acidosis, metabolic acidosis - He has already received his doses of vancomycin, meropenem - Once dialysis catheter is placed will consider CRRT based on clinical progress - Given patient's acute ascending cholangitis, transaminitis, hyperlipoidemia, elevated alk phos, septic shock, metabolic acidosis, lactic acidosis - CT showing small wedge shaped hypodensities suspicious for small renal infarcts - Scattered amount of retroperitoneal fluid with the right and left anterior pararenal space most likely sec to acute pancreatitis - Liver cirrhosis - Diffuse anasarca - Patient likely has fluid overload, secondary to CHF, third spacing with liver cirrhosis, anasarca, intubated, mechanical ventilation - Urine output lackluster, acute renal failure, CRRT once patient is stable - Given patient's elevated AST, ALT, elevated bilirubin elevated alk phos, septic shock, lactic acidosis concerns for acute ascending cholangitis as a source, he is on broad-spectrum antibiotic therapy, on 3 pressors, 100% FiO2 on the BiPAP - Increased anion gap metabolic acidosis, with lactic acidosis, with hyperglycemia possible acute component of DKA. Think likely this is 1 from septic shock -Discussed with [facility], spoke to workers compensation claims examiner Dr. Gunter, discussed patient's multiorgan failure, septic shock, metabolic acidosis, acute respiratory failure, art line in place, central line placed, dialysis catheter placed, he is on the ventilator, more stable, my concerns for acute ascending cholangitis, severe septic shock, metabolic acidosis, lactic acidosis, hyponatremia, I think patient is going to need a multidisciplinary team will need GI he might also have a component of alcoholism, acute liver failure that could be playing a role, nonetheless patient is getting a multidisciplinary team which is not available here at [facility], patient has been accepted in transfer awaiting a bed, - I spoke to patient's mother about the case, she tells me that Doug recently for the last few weeks has been feeling more weak and fatigued, less mobile, he has not been able to get up off the ground she has to go for to work to help support the family, she is highly suspicious that he has been drinking alcohol, she is worried that his been drinking heavy amounts of alcohol and potentially withdrawing from alcohol she does tell me that he has been looking more jaundiced recently, he has never had any bloody vomit, no history of esophageal varices, no history of liver failure, she denies any history of suicidal ideation, no history of suicide attempts, no drug use, discussed patient's critical state, acute renal failure, acute liver failure, metabolic acidosis, increased anion gap, concerns for septic shock, source potentially acute ascending cholangitis, could be component of pancreatitis, with acute anemia, patient is going to need a multidisciplinary team which is not available here at [facility], transferred to [facility], she is in agreement, ? Dialysis catheter successfully placed by general surgeonWILFRED on standby, will work on urgently transporting patient versus keep him here to assessment of dialysis based on clinical progress - Nursing staff called me to bedside, patient is having blood around his ET tube, none from the ET tube, with his history of alcoholism, concerns for possible esophageal variceal bleed question currently hemodynamics are stable, INR ordered, PTT ordered, will order 2 units of blood, 2 units FFP, placed on octreotide drip monitor hemodynamics closely - Procedures Arterial Line Size (Gauge): 20 Coding Level of Care Code Acute Code for Chg Fwd
[2024-08-23 11:19] LABS: Basophils # 0.1 10^3/uL (0.0-0.1); Basophils % 0.3 %; Eosinophils % 0.1 %; Lymphocytes # 2.5 10^3/uL (0.8-4.8); Lymphocytes % 13.8 %; Mean Corpuscular HGB Conc 27.2 g/dL (30-55); Mean Corpuscular Volume 106.6 fl (82-101); Mean Platelet Volume 10.7 fL (7.4-10.4); Monocytes # 2.9 10^3/uL (0.2-0.9); Neutrophils # 11.87 10^3/uL (1.8-7.7); Neutrophils % 65.2 %; Nucleated Red Blood Cells % 0.2 %; Platelet Count 190 10^3/cmm (157-399); Red Blood Count 2.72 10^6/uL (3.85-5.65); Red Cell Distribution Width 22.6 % (12.1-15.1)
--- NOTE | 2024-08-23 11:28 | PM.ACPR ---
Procedure/Consent Time out: Time Out Performed: Yes Consent: Additional Consent Information: The procedure and what it would entail, including the risk, benefits, and alternatives were discussed with the patient in detail. Risks included, but were not limited to, infection, bleeding, collapse of lung, vascular injury, and heart or lung complications. I discussed with the patient that he had had his rivaroxaban yesterday at around 11 AM, and that he would have an increased risk for bleeding complication. All questions were answered, and the patient with to proceed with ultrasound-guided trialysis catheter placement at bedside. After consent was obtained, the patient has been subsequently intubated and is being mechanically ventilated. See my prior note. The hospitalist now recommends/requests trialysis catheter placement prior to transfer. Consent obtained prior to intubation. Procedure Narrative: Prior to the procedure, the procedure and what it would entail was discussed with the patient in detail and the patient wished to proceed. The right neck and chest was prepped and draped in the usual sterile fashion. The right internal jugular vein was identified utilizing hand-held sterile ultrasound. The right internal jugular vein was compressible and the adjacent artery was well-visualized. Utilizing an 18-gauge needle attached to a syringe the right internal jugular vein was accessed, with flow of venous blood noted and the tip of the needle within the internal jugular vein by visualized by ultrasound. The guidewire was threaded easily through the 18-gauge needle. The guidewire was visualized within the lumen of the right internal jugular vein visualized by ultrasound. An attempt was made to advance the sequential dilators over the guidewire but there was some resistance met. X-ray was contacted and X-ray came to the bedside to perform a [id number] portable chest x-ray to confirm that the guidewire followed the correct trajectory within the superior vena cava/right atrium. The sequential dilators were then passed over the guidewire. The trialysis catheter was then passed over the guidewire. X-ray confirmed that the Trialysis catheter tip was following the correct trajectory and that the tip was at the atriocaval junction. Each lumen was aspirated and venous blood was easily aspirated. The Trialysis catheter was flushed with sterile saline with ease.The two clips were locked and the two caps were placed. The Trialysis catheter was sutured in place at two points. An antibiotic disk was placed, followed by a sterile dressing. The patient tolerated the procedure well. Intra-procedure chest X-ray: Please note: There is a left-sided central line placed via left jugular approach whose tip terminates at the junction of the SVC and left subclavian vein. There is a dilator within the right (internal) jugular with a guidewire placed (more accurate to say dilator is over the guidewire as in a seldinger technique to facilitate catheter insertion) through the dilator extending through the SVC and right atrium terminating below the field of view presumably within the IVC. Post-procedure chest X-ray: There is a dialysis catheter placed via right jugular approach whose tip terminates at the cavoatrial junction. Acute Procedures Arterial Line: Size (Gauge): 20 Epistaxis Control: Time out performed: Yes
[2024-08-23 11:34] LABS: Alcohol Level 46 mg/dL (0-10)
[2024-08-23 11:35] LABS: Acetaminophen < 5.0 ug/mL (10-30); Salicylate < 0.3 mg/dL (3-10)
--- NOTE | 2024-08-23 11:39 | PC.NURSE ---
large aount of blood continually running our of patients mouth and throat. Dialysis line in. plan per dr. whitaker hold on crrt for now, give ordered blood products and work on transferring patient to higher level of care
--- NOTE | 2024-08-23 11:48 | P.PN_ITS ---
Subjective 2 Subjective: - Events noted and critical care progres s note - Last time I examined patient is intuba jay, sedated on mechanical ventilation, MAP is around 65, pupils are reactive to light, on Levophed, vasopressin, dopamine, arterial line in place, central line placed, dialysis catheter in place, patient continues to have slow bleeding around his ET tube, concerns for possible esophageal variceal bleed although hemodynamics stable, orders have been placed for 2 units of blood, 200 cefepime, octreotide drip, he is on Xarelto -I am worried about potential esophageal variceal bleed, during intubation process spoke to ER provider again he did have a lot of edematous vocal cords blood around vocal cords could be that he has been having upper GI bleed versus esophageal variceal bleed agreeable to aDEXA - Order placed for Andexxa - Reexamined he is normotensive, on 100% FiO2, getting abdominal ultrasound, jaundice and appearing, scleral icterus, he has blood around ET tube that continues to slowly drip although hemodynamics are currently stable, and waiting on his blood, his FFP, he started on the octreotide drip, order placed for [facility] we will wait approval of medication Vitals/I&O/Wt Last Vital Signs Temp 99.2 F 08/23/24 07:00 Pulse 67 08/23/24 11:30 Resp 16 08/23/24 11:23 BP 127/46 08/23/24 11:30 Pulse Ox 99 08/23/24 11:30 O2 Del Method BiPAP 08/23/24 00:04 O2 Flow Rate 15 08/22/24 18:07 FiO2 100 08/23/24 11:23 08/22/24 08/23/24 08/23/24 22:59 06:59 14:59 Intake Total 2716.050 / 2716.050 2726.950 / 5443.000 449.50 / 449.50 Balance 2716.050 / 2716.050 2726.950 / 5443.000 449.50 / 449.50 Weight last 48 hrs Weight 176.629 kg Weight 176.629 kg Weight 158.757 kg Physical Exam 2 Const: COMMON NORMALS: no acute distress Eye: OTHER: Intubated, sedated, he is 26 at the lip Neck/C-Spine: OTHER: Central line in place Dialysis catheter in place Phelps catheter in place Left arm arterial line in place Resp: COMMON NORMALS: normal respiratory effort, No retractions and No use of accessory muscles AUSCULTATION: crackles and wheezes Cardio: COMMON NORMALS: regular rate, regular rhythm, S1 normal heart sound present and S2 normal heart sound present RATE: regular rate RHYTHM: r egular rhythm HEART SOUNDS: S1 normal heart sound present and S2 normal heart sound present GI: COMMON NORMALS: Normal to inspection, nondistended, normoactive bowel sounds present and non-tender Extremity: COMMON NORMALS: no pedal edema Data 08/23/24 11:11 08/23/24 06:12 Micro: Microbiology 08/22/24 02:08 Blood Culture - Preliminary Blood SPECIMEN COLLECTED 08/22/24 00:20 Blood Culture - Preliminary Blood SPECIMEN COLLECTED A&P Assessment and plan (1) Hyponatremia: (2) Acute encephalopathy: (3) Esophageal bleed, non-variceal: (4) Upper GI bleed: (5) Acute hypoxic respiratory failure: (6) Acute cholangitis: (7) High anion gap metabolic acidosis: (8) Lactic acidosis: (9) Acute kidney failure: (10) Transaminitis: (11) Acute anemia: (12) Hyperbilirubinemia: (13) Encounter for continuous renal replacement therapy (CRRT) for acute renal failure: (14) Heart block: (15) Liver cirrhosis: (16) Septic shock: (17) DKA (diabetic ketoacidosis): (18) Alcoholism: Plan Acute encephalopathy - Multifactorial from alcoholism - Acute hyponatremia - Possible acute ascending cholangitis - Septic shock -Neurochecks Acute hypoxic respiratory failure -Multifactorial -From septic shock -From fluid overload, third spacing, liver cirrhosis, diastolic CHF -CT chest shows cardiomegaly, bilateral atelectasis, mild mediastinal lymphadenopathy Plan -Intubated -Sedated, Versed, fentanyl -On mechanical ventilation, 100% FiO2 -DuoNeb -Budesonide Septic shock -Concern for acute ascending cholangitis -With lactic acidosis -On Levophed at 20 -On vasopressin -On dopamine -Maintain MAP greater than 65 - Stress dose steroids - Albumin therapy Component hemorrhagic shock -Patient on Xarelto for atrial fibrillation -Hemoglobin down to 7.9 -INR 4.63 -Having bleeding around the endotracheal tube -During intubation process edematous vocal cords, found to have dried blood in oropharynx, around vocal cords -Concerns for GI bleed and/or esophageal variceal bleed -2 units of blood ordered -2 units FFP ordered -Vitamin K ordered - AndDEXA ordered - Octreotide drip Concerns for acute ascending cholangitis -GGT 733 -AST 2273 -ALT 302 -Alk phos 203 -Bilirubin 4.6 -CT scan 3. Scattered small amount of retroperitoneal fluid within the right and left anterior pararenal space most likely secondary to acute pancreatitis. Please correlate with laboratory parameters. 4. Cirrhosis with multiple small hypodensities left lobe of the liver too small to actually characterize. Continued follow-up advised. 5. Diffuse anasarca in the soft tissues presumably secondary to volume overload. Multiple small wedge hypodensity both kidneys suspicious for small renal infarcts Transient heart block -With bradycardia heart rates into the 20s -requiring external pacing, temporarily -Patient responded well to external pacing, started overriding pacer, developed tachycardia pacing stopped, no complete heart block seen, new left bundle branch block is seen - Monitor currently on telemetry, is sinus rhythm New left bundle branch block -Cannot tolerate anticoagulant therapy given GI bleed -Echo ordered Increased anion gap metabolic acidosis, with lactic acidosis -Source multifactorial -Septic shock -Potential component of metformin -Alcoholism -On bicarb drip -Dialysis catheter placed, plans on CRRT based on if transportation can transferred him urgently versus keep him here and do it here at [facility] and then transfer Acute hyponatremia -Multifactorial -Septic shock -Poor oral intake -Alcoholism -Sodium has risen from 110-117, given desmopressin Concerns for diabetic ketoacidosis -Continue insulin drip protocol Hyperbilirubinemia, as above Concerns for systolic CHF, plans on possible CRRT for fluid overload Hypothermia secondary to septic shock Alcoholism -Alcohol drawl? Versed drip -On Versed drip Acute renal failure - From septic shock - Poor oral intake - Dehydration - Metabolic acidosis - Plans on CRRT as above - Urine output lackluster Full code Protonix for GI prophylaxis Patient critically ill Prognosis guarded Intubated, sedated, endotracheal tube in place, orogastric tube in place Arterial line in place Central line in place central line Dialysis catheter in place PDMP PDMP Reviewed: Not Reviewed Attestations 2 Medical Necessity Statement*: Patient requires hospitalization, inpatient, greater than 2 minutes, for septic shock, hemorrhagic shock, acute anemia, GI bleed, possible esophageal variceal bleed, lactic acidosis elevated INR, concerns for acute ascending cholangitis, metabolic acidosis, lactic acidosis, acute renal failure, acute encephalopathy, lactic acidosis, alcoholism, hyperbilirubinemia Procedures Arterial Line Size (Gauge): 20 Coding Level of Care Code Critical Care >/= 30 minutes Critical care time (in minutes): 60 The high probability of a clinically significant, sudden or life threatening deterioration, as referenced in this documentation, required my full and direct attention, intervention and personal management. The critical care time shown is in addition to time spent performing any reported separately billable procedures and includes the following: [x] Data and vital sign review and interpretation [x ] Patient assessment, examination and intervention [x] Medication orders and management [x] Patient/Family updates as able [x] Care Coordination and Documentation. Diagnoses Hyponatremia E87.1 Acute encephalopathy G93.40 Esophageal bleed, non-variceal K22.89 Upper GI bleed K92.2 Acute hypoxic respiratory failure J96.01 Acute cholangitis K83.09 High anion gap metabolic acidosis E87.29 Lactic acidosis E87.20 Acute kidney failure N17.9 Transaminitis R74.01 Acute anemia D64.9 Hyperbilirubinemia E80.6 Encounter for continuous renal replacement therapy (CRRT) for acute renal failure N17.9 Heart block I45.9 Liver cirrhosis K74.60 Septic shock A41.9; R65.21 DKA (diabetic ketoacidosis) E11.10 Alcoholism F10.20
[2024-08-23 11:52] LABS: INR 4.63 (0.8-1.2)
[2024-08-23 12:01] LABS: Partial Thromboplastin Time 74.1 SECONDS (23.9-36.7)
[2024-08-23] MEDS: octreotide 100 mcg/mL SDV 50 MCG IVP (12:07)
[2024-08-23] MEDS: hydrocortisone 100 mg/2 mL SDV 50 MG IVP ×2 (12:10→16:07)
[2024-08-23] MEDS: octreotide 500 MCG in sodium chloride 0.9% (100 ml) 100 ML 10.1 MCG IV (12:11)
[2024-08-23] MEDS: phytonadione (ADULT) 10 MG in sodium chloride 0.9% 50 ML 153 MG IV (12:28)
[2024-08-23 12:52] LABS: Albumin Level 2.9 g/dL (3.5-5.2); Anion Gap 44.8 (5-19); Blood Urea Nitrogen 25 mg/dL (6-20); Calcium 8.9 mg/dL (8.5-10.5); Chloride 68 mmol/L (98-107); Creatinine Clr Calc Pharmacy 29.3129; Glucose 119 mg/dL (65-115); Magnesium 2.8 mg/dL (1.7-2.3); Potassium 4.8 mmol/L (3.5-5.1)
--- NOTE | 2024-08-23 13:02 | PC.PHAR ---
DR BABIN CALLED REQUESTING [facility] FOR PATIENT WITH BLEED ON XARELTO. AFTER REVIEWING THE ORAL ANTICOAGULATION REVERSAL POLICY ON [employer] AND DISCUSSING WITH DR. ACKERMAN AND DEVANTE BECKHAM, THE DECISION WAS MADE TO USE [facility] OVER [facility]. DR BABIN WOULDD LIKE DOSE OF 2000 UNITS X 1. I PREPARED DOSE AND DELIVERED TO NURSE AT BEDSIDE.
[2024-08-23 13:03] LABS: Carbon Dioxide 6 mmol/L (22-29); Phosphorus 9.2 mg/dL (2.5-4.5)
[2024-08-23 13:04] LABS: Sodium 114 mmol/L (136-145)
[2024-08-23] MEDS: hum prothrombin cplx(pcc)4fact 2,000 UNIT in empty flexible container 1 EACH 22 UNIT IV (13:21)
--- NOTE | 2024-08-23 14:31 | PC.NURSE ---
report called to edilma bautista to Sammy ROSALES
--- NOTE | 2024-08-23 15:10 | PM.TDS ---
Transfer Summary Providers Date of Admission: 08/22/24 20:49 Date of Discharge/Transfer: 08/23/24 Attending Provider at Admission: Germaine Ashton MD Attending Provider at Transfer: Hal Lindsey MD Primary Care Provider: Nikole Solano APN Transfer Plans: Anticipated date of transfer: 08/23/24. Diagnoses at Discharge Discharge Diagnosis (1) Hyponatremia: Status: Acute (2) Acute encephalopathy: Status: Acute (3) Esophageal bleed, non-variceal: Status: Acute (4) Upper GI bleed: Status: Acute (5) Acute hypoxic respiratory failure: Status: Acute (6) Acute cholangitis: Status: Acute (7) High anion gap metabolic acidosis: Status: Acute (8) Lactic acidosis: Status: Acute (9) Acute kidney failure: Status: Acute (10) Transaminitis: Status: Acute (11) Acute anemia: Status: Acute (12) Hyperbilirubinemia: Status: Acute (13) Encounter for continuous renal replacement therapy (CRRT) for acute renal failure: Status: Acute (14) Heart block: Status: Acute (15) Liver cirrhosis: Status: Acute (16) Septic shock: Status: Acute (17) DKA (diabetic ketoacidosis): Status: Acute (18) Alcoholism: Status: Acute Reason for Visit Reason for Visit sob Hospital Course Hospital Course This is a 34-year-old male with a past medical history of atrial flutter, on Xarelto, diastolic CHF, TIA, history of hematuria, pulm hypertension, type 2 diabetes, alcoholism, who presents [facility] due to weakness, fatigue - On sedation patient had acute hypoxic respiratory failure, on 15 L nonrebreather, switched over to BiPAP - On admission patient had septic shock - Serum sodium 110 - Metabolic acidosis, high anion gap - Creatinine 5.3, acute renal failure - pH 6.8 on ABG - Lactic acidosis - Concern for diabetic ketoacidosis - Hypothermia - Transaminitis - With bradycardia - Patient had central line placed in the emergency room, placed on BiPAP, placed on insulin drip, required to 2 pressors, Levophed, vasopressin, with bradycardia, moved to the ICU I was called to evaluate Doug Regalado at about 7:20 AM this morning - Doug was on BiPAP 35% FiO2, alert to person, not place, not to time he did follow commands, maintaining his airway in mild to moderate respiratory distress, intercostal retractions, suprasternal retractions, nasal flaring, but following commands, - He was on 2 pressors, he was on Levophed at 20, he was on vasopressin - He had accidentally removed his arterial line, maps were 60-65 - Respiratory rate was 15-20, hypothermic throughout the night - Had a conversation with Dr. Tesfaye about overnight plans on CRRT - Plans on dialysis catheter placement - Dr. Tesfaye was in the process of placing dialysis catheter placement - However Doug was becoming more lethargic, developing bradycardia - Discussed with Dr. Tesfaye that with Doug's bradycardia, him becoming lethargic, developing respiratory failure, his persistent hypotension on 2 pressors - Given his and severe septic shock, developing bradycardic shock, lethargy - Plan on intubating him, further resuscitating him, and treating his bradycardia - Patient's dialysis catheter placement was aborted - Nursing staff at bedside - Order was placed for dopamine, atropine, monitoring bradycardia - I discussed with the ER provider Dr. Hankins about intubating patient to protect his airway - Patient was reexamined in ICU blood pressures maps are 60-65, he is developing bradycardia, initially he was waxing and waning in terms of his consciousness, now was not waking up to sternal rub, O2 sats in the 90s, 35% BiPAP - Telemetry monitoring showed sinus bradycardia heart rates in the 20s -Patient appeared a bit pale, diaphoretic, had mild mottling bilateral extremities, DP PT pulses are diminished bilaterally, cap refill greater than 2 seconds, - Dopamine was being started -On the monitor it appeared as if he had a complete heart block that was transient - Orders placed for external pacing, patient started external pacing, rate at 60 - With external pacing, - Patient's heart rates improved into the 60s, maps are now greater than 65 he started perfusing better, looking more pink and more flush, DP PT pulses are now more palpable, mottling was improving - With external pacing, And start waking up, started pulling at his IVs, responded to his name, turning his head [id number], currently on BiPAP, had to use soft restraints as there is intubation team ready to intubate him - His most recent potassium was 5.3, was given 1 g of calcium gluconate, was given amp of bicarb - Patient was on external pacing, again waking up, at times following commands following his name, perfusing better, looked more pink more flushed, MAP around 65, DP PT pulses palpable, cap refill less than 2 seconds, no mottling on 35% BiPAP - ER provider head of the bed, plans on intubation - Patient was given etomidate, vecuronium, intubated by ER provider - During it patient process ER provider noted dried blood in the posterior pharynx, swollen vocal cords - Successful intubation, bilateral breath sounds heard, positive color change, - Patient was intubated by ER provider, successfully, chest x-ray confirms ET tube 5 cm above ashwin bilateral breath sounds, O2 sats in the 90s - Placed on mechanical ventilation, orders placed for Versed and fentanyl for sedation - Pacing was stopped, as patient was becoming tachycardic, underlying rhythm, normal sinus rhythm, no bundle branch block, no complete heart block - Reexamined multiple times, remains off pacing, normal sinus rhythm -Discussed with TOP BOTTOM ATTACHING MACHINE OPERATOR, had arterial line placed successfully - Order placed for CT chest abdomen pelvis with IV contrast to evaluate for source of infection - Earlier in the morning he was placed on broad-spectrum antibiotic therapy vancomycin, meropenem - Early in the morning discussed with general surgery to place a dialysis catheter placed once hemodynamically stable, airway protected, CT performed -Discussed with nephrology serum sodium went from 110-107, 1 dose of desmopressin, CRRT -Lactic acid repeat is 25 -Lipase is 68, triglycerides 313 - Early in the morning discussed with nephrology about CRRT, once I could secure his airway, get him stabilized hemodynamically - he was taken to CT scan and back, - Currently intubated, sedated, mechanical ventilation, MAP is currently 65, on Versed, fentanyl, Levophed at 20, on vasopressin, dopamine for bradycardia which will slowly wean off, on bicarb drip, plans on resuming insulin drip -Awaiting CT scan abdomen pelvis with IV contrast and CT chest - Discussed with general surgery, for dialysis catheter placement, - Dialysis catheter being placed - Reviewed blood work, CT scan findings - Findings highly suspicious for acute ascending cholangitis with elevated AST, elevated bilirubin, elevated alk phos, septic shock, lactic acidosis, metabolic acidosis - He has already received his doses of vancomycin, meropenem - Once dialysis catheter is placed will consider CRRT based on clinical progress - Given patient's acute ascending cholangitis, transaminitis, hyperlipoidemia, elevated alk phos, septic shock, metabolic acidosis, lactic acidosis - CT showing small wedge shaped hypodensities suspicious for small renal infarcts - Scattered amount of retroperitoneal fluid with the right and left anterior pararenal space most likely sec to acute pancreatitis - Liver cirrhosis - Diffuse anasarca - Patient likely has fluid overload, secondary to CHF, third spacing with liver cirrhosis, anasarca, intubated, mechanical ventilation - Urine output lackluster, acute renal failure, CRRT once patient is stable - Given patient's elevated AST, ALT, elevated bilirubin elevated alk phos, septic shock, lactic acidosis concerns for acute ascending cholangitis as a source, he is on broad-spectrum antibiotic therapy, on 3 pressors, 100% FiO2 on the BiPAP - Increased anion gap metabolic acidosis, with lactic acidosis, with hyperglycemia possible acute component of DKA. Think likely this is 1 from septic shock -Discussed with [facility], spoke to sales director Dr. Gunter, discussed patient's multiorgan failure, septic shock, metabolic acidosis, acute respiratory failure, art line in place, central line placed, dialysis catheter placed, he is on the ventilator, more stable, my concerns for acute ascending cholangitis, severe septic shock, metabolic acidosis, lactic acidosis, hyponatremia, I think patient is going to need a multidisciplinary team will need GI he might also have a component of alcoholism, acute liver failure that could be playing a role, nonetheless patient is getting a multidisciplinary team which is not available here at [facility], patient has been accepted in transfer awaiting a bed, - I spoke to patient's mother about the case, she tells me that Doug recently for the last few weeks has been feeling more weak and fatigued, less mobile, he has not been able to get up off the ground she has to go for to work to help support the family, she is highly suspicious that he has been drinking alcohol, she is worried that his been drinking heavy amounts of alcohol and potentially withdrawing from alcohol she does tell me that he has been looking more jaundiced recently, he has never had any bloody vomit, no history of esophageal varices, no history of liver failure, she denies any history of suicidal ideation, no history of suicide attempts, no drug use, discussed patient's critical state, acute renal failure, acute liver failure, metabolic acidosis, increased anion gap, concerns for septic shock, source potentially acute ascending cholangitis, could be component of pancreatitis, with acute anemia, patient is going to need a multidisciplinary team which is not available here at [facility], transferred to [facility], she is in agreement, ? Dialysis catheter successfully placed by general surgeon, CRRT on standby, will work on urgently transporting patient versus keep him here to assessment of dialysis based on clinical progress - Nursing staff called me to bedside, patient is having blood around his ET tube, none from the ET tube, with his history of alcoholism, concerns for possible esophageal variceal bleed question currently hemodynamics are stable, INR ordered, PTT ordered, will order 2 units of blood, 2 units FFP, placed on octreotide drip monitor hemodynamics closely - Reexamined, order placed for Kcentra - As patient continues to have bleeding around endotracheal tube - Patient has been accepted at [facility] awaiting a bed - Patient now awaiting transportation - Dialysis catheter placed will hold off on CRRT as patient has a bed at [facility], now awaiting transportation I been told that they should be here within the next 60 minutes Acute encephalopathy - Multifactorial from alcoholism - Acute hyponatremia - Possible acute ascending cholangitis - Septic shock -Neurochecks Acute hypoxic respiratory failure -Multifactorial -From septic shock -From fluid overload, third spacing, liver cirrhosis, diastolic CHF -CT chest shows cardiomegaly, bilateral atelectasis, mild mediastinal lymphadenopathy Plan -Intubated -Sedated, Versed, fentanyl -On mechanical ventilation, 100% FiO2 -DuoNeb -Budesonide Septic shock -Concern for acute ascending cholangitis -With lactic acidosis -On Levophed at 20 -On vasopressin -On dopamine -Maintain MAP greater than 65 - Stress dose steroids - Albumin therapy Component hemorrhagic shock -Patient on Xarelto for atrial fibrillation -Hemoglobin down to 7.9 -INR 4.63 -Having bleeding around the endotracheal tube -During intubation process edematous vocal cords, found to have dried blood in oropharynx, around vocal cords -Concerns for GI bleed and/or esophageal variceal bleed -2 units of blood ordered -2 units FFP ordered -Vitamin K ordered - Kcentra ordered - Octreotide drip Concerns for acute ascending cholangitis -GGT 733 -AST 2273 -ALT 302 -Alk phos 203 -Bilirubin 4.6 -CT scan 3. Scattered small amount of retroperitoneal fluid within the right and left anterior pararenal space most likely secondary to acute pancreatitis. Please correlate with laboratory parameters. 4. Cirrhosis with multiple small hypodensities left lobe of the liver too small to actually characterize. Continued follow-up advised. 5. Diffuse anasarca in the soft tissues presumably secondary to volume overload. Multiple small wedge hypodensity both kidneys suspicious for small renal infarcts Transient heart block -With bradycardia heart rates into the 20s -requiring external pacing, temporarily -Patient responded well to external pacing, started overriding pacer, developed tachycardia pacing stopped, no complete heart block seen, new left bundle branch block is seen - Monitor currently on telemetry, is sinus rhythm New left bundle branch block -Cannot tolerate anticoagulant therapy given GI bleed -Echo ordered Increased anion gap metabolic acidosis, with lactic acidosis -Source multifactorial -Septic shock -Potential component of metformin -Alcoholism -On bicarb drip -Dialysis catheter placed, plans on CRRT based on if transportation can transferred him urgently versus keep him here and do it here at [facility] and then transfer Acute hyponatremia -Multifactorial -Septic shock -Poor oral intake -Alcoholism -Sodium has risen from 110-117, given desmopressin Concerns for diabetic ketoacidosis -Continue insulin drip protocol Hyperbilirubinemia, as above Concerns for systolic CHF, plans on possible CRRT for fluid overload Hypothermia secondary to septic shock Alcoholism -Alcohol drawl? Versed drip -On Versed drip Acute renal failure - From septic shock - Poor oral intake - Dehydration - Metabolic acidosis - Plans on CRRT as above - Urine output lackluster Full code Protonix for GI prophylaxis Patient critically ill Prognosis guarded Intubated, sedated, endotracheal tube in place, orogastric tube in place Arterial line in place Central line in place central line Dialysis catheter in place Physical Exam Const: COMMON NORMALS: no acute distress OTHER: Intubated, sedated, on mechanical ventilation Bleeding around the ET tube Orogastric tube Right central line in place Left dialysis catheter in place Left arm arterial line in place Resp: COMMON NORMALS: normal respiratory effort, No retractions and No use of accessory muscles AUSCULTATION: crackles and wheezes Cardio: COMMON NORMALS: regular rate, regular rhythm, S1 normal heart sound present and S2 normal heart sound present RATE: regular rate RHYTHM: regular rhythm HEART SOUNDS: S1 normal heart sound present and S2 normal heart sound present GI: COMMON NORMALS: Normal to inspection, nondistended, normoactive bowel sounds present and non-tender Extremity: NARRATIVE EXTREMITY EXAM: Anasarca, edema Skin: OTHER: Sepsis examination done 08/23/2024 At 7:30 AM DP PT pulses not palpable, cap refill greater than 2 seconds, mild mottling TS Data Studies Completed and Pending Pending at discharge Category Date Time Status ABO/Rh Type Stat Lab 08/23/24 11:31 Results Blood Culture Stat Lab 08/22/24 02:08 Results Complete Blood Count w/Auto AM LABS Lab 08/24/24 04:00 Ordered Complete Blood Count w/Auto AM LABS Lab 08/24/24 04:00 Ordered Complete Blood Count w/Auto AM LABS Lab 08/25/24 04:00 Ordered Complete Blood Count w/Auto AM LABS Lab 08/25/24 04:00 Ordered Complete Blood Count w/Auto AM LABS Lab 08/26/24 04:00 Ordered Complete Crossmatch Stat Lab 08/23/24 11:31 Results Drug Screen, Urine Routine Lab 08/23/24 10:50 Uncollected Frozen Plasma FZ <24 1st Cont Stat Lab 08/23/24 11:31 Results Leukocyte Reduced RBC Stat Lab 08/23/24 11:31 Results Magnesium Q6H Lab 08/23/24 18:45 Ordered Magnesium Q6H Lab 08/24/24 00:45 Ordered Magnesium Q6H Lab 08/24/24 06:45 Ordered Magnesium Q6H Lab 08/24/24 12:45 Ordered Magnesium Q6H Lab 08/24/24 18:45 Ordered Magnesium Q6H Lab 08/25/24 00:45 Ordered Magnesium Q6H Lab 08/25/24 06:45 Ordered Magnesium Q6H Lab 08/25/24 12:45 Ordered Magnesium Q6H Lab 08/25/24 18:45 Ordered Magnesium Q6H Lab 08/26/24 00:45 Ordered Renal Function Panel Q6H Lab 08/23/24 18:45 Ordered Renal Function Panel Q6H Lab 08/24/24 00:45 Ordered Renal Function Panel Q6H Lab 08/24/24 06:45 Ordered Renal Function Panel Q6H Lab 08/24/24 12:45 Ordered Renal Function Panel Q6H Lab 08/24/24 18:45 Ordered Renal Function Panel Q6H Lab 08/25/24 00:45 Ordered Renal Function Panel Q6H Lab 08/25/24 06:45 Ordered Renal Function Panel Q6H Lab 08/25/24 12:45 Ordered Renal Function Panel Q6 Lab 08/25/24 18:45 Ordered Renal Function Panel Q6 Lab 08/26/24 00:45 Ordered Sputum Culture and Gram Stain Routine Lab 08/23/24 11:30 Received Type and Screen Stat Lab 08/23/24 11:31 Results Urinalysis Routine Lab 08/22/24 23:13 Ordered CV. echo complete* [id number] Routine Ultrasound 08/23/24 08:25 Taken Completed Studies During Hospitalization Category Date Time Status CT chest abdomen pelvis [CT chest abdpel w/*[id number] Cat Scan 08/23/24 08:49 Completed ] Stat CXRP [XR chest 1V portable [id number]] Routine Exams 08/23/24 08:41 Completed CXRP [XR chest 1V portable [id number]] Stat Exams 08/23/24 08:19 Completed XR chest 1V portable [id number] Stat Exams 08/22/24 18:17 Completed US abdomen complete* [id number] Stat Ultrasound 08/23/24 07:45 Completed Laboratory Last Values WBC 18.20 10^3/uL (3.29-11.43) H 08/23/24 11:11 RBC 2.72 10^6/uL (3.85-5.65) L 08/23/24 11:11 Hgb 7.90 g/dL (11.27-16.99) L 08/23/24 11:11 Hct 29.0 % (37-53) L 08/23/24 11:11 MCV 106.6 fl (82-101) H 08/23/24 11:11 MCH 29.0 pg (27-33) 08/23/24 11:11 MCHC 27.2 g/dL (30-55) L 08/23/24 11:11 RDW 22.6 % (12.1-15.1) H 08/23/24 11:11 Plt Count 190 10^3/cmm (157-399) 08/23/24 11:11 MPV 10.7 fL (7.4-10.4) H 08/23/24 11:11 Neut % (Auto) 65.2 % 08/23/24 11:11 Lymph % (Auto) 13.8 % 08/23/24 11:11 Delta % (Auto) 16.0 % 08/23/24 11:11 Eos % (Auto) 0.1 % 08/23/24 11:11 Baso % (Auto) 0.3 % 08/23/24 11:11 Neut # (Auto) 11.87 10^3/uL (1.8-7.7) H 08/23/24 11:11 Lymph # (Auto) 2.5 10^3/uL (0.8-4.8) 08/23/24 11:11 Delta # (Auto) 2.9 10^3/uL (0.2-0.9) H 08/23/24 11:11 Eos # (Auto) 0.0 10^3/uL (0.0-0.8) 08/23/24 11:11 Baso # (Auto) 0.1 10^3/uL (0.0-0.1) 08/23/24 11:11 Nucleated RBC % (auto) 0.2 % 08/23/24 11:11 Nucleated RBCs # 0.0 /100WBC 08/23/24 11:11 PT 46.00 SECONDS (12.1-14.9) H 08/23/24 11:31 INR 4.63 (0.8-1.2) H 08/23/24 11:31 APTT 74.1 SECONDS (23.9-36.7) H 08/23/24 11:31 Specimen Type Arterial 08/23/24 09:00 Sample Site Not specified 08/23/24 09:00 ABG pH 6.90 (7.35-7.45) L* 08/23/24 09:00 ABG pCO2 29.7 mmHg (35-45) L 08/23/24 09:00 ABG pO2 116.0 mmHg (80.0-100.0) H 08/23/24 09:00 ABG PO2/FiO2 Ratio 116 08/23/24 09:00 ABG HCO3 5.8 mmol/L (22-26) L 08/23/24 09:00 ABG O2 Saturation 98.3 08/23/24 01:35 ABG Base Excess -25.5 mmol/L (-2.0-2.0) L 08/23/24 09:00 Miles Test N/a 08/23/24 09:00 A-a O2 Gradient 13.4 mmHg (5-10) H 08/23/24 01:35 Hematocrit 26.9 % (42-52) L 08/23/24 09:00 Hgb O2 Saturation 95.4 % (95-100) 08/23/24 01:35 Carboxyhemoglobin 1.3 %THgb (0.4-20.1) 08/23/24 01:35 Methemoglobin 1.6 % (0.4-1.5) H 08/23/24 01:35 Total Hemoglobin 7.9 g/dL (14-18) L 08/23/24 01:35 Sodium 119.0 mmol/L (131-143) L 08/23/24 01:35 Potassium 4.2 mmol/L (3.5-5.0) 08/23/24 01:35 Glucose 69.0 mg/dL (70-115) L 08/23/24 01:35 Ionized Calcium 1.1 mmol/L (1.1-1.4) 08/23/24 01:35 O2 Delivery Device Vent 08/23/24 09:00 FiO2 100.0 % 08/23/24 09:00 Tidal Volume 0.60 08/23/24 09:00 PEEP 10.0 cmH20 08/23/24 09:00 General Partner ID Gd 08/23/24 09:00 Sodium 114 mmol/L (136-145) L* 08/23/24 11:31 Potassium 4.8 mmol/L (3.5-5.1) 08/23/24 11:31 Chloride 68 mmol/L (98-107) L 08/23/24 11:31 Carbon Dioxide 6 mmol/L (22-29) L* 08/23/24 11:31 Anion Gap 44.8 (5-19) H 08/23/24 11:31 BUN 25 mg/dL (6-20) H 08/23/24 11:31 Creatinine 5.9 mg/dL (0.7-1.2) H* 08/23/24 11:31 GFR Calculation 11.0 mL/min (90-130) L 08/23/24 11:31 Glucose 119 mg/dL (65-115) H 08/23/24 11:31 POC Glucose 149 mg/dL (70-110) H 08/23/24 08:04 Estimat Average Glucose 123 08/23/24 06:12 Hemoglobin A1c 5.9 % (4.0-6.0) 08/23/24 06:12 Calculated Osmolality 250 mOsm/kg (285-295) L 08/23/24 06:12 Lactic Acid 28.3 mmol/L (0.5-2.2) H* 08/23/24 06:12 Lactic Acid (Sepsis) 25.5 mmol/L (0.5-2.2) H* 08/23/24 09:13 Lactate Cancelled 08/23/24 09:13 Calcium 8.9 mg/dL (8.5-10.5) 08/23/24 11:31 Phosphorus 9.2 mg/dL (2.5-4.5) H* 08/23/24 11:31 Magnesium 2.8 mg/dL (1.7-2.3) H 08/23/24 11:31 Total Bilirubin 4.7 mg/dL (0.15-1.2) H 08/23/24 06:12 Total Bilirubin Cancelled 08/23/24 06:12 Direct Bilirubin 3.60 mg/dL (0.00-0.30) H 08/23/24 06:12 GGT 733 U/L (8-61) H 08/23/24 06:12 AST 2273 U/L (0-40) H 08/23/24 06:12 AST Cancelled 08/23/24 06:12 ALT 302 U/L (0-41) H 08/23/24 06:12 ALT Cancelled 08/23/24 06:12 Alkaline Phosphatase 203 U/L (40-130) H 08/23/24 06:12 Alkaline Phosphatase Cancelled 08/23/24 06:12 Creatine Kinase 417 U/L (39-308) H* 08/23/24 06:12 Troponin T Baseline 48 ng/L (0-15) H 08/22/24 18:27 Troponin T 120 Minute 43.94 ng/L (0-15) H 08/22/24 20:23 Delta Troponin T -4.06 ABS# (0-10) L 08/22/24 20:23 C-Reactive Protein 16.4 mg/L (0.0-4.9) H 08/23/24 06:12 NT-Pro-B Natriuret Pep 5157 pg/mL (0-125) H 08/22/24 18:27 Total Protein 7.2 g/dL (6.6-8.7) 08/23/24 06:12 Total Protein Cancelled 08/23/24 06:12 Albumin 2.9 g/dL (3.5-5.2) L 08/23/24 11:31 Globulin 4.0 g/dL (1.3-4.6) 08/23/24 06:12 Globulin Cancelled 08/23/24 06:12 Triglycerides 313 mg/dL (0-150) H 08/23/24 06:12 Cholesterol 146 mg/dL (0-200) 08/23/24 06:12 LDL Cholesterol, Calc 73 mg/dL (50-129) 08/23/24 06:12 HDL Cholesterol 10 mg/dL (60-100) L 08/23/24 06:12 LDL/HDL Ratio 7.30 RATIO (0.00-3.22) H 08/23/24 06:12 Cholesterol/HDL Ratio 14.60 mg/dL (1.0-5.00) H 08/23/24 06:12 Lipase 68 U/L (13-60) H 08/23/24 06:12 Procalcitonin 1.94 ng/mL (0-0.5) H 08/23/24 06:12 TSH 7.04 uIU/mL (0.27-4.20) H 08/23/24 06:12 Salicylates < 0.3 mg/dL (3-10) L 08/23/24 11:11 Acetaminophen < 5.0 ug/mL (10-30) L 08/23/24 11:11 Ethyl Alcohol 46 mg/dL (0-10) H 08/23/24 11:11 Hep Bs Antigen Non-reactive (Nonreactive) 08/23/24 06:12 Hep Bs Antibody < 3.5 (11.5-1000) L 08/23/24 06:12 Blood Type B Positive 08/23/24 11:31 Rho(D) Type Rh positive 08/23/24 11:31 Antibody Screen Negative 08/23/24 11:31 Crossmatch See Detail 08/23/24 11:31 Radiology Impressions Abdomen Ultrasound 08/23/24 07:45 IMPRESSION: 1. Limited study due to body habitus. 2. Hepatomegaly with marked fatty infiltration. 3. Limited assessment of the gallbladder and pancreas Chest X-Ray 08/23/24 08:41 IMPRESSION: ETT in satisfactory position. ADDENDUM: 08/23/24 1318 There is a dialysis catheter placed via right jugular approach whose tip terminates at the cavoatrial junction. ADDENDUM: 08/23/24 1354 Please note: There is a left-sided central line placed via left jugular approach whose tip terminates at the junction of the SVC and left subclavian vein. There is a dilator within the right jugular with a guidewire placed through the dilator extending through the SVC and right atrium terminating below the field of view presumably within the IVC. Chest/Abdomen/Pelvis CT 08/23/24 08:49 IMPRESSION: 1. Limited study. 2. Cardiomegaly, decreased lung volumes with bilateral atelectasis. 3. Mild mediastinal lymphadenopathy, unchanged. IMPRESSION: 1. Limited study. 2. Multiple small wedge-shaped hypodensities both kidneys suspicious for small renal infarcts. 3. Scattered small amount of retroperitoneal fluid within the right and left anterior pararenal space most likely secondary to acute pancreatitis. Please correlate with laboratory parameters. 4. Cirrhosis with multiple small hypodensities left lobe of the liver too small to actually characterize. Continued follow-up advised. 5. Diffuse anasarca in the soft tissues presumably secondary to volume overload. COMMENTS: Consistent with the [employer]'s Incidental Findings Committee white paper (J Am Nika Radiol 2018): Any incidental renal lesion less than 1 cm or classified as too small to characterize, or any incidental cystic renal lesion characterized as simple-appearing, is likely benign. No follow-up imaging is recommended for these lesions per consensus recommendations based on imaging criteria. Recent Clincial Data Last Vital Signs Temp 99.2 F 08/23/24 07:00 Pulse 63 08/23/24 14:27 Resp 16 08/23/24 14:53 BP 112/60 08/23/24 14:53 Pulse Ox 98 08/23/24 14:53 O2 Del Method BiPAP 08/23/24 00:04 O2 Flow Rate 15 08/22/24 18:07 FiO2 100 08/23/24 14:47 Vital Signs Temp Pulse Resp BP Pulse Ox FiO2 08/23/24 14:53 112/60 08/23/24 14:53 16 112/60 98 08/23/24 14:47 16 98 100 08/23/24 14:27 63 16 112/61 98 08/23/24 13:49 110 H 16 113/62 98 08/23/24 13:43 16 98 100 08/23/24 13:37 63 16 115/63 98 08/23/24 13:32 64 16 118/63 98 08/23/24 13:27 65 16 114/63 98 08/23/24 13:15 64 115/60 99 08/23/24 13:12 93 114 H 114/63 98 08/23/24 13:04 64 17 122/64 99 08/23/24 13:00 63 110/57 99 08/23/24 12:56 63 16 123/63 99 08/23/24 12:45 64 126/56 99 08/23/24 12:30 65 89/63 99 08/23/24 12:15 65 134/51 99 08/23/24 12:00 66 133/54 99 08/23/24 11:45 66 137/55 99 08/23/24 11:30 67 127/46 99 08/23/24 11:23 16 99 100 08/23/24 11:15 66 16 128/48 92 08/23/24 11:00 66 16 116/54 90 08/23/24 10:45 66 16 127/58 92 08/23/24 10:30 67 17 123/59 93 08/23/24 10:15 68 20 H 125/55 95 08/23/24 10:00 67 21 H 141/41 92 08/23/24 09:57 65 16 85 L 08/23/24 09:15 75 25 H 143/53 08/23/24 09:00 146/55 100 08/23/24 08:45 75 25 H 164/60 100 08/23/24 08:38 25 H 100 100 08/23/24 08:30 74 25 H 96 08/23/24 08:15 89 17 100 08/23/24 08:00 20 L 20 H 94/29 93 06/08/25 07:45 47 L 21 H 114/34 95 08/23/24 07:30 46 L 99/33 94 08/23/24 07:15 40 L 105/22 94 08/23/24 07:00 99.2 F 47 L 113/36 95 08/23/24 06:45 45 L 107/49 93 08/23/24 06:30 43 L 106/33 94 08/23/24 06:15 47 L 114/26 93 08/23/24 06:00 44 L 122/31 95 08/23/24 06:00 45 L 08/23/24 05:45 44 L 98/44 94 08/23/24 05:30 44 L 102/35 94 08/23/24 05:15 44 L 104/34 94 08/23/24 05:00 44 L 83/58 08/23/24 04:45 44 L 97/39 94 08/23/24 04:33 43 L 95 35 08/23/24 04:30 43 L 95/40 95 08/23/24 04:15 44 L 99/41 92 08/23/24 04:00 96.3 F L 42 L 97/32 92 08/23/24 03:45 41 L 103/40 94 08/23/24 03:30 41 L 97/40 94 08/23/24 03:15 41 L 91/36 93 Intake & Output/Weight 08/21/24 08/22/24 08/23/24 08/24/24 06:59 06:59 06:59 06:59 Intake Total 5443.000 / 5443.000 1588.75 / 1588.75 Balance 5443.000 / 5443.000 1588.75 / 1588.75 Weight 176.629 kg Vitals Last Vital Signs Temp 99.2 F 08/23/24 07:00 Pulse 63 08/23/24 14:27 Resp 16 08/23/24 14:53 BP 112/60 08/23/24 14:53 Pulse Ox 98 08/23/24 14:53 O2 Del Method BiPAP 08/23/24 00:04 O2 Flow Rate 15 08/22/24 18:07 FiO2 100 08/23/24 14:47 TS Medications Medications Alteplase, Recombinant (Alteplase 1 Mg/Ml Sdv 2 Ml) 0 mg INTRACATH Q2H PRN; Protocol PRN Reason: Poor Catheter Flow/ Clotted Catheter CRRT Dialysis Solution (Prismasol Bgk 4/2.5 - 5,000 Ml Bag) 5,000 ml CRRT CONT ROBERT; Protocol CRRT Dialysis Solution (Prismasol Bgk 4/2.5 - 5,000 Ml Bag) 5,000 ml CRRT CONT ROBERT; Protocol CRRT Dialysis Solution (Prismasol Bgk 4/2.5 - 5,000 Ml Bag) 5,000 ml CRRT CONT ROBERT; Protocol Glucagon (Glucagon 1 Mg/Ml Kit 1 Ml) 1 mg IM ONCE PRN; Protocol PRN Reason: Adult Acute Hypoglycemia Nursing Prot. Glucagon (Glucagon 1 Mg/Ml Kit 1 Ml) 1 mg IM ONCE PRN; Protocol PRN Reason: DKA Hypoglycemia Nursing Protocol Heparin Sodium (Porcine) (Heparin Lock Flush 500 Unit/5 Ml Syringe) 500 unit IV PRN PRN PRN Reason: At CRRT disconnect Hydrocortisone Sodium Succinate (Hydrocortisone 100 Mg/2 Ml Sdv) 50 mg IVP Q6H ROBERT Last Admin: 08/23/24 12:10 Dose: 50 mg Norepinephrine Bitartrate (Levophed) 4 mg in 250 mls @ 0 mls/hr IV .Q0M ROBERT; Protocol Last Admin: 08/23/24 13:43 Dose: 20 mcg/min, 75 mls/hr Dextrose (D5w) 500 mls @ 0 mls/hr IV ONCE PRN; Protocol PRN Reason: Adult Acute Hypoglycemia Prot Dextrose (D10w) 125 mls @ 750 mls/hr IV PRN PRN; Protocol PRN Reason: Adult Acute Hypoglycemia Nursing Protocol Dextrose (D10w) 250 mls @ 1,000 mls/hr IV PRN PRN; Protocol PRN Reason: Adult Acute Hypoglycemia Nursing Protocol Lidocaine HCl 5 ml/ Potassium (Chloride) 105 mls @ 26.25 mls/hr IV PRN PRN PRN Reason: hypokalemia Magnesium Sulfate (Magnesium Sulfate Premix) 2 gm in 50 mls @ 50 mls/hr IV PRN PRN PRN Reason: HYPOMAGNESIUMIA Dextrose (D10w) 125 mls @ 750 mls/hr IV PRN PRN; Protocol PRN Reason: Adult DKA Hypoglycemia Nursing Protocol Dextrose (D10w) 250 mls @ 1,000 mls/hr IV PRN PRN; Protocol PRN Reason: Adult DKA Hypoglycemia Nursing Protocol Insulin Human Regular (Myxredlin 100 Unit/100 Ml Bag) 100 unit in 100 mls @ 0 mls/hr IV PROTOCOL ROBERT; Protocol Last Titration: 08/23/24 06:08 Dose: 1 unit/hr, 1 mls/hr Potassium Phosphate 40 meq/ (Sodium Chloride) 109.0909 mls @ 27.25 mls/hr IV PRN PRN PRN Reason: hypophosphatemia Vasopressin (Vasostrict) 40 unit in 100 mls @ 0 mls/hr IV .Q0M ROBERT; Protocol Last Admin: 08/23/24 13:42 Dose: 0.1 unit/min, 15 mls/hr Sodium Chloride (Sodium Chloride 0.9%) 1,000 mls @ 0 mls/hr IV .Q0M PRN PRN Reason: hypotension or symptomatic Albumin Human (Albumin) 12.5 gm in 50 mls @ 60 mls/hr IV PRN PRN PRN Reason: Hypotension and/or symptomatic Dextrose/Sodium Chloride (Dextrose 5%-Sod Chloride 0.45%) 1,000 mls @ 125 mls/hr IV .Q8H ROBERT Vancomycin HCl / Sodium (Chloride) 250 mls @ 0 mls/hr [id number] PROTOCOL ROBERT; Protocol Dopamine HCl/Dextrose (Intropin Drip) 400 mg in 250 mls @ 33.118 mls/hr IV CONT ROBERT; Protocol Last Admin: 08/23/24 14:56 Dose: 10 mcg/kg/min, 66.24 mls/hr Fentanyl (Sublimaze) 1,000 mcg in 100 mls @ 0 mls/hr IV .Q0M ROBERT; Protocol Midazolam HCl (Versed) 100 mg in 100 mls @ 0 mls/hr IV .Q0M ROBERT; Protocol Last Admin: 08/23/24 08:45 Dose: 4 mg/hr, 4 mls/hr Albumin Human (Albumin) 25 g in 100 mls @ 60 mls/hr IV Q8H ROBERT Last Admin: 08/23/24 10:50 Dose: 60 mls/hr Sodium Bicarbonate 150 meq/ (Dextrose) 1,150 mls @ 150 mls/hr IV .Q7H40M ROBERT Last Admin: 08/23/24 10:37 Dose: 150 mls/hr Octreotide Acetate 500 mcg/ (Sodium Chloride) 101 mls @ 10.1 mls/hr IV .Q10H ROBERT Last Admin: 08/23/24 12:11 Dose: 50 mcg/hr, 10.1 mls/hr Meropenem (Meropenem 500 Mg Sdv) 500 mg IVP Q8H ROBERT; Protocol Last Admin: 08/23/24 09:25 Dose: 500 mg Morphine Sulfate (Morphine 4 Mg/Ml Sdv 1 Ml) 2 mg IVP Q4H PRN PRN Reason: SEVERE PAIN Ondansetron HCl (Ondansetron 2 Mg/Ml Sdv 2 Ml) 4 mg IVP Q8H PRN PRN Reason: vomiting, or N/V if npo Pantoprazole Sodium (Pantoprazole 40 Mg Sdv) 40 mg IVP Q12H ROBERT Last Admin: 08/23/24 12:10 Dose: 40 mg Sodium Chloride (Sodium Chloride 0.9% 1,000 Ml Bag) 1,000 - 7,000 ml CRRT PRN PRN PRN Reason: For priming CRRT Machine Sodium Chloride (Sodium Chloride 0.9% 100 Ml Bag) 50 ml IV PRN PRN PRN Reason: Blood transfusion prime and flush Stop: 08/24/24 11:23 Vancomycin HCl (Vancomycin 1,000 Mg Sdv) 0 mg IV PRN PRN PRN Reason: protocol Discontinued Medications Atropine Sulfate (Atropine 0.1 Mg/Ml Syr 10 Ml) 0.5 mg IVP ONCE ONE Stop: 08/22/24 22:02 Last Admin: 08/22/24 21:45 Dose: 0.5 mg Desmopressin Acetate (Desmopressin 4 Mcg/Ml Inj) 0.2 mcg SUBCUT ONCE ONE Stop: 08/23/24 07:55 Last Admin: 08/23/24 09:25 Dose: 0.2 mcg Etomidate (Etomidate 2 Mg/Ml Inj Sdv 10 Ml) 30 mg IVP NOW ONE Stop: 08/23/24 08:08 Last Admin: 08/23/24 10:36 Dose: 30 mg Furosemide (Furosemide 10 Mg/Ml Sdv 10ml) 80 mg IVP NOW ONE Stop: 08/22/24 18:18 Last Admin: 08/22/24 18:54 Dose: Not Given Heparin Sodium (Porcine) (Heparin 5,000 Unit/Ml Inj 1 Ml) 5,000 unit SUBCUT Q12H [facility] Last Admin: 08/23/24 10:50 Dose: 5,000 unit Heparin Sodium (Porcine) (Heparin, Porcine 1,000 Unit/Ml Inj 10 Ml) 10,000 unit INTRACATH ONCE ONE Stop: 08/23/24 06:31 Heparin Sodium (Porcine) (Heparin, Porcine 1,000 Unit/Ml Inj 10 Ml) 1,000 unit IV ONCE ONE Stop: 08/23/24 06:31 Sodium Chloride (Sodium Chloride 0.9%) 500 mls @ 500 mls/hr IV ONCE ONE Stop: 08/22/24 19:51 Last Infusion: 08/22/24 20:09 Dose: Infused Sodium Chloride (Sodium Chloride 0.9%) 1,000 mls @ 999 mls/hr IV .Q1H1M ONE Stop: 08/22/24 20:35 Last Infusion: 08/22/24 21:00 Dose: Infused Lactated Ringer's (Lactated Ringers) 1,000 mls @ 999 mls/hr IV .Q1H1M ONE Stop: 08/22/24 21:23 Last Infusion: 08/22/24 20:50 Dose: 0 mls/hr Norepinephrine Bitartrate (Levophed) Confirm Administered Dose 4 mg in 250 mls @ as directed .ROUTE .STK-MED ONE Stop: 08/22/24 20:44 Sodium Bicarbonate 150 meq/ (Dextrose) 1,150 mls @ 200 mls/hr IV .Q5H45M ROBERT Stop: 08/23/24 04:05 Last Infusion: 08/23/24 03:53 Dose: Infused Dextrose (D5w) Confirm Administered Dose 1,000 mls @ as directed .ROUTE .STK-MED ONE Stop: 08/22/24 21:15 Insulin Human Regular (Myxredlin 100 Unit/100 Ml Bag) 100 unit in 100 mls @ 0 mls/hr IV PROTOCOL ROBERT; Protocol Insulin Human Regular (Myxredlin 100 Unit/100 Ml Bag) 100 unit in 100 mls @ 0 mls/hr IV PROTOCOL ROBERT; Protocol Insulin Human Regular (Myxredlin 100 Unit/100 Ml Bag) 100 unit in 100 mls @ 0 mls/hr IV PROTOCOL ROBERT; Protocol Sodium Chloride (Sodium Chloride 0.9%) 1,000 mls @ 999 mls/hr IV .Q1H1M ONE Stop: 08/22/24 22:50 Last Infusion: 08/22/24 22:30 Dose: Infused Sodium Chloride (Sodium Chloride 0.9%) 500 mls @ 999 mls/hr IV .Q31M ONE Stop: 08/22/24 22:20 Last Admin: 08/22/24 23:35 Dose: Not Given Sodium Chloride (Sodium Chloride 0.9%) 1,000 mls @ 150 mls/hr IV .Q6H40M PRN PRN Reason: blood glucose greater than 250 mg/dL Dextrose/Sodium Chloride (Dextrose 5%-Sod Chloride 0.9%) 1,000 mls @ 500 mls/hr IV .Q2H ROBERT Stop: 08/23/24 03:29 Last Infusion: 08/23/24 05:55 Dose: Infused Clindamycin HCl/Dextrose (Cleocin) 900 mg in 50 mls @ 100 mls/hr IV Q8H ROBERT; Protocol Last Infusion: 08/23/24 03:45 Dose: Infused Dextrose (D5w) 1,000 mls @ 100 mls/hr IV .Q10H [facility] Last Admin: 08/23/24 04:31 Dose: Not Given Sodium Bicarbonate 150 meq/ (Dextrose) 1,150 mls @ 200 mls/hr IV .Q5H45M ROBERT Stop: 08/23/24 09:29 Last Admin: 08/23/24 04:30 Dose: 200 mls/hr Dextrose (D5w) Confirm Administered Dose 1,000 mls @ as directed .ROUTE .STK-MED ONE Stop: 08/23/24 03:37 Dextrose (D5w) 1,000 mls @ 125 mls/hr IV .Q8H [facility] Etomidate (Amidate) Confirm Administered Dose 20 mls @ as directed .ROUTE .STK-MED ONE Stop: 08/23/24 08:09 Phytonadione 10 mg/ Sodium (Chloride) 51 mls @ 153 mls/hr IV ONCE ONE Stop: 08/23/24 11:46 Last Admin: 08/23/24 12:28 Dose: 153 mls/hr Factor Xa(Recombinant) Inactiv -zhzo 400 mg/ N/A/ IV Miscellaneous Supplies 40 mls @ 180 mls/hr IV .Q14M ONE Stop: 08/23/24 12:36 Factor Xa(Recombinant) Inactiv -zhzo 480 mg/ N/A/ IV Miscellaneous Supplies 48 mls @ 24 mls/hr IV .Q2H ONE Stop: 08/23/24 14:22 Prothrombin Complex Concent ( (Human) 2,000 unit/ N/A) 0 mls @ 0 mls/hr IV ONCE ONE Stop: 08/23/24 12:42 Last Admin: 08/23/24 13:21 Dose: 22 mls/hr Octreotide Acetate (Octreotide 100 Mcg/Ml Sdv) 50 mcg IVP ONCE ONE Stop: 08/23/24 11:26 Last Admin: 08/23/24 12:07 Dose: 50 mcg Pantoprazole Sodium (Pantoprazole 40 Mg Sdv) 40 mg IVP Q24H ROBERT Last Admin: 08/23/24 00:22 Dose: 40 mg Sodium Bicarbonate (Sodium Bicarbonate 8.4% 1 Meq/Ml 50ml Syr) 50 meq IVP ONCE ONE Stop: 08/22/24 20:09 Last Admin: 08/22/24 19:57 Dose: 50 meq Sodium Bicarbonate (Sodium Bicarbonate 8.4% 1 Meq/Ml 50ml Syr) 50 meq IVP ONCE ONE Stop: 08/22/24 22:02 Last Admin: 08/22/24 22:42 Dose: 50 meq Sodium Bicarbonate (Sodium Bicarbonate 4.2% 0.5 Meq/Ml 10ml Pediatric Syr) 50 meq IV ONCE ONE Stop: 08/23/24 03:18 Last Admin: 08/23/24 04:06 Dose: Not Given Sodium Bicarbonate (Sodium Bicarbonate 8.4% 1 Meq/Ml 50ml Syr) Confirm Administered Dose 50 meq .ROUTE .STK-MED ONE Stop: 08/23/24 03:26 Last Admin: 08/23/24 04:30 Dose: Not Given Sodium Bicarbonate (Sodium Bicarbonate 8.4% 1 Meq/Ml 50ml Syr) 50 meq IVP ONCE ONE Stop: 08/23/24 03:28 Last Admin: 08/23/24 03:38 Dose: 50 meq Sodium Bicarbonate (Sodium Bicarbonate 1 Meq/Ml Sdv 50ml) Confirm Administered Dose 150 meq .ROUTE .STK-MED ONE Stop: 08/23/24 03:39 Sodium Bicarbonate (Sodium Bicarbonate 8.4% 1 Meq/Ml 50ml Syr) Confirm Administered Dose 50 meq .ROUTE .STK-MED ONE Stop: 08/23/24 03:59 Sodium Bicarbonate (Sodium Bicarbonate 8.4% 1 Meq/Ml 50ml Syr) 50 meq IVP ONCE ONE Stop: 08/23/24 04:03 Last Admin: 08/23/24 04:00 Dose: 50 meq Vecuronium Lynco (Vecuronium 10 Mg Sdv) 18 mg IVP ONCE ONE Stop: 08/23/24 08:08 Last Admin: 08/23/24 08:08 Dose: 18 mg Vecuronium Lynco (Vecuronium 10 Mg Sdv) Confirm Administered Dose 20 mg .ROUTE .STK-MED ONE Stop: 08/23/24 08:08 Allergies ceftriaxone (From Rocephin) Allergy (Verified 07/27/24 14:11) Unknown Home Medications acetaminophen 500 mg tablet 1,000 - 1,500 mg PO Q6H PRN Pain 07/02/23 [History Confirmed 08/23/24] empagliflozin 25 mg tablet (Jardiance) 25 mg PO DAILY 09/11/23 [History Confirmed 08/23/24] gabapentin 300 mg capsule 300 mg PO BID 09/11/23 [History Confirmed 08/23/24] metoprolol succinate 25 mg tablet,extended release 24 hr 25 mg PO DAILY #90 tabs 10/31/23 [Rx Confirmed 08/23/24] rivaroxaban 20 mg tablet (Xarelto) 20 mg PO DAILY #90 tabs 10/31/23 [Rx Confirmed 08/23/24] clonidine HCl 0.1 mg tablet 0.1 mg PO BID #60 tabs 12/04/23 [Rx Confirmed 08/23/24] amiodarone 200 mg tablet (Pacerone) 200 mg PO DAILY #60 tabs 01/19/24 [Rx Confirmed 08/23/24] spironolactone 25 mg tablet 25 mg PO DAILY #30 tabs 01/19/24 [Rx Confirmed 08/23/24] metformin 500 mg tablet,extended release 24 hr 1,000 mg PO BID 01/24/24 [History Confirmed 08/23/24] furosemide 40 mg tablet See Rx Instructions .Route .COMPLEX 03/09/24 [History Confirmed 08/23/24] potassium chloride 20 mEq tablet,extended release 20 meq PO DAILY 03/09/24 [History Confirmed 08/23/24] cholecalciferol (vitamin D3) 1,250 mcg (50,000 unit) capsule 50,000 unit PO .weekly #14 caps 06/16/24 [Rx Confirmed 08/23/24] magnesium oxide 400 mg (241.3 mg magnesium) tablet 400 mg PO BID 07/27/24 [History Confirmed 08/23/24] Discharge Plan Discharge Patient Disposition: Home Condition: Stable Prescriptions: No Action metoprolol succinate 25 mg tablet extended release 24 hr 25 mg PO DAILY Qty: 90 4RF Xarelto 20 mg tablet 20 mg PO DAILY Qty: 90 4RF Rx Instructions: must administer with evening meal cholecalciferol (vitamin D3) 1,250 mcg (50,000 unit) capsule 50,000 unit PO .weekly Qty: 14 4RF Rx Instructions: on Saturday magnesium oxide 400 mg (241.3 mg magnesium) tablet 400 mg PO BID Jardiance 25 mg tablet 25 mg PO DAILY gabapentin 300 mg capsule 300 mg PO BID metformin 500 mg tablet extended release 24 hr 1,000 mg PO BID potassium chloride 20 mEq tablet extended release 20 meq PO DAILY furosemide 40 mg tablet See Rx Instructions .ROUTE .COMPLEX Rx Instructions: Take 1 tablet by mouth once daily with an extra tablet with weight gain of 3 to 5 lbs. acetaminophen 500 mg Tablet 1,000 - 1,500 mg PO Q6H PRN (Reason: Pain) spironolactone 25 mg Tablet 25 mg PO DAILY Qty: 30 0RF amiodarone [Pacerone] 200 mg Tablet 200 mg PO DAILY Qty: 60 0RF clonidine HCl 0.1 mg Tablet 0.1 mg PO BID Qty: 60 0RF Referrals: Nikole Solano APN [Primary Care Provider, [facility]] Patient Instructions: Opioid Safety Transfer Attestations Time Spent in Transfer Care: critical care time Critical Care Time (min): 45 Status at Transfer: Cognitive status at transfer: cognitively intact; Behavioral status at transfer: cooperative; Quality Metrics Clinical Quality Measures [ No reported AMI, CVA or VTE this stay] Coding Level of Care Code Acute Code for Chg Fwd Diagnoses Hyponatremia E87.1 Acute encephalopathy G93.40 Esophageal bleed, non-variceal K22.89 Upper GI bleed K92.2 Acute hypoxic respiratory failure J96.01 Acute cholangitis K83.09 High anion gap metabolic acidosis E87.29 Lactic acidosis E87.20 Acute kidney failure N17.9 Transaminitis R74.01 Acute anemia D64.9 Hyperbilirubinemia E80.6 Encounter for continuous renal replacement therapy (CRRT) for acute renal failure N17.9 Heart block I45.9 Liver cirrhosis K74.60 Septic shock A41.9; R65.21 DKA (diabetic ketoacidosis) E11.10 Alcoholism F10.20
--- NOTE | 2024-08-23 15:28 | PHA.VACGOAL ---
Vancomycin Goal - Goal Vancomycin Goal:: 15-20 mg/L - Therapy Day of therpy:: Day []of [] . Actual body weight (kg): 389 lb 6.4 oz - Data Labs: WBC 18.20 10^3/uL (3.29-11.43) H 08/23/24 11:11 RBC 2.72 10^6/uL (3.85-5.65) L 08/23/24 11:11 Hgb 7.90 g/dL (11.27-16.99) L 08/23/24 11:11 Hct 29.0 % (37-53) L 08/23/24 11:11 MCV 106.6 fl (82-101) H 08/23/24 11:11 MCH 29.0 pg (27-33) 08/23/24 11:11 MCHC 27.2 g/dL (30-55) L 08/23/24 11:11 RDW 22.6 % (12.1-15.1) H 08/23/24 11:11 Sodium 114 mmol/L (136-145) L* 08/23/24 11:31 Potassium 4.8 mmol/L (3.5-5.1) 08/23/24 11:31 Chloride 68 mmol/L (98-107) L 08/23/24 11:31 Carbon Dioxide 6 mmol/L (22-29) L* 08/23/24 11:31 Anion Gap 44.8 (5-19) H 08/23/24 11:31 BUN 25 mg/dL (6-20) H 08/23/24 11:31 Creatinine 5.9 mg/dL (0.7-1.2) H* 08/23/24 11:31 GFR Calculation 11.0 mL/min (90-130) L 08/23/24 11:31
--- NOTE | 2024-08-23 15:50 | PC.NURSE ---
report given to [facility] team, eta 2 hrs
[2024-08-23] MEDS: vancomycin 2,000 MG/400 ML PIGGYBACK 200 MG IV (16:07)
[2024-08-23] MEDS: calcium chloride 10% Syr 10 mL 1 GM IVP (16:07)
[2024-08-23 17:40] LABS: Glucose Point of Care 108 mg/dL (70-110)
--- NOTE | 2024-08-23 17:44 | PC.NURSE ---
Fentanyl drip pulled and spiked this morning with intubation but never started. wasted 100 mls with PAUL gonzales rn
--- NOTE | 2024-08-23 19:04 | PC.NURSE ---
correction on facility, patient going to [facility] in [place]. out of facility with [facility]
--- NOTE | 2024-08-23 19:06 | PC.NURSE ---
patients mother notified of transfer
[2024-08-23 23:19] LABS: Glucose Point of Care 99 mg/dL (70-110)
[2024-08-23 23:19] LABS: Glucose Point of Care 96 mg/dL (70-110)
== END 2024-08-23 19:07 | disposition short-term general hospital (02) | DRG 871 ==
LOC: ER 20:25 → ER IP 21:26 → ICU 22:27
PROVIDERS: Hospitalist; Admitting Provider Internal Medicine; Emergency Provider Student in an Organized Health Care Education/Training Program; PCP Nurse Practitioner Family; Visit Provider Family Medicine
DX: A41.9 Sepsis, unspecified organism (principal); E11.10 Type 2 diabetes mellitus with ketoacidosis without coma; J96.01 Acute respiratory failure with hypoxia; N17.0 Acute kidney failure with tubular necrosis; R65.21 Severe sepsis with septic shock; K85.90 Acute pancreatitis without necrosis or infection, unspecified; K72.00 Acute and subacute hepatic failure without coma; R57.8 Other shock; E87.1 Hypo-osmolality and hyponatremia; G93.40 Encephalopathy, unspecified; K83.09 Other cholangitis; I44.2 Atrioventricular block, complete; I48.92 Unspecified atrial flutter; I50.30 Unspecified diastolic (congestive) heart failure; N28.0 Ischemia and infarction of kidney; K22.89 Other specified disease of esophagus; I44.7 Left bundle-branch block, unspecified; K74.60 Unspecified cirrhosis of liver; F10.20 Alcohol dependence, uncomplicated; I11.0 Hypertensive heart disease with heart failure; I27.20 Pulmonary hypertension, unspecified; R68.0 Hypothermia, not associated with low environmental temperature; D64.9 Anemia, unspecified; E87.5 Hyperkalemia; I95.9 Hypotension, unspecified; Z79.01 Long term (current) use of anticoagulants; Z79.84 Long term (current) use of oral hypoglycemic drugs; Z86.73 Personal history of transient ischemic attack (TIA), and cerebral infarction without residual deficits; Z87.891 Personal history of nicotine dependence
CPT/HCPCS: 12345; 36415; 36416; 36430; 36600; 71045; 71260; 74177; 76700; 80048; 80051; 80053; 80061; 80069; 80307; 82248; 82330; 82550; 82803; 82805; 82962; 82977; 83036; 83605; 83690; 83735; 83880; 84100; 84145; 84443; 84484; 85025; 85610; 85730; 86140; 86706; 86850; 86900; 86920; 86927; 87040; 87070; 87077; 87186; 87205; 87340; 93005; 93306; 94002; 94660; 94799; 96365; 96366; 96367; 96372; 96374; 96375; 96376; 99291; 99292; J0461; J1265; J1644; J1720; J1938; J2185; J2250; J2354; J2470; J2597; J2598; J3372; J3430; J3490; J7030; J7040; J7042; J7070; J7120; J7168; J9999; P9016; P9017; P9046